=== PATIENT | male | born 1955 | race Hispanic/Latino ===

== ENCOUNTER 2017-10-30 02:15 | Inpatient (IN) | payer BC, SELFPAY ==
[2017-10-30] MEDS ORDERED: ONDANSETRON 4 MG/2 ML VIAL ONE (02:58)
[2017-10-30] MEDS ORDERED: NA CHLORIDE 0.9% 1,000 ML ONE (02:58)
[2017-10-30 03:07] LABS: Absolute Lymphocytes (CBC) 0.4 K/uL (0.7-4.9); Absolute Monocytes 0.3 K/uL (0.1-1.3); Absolute Neutrophil 3.9 K/uL (1.8-8.0); Basophils % 0.3 % (0-1.3); Eosinophils % 0.1 % (0-4.4); Hematocrit 40.3 % (39.6-49.0); Lymphocytes % 9.3 % (15.3-44.8); MCH 28.7 pg (27.0-35.0); MCV 84.7 fL (80-100); MPV 10.2 fL (7.6-11.3); Monocytes % 7.1 % (3.3-12.3); RBC Red Blood Cell Count 4.76 M/uL (4.33-5.43)
[2017-10-30 03:45] LABS: ALT/SGPT 79 U/L (12-78); AST/SGOT 170 U/L (15-37); Albumin 2.8 g/dL (3.4-5.0); Alkaline Phosphatase 59 U/L (45-117); BUN Blood Urea Nitrogen 16 mg/dL (7-18); Bicarbonate 27 mmol/L (21-32); Bilirubin Direct 0.8 mg/dL (0-0.2); Bilirubin Total 1.4 mg/dL (0.2-1.0); Glucose Level 113 mg/dL (74-106); Lipase 603 U/L (73-393); Potassium 3.9 mmol/L (3.5-5.1); Protein, Total 7.6 g/dL (6.4-8.2); Sodium Level 126 mmol/L (136-145)
--- NOTE | 2017-10-30 06:32 | ER ---
Nurse's Notes [facility] Name: Gavin Talamantes Age: 62 yrs Sex: Male : 1955 Arrival Date: 10/30/2017 Time: 02:17 Bed 15 Private MD: Diagnosis: Vomiting;Ileocolitis;Mesenteric and retroperitoneal lymphadenopathy Presentation: 10/30 02:33 Presenting complaint: Patient states: "Unable to eat for the past 6 days. Have been ao vomiting." patient also complains of SOB due to not been able to eat and shaking, shivering and sweating x2 in the last few days. Patient also complains of abdominal pain. Transition of care: patient was not received from another setting of care. Onset of symptoms was October 24, 2017. Risk Assessment: Do you want to hurt yourself or someone else? Patient reports no desire to harm self or others. Initial Sepsis Screen: Does the patient meet any 2 criteria? No. Patient's initial sepsis screen is negative. Does the patient have a suspected source of infection? No. Patient's initial sepsis screen is negative. Care prior to arrival: None. 02:33 Method Of Arrival: Ambulatory ao 02:33 Acuity: IKE 3 ao Triage Assessment: 02:42 General: Appears in no apparent distress. comfortable, Behavior is calm, cooperative, ao appropriate for age. Pain: Complains of pain in abdomen Pain does not radiate. Pain currently is 5 out of 10 on a pain scale. EENT: No signs and/or symptoms were reported regarding the EENT system. Neuro: Level of Consciousness is awake, alert, obeys commands, Oriented to person, place, time, situation, Appropriate for age Moves all extremities. Speech is normal, Facial symmetry appears normal. Cardiovascular: Capillary refill < 3 seconds Patient's skin is warm and dry. Respiratory: Airway is patent Respiratory effort is even, unlabored, Respiratory pattern is regular, symmetrical. GI: Reports. GI: Reports nausea, vomiting, since 6 days ago. : No signs and/or symptoms were reported regarding the genitourinary system. Derm: Skin is intact. Musculoskeletal: Circulation, motion, and sensation intact. Range of motion: intact in all extremities. Historical: - Allergies: 02:41 No Known Allergies; ao - Home Meds: 02:41 lisinopril Oral [Active]; Metformin Oral [Active]; ao - PMHx: 02:41 Diabetes - NIDDM; Hypertension; ao - PSHx: 07:51 left ankle; rb1 - Immunization history:: Adult Immunizations unknown. - Social history:: Smoking status: Patient/guardian denies using tobacco, Patient uses alcohol, on a daily basis. Patient/guardian denies using street drugs, Patient uses alcohol, on a daily basis. claims drinking about a 6 pack/day. - Ebola Screening: : Patient negative for fever greater than or equal to 101.5 degrees Fahrenheit, and additional compatible Ebola Virus Disease symptoms Patient denies exposure to infectious person Patient denies travel to an Ebola-affected area in the 21 days before illness onset. - Family history:: not pertinent. - Hospitalizations: : No recent hospitalization is reported. Screenin:42 Abuse screen: Denies threats or abuse. Denies injuries from another. Nutritional ao screening: No deficits noted. Tuberculosis screening: No symptoms or risk factors identified. Fall Risk None identified. Assessment: 02:44 General: See triage assessment. ao 03:34 Reassessment: Patient appears in no apparent distress at this time. Patient and/or ao family updated on plan of care and expected duration. Pain level reassessed. Patient is alert, oriented x 3, equal unlabored respirations, skin warm/dry/pink. Patient done with contrast. CT notified. 04:15 Reassessment: Patient transported to CT at this time. GI: Abdomen is distended, Reports lp1 nausea, vomiting. 05:30 Reassessment: Patient appears in no apparent distress at this time. Patient is alert, lp1 oriented x 3, equal unlabored respirations, skin warm/dry/pink. patient states feeling full in abdomen, attempted to have BM with no relief. 06:15 Reassessment: Patient appears in no apparent distress at this time. Patient resting, lp1 eyes closed, respirations unlabored. 07:00 General: Appears in no apparent distress. comfortable, Behavior is calm, cooperative. rb1 Pain: Complains of pain in abdomen diffusely Pain currently is 6 out of 10 on a pain scale. Neuro: Level of Consciousness is awake, alert, obeys commands, Oriented to person, place, time, situation. Cardiovascular: Capillary refill < 3 seconds is brisk in bilateral fingers. Respiratory: Airway is patent Respiratory effort is even, unlabored, Respiratory pattern is regular, symmetrical. Derm: scabs noted to the face and left foot. Musculoskeletal: Swelling present in left foot. 07:45 Reassessment: Called report to JOHN Fabian. Information from the [facility] was given. All rb1 questions asked and answered. 07:50 Reassessment: Patient appears in no apparent distress at this time. Patient and/or rb1 family updated on plan of care and expected duration. Pain level reassessed. Patient is alert, oriented x 3, equal unlabored respirations, skin warm/dry/pink. Vital Signs: 02:39 BP 117 / 69; Pulse 92; Resp 16; Temp 99.1(O); Pulse Ox 99% on R/A; Weight 81.65 kg; ao Height 5 ft. 7 in. (170.18 cm); Pain 6/10; 03:34 BP 100 / 69; Pulse 86; Resp 20; Pulse Ox 100% ; Pain 0/10; ao 04:00 BP 117 / 79; Pulse 85; Resp 20; Pulse Ox 100% on R/A; lp1 05:00 BP 120 / 89; Pulse 84; Resp 22; Pulse Ox 100% on R/A; lp1 06:00 BP 116 / 84; Pulse 90; Resp 20; Pulse Ox 99% on R/A; lp1 07:00 BP 107 / 68; Pulse 91; Resp 20; Pulse Ox 100% ; rb1 02:39 Body Mass Index 28.19 (81.65 kg, 170.18 cm) ao ED Course: 02:17 Patient arrived in ED. al2 02:29 Andrew Steiner MD is Attending Physician. rn 02:33 Caden Wahl RN is Primary Nurse. ao 02:39 Triage completed. ao 02:40 Arm band placed on right wrist. Patient placed in an exam room, on a stretcher, on ao oxygen, Patient notified of wait time. 02:44 Patient has correct armband on for positive identification. patient monitor on. Pulse ao ox on. NIBP on. 02:55 Inserted saline lock: 18 gauge in right antecubital area, using aseptic technique. ao ,using aseptic technique. [place] Blood collected. 04:10 Report given to JOHN Bey. ao 04:[address] via wheelchair. kw1 04:36 CT Abd/Pelvis - W/Contrast In Process Unspecified. EDMS 04:36 CT completed. Patient tolerated procedure well. Patient moved back from CT. kw1 06:31 Peter Nelson DO is Hospitalizing Provider. rn 06:47 No provider procedures requiring assistance completed. Patient admitted, IV remains in lp1 place. 07:30 Note: US DONE PORTABLE. hr 07:51 X-ray completed. Portable x-ray completed in exam room. jr1 07:57 Patient admitted, IV remains in place. rb1 Administered Medications: 02:59 Drug: NS 0.9% 1000 ml Route: IV; Rate: 1000 ml; Site: right antecubital; ao 04:00 Follow up: IV Status: Completed infusion; IV Intake: 1000ml lp1 03:00 Drug: Zofran 4 mg Route: IVP; Site: right antecubital; ao 04:00 Follow up: Response: Nausea is decreased lp1 Intake: 04:00 IV: 1000ml; Total: 1000ml. lp1 Outcome: 06:32 Decision to Hospitalize by Provider. rn 06:48 Condition: stable lp1 06:48 Instructed on the need for admit. 07:57 Patient left the ED. rb1 07:57 Admitted to Med/surg accompanied by tech, via wheelchair, room 224, with chart, Report rb1 called to JOHN Fabian 07:57 Condition: stable 07:57 Instructed on the need for admit. Signatures: Dispatcher [employer] EDMS Eva Dooley jr1 Bernarda Joshi Roman, MD MD rn Pena, Laura, RN RN lp1 Tere Nye RN RN rb1 Caden Wahl RN RN ao Peggy Sandoval kw1 Carmen Gautam2 Corrections: (The following items were deleted from the chart) 07:52 02:41 PSHx: None; ao rb1 08:34 08:13 Patient left the ED. rb1 rb1
--- NOTE | 2017-10-30 06:32 | EDPHYS ---
Physician Documentation [facility] Name: Gavin Talamantes Age: 62 yrs Sex: Male : 1955 Arrival Date: 10/30/2017 Time: 02:17 Bed 15 Private MD: ED Physician Andrew Steiner HPI: 10/30 02:47 This 62 yrs old Male presents to ER via Ambulatory with complaints of rn nausea/vomiting/abd pain. 02:47 The patient presents to the emergency department with nausea, vomiting, diarrhea, rn abdominal pain, of the abdomen diffusely. Onset: The symptoms/episode began/occurred 6 day(s) ago. Possible causes: unknown. The symptoms are aggravated by nothing. The symptoms are alleviated by nothing. Severity of symptoms: At their worst the symptoms were moderate in the emergency department the symptoms are unchanged. The patient has not experienced similar symptoms in the past. Reports diffuse abd pain, cramping, constipation, nausea/vomiting, no fever, reports radiates to chest, intermittent, has appetite but can't keep food down. No BM for 5 days.. Historical: - Allergies: 02:41 No Known Allergies; ao - Home Meds: 02:41 lisinopril Oral [Active]; Metformin Oral [Active]; ao - PMHx: 02:41 Diabetes - NIDDM; Hypertension; ao - PSHx: 07:51 left ankle; rb1 - Immunization history:: Adult Immunizations unknown. - Social history:: Smoking status: Patient/guardian denies using tobacco, Patient uses alcohol, on a daily basis. Patient/guardian denies using street drugs, Patient uses alcohol, on a daily basis. claims drinking about a 6 pack/day. - Ebola Screening: : Patient negative for fever greater than or equal to 101.5 degrees Fahrenheit, and additional compatible Ebola Virus Disease symptoms Patient denies exposure to infectious person Patient denies travel to an Ebola-affected area in the 21 days before illness onset. - Family history:: not pertinent. - Hospitalizations: : No recent hospitalization is reported. ROS: 02:47 Constitutional: Negative for fever, chills, and weight loss, Eyes: Negative for injury, rn pain, redness, and discharge, Neck: Negative for injury, pain, and swelling, Cardiovascular: Negative for palpitations, and edema, Respiratory: Negative for shortness of breath, cough, wheezing, and pleuritic chest pain, Abdomen/GI: Negative for diarrhea MS/Extremity: Negative for injury and deformity, Skin: Negative for injury, rash, and discoloration, Neuro: Negative for headache, numbness, tingling, and seizure. Exam: 02:47 Constitutional: This is a well developed, well nourished patient who is awake, alert, rn and in no acute distress. Head/Face: Normocephalic, atraumatic. Eyes: Pupils equal round and reactive to light, extra-ocular motions intact. Lids and lashes normal. Conjunctiva and sclera are non-icteric and not injected. Cornea within normal limits. Periorbital areas with no swelling, redness, or edema. ENT: dry MM Cardiovascular: Regular rate and rhythm with a normal S1 and S2. No gallops, murmurs, or rubs. Normal PMI, no JVD. No pulse deficits. Respiratory: Lungs have equal breath sounds bilaterally, clear to auscultation and percussion. No rales, rhonchi or wheezes noted. No increased work of breathing, no retractions or nasal flaring. Abdomen/GI: soft, + mild tenderness in all 4 quadrants, + periumbilical hernia that is soft and easily reducible. MS/ Extremity: Pulses equal, no cyanosis. Neurovascular intact. Full, normal range of motion. Equal circumference. Neuro: Awake and alert, GCS 15, oriented to person, place, time, and situation. Cranial nerves II-XII grossly intact. Motor strength 5/5 in all extremities. Sensory grossly intact. Vital Signs: 02:39 BP 117 / 69; Pulse 92; Resp 16; Temp 99.1(O); Pulse Ox 99% on R/A; Weight 81.65 kg; ao Height 5 ft. 7 in. (170.18 cm); Pain 6/10; 03:34 BP 100 / 69; Pulse 86; Resp 20; Pulse Ox 100% ; Pain 0/10; ao 04:00 BP 117 / 79; Pulse 85; Resp 20; Pulse Ox 100% on R/A; lp1 05:00 BP 120 / 89; Pulse 84; Resp 22; Pulse Ox 100% on R/A; lp1 06:00 BP 116 / 84; Pulse 90; Resp 20; Pulse Ox 99% on R/A; lp1 07:00 BP 107 / 68; Pulse 91; Resp 20; Pulse Ox 100% ; rb1 02:39 Body Mass Index 28.19 (81.65 kg, 170.18 cm) ao MDM: 02:29 Patient medically screened. rn 06:29 Differential diagnosis: Nonspecific abd pain, gastritis, cholecystitis, pancreatitis, rn viral gastroenteritis, gastroenteritis. Data reviewed: vital signs, nurses notes, lab test result(s), EKG, radiologic studies, CT scan, and as a result, I will admit patient. Counseling: I had a detailed discussion with the patient and/or guardian regarding: the historical points, exam findings, and any diagnostic results supporting the discharge/admit diagnosis, lab results, radiology results, the need for further work-up and treatment in the hospital. Response to treatment: the patient's symptoms have mildly improved after treatment, and as a result, I will admit patient. Admission orders: after a detailed discussion of the patient's condition and case, the admit orders are written by me. 10/30 02:37 Order name: Basic Metabolic Panel; Complete Time: 03:51 10/30 02:37 Order name: CBC with Diff; Complete Time: 03:51 10/30 02:37 Order name: Creatinine for Radiology; Complete Time: 03:51 10/30 02:37 Order name: Hepatic Function; Complete Time: 03:51 10/30 02:37 Order name: Lipase; Complete Time: 03:51 10/30 02:37 Order name: Urine Microscopic Only 10/30 02:37 Order name: Troponin (emerg Dept Use Only); Complete Time: 03:51 10/30 07:06 Order name: NT PRO-BNP [facility] 10/30 07:06 Order name: Urine Drug Screen [facility] 10/30 07:06 Order name: Hemoglobin A1c [facility] 10/30 07:06 Order name: Procalcitonin [facility] 10/30 07:06 Order name: NT PRO-BNP [facility] 10/30 07:06 Order name: T4 Free [facility] 10/30 07:06 Order name: Thyroid Stimulating Hormone [facility] 10/30 07:06 Order name: CBC with Automated Diff [facility] 10/30 07:06 Order name: CBC with Automated Diff [facility] 10/30 07:06 Order name: CBC with Automated Diff [facility] 10/30 07:06 Order name: CBC with Automated Diff [facility] 10/30 07:06 Order name: CBC with Automated Diff [facility] 10/30 07:06 Order name: CBC with Automated Diff ED[facility] 10/30 07:06 Order name: CKMB Creatine Kinase MB ED[facility] 10/30 07:06 Order name: CKMB Creatine Kinase MB EDMS 10/30 07:06 Order name: CKMB Creatine Kinase MB EDMS 10/30 07:06 Order name: Comprehensive Metabolic Panel ED[facility] 10/30 07:06 Order name: Comprehensive Metabolic Panel ED[facility] 10/30 07:06 Order name: Comprehensive Metabolic Panel ED[facility] 10/30 07:06 Order name: Comprehensive Metabolic Panel ED[facility] 10/30 07:06 Order name: Comprehensive Metabolic Panel ED[facility] 10/30 07:06 Order name: Comprehensive Metabolic Panel ED[facility] 10/30 07:06 Order name: Creatine Phosphokinase [facility] 10/30 02:37 Order name: IV Saline Lock; Complete Time: 03:00 rn 10/30 02:37 Order name: Labs collected and sent; Complete Time: 03:00 rn 10/30 02:37 Order name: CT Abd/Pelvis - W/Contrast rn 10/30 02:37 Order name: EKG; Complete Time: 02:39 rn 10/30 02:37 Order name: EKG - Nurse/Tech; Complete Time: 02:59 rn 10/30 07:06 Order name: CONS Physician Consult EDMS 10/30 07:06 Order name: NPO EDMS 10/30 07:06 Order name: Echo with Doppler EDMS 10/30 07:06 Order name: Creatine Phosphokinase EDMS 10/30 07:06 Order name: Creatine Phosphokinase EDMS 10/30 07:06 Order name: Lipid Profile EDMS 10/30 07:06 Order name: Lipid Profile EDMS 10/30 07:06 Order name: Magnesium EDMS 10/30 07:06 Order name: Magnesium EDMS 10/30 07:06 Order name: Magnesium EDMS 10/30 07:06 Order name: Magnesium EDMS 10/30 07:06 Order name: Magnesium EDMS 10/30 07:06 Order name: Magnesium EDMS 10/30 07:06 Order name: Troponin I EDMS 10/30 07:06 Order name: Troponin I EDMS 10/30 07:06 Order name: Troponin I EDMS 10/30 07:06 Order name: Blood Culture ED[facility] 10/30 07:06 Order name: Clostridium difficile DNA [facility] 10/30 07:06 Order name: Urine Culture [facility] 10/30 07:07 Order name: Hepatitis Panel,Acute [facility] 10/30 07:07 Order name: HIV AG/AB SCREEN [facility] 10/30 07:07 Order name: Chest Single View [facility] 10/30 07:07 Order name: Abdomen Exam Complete EDMS Administered Medications: 02:59 Drug: NS 0.9% 1000 ml Route: IV; Rate: 1000 ml; Site: right antecubital; ao 04:00 Follow up: IV Status: Completed infusion; IV Intake: 1000ml lp1 03:00 Drug: Zofran 4 mg Route: IVP; Site: right antecubital; ao 04:00 Follow up: Response: Nausea is decreased lp1 Disposition: 10/30/17 06:32 Hospitalization ordered by Peter Nelson for Inpatient Admission. Preliminary diagnosis are Vomiting, Ileocolitis, Mesenteric and retroperitoneal lymphadenopathy. - Bed requested for Telemetry/MedSurg (Inpatient). - Status is Inpatient Admission. rb1 - Condition is Stable. - Problem is an ongoing problem. - Symptoms have improved. UTI on Admission? No Signatures: Dispatcher [employer] [facility] Patricia Dhaliwal RN RN Andrew Steiner MD MD rn Pena, Laura, RN RN lp1 Tere Nye, RN RN rb1 Caden Wahl RN RN Malena Smallwood Corrections: (The following items were deleted from the chart) 06:36 06:32 Hospitalization Ordered by Peter Nelson DO for Inpatient Admission. Preliminary diagnosis is Vomiting; Ileocolitis; Mesenteric and retroperitoneal lymphadenopathy. Bed requested for Telemetry/MedSurg (Inpatient). Status is Inpatient Admission. Condition is Stable. Problem is an ongoing problem. Symptoms have improved. UTI on Admission? No. rn 06:53 06:36 10/30/2017 06:32 Hospitalization Ordered by Peter Nelson DO for Inpatient eb Admission. Preliminary diagnosis is Vomiting; Ileocolitis; Mesenteric and retroperitoneal lymphadenopathy. Bed requested for Telemetry/MedSurg (Inpatient). Status is Inpatient Admission. Condition is Stable. Problem is an ongoing problem. Symptoms have improved. UTI on Admission? No. pedro 07:52 02:41 PSHx: None; ao rb1 08:13 06:53 10/30/2017 06:32 Hospitalization Ordered by Peter Nelson DO for Inpatient rb1 Admission. Preliminary diagnosis is Vomiting; Ileocolitis; Mesenteric and retroperitoneal lymphadenopathy. Bed requested for Telemetry/MedSurg (Inpatient). Status is Inpatient Admission. Condition is Stable. Problem is an ongoing problem. Symptoms have improved. UTI on Admission? No. eb
[2017-10-30] MEDS ORDERED: SODIUM CHLORIDE 0.9% 10ML INJ IV PRN (06:55)
[2017-10-30] MEDS ORDERED: ACETAMINOPHEN 500 MG TAB PO PRN (06:55)
[2017-10-30] MEDS ORDERED: ACETAMINOPHEN 650MG/RECT SUPP PR PRN (06:55)
[2017-10-30] MEDS ORDERED: MORPHINE 4 MG/ML SYR IV PRN (06:55)
[2017-10-30] MEDS ORDERED: HYDRALAZINE HCL 20 MG/ML VIAL IV PRN (06:55)
[2017-10-30] MEDS ORDERED: ONDANSETRON 4 MG/2 ML VIAL IV PRN (06:55)
--- NOTE | 2017-10-30 07:12 | P.HP ---
Certification for Inpatient Patient admitted to: Inpatient With expected LOS: >2 Midnights Patient will require the following post-hospital care: None Practitioner: I am a practitioner with admitting privileges, knowledge of patient current condition, hospital course, and medical plan of care. Services: Services provided to patient in accordance with Admission requirements found in Title 42 Section 412.3 of the Code of Federal Regulations Patient History Date of Service: 10/30/17 Primary Care Provider: Dr. Alvarenga Reason for admission: Nausea, vomiting, Abdominal pain History of Present Illness: 62 yo HM presented to the ER with abdominal pain, nausea, vomiting and diarrhea. He reports that this started about 6 days ago. He has diffuse pain that radiates all over his abdomen. His nausea and vomiting is getting worse that it has been hard to keep anything down. No fever or chills is noted. He reports some mild diarrhea. He is a heavy drinker and has DM/HTN. He further reports that he stopped his alcohol about 2 weeks ago. He reports going through some mild withdraw. No agitation or tremors noted. In the ER he was found to have elevated Lipase at 603. Liver function was elevated. AST 170, AST-79. Trop 0.06, Na 126, K-3.9. CT scan was abnormal for multiple issues-abnormal mesenteric/retroperitoneal lymph nodes with enlarged gastrohepatic lymph nodes measuring 4 by 3 by 2 cm. Enlarged portohepatic lymph noded measurinng 3 by 2 by 1.9 cm. Lymphoma versus metastatic disease needs to be considered. Cirrhosis with splenomegaly noted with related portal HTN. Thickened wall to the terminal ileum and right colon. Enlarged prostate is noted. Bilateral inguinal hernia noted. Due to the findings, he was admitted for further treatment. When I saw him in the ER he appeared stable. He did not appear septic and with respiratory distress. He admits to drinking about 12 pack per day but stopped about 2 weeks ago. He is a former smoker. He is taking medication for HTN/DM. Allergies No Known Allergies Allergy (Verified 07/14/15 14:34) Home medications list reviewed: Yes Home Medications: Lisinopril [Prinivil*] 10 mg PO DAILY 02/23/14 Metformin HCl [Glucophage*] 500 mg PO BID 02/23/14 - Past Medical/Surgical History Diabetic: Yes -: DM Type 2 -: HTN -: Alcohol abuse -: Former tobacco use -: Left ankle sx, has plate and pins -: Appendectomy -: Joint Replacement Psychosocial/ Personal History: 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 - Family History Father -: Heart disease - Social History Smoking Status: Former smoker Alcohol use: Yes CD- Drugs: No Caffeine use: Yes Place of Residence: Home Review of Systems General: Weakness Eyes: Unremarkable ENT: Unremarkable Respiratory: As per HPI Cardiovascular: Unremarkable Gastrointestinal: Nausea, Vomiting, Abdominal Pain, Diarrhea, As per HPI Genitourinary: Unremarkable Musculoskeletal: Pedal edema, As per HPI Neurological: Unremarkable Lymphatics: Unremarkable Physical Examination - Physical Exam General: Alert, In no apparent distress, Oriented x3, Cooperative HEENT: Atraumatic, Normocephalic, PERRLA, Other (Dry mucous membranes) Neck: Supple Respiratory: Clear to auscultation bilaterally, Normal air movement Cardiovascular: Normal pulses, Regular rate/rhythm Gastrointestinal: Normal bowel sounds, Soft and benign, Non-distended, No masses , No rebound, No guarding, Tenderness (Pain to the right upper quadrant and epigastric region) Musculoskeletal: No erythema, No tenderness, No warmth Integumentary: No erythema, No warmth, No cyanosis, Tenderness/swelling ( Nonpitting edema to the lower extremities, mild) Neurological: Normal speech, Normal strength at 5/5 x4 extr, Normal tone, Normal affect - Studies Laboratory Data (last 24 hrs) 10/30/17 02:52: Creatinine 0.70 10/30/17 02:52: WBC 4.7, Hgb 13.7, Hct 40.3, Plt Count 103 L 10/30/17 02:52: Sodium 126 L, Potassium 3.9, BUN 16, Creatinine 0.70, Glucose 113 H, Total Bilirubin 1.4 H, AST 170 H, ALT 79 H, Alkaline Phosphatase 59, Lipase 603 H Assessment and Plan - Problems (Diagnosis) (1) Colitis Current Visit: Yes Status: Acute Plan: Right-sided colitis noted. Will continue IV fluids, antibiotic therapy. GI consulted. Patient with other multiple medical problems including pancreatitis , cirrhosis, splenomegaly, possible CHF. Patient with history of hypertension, diabetes. Will keep the patient NPO. Will advance diet as tolerated. Will monitor diarrhea for C diff. Blood in urine cultures obtained. (2) Pancreatitis Current Visit: Yes Status: Acute Plan: This may be related to alcohol. Patient with heavy alcohol use. His last use of alcohol was about 2 weeks ago. Will continue as above. Will monitor closely. With advance diet once improved. Qualifiers: Chronicity: acute Pancreatitis type: alcohol induced Acute pancreatitis complication: no infection or necrosis Qualified Code(s): K85.20 - Alcohol induced acute pancreatitis without necrosis or infection (3) Cirrhosis Current Visit: Yes Status: Chronic Plan: Cirrhosis likely chronic from fatty liver and alcohol abuse. Will monitor closely. Will check hepatitis panel. GI consulted. Continue as above. Qualifiers: Hepatic cirrhosis type: alcoholic cirrhosis Ascites presence: without ascites Qualified Code(s): K70.30 - Alcoholic cirrhosis of liver without ascites (4) Elevated troponin Current Visit: Yes Status: Acute Plan: Troponin slightly elevated. Will assess for CHF. Cardiology consulted. Await further recommendations. (5) CHF (congestive heart failure) Current Visit: Yes Status: Suspected Plan: Suspect chronic CHF. Patient does not appear overloaded at this time. Patient with a recent nausea and vomiting. Patient likely volume depleted. Will continue IV fluids. Will order echocardiogram. Cardiology consulted. Qualifiers: Heart failure type: systolic Heart failure chronicity: chronic Qualified Code(s): I50.22 - Chronic systolic (congestive) heart failure (6) Abnormal CT scan Current Visit: Yes Status: Acute Plan: Multiple lymphadenopathy noted. Lymphoma versus metastatic disease versus reactive in nature. Will continue as above. Will discuss with GI. Patient will likely need endoscopy evaluation. (7) Splenomegaly Current Visit: Yes Status: Chronic Plan: This is likely chronic related to cirrhosis. Will monitor closely. (8) Nausea & vomiting Current Visit: Yes Status: Acute Plan: Continue with IV fluids. Will provide medication for nausea. Continue as above. Qualifiers: Vomiting type: unspecified Vomiting Intractability: unspecified Qualified Code(s): R11.2 - Nausea with vomiting, unspecified (9) Diarrhea Current Visit: Yes Status: Acute Plan: Will evaluate for C diff colitis. Will monitor closely. Likely related to colitis. Qualifiers: Diarrhea type: unspecified type Qualified Code(s): R19.7 - Diarrhea, unspecified (10) Lymphadenopathy Current Visit: Yes Status: Chronic Plan: Lymphadenopathy likely chronic. Continue as above. Await GI evaluation. (11) Elevated liver enzymes Current Visit: Yes Status: Acute Plan: Likely related to above with multiple etiologies. HIV, Hepatitis panel pending. (12) Diabetes mellitus Onset Date: 02/24/14 Current Visit: No Status: Chronic Plan: Will check A1c. Will provide sliding-scale this time. We will hold metformin. Qualifiers: Diabetes mellitus type: type 2 Diabetes mellitus intermediate card tender insulin use: without intermediate card tender use Diabetes mellitus complication status: with other specified complication Qualified Code(s): E11.69 - Type 2 diabetes mellitus with other specified complication (13) Hypertension Onset Date: 02/24/14 Current Visit: No Status: Chronic Plan: Will hold blood pressure medication at this time. Will provide medication as needed. Qualifiers: Hypertension type: essential hypertension Qualified Code(s): I10 - Essential (primary) hypertension (14) Hyponatremia Onset Date: 07/19/15 Current Visit: No Status: Acute Plan: Patient likely volume depleted. Will continue with IV fluids. (15) Fatty liver Current Visit: Yes Status: Chronic Plan: Patient with fatty liver. Patient likely with cirrhosis related to fatty liver and alcohol. GI consulted. (16) GERD (gastroesophageal reflux disease) Current Visit: Yes Status: Suspected Plan: Will provide PPI. Will monitor closely. Qualifiers: Esophagitis presence: esophagitis presence not specified Qualified Code(s) : K21.9 - Gastro-esophageal reflux disease without esophagitis (17) Alcohol abuse Current Visit: Yes Status: Chronic Plan: Patient with history of alcohol abuse. Will provide folic acid and thiamine. Patient last use of alcohol was about 2 weeks ago. He apparently went through some mild withdrawal. Will monitor closely. Discharge Plan: Home Plan to discharge in: Greater than 2 days - Advance Directives Does patient have a Living Will: No Does patient have a Durable POA for Healthcare: No - Code Status/Comfort Care Code Status Assessed: Yes Time Spent Managing Pts Care (In Minutes): 55
--- NOTE | 2017-10-30 08:15 | RAD REPORT ---
EXAM DESCRIPTION: CTAbdomen Pelvis W Contrast - 10/30/2017 4:36 am CLINICAL HISTORY: Abdominal pain. Abd pain;Nausea / vomiting COMPARISON: No comparisons TECHNIQUE: Biphasic CT imaging of the abdomen and pelvis was performed with 100 ml non-ionic IV cont rast. All CT scans are performed using dose optimization technique as appropriate and may include automated exposure control or mA/KV adjustment according to patient size. FINDINGS: The lung bases are clear. Diffuse fatty liver is seen. The liver appears mildly enlarged with subtle nodular suggesting mild ci rrhosis. 7 mm hypodense lesion is seen in the right lobe of the liver, nonspecific. Mild splenomegaly is present. Contracted gallbladder noted. The adrenal glands, pancreas and kidneys within normal chowdary its. No bowel obstruction, free air, free fluid or abscess. Small fat containing umbilical hernia. Small b ilateral fat containing inguinal hernias. The appendix is not identified as a discrete structure, how ever, no secondary findings of appendicitis are identified. A few mildly prominent inguinal, para-a ortic and central abdominal lymph nodes are seen. Gastrohepatic lymph nodes are also noted to be prom inent measuring, the largest measuring 4.0 x 3.1 cm. Scott hepatis adenopathy is also present measuri ng 2.8 x 2.0 cm. No suspicious bony findings. IMPRESSION: Mild lymphadenopathy seen in the abdomen and pelvis as detailed. Followup PET-CT assessm ent would be useful for further evaluation. Hepatomegaly with prominent fatty liver and mild liver cirrhosis. Moderate splenomegaly.
--- NOTE | 2017-10-30 08:20 | RAD REPORT ---
EXAM DESCRIPTION: RAD - Chest Single View - 10/30/2017 7:53 am CLINICAL HISTORY: Evaluate for CHF Chest pain. COMPARISON: CHEST SINGLE VIEW dated 02/24/2014; CHEST SINGLE VIEW dated 02/23/2014; CHEST SINGLE VIE W dated 07/13/2009; CHEST PA AND LAT 2 VIEW dated 04/16/2008 FINDINGS: Portable technique limits examination quality. The lungs are grossly clear. The heart is normal in size. No displaced fractures. IMPRESSION: No acute intrathoracic process suspected.
[2017-10-30 08:27] VITALS: BMI 29.1
[2017-10-30] MEDS: NA CHLORIDE 0.9% 1,000 ML IV SCH ×2 (08:39→16:16)
[2017-10-30 08:41] LABS: Thyroid Stimulating Hormone 1.65 uIU/mL (0.36-3.74)
--- NOTE | 2017-10-30 08:41 | RAD REPORT ---
EXAM DESCRIPTION: US - Abdomen Exam Complete - 10/30/2017 7:52 am CLINICAL HISTORY: Abdominal pain. pancreatitis, Right colitis, cirrhosis, lymphadenopathy COMPARISON: RP EXAM COMPLETE dated 07/13/2015; Abdomen Pelvis W Contrast dated 10/30/2017 FINDINGS: Diffuse heterogenous appearance to the liver is parenchyma is seen. Liver size is prominen t with diffuse fatty infiltration. No aggressive hepatic lesion is detected. Gallbladder is contracted without evidence of a stone. Thickening of the gallbladder wall is noted to 5 mm, probably related to its contracted state. Common bile duct is normal in caliber measuring 4 m m. Both kidneys are normal in size, shape and echotexture. No hydronephrosis, focal lesion of concern or perinephric fluid. The spleen is enlarged measuring 18 cm. The pancreas and aorta are obscured by bowel gas. The visualized aspects of the IVC are grossly normal. IMPRESSION: Hepatomegaly with diffuse fatty infiltration of the liver suspected. Splenomegaly. Gallbladder contraction.
[2017-10-30] MEDS: METRONIDAZOLE 500mg IVPB 500 MG/100 ML BAG IV SCH ×2 (08:43→16:15)
[2017-10-30] MEDS: CIPROFLOXACIN 400mg IV 400 MG/200 ML BAG IV SCH ×2 (08:43→22:09)
[2017-10-30] MEDS: PANTOPRAZOLE 40 MG INJ IVP SCH (08:44)
[2017-10-30] MEDS: ENOXAPARIN 40 MG/0.4 ML SQ SCH (08:44)
[2017-10-30] MEDS: INSULIN -REGULAR HUMAN 50 UNIT/0.5 ML ML SQ SCH ×2 (11:54→17:45)
[2017-10-30 11:57] LABS: Urine Appearance CLEAR; Urine Blood 2+ (NEG); Urine Color DK YELLOW; Urine Glucose NEGATIVE (NEG); Urine Protein NEGATIVE (NEG); Urine Specific Gravity >=1.030 (1.005-1.030)
[2017-10-30 12:21] LABS: Urine Bilirubin 1+ (NEG); Urine Microscopic Reflex ORDER UMIC
[2017-10-30 12:29] LABS: Barbiturates NEGATIVE (NEGATIVE); Benzodiazepines NEGATIVE (NEGATIVE); Cocaine NEGATIVE (NEGATIVE); METHAMPHETAM NEGATIVE (NEGATIVE); Methadone NEGATIVE (NEGATIVE); Opiates NEGATIVE (NEGATIVE); Phencyclidine NEGATIVE (NEGATIVE); THC Cannibis NEGATIVE (NEGATIVE)
[2017-10-30 12:41] LABS: Urine Bacteria <20 /HPF (NONE SEEN)
[2017-10-30 12:42] LABS: Urine Culture Reflex Order NOT NEEDED
--- NOTE | 2017-10-30 15:42 | EKG ---
Test Date: 2017-10-30 Test Time: 02:50:56 Director Advertising: JACLYN MEASUREMENT RESULTS: Intervals: Rate: 87 IN: 166 QRSD: 104 QT: 344 QTc: 413 [place]: P: 40 IN: 166 QRS: 96 T: 13 INTERPRETIVE STATEMENTS: Normal sinus rhythm Rightward axis Borderline ECG Compared to ECG 02/23/2014 16:30:07 Right-axis deviation now present T-wave abnormality no longer present Possible ischemia no longer present Electronically Signed On 10-30-17 15:40:36 CDT by Kp Mitchell
[2017-10-30] MEDS ORDERED: GLUCAGON 1 MG/VIAL IM PRN (15:58)
[2017-10-30] MEDS ORDERED: D50W 25 GM/50 ML SYRINGE IV PRN (15:58)
--- NOTE | 2017-10-30 16:01 | ECHO ---
HEIGHT: 5 ft 7 in WEIGHT: 186 lb 2 oz DATE OF STUDY: 10/30/[address]: Peter Nelson DO 2-DIMENSIONAL: YES M.MODE: YES DOPPLER: YES COLOR FLOW: YES TDS: NO PORTABLE: NO DEFINITY: NO BUBBLE STUDY: NO DIAGNOSIS: EVALUATE FOR CONGESTIVE HEART FAILURE CARDIAC HISTORY: CATHERIZATION: NO SURGERY: NO PROSTHETIC VALVE: NO PACEMAKER: NO MEASUREMENTS (cm) DIASTOLIC (NORMALS) SYSTOLIC (NORMALS) IVSd 1.3 (0.6-1.2) LA Diam 3.9 (1.9-4.0) LVEF 52% LVIDd 5.2 (3.5-5.7) LVIDs 3.8 (2.0-3.5) %FS 27% LVPWd 1.3 (0.6-1.2) Ao Diam 3.4 (2.0-3.7) 2 DIMENSIONAL ASSESSMENT: RIGHT ATRIUM: NORMAL LEFT ATRIUM: NORMAL RIGHT VENTRICLE: NORMAL LEFT VENTRICLE: LEFT VENTRICULAR HYPERTROPHY TRICUSPID VALVE: NORMAL MITRAL VALVE: NORMAL PULMONIC VALVE: NORMAL AORTIC VALVE: SCLEROSIS PERICARDIAL EFFUSION: NONE AORTIC ROOT: NORMAL LEFT VENTRICULAR WALL MOTION: NORMAL DOPPLER/COLOR FLOW: MILD TRICUPSID REGURGITATION. COMMENTS: MILD TRICUSPID REGURGITATION. NORMAL RIGHT VENTRICULAR SYSTOLIC PRESSURE. MILD CONCENTRIC LEFT VENTRICULAR HYPERTROPHY. NORMAL LEFT VENTRICULAR SIZE AND FUNCTION. NO THROMBUS. AORTIC SCLEROSIS. TECHNOLOGIST: Rashard RODRIGUEZ
[2017-10-30] MEDS ORDERED: MORPHINE 2 MG/ML SYR IV PRN (16:05)
--- NOTE | 2017-10-30 18:21 | CON ---
Admitted to Dr. Nelson service on 10/30/2017. Reason For Consultation: Elevated troponin and shortness of breath. History Of Present Illness: Mr. Talamantes is a 62-year-old male with history of diabete s and hypertension. No previous cardiac history. Takes lisinopril and metformin. He came in with n ausea, vomiting, abdominal pain. Has a history of alcohol abuse. Was found to have lymphadenopathy in the abdomen on CT scan along with pancreatitis and colitis and hepatomegaly as well as splenomegal y. The troponin was 0.06, AST 170, ALT was 79 with a lipase of 579. CT findings also suggestive of cirrhosis. Echocardiogram that was done before I saw the patient showed a normal ejection fraction w ithout any wall motion abnormalities and no effusion. Allergies: NONE. Review of Systems: Negative. Social History: Positive for alcohol. Physical Examination: Vital Signs: Stable. Afebrile. HEENT: Negative. Neck: Supple without any bruit, lymphadenopathy, JVD, or thyromegaly. Chest: Revealed some rales at both bases. Abdomen: Obese. Ascites. Positive bowel sounds. Cardiac: Regular rhythm and rate without any murmurs, gallops, or rubs. Extremities: Revealed 1+ edema. Diagnostic Data: As stated earlier. His EKG was unremarkable. Chest x-ray was negative. Impression And Plan: 1.Elevated troponin, probably secondary to the combination of pancreatitis and colitis as well as ci rrhosis. He has hepatic splenomegaly, lymphadenopathy. He needs to have an extensive GI workup. Hi s echocardiogram is normal without any wall motion abnormalities and I do not recommend any further c ardiac workup on him at this point. 2.Diabetes. 3.Hypertension that is fairly well controlled for now. I will be available for questions if the nee d arise. NB/MODL Voice ID: [id number] Report ID: [id number]
[2017-10-31] MEDS: METRONIDAZOLE 500mg IVPB 500 MG/100 ML BAG IV SCH ×3 (00:23→16:27)
[2017-10-31 00:38] LABS: CKMB Creatine Kinase MB 12.1 ng/mL (0.3-3.6)
[2017-10-31 05:29] LABS: Absolute Lymphocytes (CBC) 0.4 K/uL (0.7-4.9); Absolute Monocytes 0.3 K/uL (0.1-1.3); Absolute Neutrophil 2.7 K/uL (1.8-8.0); Basophils % 0.3 % (0-1.3); Eosinophils % 0.3 % (0-4.4); Hematocrit 36.7 % (39.6-49.0); Lymphocytes % 10.6 % (15.3-44.8); MCH 28.8 pg (27.0-35.0); MCV 85.4 fL (80-100); MPV 9.8 fL (7.6-11.3); Monocytes % 10.1 % (3.3-12.3)
[2017-10-31] MEDS: NA CHLORIDE 0.9% 1,000 ML IV SCH ×3 (05:46→23:37)
[2017-10-31 05:50] LABS: ALT/SGPT 71 U/L (12-78); AST/SGOT 144 U/L (15-37); Albumin 2.5 g/dL (3.4-5.0); Alkaline Phosphatase 53 U/L (45-117); Amylase Level 200 U/L (25-115); BUN Blood Urea Nitrogen 13 mg/dL (7-18); Bicarbonate 24 mmol/L (21-32); Bilirubin Total 1.1 mg/dL (0.2-1.0); Glucose Level 96 mg/dL (74-106); HDL Cholesterol 9 mg/dL (40-60); LDL Cholesterol, Calculated 20 (<130); Magnesium 1.5 mg/dL (1.8-2.4); Potassium 3.9 mmol/L (3.5-5.1); Protein, Total 6.9 g/dL (6.4-8.2); Sodium Level 126 mmol/L (136-145)
[2017-10-31] MEDS ORDERED: Magnesium Sulfate 2gm IVPB 2 G/50 ML BAG IV ONE (05:58)
[2017-10-31] MEDS: INSULIN -REGULAR HUMAN 50 UNIT/0.5 ML ML SQ SCH ×5 (06:00→23:37)
[2017-10-31] MEDS ORDERED: POTASSIUM 25 MEQ EFFERV TAB PO ONE (06:04)
--- NOTE | 2017-10-31 08:56 | P.PN ---
Subjective Date of Service: 10/31/17 Primary Care Provider: Dr. Alvarenga Chief Complaint: Nausea, vomiting, Abdominal pain Subjective: Improving (Patient feels better. He tolerated clear liquid diet last night. Patient wants something more substantial today. No significant abdominal pain noted.) Physical Examination - Vital Signs Temperature: 98.3 F Blood Pressure: 124/75 Pulse: 92 Respirations: 20 Pulse Ox (%): 96 - Physical Exam General: Alert, In no apparent distress, Oriented x3, Cooperative HEENT: Atraumatic Neck: Supple Respiratory: Clear to auscultation bilaterally, Normal air movement Cardiovascular: Normal pulses, Regular rate/rhythm Gastrointestinal: Normal bowel sounds, Soft and benign, Non-distended, No tenderness, No masses, No rebound, No guarding Musculoskeletal: No erythema, No tenderness, No warmth Integumentary: Tenderness/swelling (No significant edema to the lower extremities. Mild nonpitting edema to the left ankle region) Neurological: Normal speech, Normal strength at 5/5 x4 extr, Normal tone, Normal affect - Studies Medications List Reviewed: Yes Assessment & Plan - Problems (Diagnosis) (1) Colitis Current Visit: Yes Status: Acute Plan: Right-sided colitis noted. Will continue with IV fluids and antibiotic therapy. Case discussed with GI yesterday. Will slowly advance diet. Patient desires GI soft today. Encourage ambulation. Will continue monitor closely. C diff is still pending. (2) Pancreatitis Current Visit: Yes Status: Acute Plan: Likely related to alcohol use. Patient with a history of heavy alcohol use. Patient plans to quit. His last use of alcohol was 2 weeks ago. Will continue to advance diet as tolerated. Continue IV fluids. Qualifiers: Qualified Code(s): K85.20 - Alcohol induced acute pancreatitis without necrosis or infection (3) Cirrhosis Current Visit: Yes Status: Chronic Plan: Cirrhosis likely chronic from fatty liver and alcohol abuse. Case discussed with GI. No intervention needed at this time. Patient will need to see hepatology as an outpatient to further address. Qualifiers: Qualified Code(s): K70.30 - Alcoholic cirrhosis of liver without ascites (4) Elevated troponin Current Visit: Yes Status: Acute Plan: Troponin slightly elevated. Echocardiogram reviewed. Cardiology recommends no intervention at this time. Elevation likely related to GI related stress. (5) CHF (congestive heart failure) Current Visit: Yes Status: Suspected Plan: Will discuss with cardiology. Patient may have underlying diastolic dysfunction. Ejection fraction 52%. Patient will need diuretic therapy once he is better hydrated. Qualifiers: Qualified Code(s): I50.22 - Chronic systolic (congestive) heart failure (6) Abnormal CT scan Current Visit: Yes Status: Acute Plan: Multiple lymphadenopathy noted. Lymphoma versus metastatic disease versus reactive in nature. Continue as above. Case discussed with GI. No intervention needed at this time. This can be further addressed as an outpatient. (7) Splenomegaly Current Visit: Yes Status: Chronic Plan: This is likely chronic related to cirrhosis. Will monitor closely. (8) Nausea & vomiting Current Visit: Yes Status: Acute Plan: Continue with IV fluids. Will provide medication for nausea. Continue as above. Qualifiers: Qualified Code(s): R11.2 - Nausea with vomiting, unspecified (9) Diarrhea Current Visit: Yes Status: Acute Plan: Will evaluate for C diff colitis. Will monitor closely. Likely related to colitis. Qualifiers: Qualified Code(s): R19.7 - Diarrhea, unspecified (10) Lymphadenopathy Current Visit: Yes Status: Chronic Plan: Lymphadenopathy likely chronic. Continue as above. Will discuss further with GI. (11) Elevated liver enzymes Current Visit: Yes Status: Acute Plan: Likely related to above with multiple etiologies. HIV, Hepatitis panel pending. (12) Diabetes mellitus Onset Date: 02/24/14 Current Visit: No Status: Chronic Plan: Continue sliding scale. A1c 5.4. Qualifiers: Qualified Code(s): E11.69 - Type 2 diabetes mellitus with other specified complication (13) Hypertension Onset Date: 02/24/14 Current Visit: No Status: Chronic Plan: Blood pressure stable this time. No need for medication. Qualifiers: Qualified Code(s): I10 - Essential (primary) hypertension (14) Hyponatremia Onset Date: 07/19/15 Current Visit: No Status: Acute Plan: Patient likely volume depleted. Will continue with IV fluids. (15) Fatty liver Current Visit: Yes Status: Chronic Plan: Patient with fatty liver. Patient likely with cirrhosis related to fatty liver and alcohol. Continue as above. (16) GERD (gastroesophageal reflux disease) Current Visit: Yes Status: Suspected Plan: Will provide PPI. Will monitor closely. Patient will need GI evaluation/EGD as an outpatient. Qualifiers: Qualified Code(s): K21.9 - Gastro-esophageal reflux disease without esophagitis (17) Alcohol abuse Current Visit: Yes Status: Chronic Plan: Patient with history of alcohol abuse. Will provide folic acid and thiamine. Patient last use of alcohol was about 2 weeks ago. He apparently went through some mild withdrawal. Will monitor closely. Discharge Plan: Home Plan to discharge in: 48 Hours Time Spent Managing Pts Care (In Minutes): 55
[2017-10-31] MEDS ORDERED: FOLIC ACID 1 MG, MULTIVITAMINS INJ 10 ML, THIAMINE HCL 100 MG in NA CHLORIDE 0.9% 1,000 ML IV SCH (09:00)
[2017-10-31] MEDS: ENOXAPARIN 40 MG/0.4 ML SQ SCH (09:34)
[2017-10-31] MEDS: PANTOPRAZOLE 40 MG INJ IVP SCH (09:34)
[2017-10-31] MEDS: CIPROFLOXACIN 400mg IV 400 MG/200 ML BAG IV SCH ×2 (09:35→20:12)
[2017-11-01] MEDS: METRONIDAZOLE 500mg IVPB 500 MG/100 ML BAG IV SCH ×2 (00:01→09:40)
[2017-11-01 05:59] LABS: Absolute Lymphocytes (CBC) 0.4 K/uL (0.7-4.9); Absolute Monocytes 0.4 K/uL (0.1-1.3); Absolute Neutrophil 2.4 K/uL (1.8-8.0); Basophils % 0.5 % (0-1.3); Eosinophils % 0.9 % (0-4.4); Hematocrit 36.9 % (39.6-49.0); Lymphocytes % 12.7 % (15.3-44.8); MCH 28.6 pg (27.0-35.0); MCV 85.4 fL (80-100); MPV 9.7 fL (7.6-11.3); Monocytes % 11.5 % (3.3-12.3); RBC Red Blood Cell Count 4.32 M/uL (4.33-5.43)
[2017-11-01 06:27] LABS: ALT/SGPT 78 U/L (12-78); AST/SGOT 151 U/L (15-37); Albumin 2.4 g/dL (3.4-5.0); Alkaline Phosphatase 58 U/L (45-117); Amylase Level 175 U/L (25-115); BUN Blood Urea Nitrogen 9 mg/dL (7-18); Bicarbonate 27 mmol/L (21-32); Glucose Level 102 mg/dL (74-106); Magnesium 1.7 mg/dL (1.8-2.4); Potassium 3.7 mmol/L (3.5-5.1); Protein, Total 6.5 g/dL (6.4-8.2); Sodium Level 128 mmol/L (136-145)
[2017-11-01] MEDS: INSULIN -REGULAR HUMAN 50 UNIT/0.5 ML ML SQ SCH ×2 (07:30→11:26)
[2017-11-01] MEDS ORDERED: POTASSIUM CL SA 10 MEQ TAB PO ONE (07:30)
[2017-11-01] MEDS ORDERED: MAGNESIUM SULFATE 1 gm IVPB 1 GM/100 ML BAG IV ONE (07:30)
[2017-11-01 08:59] VITALS: O2SAT 95
[2017-11-01] MEDS ORDERED: SPIRONOLACTONE 25 MG TABLET PO SCH (09:00)
[2017-11-01] MEDS ORDERED: THIAMINE HCL 100 MG TABLET PO SCH (09:00)
[2017-11-01] MEDS ORDERED: FOLIC ACID 1 MG TABLET PO SCH (09:00)
[2017-11-01 09:02] VITALS: TEMP 98.5
[2017-11-01] MEDS: ENOXAPARIN 40 MG/0.4 ML SQ SCH (09:40)
[2017-11-01] MEDS: PANTOPRAZOLE 40 MG INJ IVP SCH (09:40)
[2017-11-01] MEDS: CIPROFLOXACIN 400mg IV 400 MG/200 ML BAG IV SCH (09:40)
--- NOTE | 2017-11-01 09:41 | P.DS ---
Admission Date: 10/30/17 Discharge Date: 11/01/17 Primary Care Provider: Dr. Alvarenga Disposition: ROUTINE DISCHARGE Discharge Condition: GOOD Reason for Admission: Nausea, vomiting, Abdominal pain Consultations: GI-Dr. Galvez Cardiology-Dr. Mitchell Procedures: CT scan: COMPARISON: No comparisons TECHNIQUE: Biphasic CT imaging of the abdomen and pelvis was performed with 100 ml non-ionic IV contrast. All CT scans are performed using dose optimization technique as appropriate and may include automated exposure control or mA/KV adjustment according to patient size. FINDINGS: The lung bases are clear. Diffuse fatty liver is seen. The liver appears mildly enlarged with subtle nodular suggesting mild cirrhosis. 7 mm hypodense lesion is seen in the right lobe of the liver, nonspecific. Mild splenomegaly is present. Contracted gallbladder noted. The adrenal glands, pancreas and kidneys within normal limits. No bowel obstruction, free air, free fluid or abscess. Small fat containing umbilical hernia. Small bilateral fat containing inguinal hernias. The appendix is not identified as a discrete structure, however, no secondary findings of appendicitis are identified. A few mildly prominent inguinal, para-aortic and central abdominal lymph nodes are seen. Gastrohepatic lymph nodes are also noted to be prominent measuring, the largest measuring 4.0 x 3.1 cm. Scott hepatis adenopathy is also present measuring 2.8 x 2.0 cm. No suspicious bony findings. IMPRESSION: Mild lymphadenopathy seen in the abdomen and pelvis as detailed. Followup PET-CT assessment would be useful for further evaluation. Hepatomegaly with prominent fatty liver and mild liver cirrhosis. Moderate splenomegaly. Abdominal ultrasound: COMPARISON: RP EXAM COMPLETE dated 07/13/2015; Abdomen Pelvis W Contrast dated 10/30/2017 FINDINGS: Diffuse heterogenous appearance to the liver is parenchyma is seen. Liver size is prominent with diffuse fatty infiltration. No aggressive hepatic lesion is detected. Gallbladder is contracted without evidence of a stone. Thickening of the gallbladder wall is noted to 5 mm, probably related to its contracted state. Common bile duct is normal in caliber measuring 4 mm. Both kidneys are normal in size, shape and echotexture. No hydronephrosis, focal lesion of concern or perinephric fluid. The spleen is enlarged measuring 18 cm. The pancreas and aorta are obscured by bowel gas. The visualized aspects of the IVC are grossly normal. IMPRESSION: Hepatomegaly with diffuse fatty infiltration of the liver suspected. Splenomegaly. Gallbladder contraction. Echocardiogram: Ejection fraction 52%. Mild tricuspid regurgitation. Mild concentric left ventricular hypertrophy. - Problems (1) Colitis Onset Date: 10/31/17 Current Visit: Yes Status: Acute (2) Pancreatitis Onset Date: 10/31/17 Current Visit: Yes Status: Acute Qualifiers: Chronicity: acute Pancreatitis type: alcohol induced Acute pancreatitis complication: no infection or necrosis Qualified Code(s): K85.20 - Alcohol induced acute pancreatitis without necrosis or infection (3) Cirrhosis Onset Date: 10/31/17 Current Visit: Yes Status: Chronic Qualifiers: Hepatic cirrhosis type: alcoholic cirrhosis Ascites presence: without ascites Qualified Code(s): K70.30 - Alcoholic cirrhosis of liver without ascites (4) Elevated troponin Onset Date: 10/31/17 Current Visit: Yes Status: Acute (5) CHF (congestive heart failure) Onset Date: 10/31/17 Current Visit: Yes Status: Suspected Qualifiers: Heart failure type: diastolic Heart failure chronicity: chronic Qualified Code(s): I50.32 - Chronic diastolic (congestive) heart failure (6) Abnormal CT scan Onset Date: 10/31/17 Current Visit: Yes Status: Acute (7) Splenomegaly Onset Date: 10/31/17 Current Visit: Yes Status: Chronic (8) Nausea & vomiting Onset Date: 10/31/17 Current Visit: Yes Status: Acute Qualifiers: Vomiting type: unspecified Vomiting Intractability: unspecified Qualified Code(s): R11.2 - Nausea with vomiting, unspecified (9) Diarrhea Onset Date: 10/31/17 Current Visit: Yes Status: Acute Qualifiers: Diarrhea type: unspecified type Qualified Code(s): R19.7 - Diarrhea, unspecified (10) Lymphadenopathy Onset Date: 10/31/17 Current Visit: Yes Status: Chronic (11) Elevated liver enzymes Onset Date: 10/31/17 Current Visit: Yes Status: Acute (12) Diabetes mellitus Onset Date: 02/24/14 Current Visit: No Status: Chronic Qualifiers: Diabetes mellitus type: type 2 Diabetes mellitus care home insulin use: without termination clerk use Diabetes mellitus complication status: with other specified complication Qualified Code(s): E11.69 - Type 2 diabetes mellitus with other specified complication (13) Hypertension Onset Date: 02/24/14 Current Visit: No Status: Chronic Qualifiers: Hypertension type: essential hypertension Qualified Code(s): I10 - Essential (primary) hypertension (14) Hyponatremia Onset Date: 07/19/15 Current Visit: No Status: Acute (15) Fatty liver Onset Date: 10/31/17 Current Visit: Yes Status: Chronic (16) GERD (gastroesophageal reflux disease) Onset Date: 10/31/17 Current Visit: Yes Status: Suspected Qualifiers: Esophagitis presence: esophagitis presence not specified Qualified Code(s) : K21.9 - Gastro-esophageal reflux disease without esophagitis (17) Alcohol abuse Onset Date: 10/31/17 Current Visit: Yes Status: Chronic (18) Psoriasis Current Visit: Yes Status: Suspected (19) Rosacea Current Visit: Yes Status: Chronic (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 He reports that this started about 6 days ago. He has diffuse pain that radiates all over his abdomen. His nausea and vomiting is getting worse that it has been hard to keep anything down. No fever or chills is noted. He reports some mild diarrhea. He is a heavy drinker and has DM/HTN. He further reports that he stopped his alcohol about 2 weeks ago. He reports going through some mild withdraw. No agitation or tremors noted. In the ER he was found to have elevated Lipase at 603. Liver function was elevated. AST 170, AST-79. Trop 0.06, Na 126, K-3.9. CT scan was abnormal for multiple issues-abnormal mesenteric/retroperitoneal lymph nodes with enlarged gastrohepatic lymph nodes measuring 4 by 3 by 2 cm. Enlarged portohepatic lymph noded measurinng 3 by 2 by 1.9 cm. Lymphoma versus metastatic disease needs to be considered. Cirrhosis with splenomegaly noted with related portal HTN. Thickened wall to the terminal ileum and right colon. Enlarged prostate is noted. Bilateral inguinal hernia noted. Due to the findings, he was admitted for further treatment. When I saw him in the ER he appeared stable. He did not appear septic and with respiratory distress. He admits to drinking about 12 pack per day but stopped about 2 weeks ago. He is a former smoker. He is taking medication for HTN/DM. Hospital Course: During the course of his stay the patient was treated for his abdominal pain. Likely from colitis and pancreatitis. Both likely related to alcohol use. Patient with severe alcohol abuse. Patient was also found to have lymphadenopathy to the abdominal region, cirrhosis, splenomegaly. All related to his alcohol abuse. Patient plans to quit alcohol. Patient did receive IV antibiotic therapy for his colitis and pancreatitis. Patient was evaluated by GI. No intervention was needed at this time. Blood, urine and C. diff cultures were negative. At discharge he reported no nausea, vomiting or abdominal pain. He was able tolerate his diet. At discharge the patient continue with Flagyl 500 mg 1 pill 3 times a day and Cipro 500 mg 1 pill twice daily for 7 days. Recommendation is for the patient to follow up with GI in 1- 2 weeks to monitor his progress and continue his care. Recommendation on alcohol cessation was addressed in detail. Patient plans to quit. Patient will need colonoscopy with possible EGD in 4-6 weeks. As mentioned above the patient had was found to have fatty liver, cirrhosis with splenomegaly. This is likely related to his alcohol abuse. Patient plans to quit alcohol. Patient seen by GI. Recommendations for the patient follow up with GI as an outpatient in 1-2 weeks to monitor his progress and continue his care. Hepatitis panel pending at discharge. This will need to be followed up. Patient has diabetes. This is well controlled. Hemoglobin A1c 5.4. At discharge he will continue with metformin 500 mg 1 pill twice daily. Recommendation is to maintain blood sugars less than 140 fasting and less than 200 after meals. Further adjustment can be done by his PCP. Patient has history of hypertension. Lisinopril was discontinued during his stay. This was replaced with Aldactone 25 mg 1 pill daily. Patient will continue with Aldactone 25 mg 1 pill daily. Recommendation is to maintain blood pressures less 150/80. Recommendation is to recheck lab-BMP in 1 week to monitor his progress. Further adjustment in medication can be done by his PCP. The patient was evaluated by cardiology due to elevated troponin and possible CHF. Echocardiogram was normal with ejection fraction of 52%. Patient may have a component of diastolic dysfunction CHF. At discharge he will continue with a 1500 cc per day fluid restriction. Patient has been started on Aldactone 25 mg 1 pill once daily. Patient may follow up with cardiology as an outpatient to further monitor and address. Patient may benefit with cardiac workup as an outpatient due to his chronic conditions. Patient with alcohol abuse. Patient plans to quit. At discharge he will continue with folic acid 1 mg daily and thiamine 100 mg 1 pill daily. Alcohol cessation will need to be followed. As mentioned above CT scan showed. Mild lymphadenopathy seen in the abdominal and pelvic region. Recommendation is for a PET-CT scan to further evaluate and assess. This will be done as an outpatient. Lymphoma may need to be ruled out. Patient has rosacea with rhinophyma. Patient may also have underlying psoriasis. Recommendation is for the patient to follow up with Dermatology as an outpatient to further treat. Alcohol cessation again readdressed in detail. Patient likely has GERD due to his alcohol abuse. Recommendation is to continue with Protonix 40 mg 1 pill once daily. Recommendation is for the patient follow up with GI as an outpatient to further evaluate. Patient will likely need EGD and colonoscopy as an outpatient. Patient has thrombocytopenia with splenomegaly. Likely from cirrhosis. Recommendation is to recheck CBC in 1-2 weeks to closely monitor. Patient also had hyponatremia likely from alcohol abuse. This improved. At discharge sodium at 1:28 a.m.. Recommendation is to recheck BMP in 1 week to monitor his progress and resolution. Vital Signs/Physical Exam: Temp Pulse Resp BP Pulse Ox 98.5 F 85 20 115/82 98 11/01/17 08:00 11/01/17 08:00 11/01/17 08:00 11/01/17 08:00 11/01/17 08:00 General: Alert, In no apparent distress, Oriented x3, Cooperative HEENT: Atraumatic, Other (phinophyma noted) Neck: Supple Respiratory: Clear to auscultation bilaterally, Normal air movement Cardiovascular: Normal pulses, Regular rate/rhythm Gastrointestinal: Normal bowel sounds, Soft and benign, Non-distended, No ascites, No tenderness, No masses, No rebound, No guarding Musculoskeletal: No erythema, No tenderness, No warmth Integumentary: No erythema, No warmth, No cyanosis, Tenderness/swelling ( Minimal nonpitting edema to the lower extremities bilateral [id number]- right), Other (Psoriatic plaques noted to the extensor surfaces. ) Neurological: Normal speech, Normal strength at 5/5 x4 extr, Normal tone, Normal affect Lymphatics: No axilla or inguinal lymphadenopathy Laboratory Data at Discharge: WBC 3.2 K/uL (4.3-10.9) L 11/01/17 05:27 Hgb 12.3 g/dL (13.6-17.9) L 11/01/17 05:27 Hct 36.9 % (39.6-49.0) L 11/01/17 05:27 Plt Count 105 K/uL (152-406) L 11/01/17 05:27 Sodium 128 mmol/L (136-145) L 11/01/17 05:27 Potassium 3.7 mmol/L (3.5-5.1) 11/01/17 05:27 BUN 9 mg/dL (7-18) 11/01/17 05:27 Creatinine 0.60 mg/dL (0.55-1.3) 11/01/17 05:27 Glucose 102 mg/dL (74-106) 11/01/17 05:27 Magnesium 1.7 mg/dL (1.8-2.4) L 11/01/17 05:27 Total Bilirubin 1.0 mg/dL (0.2-1.0) 11/01/17 05:27 AST 151 U/L (15-37) H 11/01/17 05:27 ALT 78 U/L (12-78) 11/01/17 05:27 Alkaline Phosphatase 58 U/L (45-117) 11/01/17 05:27 Troponin I < 0.02 ng/mL (0.0-0.045) 10/30/17 22:43 Triglycerides 158 mg/dL (<150) H 10/31/17 04:58 Cholesterol 61 mg/dL (<200) 10/31/17 04:58 HDL Cholesterol 9 mg/dL (40-60) L 10/31/17 04:58 Cholesterol/HDL Ratio 6.78 10/31/17 04:58 Amylase 175 U/L (25-115) H 11/01/17 05:27 Lipase 1766 U/L (73-393) H 11/01/17 05:27 Home Medications: Metformin HCl [Glucophage*] 500 mg PO BID 02/23/14 Ciprofloxacin HCl [Cipro 500 MG Tablet] 500 mg PO BID #14 tab 11/01/17 Folic Acid 1 mg PO DAILY #30 tablet 11/01/17 Pantoprazole [Protonix Tab] 40 mg PO DAILY #30 tab 11/01/17 Spironolactone [Aldactone*] 25 mg PO DAILY #30 tab 11/01/17 Thiamine HCl [Vitamin B-1*] 100 mg PO DAILY #30 tablet 11/01/17 metroNIDAZOLE [Flagyl] 500 mg PO Q8H #21 tablet 11/01/17 New Medications: Ciprofloxacin HCl [Cipro 500 MG Tablet] 500 mg PO BID #14 tab Folic Acid 1 mg PO DAILY #30 tablet metroNIDAZOLE [Flagyl] 500 mg PO Q8H #21 tablet Pantoprazole [Protonix Tab] 40 mg PO DAILY #30 tab Spironolactone [Aldactone*] 25 mg PO DAILY #30 tab Thiamine HCl [Vitamin B-1*] 100 mg PO DAILY #30 tablet Patient Discharge Instructions: 1. Patient will need a follow up with his PCP in 1 week to follow up this hospitalization. 2. Patient presented with abdominal pain. Patient found to have colitis with pancreatitis. Both likely from alcohol abuse. Blood, stool and urine cultures negative. Patient evaluated by GI. No intervention. At discharge he reported no nausea, vomiting or abdominal pain. At discharge the patient continue with Flagyl 500 mg 1 pill 3 times a day and Cipro 500 mg 1 pill twice daily for 7 days. Recommendation is for the patient to follow up with GI in 1-2 weeks to monitor his progress and continue his care. Recommendation on alcohol cessation will need to be enforced. Patient will need colonoscopy with possible EGD in 4-[address] scan revealed fatty liver, cirrhosis with splenomegaly. Lymphadenopathy also identified. All likely related to alcohol abuse. Alcohol cessation will need to be enforced. Recommendation is for the patient follow up with GI in 1-2 weeks to monitor his progress and further address. Patient will require a PET-CT scan as an outpatient to further evaluate the lymphadenopathy. Lymphoma may need to be ruled out. Hepatitis panel pending at discharge. This will need to be followed up by his PCP or GI as an outpatient. 4. Patient has diabetes. This is well controlled. Hemoglobin A1c 5.4. At discharge he will continue with metformin 500 mg 1 pill twice daily. Recommendation is to maintain blood sugars less than 140 fasting and less than 200 after meals. Further adjustment can be done by his PCP. 5. Patient has history of hypertension. Lisinopril was discontinued during his stay. This was replaced with Aldactone 25 mg 1 pill daily. Patient will continue with Aldactone 25 mg 1 pill daily. Recommendation is to maintain blood pressures less 150/80. Recommendation is to recheck lab-BMP in 1 week to monitor his progress. Further adjustment in medication can be done by his PCP. 6. The patient was evaluated by cardiology due to elevated troponin and possible CHF. No intervention was required. Echocardiogram was normal with ejection fraction of 52%. Patient may have a component of diastolic dysfunction CHF. At discharge he will continue with a 1500 cc per day fluid restriction. Patient has been started on Aldactone 25 mg 1 pill once daily. He is to monitor his weight daily. If his weight increases by more than 5 lb he is to contact his PCP for further recommendation. Patient may follow up with cardiology as an outpatient to further monitor and address. Patient may benefit with cardiac workup as an outpatient due to his chronic conditions. 7. Patient with alcohol abuse. Patient plans to quit. At discharge he will continue with folic acid 1 mg daily and thiamine 100 mg 1 pill daily. Alcohol cessation will need to be followed. 8. Patient has rosacea with rhinophyma. Patient may also have underlying psoriasis. Recommendation is for the patient to follow up with Dermatology as an outpatient to further treat. Alcohol cessation again readdressed in detail. 9. Patient likely has GERD due to his alcohol abuse. Recommendation is to continue with Protonix 40 mg 1 pill once daily. Recommendation is for the patient follow up with GI as an outpatient to further evaluate. Patient will likely need EGD and colonoscopy as an outpatient. 10. Patient has thrombocytopenia with splenomegaly. Likely from alcoholic cirrhosis. Recommendation is to recheck CBC in 1-2 weeks to closely monitor. 11. Patient has hyponatremia likely from alcohol use. Recommendation on alcohol cessation. Recommendation is to recheck BMP in 1 week to monitor his progress. Further adjustment in medication may be required as an outpatient. Diet: ADA Activity: Fall precautions Time spent managing pt's care (in minutes): 55
[2017-11-01 12:59] VITALS: BP 116/73
[2017-11-01 17:53] LABS: HIV 1/2 Antibody Diff Not indicated.; HIV AG/AB 4TH GEN Non-reactive (Non-reactive)
[2017-11-01 18:13] LABS: HBsAG Nonreactive (Nonreactive); Hepatitis A IgM Antibody Nonreactive
== END 2017-11-01 13:08 | disposition home or self-care (01) | DRG 391 ==
LOC: ER 02:15 → ERHOLD 06:34 → 2ND 07:52
PROVIDERS: ADMIT Family Medicine; ATTEND Family Medicine
DX: K52.9 Noninfective gastroenteritis and colitis, unspecified (principal); K85.20 Alcohol induced acute pancreatitis without necrosis or infection; I50.32 Chronic diastolic (congestive) heart failure; E87.1 Hypo-osmolality and hyponatremia; K70.30 Alcoholic cirrhosis of liver without ascites; I11.0 Hypertensive heart disease with heart failure; R79.89 Other specified abnormal findings of blood chemistry; R59.1 Generalized enlarged lymph nodes; E11.9 Type 2 diabetes mellitus without complications; F10.10 Alcohol abuse, uncomplicated; L40.9 Psoriasis, unspecified; L71.9 Rosacea, unspecified; L71.1 Rhinophyma
CPT/HCPCS: 36415; 71045; 74177; 76700; 80048; 80053; 80061; 80074; 80076; 80307; 81003; 81015; 82150; 82550; 82553; 82962; 83036; 83690; 83735; 83880; 84145; 84439; 84443; 84484; 85025; 87040; 87086; 87088; 87389; 87493; 93005; 93306; 96361; 96374; 99285; C9113; J0744; J1650; J2405; J3411; J3475; J7030; Q9967

== ENCOUNTER 2019-11-21 13:56 | Emergency (ER) | payer OTHER ==
--- NOTE | 2019-11-21 15:57 | EDPHYS ---
Physician Documentation [facility] Name: Gavin Talamantes Age: 64 yrs Sex: Male : 1955 Arrival Date: 11/21/2019 Time: 14:00 Bed 14 Private MD: Ar Momin E ED Physician Michael Leija HPI: 11/20 16:30 This 64 yrs old Male presents to ER via Ambulatory with complaints of Rash. snw 16:30 The patient's rash thought to be caused by Dermatitis. The rash is located on the face, snw back, buttocks, pelvis, right leg and left leg. The rash can be described as erythematous, patchy, raised, with central clearing, jose tree pattern to back. pt placed on Doxy 2 days ago for acne rosacea. Pt states he decreased his Metformin 500mg BID to one Metformin 500mg po every other day about 6 months ago. Onset: The symptoms/episode began/occurred gradually, 4 month(s) ago, and became persistent. Associated signs and symptoms: Pertinent positives: itching. Severity of symptoms: At their worst the symptoms were moderate. The patient has been recently seen by a physician: Dr. Lena Park. Historical: - Allergies: 14:11 No Known Allergies; ll1 - PMHx: 16:20 Hypertension; Diabetes - NIDDM; ks7 - PSHx: 16:20 Appendectomy; left ankle surgery; ks7 - Immunization history:: Adult Immunizations up to date. - Social history:: Smoking status: Patient reports the use of cigarette tobacco products, denies chronic smoking, but will smoke occasionally, Patient uses alcohol, on a daily basis. admits to "couple of beers" a day. Patient/guardian denies using street drugs. ROS: 16:29 Constitutional: Negative for fever, chills, and weight loss, Eyes: Negative for injury, snw pain, redness, and discharge, ENT: Negative for injury, pain, and discharge, Neck: Negative for injury, pain, and swelling, Cardiovascular: Negative for chest pain, palpitations, and edema, Respiratory: Negative for shortness of breath, cough, wheezing, and pleuritic chest pain, Abdomen/GI: Negative for abdominal pain, nausea, vomiting, diarrhea, and constipation, Back: Negative for injury and pain, : Negative for injury, bleeding, discharge, and swelling, MS/Extremity: Negative for injury and deformity, Neuro: Negative for headache, weakness, numbness, tingling, and seizure, Psych: Negative for depression, anxiety, suicide ideation, homicidal ideation, and hallucinations. 16:29 Skin: Positive for rash. Exam: 16:27 Constitutional: This is a well developed, well nourished patient who is awake, alert, snw and in no acute distress. Head/Face: Normocephalic, atraumatic. Eyes: Pupils equal round and reactive to light, extra-ocular motions intact. Lids and lashes normal. Conjunctiva and sclera are non-icteric and not injected. Cornea within normal limits. Periorbital areas with no swelling, redness, or edema. ENT: Nares patent. No nasal discharge, no septal abnormalities noted. Tympanic membranes are normal and external auditory canals are clear. Oropharynx with no redness, swelling, or masses, exudates, or evidence of obstruction, uvula midline. Mucous membranes moist. Neck: Trachea midline, no thyromegaly or masses palpated, and no cervical lymphadenopathy. Supple, full range of motion without nuchal rigidity, or vertebral point tenderness. No Meningismus. Chest/axilla: Normal chest wall appearance and motion. Nontender with no deformity. No lesions are appreciated. Cardiovascular: Regular rate and rhythm with a normal S1 and S2. No gallops, murmurs, or rubs. Normal PMI, no JVD. No pulse deficits. Respiratory: Lungs have equal breath sounds bilaterally, clear to auscultation and percussion. No rales, rhonchi or wheezes noted. No increased work of breathing, no retractions or nasal flaring. Abdomen/GI: Soft, non-tender, with normal bowel sounds. No distension or tympany. No guarding or rebound. No evidence of tenderness throughout. Back: No spinal tenderness. No costovertebral tenderness. Full range of motion. MS/ Extremity: Pulses equal, no cyanosis. Neurovascular intact. Full, normal range of motion. left foot, ankle, and lower leg with edema of "long duration" Neuro: Awake and alert, GCS 15, oriented to person, place, time, and situation. Cranial nerves II-XII grossly intact. Motor strength 5/5 in all extremities. Sensory grossly intact. Cerebellar exam normal. Normal gait. Psych: Awake, alert, with orientation to person, place and time. Behavior, mood, and affect are within normal limits. 16:27 Skin: Appearance: normal except for affected area, rash can be described as erythematous, excoriated, oval and jose tree pattern to trunk, pityriasis rosea, ringworm, on the p. rosea to trunk, tinea to pelvis and lower extremities. Vital Signs: 14:11 BP 147 / 84; Pulse 60; Resp 17; Temp 98.0; Pulse Ox 99% ; Pain 0/10; ll1 14:35 BP 138 / 92; Pulse 43; Resp 18; Pulse Ox 100% on R/A; Pain 0/10; ks7 16:18 BP 157 / 96; Pulse 49; Resp 18; Temp 98.2(TE); Pulse Ox 97% ; Pain 0/10; ks7 16:18 Pulse Ox 97% on R/A; Pain 0/10; ks7 16:18 Pulse Ox 97% on R/A; Pain 0/10; ks7 MDM: 15:56 Patient medically screened. snw 16:29 Data reviewed: vital signs, nurses notes. Data interpreted: Pulse oximetry: on room air snw is 97 %. Interpretation: normal. Counseling: I had a detailed discussion with the patient and/or guardian regarding: the historical points, exam findings, and any diagnostic results supporting the discharge/admit diagnosis, the presence of at least one elevated blood pressure reading (>120/80) during this emergency department visit, the need for outpatient follow up, for definitive care, to return to the emergency department if symptoms worsen or persist or if there are any questions or concerns that arise at home. Response to treatment: There is no appreciated change of the patient's symptoms at this time. Special discussion: I have referred the patient to see his PCP for further evaluation of high blood pressure. Based on the history and exam findings, there is no indication for further emergent testing or inpatient evaluation. I discussed with the patient/guardian the need to see the synthetic gem press operator for further evaluation of the symptoms. I discussed with the patient/guardian the need to see the primary care provider for further evaluation of the symptoms. Administered Medications: 16:10 Drug: Atarax 50 mg Route: PO; ks7 16:18 Follow up: Pulse Ox 97% RA; Pain 0/10 Adult ks7 16:11 Drug: DiFLUcan 200 mg Route: PO; ks7 16:18 Follow up: Pulse Ox 97% RA; Pain 0/10 Adult ks7 Disposition: 19:08 Co-signature as Attending Physician, Michael Leija MD I agree with the assessment and kdr plan of care. Disposition: 11/21/19 15:56 Discharged to Home. Impression: Pityriasis rosea, Underdosing of local antifungal, anti-infective and anti-inflammatory drugs. - Condition is Stable. - Discharge Instructions: Pityriasis Rosea, Tinea Versicolor, Form - Daily Diabetes Record, Blood Glucose Monitoring, Adult. - Prescriptions for Hydroxyzine HCl 25 mg Oral Tablet - take 1 tablet by ORAL route every 6 hours As needed; 30 tablet. - Medication Reconciliation Form, Thank You Letter, Antibiotic Education, Prescription Opioid Use form. - Follow up: Ar Momin MD; When: 2 - 3 days; Reason: Recheck today's complaints, Continuance of care, Re-evaluation by your physician. Follow up: Emergency Department; When: As needed; Reason: Worsening of condition. - Notes: Increase Metformin to one (500mg) tab daily Monitor blood sugar daily Continue antibiotics for acne rosacea, Doxycycline twice daily for 10 days and then only once daily until seen by dermatology again Signatures: Michael Leija MD MD kdr Waters, Shelly, DOUGHNUT ICER-C DOUGHNUT ICER-Csnw Zakia Vang RN RN 1 Lynn Amado RN RN ks7 Corrections: (The following items were deleted from the chart) 16:21 14:11 PMHx: Hypertension; 1 ks7 16:21 14:11 PMHx: Diabetes - NIDDM; [facility] ks7 16:21 14:11 PSHx: Appendectomy; [facility] ks7 16:21 14:11 PSHx: left ankle surgery; 1 ks7 16:21 15:56 11/21/2019 15:56 Discharged to Home. Impression: Pityriasis rosea; Underdosing of ks7 local antifungal, anti-infective and anti-inflammatory drugs. Condition is Stable. Forms are Medication Reconciliation Form, Thank You Letter, Antibiotic Education, Prescription Opioid Use. Follow up: Ar Momin; When: 2 - 3 days; Reason: Recheck today's complaints, Continuance of care, Re-evaluation by your physician. Follow up: Emergency Department; When: As needed; Reason: Worsening of condition. snw 16:34 16:27 Constitutional: This is a well developed, well nourished patient who is awake, snw alert, and in no acute distress. Head/Face: Normocephalic, atraumatic. Eyes: Pupils equal round and reactive to light, extra-ocular motions intact. Lids and lashes normal. Conjunctiva and sclera are non-icteric and not injected. Cornea within normal limits. Periorbital areas with no swelling, redness, or edema. ENT: Nares patent. No nasal discharge, no septal abnormalities noted. Tympanic membranes are normal and external auditory canals are clear. Oropharynx with no redness, swelling, or masses, exudates, or evidence of obstruction, uvula midline. Mucous membranes moist. Neck: Trachea midline, no thyromegaly or masses palpated, and no cervical lymphadenopathy. Supple, full range of motion without nuchal rigidity, or vertebral point tenderness. No Meningismus. Chest/axilla: Normal chest wall appearance and motion. Nontender with no deformity. No lesions are appreciated. Cardiovascular: Regular rate and rhythm with a normal S1 and S2. No gallops, murmurs, or rubs. Normal PMI, no JVD. No pulse deficits. Respiratory: Lungs have equal breath sounds bilaterally, clear to auscultation and percussion. No rales, rhonchi or wheezes noted. No increased work of breathing, no retractions or nasal flaring. Abdomen/GI: Soft, non-tender, with normal bowel sounds. No distension or tympany. No guarding or rebound. No evidence of tenderness throughout. Back: No spinal tenderness. No costovertebral tenderness. Full range of motion. Neuro: Awake and alert, GCS 15, oriented to person, place, time, and situation. Cranial nerves II-XII grossly intact. Motor strength 5/5 in all extremities. Sensory grossly intact. Cerebellar exam normal. Normal gait. Psych: Awake, alert, with orientation to person, place and time. Behavior, mood, and affect are within normal limits. snw
--- NOTE | 2019-11-21 15:57 | ER ---
Nurse's Notes [facility] Name: Gavin Talamantes Age: 64 yrs Sex: Male : 1955 Arrival Date: 11/21/2019 Time: 14:00 Bed 14 Private MD: Ar Momin E Diagnosis: Pityriasis rosea;Underdosing of local antifungal, anti-infective and anti-inflammatory drugs Presentation: 11/20 14:11 Chief complaint: Patient states: Rash to both legs for 2-3 months. Using blue star ll1 ribbon ointment, no relief. No fever. Coronavirus screen: Patient denies a cough. Patient denies shortness of breath or difficulty breathing. Patient denies measured and/or subjective temperature greater than 100.4F prior to today's visit. Patient denies travel on a cruise ship or to a country the [facility] currently lists as an affected area. Patient denies contact with known and/or suspected case of COVID-19. Proceed with normal triage. Ebola Screen: Patient denies travel to an Ebola-affected area in the 21 days before illness onset. Initial Sepsis Screen: Does the patient meet any 2 criteria? No. Patient's initial sepsis screen is negative. Risk Assessment: Do you want to hurt yourself or someone else? Patient reports no desire to harm self or others. Onset of symptoms was September 19, 2019. 14:11 Method Of Arrival: Ambulatory ll1 14:11 Acuity: IKE 4 ll1 16:21 Initial Sepsis Screen: Does the patient have a suspected source of infection? No. ks7 Patient's initial sepsis screen is negative. Triage Assessment: 14:35 General: Appears in no apparent distress. Behavior is calm, cooperative. Pain: Denies ks7 pain. 14:35 Derm: Skin has lesions on round scabs, rash to bilateral legs, groin, lower back, lower ks7 abd. pt denies pain, just itching. pt under care of compliance and control analyst for rash. Historical: - Allergies: 14:11 No Known Allergies; ll1 - PMHx: 16:20 Hypertension; Diabetes - NIDDM; ks7 - PSHx: 16:20 Appendectomy; left ankle surgery; ks7 - Immunization history:: Adult Immunizations up to date. - Social history:: Smoking status: Patient reports the use of cigarette tobacco products, denies chronic smoking, but will smoke occasionally, Patient uses alcohol, on a daily basis. admits to "couple of beers" a day. Patient/guardian denies using street drugs. Screenin:38 Abuse screen: Denies threats or abuse. Nutritional screening: No deficits noted. ks7 Tuberculosis screening: No symptoms or risk factors identified. Fall Risk None identified. Assessment: 14:38 General: pt comes in c/o rash to bilateral legs, groin, lower back and starting on ks7 lower abd. pt states rash started months ago. has appt to see compliance and control analyst but not until 12/01. denies pain but itching is unbearable.. Derm: Abscess located on back and pelvis. Vital Signs: 14:11 BP 147 / 84; Pulse 60; Resp 17; Temp 98.0; Pulse Ox 99% ; Pain 0/10; ll1 14:35 BP 138 / 92; Pulse 43; Resp 18; Pulse Ox 100% on R/A; Pain 0/10; ks7 16:18 BP 157 / 96; Pulse 49; Resp 18; Temp 98.2(TE); Pulse Ox 97% ; Pain 0/10; ks7 16:18 Pulse Ox 97% on R/A; Pain 0/10; ks7 16:18 Pulse Ox 97% on R/A; Pain 0/10; ks7 ED Course: 14:00 Patient arrived in ED. mr 14:00 Ar Momin MD is Private Physician. mr 14:10 Arm band placed on Patient placed in an exam room, on a stretcher. ll1 14:12 Triage completed. ll1 14:24 Lynn Amado, JOHN is Primary Nurse. ks7 14:34 Kenia De Jesus FNP-C is PHCP. snw 14:34 Michael Leija MD is Attending Physician. snw 14:38 Nurse Practitioner and/or Physician [employer] Supervisor to see patient. ks7 14:38 Patient has correct armband on for positive identification. Placed in gown. Bed in low ks7 position. Call light in reach. Side rails up X2. 14:38 No provider procedures requiring assistance completed. ks7 15:55 Ar Momin MD is Referral Physician. snw 16:19 Patient did not have IV access during this emergency room visit. ks7 Administered Medications: 16:10 Drug: Atarax 50 mg Route: PO; ks7 16:18 Follow up: Pulse Ox 97% RA; Pain 0/10 Adult ks7 16:11 Drug: DiFLUcan 200 mg Route: PO; ks7 16:18 Follow up: Pulse Ox 97% RA; Pain 0/10 Adult ks7 Outcome: 15:56 Discharge ordered by MD. galarza 16:19 Discharged to home ambulatory. ks7 16:19 Condition: good 16:19 Discharge instructions given to patient, Instructed on discharge instructions, medication usage, Demonstrated understanding of instructions, medications, Prescriptions given X 1. 16:21 Patient left the ED. ks7 Signatures: Kenia De Jesus, SOFT TILE SETTER-C SOFT TILE SETTER-Jacinta Monae mr Zakia Vang RN RN [facility] Lynn Amado RN RN ks7 Corrections: (The following items were deleted from the chart) 16:21 14:11 PMHx: Hypertension; [facility] ks 16:21 14:11 PMHx: Diabetes - NIDDM; [facility] ks7 16:21 14:11 PSHx: Appendectomy; [facility] ks 16:21 14:11 PSHx: left ankle surgery; [facility] ks7
[2019-11-21] MEDS ORDERED: FLUCONAZOLE 100 MG TAB ONE (16:17)
[2019-11-21] MEDS ORDERED: hydrOXYzine HCL 25 MG TAB ONE (16:18)
[2019-11-21 16:29] VITALS: BP 157/96; TEMP 98.2; O2SAT 97
== END 2019-11-21 16:21 | disposition home or self-care (01) ==
LOC: ER 13:56
DX: L42 Pityriasis rosea (principal); T49.0X6A Underdosing of local antifungal, anti-infective and anti-inflammatory drugs, initial encounter; I10 Essential (primary) hypertension; Z72.0 Tobacco use
CPT/HCPCS: 99283

== ENCOUNTER 2020-07-15 19:15 | Inpatient (IN) | payer OTHER ==
[2020-07-15 23:24] LABS: Basophils % 0.5 % (0-1.3); Hematocrit 44.4 % (39.6-49.0); Lymphocytes % 13.8 % (15.3-44.8); MPV 9.4 fL (7.6-11.3); RBC Red Blood Cell Count 5.17 M/uL (4.33-5.43)
[2020-07-15] MEDS ORDERED: ONDANSETRON 4 MG/2 ML VIAL ONE (23:31)
[2020-07-15] MEDS ORDERED: MORPHINE 4 MG/ML SYR ONE (23:31)
[2020-07-15 23:34] LABS: ALT/SGPT 44 U/L (12-78); AST/SGOT 43 U/L (15-37); Albumin 3.7 g/dL (3.4-5.0); Alkaline Phosphatase 71 U/L (45-117); BUN Blood Urea Nitrogen 15 mg/dL (7-18); Bicarbonate 28 mmol/L (21-32); Bilirubin Direct 0.5 mg/dL (0-0.2); Bilirubin Total 1.6 mg/dL (0.2-1.0); Glucose Level 96 mg/dL (74-106); Lipase 246 U/L (73-393); Potassium 4.1 mmol/L (3.5-5.1); Protein, Total 8.2 g/dL (6.4-8.2); Sodium Level 129 mmol/L (136-145)
--- NOTE | 2020-07-16 00:47 | EDPHYS ---
Physician Documentation [facility] Name: Gavin Talamantes Age: 64 yrs Sex: Male : 1955 Arrival Date: 07/15/2020 Time: 19:19 Bed 8 Private MD: Ar Momin E ED Physician Berna Adame HPI: 07/15 23:31 This 64 yrs old Male presents to ER via Ambulatory with complaints of ma2 Abdominal Burn. 23:31 Onset: The symptoms/episode began/occurred gradually, 1 day(s) ago. Burn type and ma2 severity:. Associated signs and symptoms: Pertinent negatives: chest pain, confusion, diaphoresis, increased lacrimation. The patient has experienced a previous episode. has chronic paraumbilical hernia that started becoming painful today no redness or skin changes . Historical: - Allergies: 19:36 No Known Allergies; ca1 - PMHx: 19:36 Diabetes - NIDDM; Hypertension; ca1 - PSHx: 19:36 left ankle surgery; Appendectomy; ca1 - Immunization history:: Pneumococcal vaccine is not up to date, Flu vaccine is up to date. - Social history:: Smoking status: Patient reports the use of cigarette tobacco products, denies chronic smoking, but will smoke occasionally, Patient/guardian denies using alcohol, street drugs, The patient lives with family. - Family history:: not pertinent. ROS: 23:31 Constitutional: Negative for fever, chills, and weight loss. ma2 23:31 All other systems are negative. Exam: 23:31 Constitutional: This is a well developed, well nourished patient who is awake, alert, ma2 and in no acute distress. ENT: Nares patent. No nasal discharge, no septal abnormalities noted. Tympanic membranes are normal and external auditory canals are clear. Oropharynx with no redness, swelling, or masses, exudates, or evidence of obstruction, uvula midline. Mucous membranes moist. Neck: Trachea midline, no thyromegaly or masses palpated, and no cervical lymphadenopathy. Supple, full range of motion without nuchal rigidity, or vertebral point tenderness. No Meningismus. Chest/axilla: Normal chest wall appearance and motion. Nontender with no deformity. No lesions are appreciated. Cardiovascular: Regular rate and rhythm with a normal S1 and S2. No gallops, murmurs, or rubs. Normal PMI, no JVD. No pulse deficits. Respiratory: Lungs have equal breath sounds bilaterally, clear to auscultation and percussion. No rales, rhonchi or wheezes noted. No increased work of breathing, no retractions or nasal flaring. Abdomen/GI: Soft, non-tender, with normal bowel sounds. No distension or tympany. No guarding or rebound. has parambilical hernia that is 1 inch protruding with no changes in color, mildly tender, will get ct and try to reduce it if not necrotic bowel containing hernia, othwerwise No evidence of tenderness throughout. Vital Signs: 19:30 BP 169 / 95; Pulse 42; Resp 16 S; Temp 97(TE); Pulse Ox 99% on R/A; Weight 77.11 kg ca1 (R); Height 5 ft. 7 in. (170.18 cm) (R); Pain 8/10; 07/16 00:30 BP 146 / 89; Pulse 39; Resp 16; Pulse Ox 98% ; Pain 8/10; rr5 01:30 BP 139 / 76; Pulse 40; Resp 15; Pulse Ox 98% ; rr5 02:30 BP 147 / 60; Pulse 43; Resp 17; Pulse Ox 99% ; rr5 03:27 BP 132 / 55; Pulse 38; Resp 17; Pulse Ox 100% ; rr5 04:30 BP 137 / 80; Pulse 37; Resp 19; Pulse Ox 100% ; rr5 06:30 Pulse 38; Resp 19; Pulse Ox 99% ; rr5 07/15 19:30 Body Mass Index 26.63 (77.11 kg, 170.18 cm) ca1 MDM: 07/15 22:49 Patient medically screened. ma2 23:31 Differential diagnosis: hernia. nv2 07/16 00:40 Data reviewed: vital signs, nurses notes. ma2 00:43 Counseling: I had a detailed discussion with the patient and/or guardian regarding: the [facility] historical points, exam findings, and any diagnostic results supporting the discharge/admit diagnosis, the presence of at least one elevated blood pressure reading (>120/80) during this emergency department visit, the need for further work-up and treatment in the hospital. Response to treatment: There is no appreciated change of the patient's symptoms at this time. ED course: discussed with dr. lynn he advised to make him npo and admit to hospitalist . 07/15 22:52 Order name: Basic Metabolic Panel [facility] 07/15 22:52 Order name: CBC with Diff [facility] 07/15 22:52 Order name: Hepatic Function [facility] 07/15 22:52 Order name: Lipase [facility] 07/15 23:35 Order name: Basic Metabolic Panel; Complete Time: 00:35 EDNC 07/15 23:35 Order name: Liver (Hepatic) Function; Complete Time: 00:35 EDNC 07/15 23:35 Order name: Lipase; Complete Time: 00:35 EDMS 07/16 00:01 Order name: CBC with Automated Diff; Complete Time: 00:35 EDNC 07/16 00:41 Order name: COVID-19 : Document "Date of Symptom Onset" if Symptomatic. [facility] 07/16 01:01 Order name: CORONAVIRUS [facility] 07/16 01:45 Order name: SARS-COV-2 RT PCR [facility] 07/16 03:34 Order name: CBC with Automated Diff [facility] 07/16 03:34 Order name: CBC with Automated Diff [facility] 07/16 03:34 Order name: Comprehensive Metabolic Panel [facility] 07/15 22:52 Order name: IV Saline Lock; Complete Time: 23:09 [facility] 07/15 22:52 Order name: Labs collected and sent; Complete Time: 23:09 [facility] 07/15 22:52 Order name: CT Abd/Pelvis - IV Contrast Only [facility] 07/16 03:34 Order name: NPO [facility] 07/16 03:34 Order name: Comprehensive Metabolic Panel [facility] 07/16 03:34 Order name: Urinalysis [facility] 07/16 06:10 Order name: Urine Dipstick--Ancillary (enter results) tt3 07/16 06:17 Order name: Urine Dipstick-Ancillary [facility] 07/16 06:18 Order name: Urinalysis [facility] 07/16 08:28 Order name: Glucose, Ancillary Testing [facility] 07/16 00:39 Order name: NPO; Complete Time: 02:04 [facility] 07/16 07:08 Order name: EKG - Nurse/Tech; Complete Time: 07:08 rr5 Administered Medications: 07/15 23:19 Drug: Zofran (Ondansetron) 4 mg Route: IVP; Site: left forearm; ea 07/16 00:56 Follow up: Response: No adverse reaction ea 07/15 23:20 Drug: morphine 4 mg Route: IVP; Site: left forearm; ea 07/16 00:56 Follow up: Response: No adverse reaction ea 00:50 Drug: morphine 4 mg Route: IVP; Site: left antecubital; ea 02:00 Follow up: Response: No adverse reaction; RASS: Alert and Calm (0) rr5 00:51 Drug: D5-1/2 NS 1000 ml Route: IV; Rate: 125 ml/hr; Site: left antecubital; ea 02:00 Follow up: Response: No adverse reaction; IV Status: Infusion continued upon admission; rr5 IV Intake: 125ml 00:52 Drug: NS 0.9% 1000 ml Route: IV; Rate: 1 bolus; Site: left antecubital; ea 02:00 Follow up: Response: No adverse reaction; IV Status: Completed infusion; IV Intake: rr5 1000ml 02:33 Dru.375 grams of (Zosyn 3.375 grams, NS 0.9% 100 ml) Route: IVPB; Infused Over: 60 rr5 mins; Site: left antecubital; 03:30 Follow up: Response: No adverse reaction; IV Status: Completed infusion; IV Intake: rr5 100ml Disposition: 07/16/20 00:46 Hospitalization ordered by Berna Mares for Inpatient Admission. Preliminary diagnosis is Unspecified abdominal hernia - paraumbilical. with sign of incarceration and strangulation . - Bed requested for [facility] ER HOLD. - Status is Inpatient Admission. eb - Condition is Stable. - Problem is new. - Symptoms are unchanged. Signatures: Dispatcher [employer] EDMaria Fabian RN RN Berna Lopes MD MD ma2 Robert Soler mw2 Malena Mao Raymond RN RN rr5 Charlotte Avila RN RN ca1 Corrections: (The following items were deleted from the chart) 02:31 00:46 Hospitalization Ordered by Berna Mares MD for Inpatient Admission. Preliminary mw2 diagnosis is Unspecified abdominal hernia - paraumbilical. with sign of incarceration and strangulation . Bed requested for Telemetry/MedSurg (Inpatient). Status is Inpatient Admission. Condition is Stable. Problem is new. Symptoms are unchanged. ma2 12:16 02:31 07/16/2020 00:46 Hospitalization Ordered by Berna Mares MD for Inpatient eb Admission. Preliminary diagnosis is Unspecified abdominal hernia - paraumbilical. with sign of incarceration and strangulation . Bed requested for [facility] ER HOLD. Status is Inpatient Admission. Condition is Stable. Problem is new. Symptoms are unchanged. mw2
--- NOTE | 2020-07-16 00:47 | ER ---
Nurse's Notes [facility] Name: Gavin Talamantes Age: 64 yrs Sex: Male : 1955 Arrival Date: 07/15/2020 Time: 19:19 Bed 8 Private MD: Ar Momin E Diagnosis: Unspecified abdominal hernia-paraumbilical. with sign of incarceration and strangulation Presentation: 07/15 19:30 Chief complaint: Patient states: Umbilical hernia pain 4 hrs CONTRACT LE[employer]. I've had this hernia ca1 for years but has never protruded this way and was never in pain or tender. Pain started 4 hours ago and all the surrounding area. Denies N/V/D. Coronavirus screen: Client denies travel out of the [place] in the last 14 days. At this time, the client does not indicate any symptoms associated with coronavirus-19. Ebola Screen: Patient negative for fever greater than or equal to 101.5 degrees Fahrenheit, and additional compatible Ebola Virus Disease symptoms Patient denies exposure to infectious person. Patient denies travel to an Ebola-affected area in the 21 days before illness onset. No symptoms or risks identified at this time. Initial Sepsis Screen: Does the patient meet any 2 criteria? No. Patient's initial sepsis screen is negative. Does the patient have a suspected source of infection? No. Patient's initial sepsis screen is negative. Risk Assessment: Do you want to hurt yourself or someone else? Patient reports no desire to harm self or others. Onset of symptoms was July 15, 2020. 19:30 Method Of Arrival: Ambulatory ca1 19:30 Acuity: IKE 3 ca1 Historical: - Allergies: 19:36 No Known Allergies; ca1 - PMHx: 19:36 Diabetes - NIDDM; Hypertension; ca1 - PSHx: 19:36 left ankle surgery; Appendectomy; ca1 - Immunization history:: Pneumococcal vaccine is not up to date, Flu vaccine is up to date. - Social history:: Smoking status: Patient reports the use of cigarette tobacco products, denies chronic smoking, but will smoke occasionally, Patient/guardian denies using alcohol, street drugs, The patient lives with family. - Family history:: not pertinent. Screenin/12 00:00 Abuse screen: Denies threats or abuse. Denies injuries from another. Nutritional rr5 screening: No deficits noted. Tuberculosis screening: No symptoms or risk factors identified. Fall Risk IV access (20 points). Total Knowles Fall Scale indicates No Risk (0-24 pts). Assessment: 07/15 19:38 Reassessment: Dr. Adame notified re pt's HR. No EKG ordered. ca1 23:00 General: Appears in no apparent distress. uncomfortable, ill, Behavior is calm, rr5 cooperative, appropriate for age. 23:00 Pain: Complains of pain in abdomen Pain currently is 8 out of 10 on a pain scale. rr5 Quality of pain is described as aching, Pain began gradually, Is intermittent. Neuro: Level of Consciousness is awake, alert, obeys commands, Oriented to person, place, time, situation. Cardiovascular: Capillary refill < 3 seconds Patient's skin is warm and dry. Respiratory: Airway is patent. GI: Abdomen is round non-distended, Reports lower abdominal pain. : No signs and/or symptoms were reported regarding the genitourinary system. EENT: No signs and/or symptoms were reported regarding the EENT system. Derm: Skin is intact, is healthy with good turgor, Skin temperature is warm. Musculoskeletal: Capillary refill < 3 seconds. 07/16 00:00 Reassessment: Patient appears in no apparent distress at this time. Patient is alert, rr5 oriented x 3, equal unlabored respirations, skin warm/dry/pink. 00:50 Reassessment: Patient appears in no apparent distress at this time. complaint of rr5 abdominal pain came back, provider aware with order made and carried out. 01:45 Reassessment: Patient appears in no apparent distress at this time. Patient is alert, rr5 oriented x 3, equal unlabored respirations, skin warm/dry/pink. hospitalist at bedside. 03:00 Reassessment: Patient appears in no apparent distress at this time. Patient is alert, rr5 oriented x 3, equal unlabored respirations, skin warm/dry/pink. hospitalist at bedside. 04:00 Reassessment: Patient appears in no apparent distress at this time. Patient is alert, rr5 oriented x 3, equal unlabored respirations, skin warm/dry/pink. resting eyes closed breathing spontaneously at room air. 06:30 Reassessment: HR 38 bpm, ECG done ED provider and hospitalist informed. rr5 Vital Signs: 07/15 19:30 BP 169 / 95; Pulse 42; Resp 16 S; Temp 97(TE); Pulse Ox 99% on R/A; Weight 77.11 kg ca1 (R); Height 5 ft. 7 in. (170.18 cm) (R); Pain 8/10; 07/16 00:30 BP 146 / 89; Pulse 39; Resp 16; Pulse Ox 98% ; Pain 8/10; rr5 01:30 BP 139 / 76; Pulse 40; Resp 15; Pulse Ox 98% ; rr5 02:30 BP 147 / 60; Pulse 43; Resp 17; Pulse Ox 99% ; rr5 03:27 BP 132 / 55; Pulse 38; Resp 17; Pulse Ox 100% ; rr5 04:30 BP 137 / 80; Pulse 37; Resp 19; Pulse Ox 100% ; rr5 06:30 Pulse 38; Resp 19; Pulse Ox 99% ; rr5 07/15 19:30 Body Mass Index 26.63 (77.11 kg, 170.18 cm) ca1 ED Course: 07/15 19:19 Patient arrived in ED. am4 19:20 Ar Momin MD is Private Physician. am4 19:35 Triage completed. ca1 19:36 Arm band placed on right wrist. ca1 22:47 Willie Rodriguez, JOHN is Primary Nurse. rr5 22:50 Berna Adame MD is Attending Physician. ma2 23:15 Inserted saline lock: 20 gauge in left forearm, using aseptic technique. Blood rr5 collected. 23:15 No provider procedures requiring assistance completed. rr5 23:30 Patient has correct armband on for positive identification. Bed in low position. Call rr5 light in reach. Pulse ox on. NIBP on. 07/16 00:45 Berna Mares MD is Hospitalizing Provider. ma2 01:00 CT Abd/Pelvis - IV Contrast Only In Process Unspecified. EDMS 03:00 Patient admitted, IV remains in place. intact, No redness/swelling at site. rr5 12:00 Primary Nurse role handed off by Willie Rodriguez, RN eb Administered Medications: 07/15 23:19 Drug: Zofran (Ondansetron) 4 mg Route: IVP; Site: left forearm; ea 07/16 00:56 Follow up: Response: No adverse reaction ea 07/15 23:20 Drug: morphine 4 mg Route: IVP; Site: left forearm; ea 07/16 00:56 Follow up: Response: No adverse reaction ea 00:50 Drug: morphine 4 mg Route: IVP; Site: left antecubital; ea 02:00 Follow up: Response: No adverse reaction; RASS: Alert and Calm (0) rr5 00:51 Drug: D5-1/2 NS 1000 ml Route: IV; Rate: 125 ml/hr; Site: left antecubital; ea 02:00 Follow up: Response: No adverse reaction; IV Status: Infusion continued upon admission; rr5 IV Intake: 125ml 00:52 Drug: NS 0.9% 1000 ml Route: IV; Rate: 1 bolus; Site: left antecubital; ea 02:00 Follow up: Response: No adverse reaction; IV Status: Completed infusion; IV Intake: rr5 1000ml 02:33 Dru.375 grams of (Zosyn 3.375 grams, NS 0.9% 100 ml) Route: IVPB; Infused Over: 60 rr5 mins; Site: left antecubital; 03:30 Follow up: Response: No adverse reaction; IV Status: Completed infusion; IV Intake: rr5 100ml Intake: 02:00 IV: 1000ml; Total: 1000ml. rr5 02:00 IV: 125ml; Total: 1125ml. rr5 03:30 IV: 100ml; Total: 1225ml. rr5 Outcome: 00:46 Decision to Hospitalize by Provider. ma2 06:27 Admitted to ER Hold. Please see [facility] for further documentation. rr5 06:27 Condition: stable 06:27 Instructed on the need for admit. 12:16 Patient left the ED. eb Signatures: Dispatcher [employer] EDMS Maria Iyer RN RN ea Alzahri, Mohammad, MD MD ma2 Malena Mao Raymond, RN RN rr5 Charlotte Avila RN RN ca1 Martinez, Ashley am4 Corrections: (The following items were deleted from the chart) 07/15 19:37 19:30 BP 169 / 95; Pulse 52bpm; Resp 16bpm; Spontaneous; Pulse Ox 99% RA; Temp 97F ca1 Temporal; 77.11 kg Reported; Height 5 ft. 7 in. Reported; BMI: 26.6; Pain 8/10; ca1 03/12 00:51 00:51 Zosyn 3.375 grams IVPB in left antecubital over 60 mins [facility] 06:27 04:30 BP 137 / 0; Pulse 37bpm; Resp 19bpm; Pulse Ox 100%; rr5 rr5
[2020-07-16] MEDS ORDERED: NA CHLORIDE 0.9% 1,000 ML ONE ×2 (01:00→12:34)
[2020-07-16] MEDS ORDERED: D5 0.45 NS 1,000 ML IV ONE ×2 (01:01→09:28)
[2020-07-16] MEDS ORDERED: MORPHINE 4 MG/ML SYR ONE (01:02)
[2020-07-16] MEDS ORDERED: PIPER/TAZO/NS 3.375gm 3.375 GM/100 ML BAG ONE (01:12)
[2020-07-16] MEDS ORDERED: MORPHINE 2 MG/ML SYR IV PRN ×2 (03:30→13:56)
[2020-07-16] MEDS ORDERED: ACETAMINOPHEN 500 MG TAB PO PRN (03:30)
[2020-07-16] MEDS ORDERED: ONDANSETRON 4 MG/2 ML VIAL IV PRN (03:30)
[2020-07-16] MEDS ORDERED: MORPHINE 2 MG/ML SYR ONE (03:44)
--- NOTE | 2020-07-16 05:42 | P.HP ---
Certification for Inpatient Patient admitted to: Inpatient With expected LOS: >2 Midnights Patient will require the following post-hospital care: None Practitioner: I am a practitioner with admitting privileges, knowledge of patient current condition, hospital course, and medical plan of care. Services: Services provided to patient in accordance with Admission requirements found in Title 42 Section 412.3 of the Code of Federal Regulations <Matthew Kruse Patrick - Last Filed: 07/16/20 05:47> Patient History Date of Service: 07/16/20 Primary Care Provider: Dr. Momin Reason for admission: umbilical hernia History of Present Illness: Mr. Talamantes is a 64 yo male with HTN ad DM here today with a chronic umbilical hernia now with increased pain. He reports intermittent cramping 10/10 pain and that his umbilical hernia has become hard, nonreducible and painful. Pain not relieved by anything. Has not had an appetite. Reports nausea, no vomiting or contipation. He smokes 1 pack of cigarettes every 3 days, drinks 6-7 beers a day. Na 129. Cl 95. - Past Medical/Surgical History Has patient received pneumonia vaccine in the past: No Diabetic: Yes -: DM Type 2 -: HTN -: Alcohol abuse -: tobacco use -: Left ankle sx, has plate and pins -: Appendectomy -: Joint Replacement Psychosocial/ Personal History: 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 - Family History Father -: Heart disease - Social History Smoking Status: Current every day smoker Counseled patient to stop smoking for: less than 10 minutes Smoking therapy provided: Yes Patient receptive to therapy: No Alcohol use: Yes CD- Drugs: No Caffeine use: Yes Place of Residence: Home <Flower Kruseloren Nguyen - Last Filed: 07/16/20 05:47> Date of Service: 07/16/20 <Berna Mraes - Last Filed: 07/20/20 05:47> Allergies No Known Allergies Allergy (Verified 07/14/15 14:34) Home Medications: Metformin HCl [Glucophage*] 500 mg PO DAILY 02/23/14 Aspirin [Aspirin EC] 81 mg PO DAILY 07/16/20 Doxycycline Hyclate 100 mg PO DAILY 07/16/20 Lisinopril [Zestril] 20 mg PO DAILY 07/16/20 Ciprofloxacin HCl [Cipro 500 MG Tablet] 500 mg PO BID #10 tab 07/17/20 Codeine/APAP [Tylenol W/Codeine #3 tab] 1 tab PO Q4HP PRN #30 tab 07/17/20 Review of Systems General: Unremarkable Eyes: Unremarkable ENT: Unremarkable Respiratory: Unremarkable Cardiovascular: Unremarkable Gastrointestinal: Nausea, Abdominal Pain, As per HPI Genitourinary: Unremarkable Musculoskeletal: Unremarkable Integumentary: Unremarkable Neurological: Unremarkable Lymphatics: Unremarkable <Matthew Kruse - Last Filed: 07/16/20 05:47> Physical Examination - Vital Signs Respirations: 20 Pulse Ox (%): 98 - Physical Exam General: Alert, In no apparent distress, Oriented x3, Cooperative HEENT: Atraumatic, Normocephalic, PERRLA, Mucous membr. moist/pink, EOMI, Sclerae nonicteric Neck: Supple, 2+ carotid pulse no bruit, JVD not distended, No Thyromegaly, No LAD Respiratory: Clear to auscultation bilaterally, Normal air movement Cardiovascular: No edema, Normal pulses, Regular rate/rhythm, Normal S1 S2, Systolic murmur Capillary refill: <2 Seconds Gastrointestinal: Normal bowel sounds, Soft and benign, Non-distended, No ascites, No tenderness, No rebound, No guarding, Other (umbilical hernia), Masses Musculoskeletal: No clubbing, No swelling, No contractures, No erythema, No tenderness, No warmth Integumentary: No breakdown, No significant lesion, No tenderness/swelling, No warmth, No cyanosis, Rash(es), Erythema, Other (chronic rash on lower abdomen ) Neurological: Normal gait, Normal speech, Normal strength at 5/5 x4 extr, Normal tone, Sensation intact, Cranial nerves 3-12 intact, Normal affect - Studies Laboratory Data (last 24 hrs) 07/15/20 23:08: WBC 7.30, Hgb 15.1, Hct 44.4, Plt Count 145 L 07/15/20 23:08: Sodium 129 L, Potassium 4.1, BUN 15, Creatinine 0.57, Glucose 96, Total Bilirubin 1.6 H, AST 43 H, ALT 44, Alkaline Phosphatase 71, Lipase 246 <Matthew Kruse - Last Filed: 07/16/20 05:47> Assessment and Plan - Plan Assessment #umbilical hernia #HTN #DM #alcohol dependence #tobacco dependence Plan #umbilical hernia -surgery consulted -NPO -morphine for pain #HTN -reconcile home medications, lisinopril 20mg #DM -will initiate mild sliding scale with ACHS checks when diet resumes #alcohol dependence -continue to monitor #tobacco dependence -continue to monitor Discharge Plan: Home Plan to discharge in: 48 Hours - Advance Directives Does patient have a Living Will: No Does patient have a Durable POA for Healthcare: No - Code Status/Comfort Care Code Status Assessed: Yes (full code) Critical Care: No Time Spent Managing Pts Care (In Minutes): 70 <Matthew Kruse - Last Filed: 07/16/20 05:47> Date of Service: 07/16/20 Pressure clear by cardiology for surgery. Anticipate discharge home once surgery is completed and cardiacwise remains stable <Berna Mares - Last Filed: 07/20/20 05:47>
[2020-07-16 05:46] VITALS: BMI 26.6
[2020-07-16 06:16] LABS: Urine Appearance CLEAR; Urine Bilirubin NEGATIVE (NEG); Urine Blood NEGATIVE (NEG); Urine Color YELLOW; Urine Glucose NEGATIVE (NEG); Urine Protein NEGATIVE (NEG); Urine Specific Gravity 1.015 (1.005-1.030); Urine Urobilinogen 0.2 mg/dL (0.2-1.0)
[2020-07-16 06:16] LABS: Urine Blood NEGATIVE (NEG); Urine Glucose NEGATIVE (NEG); Urine Protein NEGATIVE (NEG); Urine Specific Gravity 1.015 (1.005-1.030)
[2020-07-16 06:17] LABS: Urine Microscopic Reflex NO UMIC
[2020-07-16] MEDS: INSULIN -REGULAR HUMAN 50 UNIT/0.5 ML ML SQ SCH ×4 (07:30→21:00)
[2020-07-16] MEDS ORDERED: PNEUMOCOCCAL VACCINE 0.5 ML IMVAC ONE ×2 (08:00→09:28)
[2020-07-16] MEDS: D5 0.45 NS 1,000 ML IV SCH ×2 (09:23→21:12)
--- NOTE | 2020-07-16 11:51 | ECHO ---
HEIGHT: 5 ft 7 in WEIGHT: 169 lb 12.095 oz DATE OF STUDY: 07/16/[address]: Berna Mares MD 2-DIMENSIONAL: YES M.MODE: YES DOPPLER: YES COLOR FLOW: YES TDS: NO PORTABLE: NO DEFINITY: NO BUBBLE STUDY: NO DIAGNOSIS: BRADYCARDIA CARDIAC HISTORY: CATHERIZATION: NO SURGERY: NO PROSTHETIC VALVE: NO PACEMAKER: NO MEASUREMENTS (cm) DIASTOLIC (NORMALS) SYSTOLIC (NORMALS) IVSd 1.1 (0.6-1.2) LA Diam 3.6 (1.9-4.0) LVEF 62% LVIDd 5.6 (3.5-5.7) LVIDs 3.7 (2.0-3.5) %FS 34% LVPWd 1.0 (0.6-1.2) Ao Diam 2.8 (2.0-3.7) 2 DIMENSIONAL ASSESSMENT: RIGHT ATRIUM: NORMAL LEFT ATRIUM: NORMAL RIGHT VENTRICLE: NORMAL LEFT VENTRICLE: NORMAL TRICUSPID VALVE: NORMAL MITRAL VALVE: NORMAL PULMONIC VALVE: NORMAL AORTIC VALVE: STENOSIS PERICARDIAL EFFUSION: NONE AORTIC ROOT: NORMAL LEFT VENTRICULAR WALL MOTION: NORMAL DOPPLER/COLOR FLOW: MILD AORTIC STENOSIS. AORTIC VALVE AREA 1.6 CENTIMETERS SQUARED. COMMENTS: MILD AORTIC STENOSIS. AORTIC VALVE AREA 1.6 CENTIMETERS SQUARED. ATRIAL FIBRILLATION WITH LOW HEART RATE. NORMAL LEFT VENTRICULAR EJECTION FRACTION. TECHNOLOGIST: Bertha HENNING
--- NOTE | 2020-07-16 12:37 | P.BOP ---
Preoperative diagnosis: small bowel obstrucion, incarcerated/strangulater umbilical hernia Postoperative diagnosis: small bowel obstrucion, incarcerated umbilical hernia Primary procedure: Open repair of incarcerated umbilical hernia [place] Alarm Assembler: Lorena Cummins) Estimated blood loss: <10cc Specimen: hernia sac Findings: incarcerated small bowel look viable at this time Anesthesia: General Complications: None Transferred to: Recovery Room Condition: Good
[2020-07-16] MEDS ORDERED: FENTANYL CITR 100 MCG/2 ML ONE (12:41)
[2020-07-16] MEDS ORDERED: propofoL 200 MG/20 ML VIAL IV ONE (12:41)
[2020-07-16] MEDS ORDERED: GLYCOPYRROLATE 0.2 MG/ML SYR ONE (12:42)
[2020-07-16] MEDS ORDERED: LIDOCAINE 2% MPF 5 ML VIAL ONE (12:42)
[2020-07-16] MEDS ORDERED: MIDAZOLAM HCL 2 MG/2 ML INJ ONE (12:43)
[2020-07-16] MEDS ORDERED: ONDANSETRON 4 MG/2 ML VIAL ONE (12:43)
[2020-07-16] MEDS ORDERED: ROCURONIUM 50 MG/5 ML VIAL IV ONE (12:44)
[2020-07-16] MEDS ORDERED: D50W 50 ML IV ONE (12:45)
[2020-07-16] MEDS ORDERED: PIPER/TAZO/NS 3.375gm 3.375 GM/100 ML BAG IV ONE (12:45)
[2020-07-16] MEDS ORDERED: ATROPINE SULF 1 MG/10 ML SYR IV ONE ×2 (13:03→13:32)
[2020-07-16] MEDS ORDERED: EPHEDRINE SULF 50 MG/ML VIAL ONE (13:04)
[2020-07-16] MEDS ORDERED: NEOSTIGMINE 1 MG/ML -5 ML ONE (13:19)
--- NOTE | 2020-07-16 13:21 | CON ---
Date of Consultation: 07/16/2020 Diagnoses: Incarcerated umbilical hernia, tenderness, abdominal pain. History Of Present Illness: This is a case of a 64-year-old patient, come early this morning with an incarcerated umbilical hernia with CAT scan findings of bowel trapped in that region. Subsequently, the patient received some pain medication. He pushed the hernia back in. At that moment, it was ca lled incarceration, possible strangulation. Every time, he coughs or he sneezes, the bulging called back once again with intestines trapped in that area. Now, he is able to push it back in. He feels better now with no cramps. He has been coughing and sneezing recently. He smokes. He was advised a nd counseled about the importance of stopping. He also understands importance of no heavy lifting. Past Medical History: Alcohol abuse, smoke, hypertension, diabetes. Past Surgical History: Surgeries include ankle surgery, appendectomy. Family History: Heart disease. Medications: Include Glucophage, Cipro, folic acid, Aldactone, Flagyl. Review of Systems: The patient comes here with nausea, vomiting, abdominal cramping, abdominal pain, still has the periu mbilical tenderness, but the cramping went away after he pushed intestines back. Abdomen: Right now, his abdomen is benign, asymptomatic with no peritonitis. This happened a few ho urs ago. Extremities: Good capillary refill. Laboratory Data: Blood work shows WBC count of 7.3, hemoglobin of 15, potassium 4.1, total bilirubin of 1.6, lipase 246. CAT scan of the abdomen and pelvis, official report still pending, although pre liminary shows periumbilical hernia with containing loop of small bowel resulting in mid upstream sma ll bowel obstruction. There are signs of thickening of the skin overlying the area. Fat stranding p resent. Cannot rule out strangulation. Assessment: This is a male, who comes to us with an umbilical hernia. He was able to push it back, but still some content in that region and we explained to him the options that we have of emergent re pair of incarcerated umbilical hernia, possible laparotomy, possible bowel resection. We asked him n ot to push intestines anymore and need to have it fixed as soon as possible. We are going to keep tr ack of tissue in that region. Otherwise, I may have to do a laparotomy. Even though after we fix hi s hernia, we might have to give him more 24 hours since some intestines may be there in the past. He does not want a laparotomy done if possible. I asked him, I am going to trying to see if intestine is still there and fix the hernia. We keep him in observation. If the areas get worse, he is going to have to let me do a laparotomy unless the intestines look bad right now, we might have to do lapar otomy right now. He understands the options. He at one point said that he may have to do this elect ively. I discussed with him the pros and cons of that including once again damaging the bowel and th en he decided, he is going to go for surgery, so Cardiology just got consulted by the primary doctor. We are awaiting for the results, so we can take him back immediately. The benefits, alternatives, and risks of repair of umbilical hernia, incarcerated, possible bowel resection possible laparotomy w ere fully explained to the patient which include, but not limited to infection, bleeding, damage to a djacent structures, anesthesia complication, recurrence, NH and even . He also understands this may not relieve symptoms. He might need more than one surgical intervention. He may need mesh. Pr os and cons of mesh were discussed with the patient. He did consent for mesh placement if needed. Kaleb burns understands the importance of smoking cessation and help was advised and counseled. The OR was imm ediately called. RADHA/ANDREW Voice ID: [id number] Report ID: [id number]
[2020-07-16 13:35] VITALS: O2SAT 100
[2020-07-16] MEDS ORDERED: HYDROCODONE/APAP 5/325 MG TAB PO PRN (13:57)
--- NOTE | 2020-07-16 14:12 | OP ---
Date of Procedure: 07/16/2020 Surgeon: Sorin Fortune MD Emergency Management Specialist: Lorena Cummins. Preoperative Diagnoses: Small bowel obstruction, incarcerated/strangulated umbilical hernia. Postoperative Diagnoses: Small bowel obstruction, incarcerated umbilical hernia. Procedure Performed: Open repair of incarcerated umbilical hernia. Estimated Blood Loss: Less than 10 cc. Findings: Incarcerated small bowel, looks viable at this time. Good peristalsis. Indications: This is case of a 64-year-old patient comes to us today with what it looked like incarc erated/strangulated umbilical hernia with small bowel content on it causing the bowel obstruction. T he patient was explained the need for emergent surgery. After talking to him, pros and cons, he cornelio landa made the decision. We called the OR. We have to also get cardiology involved since low heart ra te, although he thinks it is chronic. The patient was cleared. Anesthesia was able to take the case , so we brought him emergently to the operating room. The benefits, alternatives, and risks of repai r of umbilical hernia, possible bowel resection, possible laparotomy were fully explained to the louisa ent which include, but not limited to infection, bleeding, damage to adjacent structures, anesthesia complication, recurrence, GA and even . He also understands this may not relieve symptoms. He might need more than one surgical intervention. He understood, signed a consent. Description Of Proecdure: The patient was brought to the operating room, placed in supine position. Anesthesia was done without complication. Abdominal area was prepped and draped in sterile fashion. We held the umbilical area intact to avoid reduction of entire content. After time-out was done, w e proceeded to make an incision over the area. Incision was carried down to hernia sac. We held the hernia sac intact until we were able to open the hernia sac carefully and hold the content. We saw small bowel in that region and it seemed to be viable. We extended incision in the umbilical area to do investigation of the rest of the bowel in that region which looked intact with no necrotic seen a t this moment. The bowel looked viable with no cyanosis seen at this time with good peristalsis. Th e decision was made then not to do the bowel resection, just to leave it there. We are going to keep him overnight for observation, but I believe we can avoid the bowel resection at this moment. If he gets worse, then may need bowel resection in the future. The team understood, so we proceeded to ir rigate the area. We cleaned the hernia sac, cleaned the fascial edges. We proceeded to close the um bilical hernia and the extra incision that we created with #1 Prolene in a [id number] fashion mu ltiple times. The area was irrigated. Subcutaneous tissue closed with 3-0 chromic and skin with sta ples. SPONGE count, instrument count were correct. The patient tolerated the procedure well. The p atient was sent to recovery in stable condition. The patient will be kept overnight. Clear liquid d iet. Observation. We are going to put him in telemetry for the cardiac and medical doctors to [facility] [place]. RADHA/ANDREW Voice ID: [id number] Report ID: [id number]
--- NOTE | 2020-07-16 17:45 | RAD REPORT ---
EXAM DESCRIPTION: Abdomen Pelvis W Contrast RadLex: CT ABDOMEN PELVIS WITH IV CONTRAST CLINICAL HISTORY: Abd pain and hernia pain/ttp. COMPARISON: CT of the abdomen and pelvis from September 24, 2019. TECHNIQUE: CT of the abdomen and pelvis was performed following intravenous administration of iodina dex contrast. Arterial and portal venous phase images were obtained. Oral contrast was not administer ed. Axial, coronal, and sagittal soft tissue window reconstructions were created and sent to PACS. This exam was performed according to our departmental dose-optimization program, which includes autom ated exposure control, adjustment of the mA and/or kV according to patient size and/or use of iterati ve reconstruction technique. FINDINGS: Thoracic: No significant abnormality. Hepatobiliary: Grossly nodular liver contour. Unchanged inferior right hepatic lobe 0.7 cm hypodensit y. No concerning hepatic lesion identified. The hepatic and portal veins are patent. The gallbladder is unremarkable. No biliary ductal dilatation. Pancreas: Unremarkable. Spleen: Splenomegaly, measuring 16.3 cm in length. Gastrointestinal: Periumbilical ventral hernia containing a loop of small bowel, which is mildly dila dex within the hernia sac. Small bowel proximal to the hernia sac is also mildly dilated. The sac yelitza sures 3.5 x 4.5 cm with a 1.8 cm neck. There is mild overlying skin thickening and trace surrounding fat stranding. The appendix is not clearly visualized, but there are no pericecal inflammatory change s. Adrenals: No abnormality identified in either adrenal gland. Renal: No concerning parenchymal abnormality in either kidney. No hydronephrosis or urolithiasis. Bladder/Reproductive: Unremarkable appearance of the urinary bladder by CT technique. Mild prostatome bartolo. Vascular/Lymphatics: No lymphadenopathy identified by CT size criteria. Decreased size of the retrope ritoneal lymph nodes. Abdominal aorta is normal in caliber. Mild atherosclerosis. Musculoskeletal: No concerning osseous lesion identified. Lower lumbar spine degenerative changes. Fluid / peritoneum: Trace free fluid in the pelvis. No free intraperitoneal air identified. IMPRESSION 1. Periumbilical ventral hernia containing a loop of small bowel, resulting in mild ups tream small bowel obstruction. Mild skin thickening overlying the hernia sac with trace surrounding f at stranding. Correlate for evidence of incarceration/strangulation. 2. Grossly nodular liver contour. Splenomegaly. Correlate for evidence of cirrhosis and portal hype rtension. 3. Trace free fluid in the pelvis. Electronically signed by: Tania Rowe MD 07/16/2020 12:28 AM CLINICAL TRIAL COORDINATOR Due to temporary technical issues with the PACS/Fluency reporting system, reports are being signed by the in house radiologists without review as a courtesy to insure prompt reporting. The interpreting radiologist is fully responsible for the content of the report.
[2020-07-16 18:41] LABS: Thyroid Stimulating Hormone 5.13 uIU/mL (0.360-3.740)
[2020-07-16 18:43] LABS: Magnesium 1.3 mg/dL (1.8-2.4)
[2020-07-16] MEDS: Magnesium Sulfate 2gm IVPB 2 G/50 ML BAG IV SCH ×2 (21:00→22:00)
[2020-07-17 05:47] LABS: Urine Appearance CLEAR; Urine Bilirubin NEGATIVE (NEG); Urine Blood NEGATIVE (NEG); Urine Color YELLOW; Urine Glucose NEGATIVE (NEG); Urine Protein NEGATIVE (NEG); Urine pH 5.5 (5.0-7.0)
[2020-07-17 05:56] LABS: Urine Microscopic Reflex NO UMIC
[2020-07-17 06:19] LABS: Absolute Lymphocytes (CBC) 0.5 K/uL (0.7-4.9); Basophils % 0.5 % (0-1.3); Hematocrit 40.3 % (39.6-49.0); Lymphocytes % 11.9 % (15.3-44.8); MPV 9.6 fL (7.6-11.3); RBC Red Blood Cell Count 4.63 M/uL (4.33-5.43)
--- NOTE | 2020-07-17 06:25 | PN ---
Date of Progress Note: 07/17/2020 Subjective: Mr. Talamantes was seen yesterday for cardiac clearance because of atrial fibrillation, rat e of 40 without any hemodynamic compromise. I cleared him for surgery. He had an echocardiogram tyrese t was within normal limit. Surgery was done yesterday by Dr. Fortune. Postoperatively, he has done well. His heart rate that is at 44, remains in atrial fibrillation with slow ventricular response w ithout any symptoms. He is presently on antibiotics. He is feeling well. I believe his discharge u p to Dr. Fortune and Dr. Mares, but he will see me in the office as soon as he is able to postoperati vely, and I will probably put him on Xarelto for chronic atrial fibrillation. I agree with his prese nt regimen at this point. ROBERTO CARLOS/ANDREW Voice ID: [id number] Report ID: [id number]
[2020-07-17 06:39] LABS: ALT/SGPT 32 U/L (12-78); AST/SGOT 34 U/L (15-37); Alkaline Phosphatase 60 U/L (45-117); BUN Blood Urea Nitrogen 6 mg/dL (7-18); Bicarbonate 29 mmol/L (21-32); Bilirubin Total 1.1 mg/dL (0.2-1.0); Glucose Level 109 mg/dL (74-106); Protein, Total 6.8 g/dL (6.4-8.2); Sodium Level 134 mmol/L (136-145)
[2020-07-17] MEDS: INSULIN -REGULAR HUMAN 50 UNIT/0.5 ML ML SQ SCH ×3 (07:30→16:11)
--- NOTE | 2020-07-17 08:32 | EKG ---
Test Date: 2020-07-16 Test Time: 06:42:25 Cellar Pumper: RR MEASUREMENT RESULTS: Intervals: Rate: 40 NC: QRSD: 104 QT: 514 QTc: 418 [place]: P: NC: QRS: 111 T: 40 INTERPRETIVE STATEMENTS: Junctional bradycardia Right axis deviation Nonspecific ST abnormality Abnormal ECG Compared to ECG 10/30/2017 02:50:56 ST (T wave) deviation now present Sinus rhythm no longer present Electronically Signed On 07-17-20 08:29:26 MEDICAL PHYSICS RESEARCHER by Kp Mitchell
[2020-07-17 09:06] LABS: Blood Morphology Comment NOT SEEN (NOT SEEN); Platelet Estimate DECR; White Blood Cell Scan OK (OK)
--- NOTE | 2020-07-17 10:04 | CON ---
Date of Consultation: 07/16/2020 Reason For Consultation: Cardiac clearance for hernia surgery and atrial fibrillation with slow vent ricular response. History Of Present Illness: Mr. Talamantes is a 64-year-old white, Latin-Maldivian male. He has a histo ry of hypertension, diabetes, alcohol abuse, cirrhosis. I have seen him in the office before and had recommended Xarelto for his chronic atrial fibrillation with slow ventricular response as asymptomat ic, but he has not taken the Xarelto because of cost. He has been on aspirin. He came in with no ca rdiac symptoms, but have an incarcerated hernia needing surgery by Dr. Fortune and I was asked to cl ear him. He presently denies any chest pain, nausea, vomiting, diaphoresis, PND, orthopnea, pedal ed lico, palpitation, or syncope. Past Medical History: As stated above. Allergies: NONE. Review of Systems: Negative. Social History: Negative. Family History: Noncontributory. Medications: At home include aspirin, lisinopril, and metformin. Physical Examination: Vital Signs: Stable. He was in atrial fibrillation at a rate of 42, otherwise hemodynamically stabl e. HEENT: Negative. Neck: Supple with no bruit. Chest: Clear. Cardiac: Revealed atrial fibrillation without any gallops, murmurs, or rubs. Abdomen: Benign except for the umbilical hernia. Extremities: Revealed no clubbing, cyanosis, or edema. Diagnostic Data: Showed a magnesium 1.3. His sodium was 129. His TSH was 5.130. Rest of it was fa irly unremarkable. His creatinine was 0.57. EKG showed atrial fibrillation, rate of 42. Chest x-ra y was negative. Impression And Plan: 1.Chronic atrial fibrillation with slow ventricular response without any hemodynamic compromise. Th e patient is clear for surgery from my standpoint. He will need to start Xarelto later on and we blanca l deal with that as an outpatient. 2.Cirrhosis. 3.History of alcohol abuse. 4.Diabetes. 5.Hypertension. Echocardiogram is pending. I will be available for question and I will follow up t he patient postoperatively. ROBERTO CARLOS/ALEKSANDRL Voice ID: [id number] Report ID: [id number]
--- NOTE | 2020-07-17 12:16 | CON ---
Date of Consultation: 07/17/2020 Diagnoses: Incarcerated umbilical hernia, small bowel obstruction. History Of Present Illness: The patient is doing better. No shortness of breath. No chest pain. A bdomen soft and depressible. Passing flatus. Physical Examination: Chest: Clear. Abdomen: Intact surgical site. Bowel sounds positive. Soft and depressible. Extremities: Good capillary refill. From the surgical standpoint, patient is tolerating diet. The abdomen was sick but checked previousl y and during exploration intestines seems to be viable. He was advised today to go home. No heavy l ifting. Keep the area intact until next Sunday. If the abdominal pain comes back, come to the ER im mediately. Soft diet. The patient will be sent home on Cipro and Tylenol No. 3. RADHA/ANDREW Voice ID: [id number] Report ID: [id number]
[2020-07-17] MEDS ORDERED: MAGNESIUM 50% 3 GM in NA CHLORIDE 0.9% 100 ML IV ONE (13:00)
[2020-07-17 14:44] VITALS: BP 141/76; TEMP 97.7
[2020-07-17] MEDS: D5 0.45 NS 1,000 ML IV SCH (16:00)
--- NOTE | 2020-07-20 05:49 | P.DS ---
Discharge Date: 07/17/20 Primary Care Provider: Dr. Momin Disposition: ROUTINE DISCHARGE Discharge Condition: GOOD Reason for Admission: umbilical hernia Consultations: General surgeon Cardiology Brief History of Present Illness: Patient is a 64 yo male with HTN ad DM here today with a chronic umbilical hernia now with increased pain. He reports intermittent cramping 10/10 pain and that his umbilical hernia has become hard, nonreducible and painful. Pain not relieved by anything. Has not had an appetite. Reports nausea, no vomiting or contipation. He smokes 1 pack of cigarettes every 3 days, drinks 6-7 beers a day. Na 129. Cl 95. Hospital Course: Patient taken to the [facility] for umbilical hernia repair. Patient was cleared by cardiology. Patient will followup with cardiology for further testing. At this time, patient is stable for discharge home. Vital Signs/Physical Exam: Temp Pulse Resp BP Pulse Ox 97.7 F 43 L 16 141/76 H 99 07/17/20 12:00 07/17/20 12:00 07/17/20 12:00 07/17/20 12:00 07/17/20 12:00 General: Alert, In no apparent distress, Oriented x3 Laboratory Data at Discharge: WBC 4.50 K/uL (4.3-10.9) D 07/17/20 05:49 Hgb 13.7 g/dL (13.6-17.9) 07/17/20 05:49 Hct 40.3 % (39.6-49.0) 07/17/20 05:49 Plt Count 99 K/uL (152-406) L D 07/17/20 05:49 Sodium 134 mmol/L (136-145) L 07/17/20 05:49 Potassium 4.0 mmol/L (3.5-5.1) 07/17/20 05:49 BUN 6 mg/dL (7-18) L 07/17/20 05:49 Creatinine 0.51 mg/dL (0.55-1.3) L 07/17/20 05:49 Glucose 109 mg/dL (74-106) H 07/17/20 05:49 Magnesium 1.6 mg/dL (1.8-2.4) L 07/17/20 05:49 Total Bilirubin 1.1 mg/dL (0.2-1.0) H 07/17/20 05:49 AST 34 U/L (15-37) 07/17/20 05:49 ALT 32 U/L (12-78) 07/17/20 05:49 Alkaline Phosphatase 60 U/L (45-117) 07/17/20 05:49 Lipase 246 U/L (73-393) 07/15/20 23:08 Home Medications: Metformin HCl [Glucophage*] 500 mg PO DAILY 02/23/14 Aspirin [Aspirin EC] 81 mg PO DAILY 07/16/20 Doxycycline Hyclate 100 mg PO DAILY 07/16/20 Lisinopril [Zestril] 20 mg PO DAILY 07/16/20 Ciprofloxacin HCl [Cipro 500 MG Tablet] 500 mg PO BID #10 tab 07/17/20 Codeine/APAP [Tylenol W/Codeine #3 tab] 1 tab PO Q4HP PRN #30 tab 07/17/20 New Medications: Ciprofloxacin HCl [Cipro 500 MG Tablet] 500 mg PO BID #10 tab Codeine/APAP [Tylenol W/Codeine #3 tab] 1 tab PO Q4HP PRN #30 tab PRN Reason: Pain Diet: AHA Activity: No lifting more than 10 lbs Followup: Ar Momin MD [Primary Care Provider] - Sorin Fortune MD [ACTIVE - CAN ADMIT] - 1 Week Time spent managing pt's care (in minutes): 45
== END 2020-07-17 16:19 | disposition home or self-care (01) | DRG 354 ==
LOC: ER 19:15 → ERHOLD 07-16 03:57 → 2ND 07-16 15:31
PROVIDERS: ADMIT Hospitalist; ATTEND Hospitalist
PROC: 0WQF0ZZ Repair Abdominal Wall, Open Approach (ICD-10-PCS; principal; 2020-07-16 11:00)
DX: K42.0 Umbilical hernia with obstruction, without gangrene (principal); I48.20 Chronic atrial fibrillation, unspecified; F17.210 Nicotine dependence, cigarettes, uncomplicated; E11.9 Type 2 diabetes mellitus without complications; I10 Essential (primary) hypertension; K74.60 Unspecified cirrhosis of liver; F10.10 Alcohol abuse, uncomplicated; T45.516A Underdosing of anticoagulants, initial encounter; Z91.120 Patient's intentional underdosing of medication regimen due to financial hardship; Z90.49 Acquired absence of other specified parts of digestive tract; Z96.60 Presence of unspecified orthopedic joint implant; Z79.01 Long term (current) use of anticoagulants; Z79.84 Long term (current) use of oral hypoglycemic drugs; Z79.82 Long term (current) use of aspirin; Z79.899 Other long term (current) drug therapy; Z20.822 Contact with and (suspected) exposure to COVID-19; Z23 Encounter for immunization
CPT/HCPCS: 36415; 74177; 80048; 80053; 80076; 81003; 82947; 83690; 83735; 84439; 84443; 85025; 88302; 90471; 90732; 93005; 93306; 94010; 99285; J2250; J2270; J2405; J2543; J2704; J2710; J3010; J3475; J7030; J7799; Q9967; U0003

== ENCOUNTER 2021-06-20 11:03 | Observation (INO) | payer MEDICARE, OTHER ==
--- OUTSIDE RECORDS SUMMARY | 2021-06-20 11:15 | XMS REPORT | Continuity of Care Document ---
:1955 Author Organization [facility] t Address [address] [place] [address] Care Team Providers Name Role Phone SANTHOSH STALLINGS Attending Clinician Unavailable MD SANTHOSH STALLINGS Attending Clinician Unavailab jame Richard Attending Clinician Unavailable CHANDRAKANT Admitting Clinician Unavailable MD LUIS F LEWIS Admitting Clinician Unavailable Jose Manuel Admitting Clinician Unavailable Payers Payer Name Policy Type Policy Number Effective Date Expiration Date S [facility] [id number] 2020 (MEDICARE 00:00:00 REPLACEMENT HMO) Problems This patient has no known problems. Allergies, Adverse Reactions, Alerts This patient has no known allergies or adverse reactions. Medications This patient has no known medications. Procedures This patient has no known procedures. Encounters Start End Encounter Admission Attending Care Care Encounter Source Date/Time Date/Time Type Type Clinicians Facility Department ID 2021-06-01 Outpatient [facility] [id number] [facility] 14:36:52 Syd Daniel ibarra [facility] 2021-02-25 2021-02-[address] [facility] 016 [id number] [place] 00:00:00 00:00:00 [facility]EOLUMIP[facility] 811 [facility] 2021-02-21 2021-02-21 Outpatient [facility] [id number] [address] [place] 00:00:00 00:00:00 IFEOLUMIPO 191 [facility] 2021-02-21 2021-02-21 Outpatient [facility] [id number] [address] [place] 00:00:00 00:00:00 IFEOLUMIPO 266 [facility] 2020-10-26 2020-10-26 Outpatient [facility] [id number] [facility] 11:05:00 11:05:00 06[facility] 2020-09-06 2020-09-06 Outpatient [facility] [id number] [facility] 06:03:00 06:03:00 0503 [facility] 2020-09-03 2020-09-03 Outpatient [facility] [id number] [facility] 08:00:00 08:00:00 0430 [facility] 2020-08-07 2020-08-07 Outpatient [facility] [id number] [facility] 06:02:00 06:02:00 0403 [facility] 2020-07-31 2020-07-31 [facility]patient [facility] [id number] [facility] 08:00:00 08:00:00 0327 [facility] Results Test Description Test Time Test Comments Results Result Comments Source SARS-CoV-2 (COVID-19) RNA [Presence] in Respiratory sp ecimen by 2021-02-21 19:06:12 JAVIER with probe detection Test Item Value Reference Range Interpretation Comme nts SARS-CoV-2 (COVID-19) RNA [Presence] in Respiratory Not detected No t-Detected specimen by JAVIER with probe detection (test code = 32273-6) Whether patient is employed in a healthcare setting (test code = 20244-7) Whether the patient has symptoms related to condition of interest (test code = 22970-5) Patient was hospitalized because of this condition (test code = 92590-8) Whether the patient was admitted to intensive care unit (ICU) for condition of interest (test code = 56604-0) Whether patient resides in a congregate care setting (test code = 61445-4)
[2021-06-20 13:52] LABS: Absolute Lymphocytes (CBC) 0.8 K/uL (0.7-4.9); Hematocrit 40.6 % (39.6-49.0); Lymphocytes % 19.2 % (15.3-44.8); RBC Red Blood Cell Count 4.74 M/uL (4.33-5.43)
[2021-06-20 13:54] LABS: Protime INR 1.37
[2021-06-20] MEDS ORDERED: ALBUTEROL 2.5 MG/3 ML NEB SOL ONE (13:58)
[2021-06-20] MEDS ORDERED: IPRATROPIUM BROM 0.5MG/2.5ML ONE (13:58)
[2021-06-20 14:09] LABS: Albumin 3.3 g/dL (3.4-5.0); Bilirubin Direct 0.4 mg/dL (0-0.2); Bilirubin Total 1.1 mg/dL (0.2-1.0); Magnesium 1.6 mg/dL (1.8-2.4); Potassium 4.4 mmol/L (3.5-5.1); Protein, Total 7.8 g/dL (6.4-8.2); Troponin High Sensitivity 24.2 pg/mL (<58.9)
--- NOTE | 2021-06-20 14:26 | RAD REPORT ---
EXAM DESCRIPTION: RAD - Chest Single View - 06/20/2021 2:20 pm CLINICAL HISTORY: shortness of breath Chest pain. COMPARISON: Chest Pa And Lat (2 Views) dated 12/02/2020; Chest Single View dated 10/30/2017; CHEST SIN GLE VIEW dated 02/24/2014; CHEST SINGLE VIEW dated 02/23/2014 FINDINGS: Portable technique limits examination quality. Mild interstitial pulmonary edema with small bilateral pleural effusions. The heart is moderately enl arged in size. No displaced fractures. IMPRESSION: Mild CHF.
[2021-06-20 14:37] LABS: SARS-COV-2 RT PCR NEGATIVE (NEGATIVE)
--- NOTE | 2021-06-20 17:13 | ER ---
Nurse's Notes [facility] Name: Gavin Talamantes Age: 65 yrs Sex: Male : 1955 Arrival Date: 06/20/2021 Time: 11:04 Bed 13 Private MD: Ar Momin E Diagnosis: Congestive Heart Failure Presentation: 06/20 11:25 Chief complaint: Patient states: SOB for over 2 weeks. Saw his doctor and had blood ll1 work last week. Nothing specific found, still has SOB with exertion. Coronavirus screen: Client denies travel out of the [place] in the last 14 days. difficulty breathing, shortness of breath, Client presents with at least one sign or symptom that may indicate coronavirus-19. Standard/surgical mask placed on the client. Ebola Screen: Patient denies travel to an Ebola-affected area in the 21 days before illness onset. Initial Sepsis Screen: Does the patient meet any 2 criteria? No. Patient's initial sepsis screen is negative. Does the patient have a suspected source of infection? Yes: Other: SOB. Risk Assessment: Do you want to hurt yourself or someone else? Patient reports no desire to harm self or others. Onset of symptoms was June 07, 2021. 11:25 Method Of Arrival: Ambulatory ll1 11:25 Acuity: IKE 3 ll1 Historical: - Allergies: 11:27 No Known Allergies; ll1 - PMHx: 11:27 Diabetes - NIDDM; no longer takes meds; Hypertension; ll1 - PSHx: 11:27 nasal SX; hernia repair; ll1 - Immunization history:: Client reports receiving the 2nd dose of the Covid vaccine. - Social history:: Smoking status: Patient denies any tobacco usage or history of. Screenin:44 Abuse screen: Denies threats or abuse. Nutritional screening: No deficits noted. vg1 Tuberculosis screening: No symptoms or risk factors identified. Fall Risk No fall in past 12 months (0 pts). No secondary diagnosis (0 pts). IV access (20 points). Ambulatory Aid- None/Bed Rest/Nurse Assist (0 pts). Gait- Normal/Bed Rest/Wheelchair (0 pts) Mental Status- Oriented to own ability (0 pts). Total Knowles Fall Scale indicates No Risk (0-24 pts). Assessment: 13:44 General: Appears in no apparent distress. comfortable, Behavior is calm, cooperative. vg1 Pain: Complains of pain in anterior aspect of left upper chest Pain does not radiate. Pain currently is 0 out of 10 on a pain scale. Neuro: Level of Consciousness is awake, alert, obeys commands, Oriented to person, place, time, situation. Cardiovascular: Patient's skin is warm and dry. Rhythm is sinus bradycardia. Respiratory: Airway is patent Respiratory effort is even, unlabored, Breath sounds are diminished in right posterior lower lobe. GI: Patient currently denies nausea, vomiting. : No signs and/or symptoms were reported regarding the genitourinary system. EENT: No signs and/or symptoms were reported regarding the EENT system. Derm: Skin is intact, is healthy with good turgor. Musculoskeletal: Circulation, motion, and sensation intact. 14:47 Reassessment: Patient appears in no apparent distress at this time. Patient and/or vg1 family updated on plan of care and expected duration. Pain level reassessed. Patient is alert, oriented x 3, equal unlabored respirations, skin warm/dry/pink. Patient states feeling better. 15:47 Reassessment: Patient appears in no apparent distress at this time. Patient and/or vg1 family updated on plan of care and expected duration. Pain level reassessed. Patient is alert, oriented x 3, equal unlabored respirations, skin warm/dry/pink. Patient denies pain at this time. Patient states feeling better. 16:45 Reassessment: Patient appears in no apparent distress at this time. No changes from vg1 previously documented assessment. Patient and/or family updated on plan of care and expected duration. Pain level reassessed. Patient is alert, oriented x 3, equal unlabored respirations, skin warm/dry/pink. 17:45 Reassessment: Patient appears in no apparent distress at this time. No changes from vg1 previously documented assessment. Patient is alert, oriented x 3, equal unlabored respirations, skin warm/dry/pink. 18:45 Reassessment: Patient appears in no apparent distress at this time. No changes from vg1 previously documented assessment. Patient and/or family updated on plan of care and expected duration. Pain level reassessed. Patient is alert, oriented x 3, equal unlabored respirations, skin warm/dry/pink. Patient denies pain at this time. 19:33 Reassessment: Patient appears in no apparent distress at this time. Patient and/or vc1 family updated on plan of care and expected duration. Pain level reassessed. Patient is alert, oriented x 3, equal unlabored respirations, skin warm/dry/pink. Vital Signs: 11:25 BP 177 / 87; Pulse 43; Resp 17; Temp 98.0; Pulse Ox 100% ; Pain 0/10; ll1 13:44 BP 143 / 72; Pulse 44; Resp 17; Pulse Ox 100% ; vg1 14:47 BP 146 / 84; Pulse 46; Resp 18; Pulse Ox 100% ; vg1 15:47 BP 156 / 75; Pulse 46; Resp 20; Pulse Ox 99% ; vg1 17:25 BP 155 / 85; Pulse 44; Resp 17; Pulse Ox 99% ; vg1 17:27 Weight 83.91 kg; vg1 18:30 BP 151 / 81; Pulse 45; Resp 16; Pulse Ox 98% ; vg1 19:32 BP 131 / 78; Pulse 44; Resp 20; Pulse Ox 99% on R/A; vc1 20:11 BP 136 / 71; Pulse 43; Resp 21; Temp 97(TE); Pulse Ox 97% on R/A; vc1 ED Course: 11:04 Patient arrived in ED. as 11:04 Benny Rosenberg MD is Private Physician. as 11:04 Ar Momin MD is Private Physician. as 11:27 Triage completed. ll1 11:29 Arm band placed on. ll1 13:06 Patient placed in an exam room, on a stretcher. 1 13:09 Spenser Farrell PA is PHCP. [facility] 13:09 Andrew Steiner MD is Attending Physician. m 13:21 Jennifer Kuhn, JOHN is Primary Nurse. vg1 13:35 EKG done, by ED staff, reviewed by Spenser KRISHNA. mb7 13:38 No provider procedures requiring assistance completed. Initial lab(s) drawn, by nc, vg1 sent to lab. Inserted saline lock: 20 gauge in left forearm, using aseptic technique. Blood collected. 13:44 Patient has correct armband on for positive identification. Bed in low position. Call vg1 light in reach. Side rails up X 1. 14:20 XRAY Chest (1 view) In Process Unspecified. EDMS 17:12 Demian Mancera is Hospitalizing Provider. [facility] 19:29 Primary Nurse role handed off by Jennifer Kuhn, RN cs9 20:52 Patient admitted, IV remains in place. vc1 Administered Medications: 14:00 Drug: Albuterol - atroVENT (ipratropium) (3:1) (2.5 mg - 0.5 mg) 3 ml Route: Nebulizer; 1 14:47 Follow up: Response: No adverse reaction [facility] 19:31 Drug: Lasix (furosemide) 40 mg Route: IVP; Site: left wrist; vc1 20:12 Follow up: Response: No adverse reaction; Marked relief of symptoms vc Outcome: 17:13 Decision to Hospitalize by Provider. [facility] 20:51 Admitted to Med/surg accompanied by tech, via wheelchair, room 219, Report called to [facility] amanda 20:51 Condition: good 20:51 Instructed on the need for admit. 20:53 Patient left the ED. 1 Signatures: Dispatcher [employer] EDMS Spenser Farrell PA PA jmm Martinez, Amelia as Jennifer Kuhn, RN RN vg1 Zakia Vang RN RN mike1 Najma James cs9 Jacinta Ndiaye mb7 Isa Jamison, RN RN vc1
--- NOTE | 2021-06-20 17:14 | EDPHYS ---
Physician Documentation [facility] Name: Gavin Talamantes Age: 65 yrs Sex: Male : 1955 Arrival Date: 06/20/2021 Time: 11:04 Bed 13 Private MD: Ar Momin E ED Physician Andrew Steiner HPI: 06/20 13:21 This 65 yrs old Male presents to ER via Ambulatory with complaints of Shortness Of jmm Breath. 13:21 The patient has shortness of breath with light activity. Onset: The symptoms/episode jmm began/occurred gradually, 2 week(s) ago. Duration: The symptoms are continuous. The patient's shortness of breath is aggravated by exertion, light activity. Associated signs and symptoms: Pertinent negatives: chest pain, non-productive cough, productive cough, diaphoresis, dizziness, fever, hemoptysis, loss of consciousness, nausea, numbness in extremities, visual changes, vomiting. The patient has not experienced similar symptoms in the past. Historical: - Allergies: 11:27 No Known Allergies; ll1 - PMHx: 11:27 Diabetes - NIDDM; no longer takes meds; Hypertension; ll1 - PSHx: 11:27 nasal SX; hernia repair; ll1 - Immunization history:: Client reports receiving the 2nd dose of the Covid vaccine. - Social history:: Smoking status: Patient denies any tobacco usage or history of. ROS: 13:21 Constitutional: Negative for fever, chills, and weight loss, Cardiovascular: Negative jmm for chest pain, palpitations, and edema. 13:21 Respiratory: Positive for shortness of breath. 13:21 All other systems are negative. Exam: 13:21 Constitutional: This is a well developed, well nourished patient who is awake, alert, jmm and in no acute distress. Head/Face: atraumatic. Eyes: EOMI, no conjunctival erythema appreciated ENT: Moist Mucus Membranes Neck: Trachea midline, Supple Chest/axilla: Normal chest wall appearance and motion. 13:21 Abdomen/GI: Non distended, soft Back: Normal ROM Skin: General appearance color normal MS/ Extremity: Moves all extremities, no obvious deformities appreciated, no edema noted to the lower extremities Neuro: Awake and alert Psych: Behavior is normal, Mood is normal, Patient is cooperative and pleasant 13:21 Cardiovascular: Rate: normal, Rhythm: regular, Heart sounds: murmur. 13:21 Respiratory: the patient does not display signs of respiratory distress, Respirations: normal, Breath sounds: rales, that are moderate, are heard diffusely. Vital Signs: 11:25 BP 177 / 87; Pulse 43; Resp 17; Temp 98.0; Pulse Ox 100% ; Pain 0/10; ll1 13:44 BP 143 / 72; Pulse 44; Resp 17; Pulse Ox 100% ; vg1 14:47 BP 146 / 84; Pulse 46; Resp 18; Pulse Ox 100% ; vg1 15:47 BP 156 / 75; Pulse 46; Resp 20; Pulse Ox 99% ; vg1 17:25 BP 155 / 85; Pulse 44; Resp 17; Pulse Ox 99% ; vg1 17:27 Weight 83.91 kg; vg1 18:30 BP 151 / 81; Pulse 45; Resp 16; Pulse Ox 98% ; vg1 19:32 BP 131 / 78; Pulse 44; Resp 20; Pulse Ox 99% on R/A; vc1 20:11 BP 136 / 71; Pulse 43; Resp 21; Temp 97(TE); Pulse Ox 97% on R/A; vc1 MDM: 13:21 Patient medically screened. [facility] 17:11 Data reviewed: vital signs, nurses notes. Counseling: I had a detailed discussion with alvin the patient and/or guardian regarding: the historical points, exam findings, and any diagnostic results supporting the discharge/admit diagnosis, lab results, radiology results, the need for further work-up and treatment in the hospital. 06/20 13:21 Order name: Basic Metabolic Panel; Complete Time: 14:20 [facility] 06/20 13:21 Order name: CBC with Diff; Complete Time: 14:01 [facility] 06/20 13:21 Order name: LFT's; Complete Time: 14:20 [facility] 06/20 13:21 Order name: Magnesium; Complete Time: 14:20 [facility] 06/20 13:21 Order name: NT PRO-BNP; Complete Time: 14:20 [facility] 06/20 13:21 Order name: PT-INR; Complete Time: 14:01 [facility] 06/20 13:21 Order name: Troponin HS; Complete Time: 14:20 [facility] 06/20 13:21 Order name: XRAY Chest (1 view); Complete Time: 14:35 [facility] 06/20 13:21 Order name: EKG; Complete Time: 13:22 [facility] 06/20 13:22 Order name: COVID-19/FLU A+B (Document "Date of Onset" if Symptomatic); Complete Time: [facility] 14:39 06/20 13:21 Order name: Cardiac monitoring; Complete Time: 13:35 [facility] 06/20 13:21 Order name: EKG - Nurse/Tech; Complete Time: 13:35 [facility] 06/20 13:21 Order name: IV Saline Lock; Complete Time: 13:44 06/20 13:21 Order name: Labs collected and sent; Complete Time: 13:44 [facility] 06/20 13:21 Order name: O2 Per Protocol; Complete Time: 13:44 [facility] 06/20 13:21 Order name: O2 Sat Monitoring; Complete Time: 13:44 [facility] 06/20 14:39 Order name: EKG - Nurse/Tech; Complete Time: 14:48 [facility] 06/20 17:26 Order name: Diet Heart Healthy; Complete Time: 17:26 vg1 Administered Medications: 14:00 Drug: Albuterol - atroVENT (ipratropium) (3:1) (2.5 mg - 0.5 mg) 3 ml Route: Nebulizer; vg1 14:47 Follow up: Response: No adverse reaction vg1 19:31 Drug: Lasix (furosemide) 40 mg Route: IVP; Site: left wrist; vc1 20:12 Follow up: Response: No adverse reaction; Marked relief of symptoms vc1 Disposition: 06/21 07:30 Co-signature as Attending Physician, Andrew Steiner MD I agree with the assessment and rn plan of care. Attestation: The patient's history, exam findings, diagnostics, and a summary of any interventions or procedures was reviewed in detail with Spenser KRISHNA. Disposition Summary: 06/20/21 17:13 Hospitalization Ordered Hospitalization Status: Observation [facility] Provider: Demian Mancera Location: Telemetry/MedSurg (observation) jm Condition: Stable jmm Problem: new jmm Symptoms: have improved jmm Bed/Room Type: Standard [facility] Room Assignment: 219(06/20/21 20:07) Diagnosis - Congestive Heart Failure jmm Forms: - Medication Reconciliation Form alvin - SBAR form alvin Signatures: Dispatcher [employer] EDMS Patricia Dhaliwal RN RN Spenser Mcknight PA PA jmm Nieto, Roman, MD MD rn Attema, Lee, BORE MILL OPERATOR FOR P[employer]-C BORE MILL OPERATOR [employer]-Cla1 Jennifer Kuhn RN RN vg1 Zakia Vang RN RN ll1 Isa Jamison RN RN vc1 Corrections: (The following items were deleted from the chart) 06/20 18: 14:22 Chest For PE Angio+CT.RAD.BRZ ordered. EDMS EDMS 18: 14:22 Abdomen Pelvis W Con+CT.RAD.BRZ ordered. EDMS EDMS 20:07 17:13 alvin vaqsuez
[2021-06-20] MEDS ORDERED: FUROSEMIDE 40 MG/4 ML VIAL ONE (19:30)
--- NOTE | 2021-06-20 19:54 | P.HP ---
Certification for Inpatient Patient admitted to: Observation With expected LOS: <2 Midnights Patient will require the following post-hospital care: None Practitioner: I am a practitioner with admitting privileges, knowledge of patient current condition, hospital course, and medical plan of care. Services: Services provided to patient in accordance with Admission requirements found in Title 42 Section 412.3 of the Code of Federal Regulations Patient History Date of Service: 06/20/21 Reason for admission: Dyspnea History of Present Illness: 65-year-old male with history of hypertension presents emergency department for shortness of breath, dyspnea on exertion and weight gain. Patient reports that he has had 15 pound weight gain over the course of the last month or 2 reports dyspnea on exertion increasing over the course the last 2 to 3 weeks. Patient was evaluated in the emergency department labs were significant for sodium 133 GFR 88 magnesium 1.6T bili 1.1D bili 0.4 BNP 1906 Covid negative chest x-ray demonstrates mild CHF pattern. Patient without known history of CHF was given dose of Lasix in the emergency department, ED provider wishes to admit under observation for further evaluation and management of dyspnea. Allergies No Known Allergies Allergy (Verified 07/14/15 14:34) Home Medications: Metformin HCl [Glucophage*] 500 mg PO DAILY 02/23/14 Aspirin [Aspirin EC] 81 mg PO DAILY 07/16/20 Doxycycline Hyclate 100 mg PO DAILY 07/16/20 Lisinopril [Zestril] 20 mg PO DAILY 07/16/20 Ciprofloxacin HCl [Cipro 500 MG Tablet] 500 mg PO BID #10 tab 07/17/20 Codeine/APAP [Tylenol W/Codeine #3 tab] 1 tab PO Q4HP PRN #30 tab 07/17/20 - Past Medical/Surgical History Diabetic: Yes -: DM Type 2diet controlled -: HTN -: Alcohol abuse -: tobacco use -: Left ankle sx, has plate and pins -: Appendectomy -: Joint Replacement Psychosocial/ Personal History: 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 - Family History Father -: Heart disease - Social History Alcohol use: Yes CD- Drugs: No Caffeine use: Yes Review of Systems 10-point ROS is otherwise unremarkable General: Other (Weight gain) Respiratory: Shortness of Breath, SOB with Excertion, Wheezing, As per HPI Physical Examination - Physical Exam General: Alert, In no apparent distress HEENT: Atraumatic, PERRLA, Mucous membr. moist/pink, EOMI, Sclerae nonicteric Neck: Supple, 2+ carotid pulse no bruit, No LAD, Without JVD or thyroid abnormality Respiratory: Clear to auscultation bilaterally, Normal air movement Cardiovascular: Normal S1 S2, Irregular heart rate/rhythm (Sinus bradycardia rate 45), Systolic murmur Capillary refill: <2 Seconds Gastrointestinal: Normal bowel sounds, No tenderness Musculoskeletal: No tenderness Integumentary: No rashes Neurological: Normal speech, Normal strength at 5/5 x4 extr, Normal tone, Normal affect - Studies Laboratory Data (last 24 hrs) 06/20/21 13:39: PT 15.8 H, INR 1.37 06/20/21 13:39: WBC 4.00 L, Hgb 13.3 L, Hct 40.6, Plt Count 122 L 06/20/21 13:39: Sodium 133 L, Potassium 4.4, BUN 16, Creatinine 0.87, Glucose 107 H, Magnesium 1.6 L, Total Bilirubin 1.1 H, AST 24, ALT 21, Alkaline Phosphatase 85 Assessment and Plan - Plan Assessment: Dyspnea, volume overload suspect underlying CHFunknown EF Hypertension Plan: Dyspnea, volume overload suspect underlying CHFunknown EF: Patient also with systolic murmur. Echocardiogram ordered, cardiology consulted continue Lasix IV 2 mg twice daily, patient does not typically take Lasix at home is not requiring oxygen at this time. Will provide also with aspirin in addition to patient's lisinopril 10 mg p.o. daily. Will not initiate beta-shannon given patient has longstanding bradycardia with rate in the 40s to 50s. Appreciate further input from cardiology. Patient also had some wheezing while in the emergency department does smoke occasionally was given nebulizer treatments which did help. Will provide with as needed nebulizer treatments. Possibly there is COPD component as well. Hypertension: Continue lisinopril 20 mg p.o. daily. DVT PPX: Lovenox Code status: Full Discharge Plan: Home Plan to discharge in: 24 Hours - Advance Directives Does patient have a Living Will: No Does patient have a Durable POA for Healthcare: No - Code Status/Comfort Care Code Status Assessed: Yes (Full code) Critical Care: No Time Spent Managing Pts Care (In Minutes): 55
[2021-06-20 20:54] VITALS: BMI 28.3
[2021-06-20] MEDS ORDERED: ALBUTEROL 2.5 MG/3 ML NEB SOL NEB PRN (21:28)
[2021-06-20] MEDS ORDERED: IPRATROPIUM BROM 0.5MG/2.5ML NEB PRN (21:28)
[2021-06-20] MEDS ORDERED: TRAMADOL HCL 50 MG TAB PO PRN (21:28)
[2021-06-20] MEDS ORDERED: MELATONIN 5 MG TABLET PO PRN (21:28)
[2021-06-20] MEDS ORDERED: ONDANSETRON 4 MG/2 ML VIAL IV PRN (21:28)
[2021-06-20 21:55] VITALS: O2SAT 97
[2021-06-21 03:54] LABS: RBC Red Blood Cell Count 4.53 M/uL (4.33-5.43)
[2021-06-21 03:54] LABS: Urine Appearance CLEAR (Clear); Urine Bilirubin NEGATIVE (Negative); Urine Blood NEGATIVE (Negative); Urine Color YELLOW (Yellow); Urine Glucose NEGATIVE (Negative); Urine Protein NEGATIVE (Negative); Urine Specific Gravity <=1.005 (1.005-1.030); Urine Urobilinogen 0.2 mg/dL (0.2-1.0); Urine pH 6.5 (5.0-7.0)
[2021-06-21 04:02] LABS: Absolute Lymphocytes (CBC) 0.7 K/uL (0.7-4.9); Hematocrit 39.1 % (39.6-49.0); Lymphocytes % 18.5 % (15.3-44.8); MPV 8.9 fL (7.6-11.3)
[2021-06-21 04:06] LABS: Urine Microscopic Reflex NO UMIC
[2021-06-21 04:17] LABS: Albumin 3.2 g/dL (3.4-5.0); Bilirubin Total 0.8 mg/dL (0.2-1.0); Magnesium 1.5 mg/dL (1.8-2.4); Potassium 3.9 mmol/L (3.5-5.1); Protein, Total 7.6 g/dL (6.4-8.2)
[2021-06-21 04:27] LABS: Thyroid Stimulating Hormone 9.18 uIU/mL (0.360-3.740)
[2021-06-21] MEDS ORDERED: INFLUENZA VACCINE (for 6+ mo) 0.5 ML DOSE IMVAC ONE (08:00)
[2021-06-21] MEDS ORDERED: POTASSIUM 25 MEQ EFFERV TAB PO ONE (09:00)
[2021-06-21] MEDS ORDERED: lisinopriL 20 MG TAB PO SCH (09:00)
[2021-06-21] MEDS ORDERED: ENOXAPARIN 40 MG/0.4 ML SQ SCH (09:00)
[2021-06-21] MEDS ORDERED: ASPIRIN EC 81 MG TAB PO SCH (09:00)
[2021-06-21] MEDS ORDERED: FUROSEMIDE 20 MG/ 2ML VIAL IV SCH (09:00)
--- NOTE | 2021-06-21 10:17 | EKG ---
Test Date: 2021-06-20 Test Time: 14:48:11 [employer]: JUSTIN MEASUREMENT RESULTS: Intervals: Rate: 48 NE: QRSD: 100 QT: 458 QTc: 409 [place]: P: NE: QRS: 131 T: 64 INTERPRETIVE STATEMENTS: Junctional rhythm Right axis deviation Incomplete right bundle branch block Abnormal ECG Compared to ECG 07/16/2020 06:42:25 Junctional rhythm now present Incomplete right bundle-branch block now present ST (T wave) deviation no longer present Electronically Signed On 06-21-21 10:14:39 PRESS PIPE INSPECTOR by Kp Mitchell
--- NOTE | 2021-06-21 10:18 | EKG ---
Test Date: 2021-06-20 Test Time: 13:29:04 Customer Care Coordinator: MBNoam MEASUREMENT RESULTS: Intervals: Rate: 43 [place]: QRSD: 96 QT: 472 QTc: 398 [place]: P: [place]: QRS: 128 T: 75 INTERPRETIVE STATEMENTS: Junctional bradycardia Lateral infarct, age undetermined Abnormal ECG Compared to ECG 07/16/2020 06:42:25 Myocardial infarct finding now present Right-axis deviation no longer present ST (T wave) deviation no longer present Electronically Signed On 06-21-21 10:14:42 HOOKMAN by Kp Mitchell
--- NOTE | 2021-06-21 12:22 | P.DS ---
Admission Date: 06/20/21 Discharge Date: 06/21/21 Disposition: ROUTINE DISCHARGE Discharge Condition: FAIR Reason for Admission: Dyspnea - Problems (1) Alcohol abuse Onset Date: 10/31/17 Status: Chronic (2) Cirrhosis Onset Date: 10/31/17 Status: Chronic Qualifiers: Hepatic cirrhosis type: alcoholic cirrhosis Ascites presence: without ascites Qualified Code(s): K70.30 - Alcoholic cirrhosis of liver without ascites (3) Diabetes mellitus Onset Date: 02/24/14 Status: Chronic Qualifiers: Diabetes mellitus type: type 2 Diabetes mellitus snf insulin use: without terminal operator use Diabetes mellitus complication status: with other specified complication Qualified Code(s): E11.69 - Type 2 diabetes mellitus with other specified complication (4) Chronic interstitial lung disease Status: Acute (5) CHF (congestive heart failure) Onset Date: 10/31/17 Status: Suspected Qualifiers: Heart failure type: diastolic Heart failure chronicity: chronic Qualified Code(s): I50.32 - Chronic diastolic (congestive) heart failure Brief History of Present Illness: 65-year-old male with history of hypertension presents emergency department for shortness of breath, dyspnea on exertion and weight gain. Patient reports that he has had 15 pound weight gain over the course of the last month or 2 reports dyspnea on exertion increasing over the course the last 2 to 3 weeks. Patient was evaluated in the emergency department labs were significant for sodium 133 GFR 88 magnesium 1.6T bili 1.1D bili 0.4 BNP 1906 Covid negative chest x-ray demonstrates mild CHF pattern. Patient without known history of CHF. He was given dose of Lasix in the emergency department and admitted for further management. Patient admitted to drinking about 2 bottles of beer per day. Hospital Course: Patient placed on observation on the medical floor and treated with IV Lasix. Patient states that the shortness of breath resolved with treatment. He stated nebulizers helped very much with his symptom. He has a history of chronic interstitial lung disease and asbestosis exposure. He also reports history of mild liver cirrhosis. Echocardiogram done shows aortic stenosis. Patient seen by cardiology and cleared for discharge. He is prescribed Lasix for new onset CHF. He is also prescribed nebulizer treatment for chronic lung disease. Patient advised to follow with his stone grader in [place]. He reports pruritic rash at the back. 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 Patient prescribed clotrimazole to treat the fungal skin infection. Vital Signs/Physical Exam: Temp Pulse Resp BP Pulse Ox 97.9 F 44 L 16 161/80 H 98 06/21/21 04:00 06/21/21 10:08 06/21/21 04:00 06/21/21 10:08 06/21/21 04:00 General: Alert, In no apparent distress, Oriented x3 HEENT: Mucous membr. moist/pink Neck: JVD not distended Respiratory: Clear to auscultation bilaterally, Normal air movement Cardiovascular: No edema Gastrointestinal: Normal bowel sounds, Soft and benign, Non-distended, No tende rness Musculoskeletal: No swelling, No tenderness Integumentary: No cyanosis, Other (Raised scaly rash on the back) Neurological: Normal speech, Normal strength at 5/5 x4 extr, Cranial nerves 3-12 intact Laboratory Data at Discharge: WBC 3.60 K/uL (4.3-10.9) L 06/21/21 03:02 Hgb 12.8 g/dL (13.6-17.9) L 06/21/21 03:02 Hct 39.1 % (39.6-49.0) L 06/21/21 03:02 Plt Count 116 K/uL (152-406) L 06/21/21 03:02 PT 15.8 SECONDS (9.5-12.5) H 06/20/21 13:39 INR 1.37 06/20/21 13:39 Sodium 135 mmol/L (136-145) L 06/21/21 03:02 Potassium 3.9 mmol/L (3.5-5.1) 06/21/21 03:02 BUN 17 mg/dL (7-18) 06/21/21 03:02 Creatinine 0.91 mg/dL (0.55-1.3) 06/21/21 03:02 Glucose 129 mg/dL (74-106) H 06/21/21 03:02 Magnesium 1.5 mg/dL (1.8-2.4) L 06/21/21 03:02 Total Bilirubin 0.8 mg/dL (0.2-1.0) 06/21/21 03:02 AST 27 U/L (15-37) 06/21/21 03:02 ALT 20 U/L (12-78) 02/15/22 03:02 Alkaline Phosphatase 93 U/L (45-117) 06/21/21 03:02 Triglycerides 78 mg/dL (<150) 06/21/21 03:02 Cholesterol 81 mg/dL (<200) 06/21/21 03:02 HDL Cholesterol 41 mg/dL (40-60) 06/21/21 03:02 Cholesterol/HDL Ratio 1.98 06/21/21 03:02 Home Medications: Lisinopril [Zestril] 20 mg PO DAILY 07/16/20 Albuterol Neb [Proventil 0.083% Neb Soln] 2.5 mg IH Q6HP PRN #120 amp 06/21/21 Aspirin [Aspirin EC 81 MG] 81 mg PO DAILY 30 Days #30 tablet. 06/21/21 Clotrimazole [Antifungal] 1 appl TOP BID #30 cream..g. 06/21/21 Furosemide [Lasix] 20 mg PO DAILY 30 Days #30 tab 06/21/21 Ipratropium Neb [Atrovent Neb] 0.5 mg IH [id number] PRN #120 amp 06/21/21 Nebulizer [Aeroneb Go Nebuliser] 1 each MC QID #1 each 06/21/21 New Medications: Ipratropium Neb [Atrovent Neb] 0.5 mg IH [id number] PRN #120 amp PRN Reason: Wheezing Albuterol Neb [Proventil 0.083% Neb Soln] 2.5 mg IH Q6HP PRN #120 amp PRN Reason: Wheezing Nebulizer [Aeroneb Go Nebuliser] 1 each MC QID #1 each Clotrimazole [Antifungal] 1 appl TOP BID #30 cream..g. Aspirin [Aspirin EC 81 MG] 81 mg PO DAILY 30 Days #30 tablet. Furosemide [Lasix] 20 mg PO DAILY 30 Days #30 tab Diet: AHA Activity: Ad micaela Followup: Kp Mitchell MD [ACTIVE - CAN ADMIT] - NONE,NONE [Primary Care Provider] -
[2021-06-21 13:19] VITALS: BP 163/89; TEMP 97.4
--- NOTE | 2021-06-22 13:44 | ECHO ---
HEIGHT: 5 ft 7 in WEIGHT: 181 lb 0 oz DATE OF STUDY: 06/21/[address]: Randolph Rice NP 2-DIMENSIONAL: YES M.MODE: YES DOPPLER: YES COLOR FLOW: YES TDS: NO PORTABLE: NO DEFINITY: NO BUBBLE STUDY: NO DIAGNOSIS: DYSPNEA/CONGESTIVE HEART FAILURE CARDIAC HISTORY: CATHERIZATION: SURGERY: PROSTHETIC VALVE: PACEMAKER: MEASUREMENTS (cm) DIASTOLIC (NORMALS) SYSTOLIC (NORMALS) IVSd 1.3 (0.6-1.2) LA Diam 4.8 (1.9-4.0) LVEF 76% LVIDd 5.9 (3.5-5.7) LVIDs 3.2 (2.0-3.5) %FS 46% LVPWd 1.4 (0.6-1.2) Ao Diam 3.3 (2.0-3.7) 2 DIMENSIONAL ASSESSMENT: RIGHT ATRIUM: NORMAL LEFT ATRIUM: DILATED RIGHT VENTRICLE: NORMAL LEFT VENTRICLE: LEFT VENTRICULAR HYPERTROPHY TRICUSPID VALVE: NORMAL MITRAL VALVE: MITRAL ANNULAR CALCIFICATION PULMONIC VALVE: NORMAL AORTIC VALVE: NORMAL PERICARDIAL EFFUSION: NONE AORTIC ROOT: NORMAL LEFT VENTRICULAR WALL MOTION: DIASTOLIC DYSFUNCTION. DOPPLER/COLOR FLOW: MODERATE AORTIC STENOSIS. COMMENTS: MODERATE AORTIC STENOSIS 1.1 CENTIMETER SQUARED. LEFT VENTRICULAR HYPERTROPHY. LEFT ATRIAL ENLARGEMENT. NORMAL EJECTION FRACTION. DECREASED LEFT VENTRICULAR COMPLIANCE. TECHNOLOGIST: ADRIANA MONIQUE
--- NOTE | 2021-06-24 13:06 | CON ---
Date of Consultation: 06/21/2021 Reason For Consultation: The patient admitted on 06/20/[address] Mancera for shortness of breath. I saw the patient on 06/21/2021. History Of Present Illness: Mr. Talamantes is a 65-year-old, has had a history of hypertension, diabete s, history of hernia repair in the past. In July 2020, an echocardiogram showed atrial fibrillation with slow ventricular response and mild aortic stenosis. He follows up with Dr. Simeon, and comes in with shortness of breath. No chest pain, nausea, vomiting, diaphoresis, PND, orthopnea, pedal edema , palpitation, or syncope. Denied any fever or chills. Past Medical History: As stated above. Allergies: NONE. Review of Systems: Negative. Social History: Negative. Family History: Negative. Medications: At home include inhalers, aspirin, Lasix, and Zestril. Physical Examination: Vital Signs: His heart rate was in the 40s. He was in no acute distress. Vital signs were otherwis e stable. HEENT: Negative. Neck: Supple. No bruit. Chest: Clear. Cardiac: Exam revealed a regular rhythm and rate with an aortic stenosis murmur. No gallops. No ru bs. Abdomen: Benign. Extremities: Revealed no clubbing, cyanosis, or edema. Diagnostic Data: Showed a BNP was 1906. His TSH was 9.180. Impression And Plan: Shortness of breath, possibly diastolic congestive heart failure that is acute, may be secondary to aortic stenosis and bradycardia, and atrial fibrillation. He has a history of d russ, hypertension. I think he needs to be on aspirin, needs to be on Lasix, and he needs to be o n Zestril if he is not a candidate for beta-blockers. I think, he needs to have his thyroid addresse d. He needs to have another echocardiogram and follow up with Dr. Simeon in the very near future. Me anwhile, we should diurese him gently. I would like to add that the echocardiogram was actually done before the patient left, and it showed an ejection fraction of 76% with aortic stenosis that is mode rate at 1.1 sq cm with decreased left ventricular compliance. NB/MODL Voice ID: [id number] Report ID: [id number]
== END 2021-06-21 03:00 | disposition home or self-care (01) ==
LOC: ER 11:03 → ERHOLD 19:22 → 2ND 20:34
PROVIDERS: ADMIT Internal Medicine; ATTEND Internal Medicine
DX: I11.0 Hypertensive heart disease with heart failure (principal); I50.31 Acute diastolic (congestive) heart failure; K70.30 Alcoholic cirrhosis of liver without ascites; J84.9 Interstitial pulmonary disease, unspecified; E11.9 Type 2 diabetes mellitus without complications; I48.91 Unspecified atrial fibrillation; I35.0 Nonrheumatic aortic (valve) stenosis; Z20.822 Contact with and (suspected) exposure to COVID-19
CPT/HCPCS: 0240U; 36415; 71045; 80048; 80053; 80061; 80076; 81003; 83735; 83880; 84439; 84443; 84484; 85025; 85610; 93005; 93306; 94640; 96374; 99285; G0378; J1650; J1940

== ENCOUNTER 2021-11-30 20:44 | Emergency (ER) | payer OTHER ==
[2021-11-30 23:39] LABS: Absolute Lymphocytes (CBC) 0.9 K/uL (0.7-4.9); Hematocrit 35.4 % (39.6-49.0); Lymphocytes % 19.9 % (15.3-44.8); MCV 87.3 fL (80-100); MPV 8.5 fL (7.6-11.3); RBC Red Blood Cell Count 4.06 M/uL (4.33-5.43)
[2021-11-30 23:47] LABS: Potassium 3.3 mmol/L (3.5-5.1)
[2021-12-01] MEDS ORDERED: FENTANYL CITR 100 MCG/2 ML ONE (00:20)
--- NOTE | 2021-12-01 01:15 | EDPHYS ---
Physician Documentation [facility] Name: Gavin Talamantes Age: 66 yrs Sex: Male : 1955 Arrival Date: 11/30/2021 Time: 20:48 Bed 18 Private MD: ED Physician Michael Leija HPI: 11/30 23:10 This 66 yrs old Male presents to ER via Ambulatory with complaints of Toe Pain. cp Historical: - Allergies: 21:11 NKDA; bh1 - Home Meds: 21:11 lisinopril Oral [Active]; Lasix 20 mg Oral tab 1 tab once daily [Active]; Eliquis 5 mg bh1 oral tab 1 tab 2 times per day [Active]; - PMHx: 21:11 Diabetes - NIDDM; no longer takes meds; Hypertension; bh1 - PSHx: 21:11 hernia repair; Nasal sx; bh1 - Immunization history:: Adult Immunizations up to date. - Social history:: Smoking status: Patient reports the use of cigarette tobacco products, denies chronic smoking, but will smoke occasionally. ROS: 23:15 Constitutional: Negative for body aches, chills, fever, poor PO intake. cp 23:15 Eyes: Negative for injury, pain, redness, and discharge. cp 23:15 ENT: Negative for drainage from ear(s), ear pain, sore throat, difficulty swallowing, difficulty handling secretions. 23:15 Cardiovascular: Positive for edema, Negative for chest pain, palpitations. 23:15 Respiratory: Negative for cough, shortness of breath, wheezing. 23:15 Abdomen/GI: Negative for abdominal pain, nausea, vomiting, and diarrhea. 23:15 Back: Negative for pain at rest, pain with movement. 23:15 MS/extremity: Positive for pain, swelling, tenderness, of the right foot. 23:15 Neuro: Negative for altered mental status, dizziness, headache, syncope, weakness. 23:15 All other systems are negative. Exam: 23:20 Constitutional: The patient appears in no acute distress, alert, awake, cp non-diaphoretic, non-toxic, well developed, well nourished, uncomfortable. 23:20 Head/Face: Normocephalic, atraumatic. cp 23:20 Eyes: Periorbital structures: appear normal, Conjunctiva: normal, no exudate, no injection, Sclera: no appreciated abnormality, Lids and lashes: appear normal, bilaterally. 23:20 ENT: External ear(s): are unremarkable, Nose: is normal, Mouth: Lips: moist, Oral mucosa: pink and intact, moist, Posterior pharynx: Airway: no evidence of obstruction, patent. 23:20 Chest/axilla: Inspection: normal. 23:20 Cardiovascular: Rate: bradycardic, Rhythm: regular, Pulses: right dorsalis pedis pulse weak, Edema: pedal edema, that is moderate, bilateral with left worse than right chronically, JVD: is not appreciated. 23:20 Respiratory: the patient does not display signs of respiratory distress, Respirations: normal, no use of accessory muscles, no retractions, labored breathing, is not present, Breath sounds: are clear throughout, no decreased breath sounds, no stridor, no wheezing. 23:20 Abdomen/GI: Inspection: abdomen appears normal, Palpation: abdomen is soft and non-tender, in all quadrants. 23:20 Back: pain, is absent, ROM is normal. 23:20 Skin: cellulitis, is not appreciated, mild dusky discoloration of right second, third and fourth toes. 23:20 Neuro: Orientation: to person, place \T\ time. Mentation: is normal. 12/01 00:08 ECG was reviewed by the Attending Physician. Vital Signs: 11/30 21:08 BP 143 / 74; Pulse 45; Resp 20; Temp 97.9(O); Pulse Ox 96% on R/A; Weight 78.47 kg; 1 Height 5 ft. 7 in. (170.18 cm); Pain 6/10; 12/01 00:30 BP 125 / 69; Pulse 43; Resp 18; Pulse Ox 98% on R/A; sm5 11/30 21:08 Body Mass Index 27.10 (78.47 kg, 170.18 cm) formerly [facility] MDM: 11/30 22:59 Patient medically screened. 12/01 01:14 Data reviewed: vital signs, nurses notes, lab test result(s), EKG, radiologic studies, cp plain films, ultrasound, I have discussed the patient's presentation/case with the attending Emergency Department Physician; and as a result, I will discharge patient. 01:14 Test interpretation: by ED physician or midlevel provider: ECG. Counseling: I had a cp detailed discussion with the patient and/or guardian regarding: the historical points, exam findings, and any diagnostic results supporting the discharge/admit diagnosis, lab results, radiology results, the need for outpatient follow up, for definitive care, a electrical maintenance supervisor, vascular surgery, to return to the emergency department if symptoms worsen or persist or if there are any questions or concerns that arise at home. Response to treatment: improved. Patient reports pain improved. Discussed need for smoking cessation, daily aspirin and need for urgent f/u. Return to ED worsening symptoms. 11/30 23:15 Order name: CBC with Diff; Complete Time: 00:07 12/01 00:07 Interpretation: Normal except: RBC 4.06; HGB 12.2; HCT 35.4; PLT 130; MN% 16.5; cp EOSINOPHIL % 5.7. 11/30 23:15 Order name: BMP; Complete Time: 00:07 12/01 00:07 Interpretation: Normal except: NA 128; CL 93; K 3.3; BUN 22; GFR 78. 11/30 23:15 Order name: XRAY Foot RIGHT 3 View 11/30 23:15 Order name: Extremity Venous Unilateral Ltd 11/30 23:15 Order name: LE Artery Uni Ltd 11/30 23:15 Order name: IV; Complete Time: 23:23 11/30 23:15 Order name: EKG; Complete Time: 23:18 11/30 23:15 Order name: EKG - Nurse/Tech; Complete Time: 00:16 EC:08 Rate is 42 beats/min. Rhythm is regular. QRS interval is prolonged at 118 msec. QT cp interval is normal. Interpreted by me. Reviewed by me. Administered Medications: 00:16 Drug: fentaNYL (PF) 25 mcg Route: IVP; Site: left forearm; sm5 01:28 Follow up: Response: No adverse reaction; RASS: Alert and Calm (0) sm5 01:28 Not Given (Patient Refused): NS 0.9% 1000 ml IV at 1000 ml/hr Per protocol; 1000 mL sm5 bolus :29 Not Given (Patient Refused): Potassium Effervescent Tablet 50 mEq PO once; dissolve in sm5 4 ounces of water or juice 01:29 Not Given (Patient Refused): Hydrocodone-Acetaminophen (7.5 mg-325 mg) 1 tabs PO once; sm5 RASS on ADMIN: Combtv4, Very Agttd3, Agttd2, Rstlss1, AlertClm0, Drwsy-1, Lt Sdtn-2, Mod Sdtn-3, Dp Sdtn-4, UnArsble-5 Disposition: 04:27 Co-signature as Attending Physician, Michael Leija MD I agree with the assessment and kdr plan of care. Disposition Summary: 12/01/21 01:14 Discharge Ordered Location: Home cp Problem: new cp Symptoms: have improved cp Condition: Stable cp Diagnosis - Peripheral vascular disease, unspecified cp - Pain in right foot cp Followup: cp - With: Private Physician - When: 2 - 3 days - Reason: Recheck today's complaints Discharge Instructions: - Discharge Summary Sheet cp - Peripheral Vascular Disease cp - Steps to Quit Smoking cp - Health Risks of Smoking cp - Managing the Challenge of Quitting Smoking cp - Aspirin and Your Heart cp Forms: - Medication Reconciliation Form cp - Thank You Letter cp - Antibiotic Education cp - Prescription Opioid Use cp Prescriptions: - Tramadol 50 mg Oral Tablet - take 1 tablet by ORAL route every 8 hours as needed; 12 tablet; Refills: 0, cp Product Selection Permitted Signatures: Dispatcher [employer] Michael Bolaños MD MD kdr Margarito Cool PA PA cp Sirena Mitchell RN RN 5 Jael Evans RN RN 1 Corrections: (The following items were deleted from the chart) 11/30 21:12 21:11 Home Meds: Metformin Oral; [place] [id number]
--- NOTE | 2021-12-01 01:15 | ER ---
Nurse's Notes [facility] Name: Gavin Talamantes Age: 66 yrs Sex: Male : 1955 Arrival Date: 11/30/2021 Time: 20:48 Bed 18 Private MD: Diagnosis: Peripheral vascular disease, unspecified;Pain in right foot Presentation: 11/30 21:08 Chief complaint: Patient states: pain and discoloration to left foot. Coronavirus [facility] screen: Vaccine status: Patient reports receiving the 2nd dose of the covid vaccine. At this time, the client does not indicate any symptoms associated with coronavirus-19. Ebola Screen: Patient negative for fever greater than or equal to 101.5 degrees Fahrenheit, and additional compatible Ebola Virus Disease symptoms. Initial Sepsis Screen: Does the patient meet any 2 criteria? No. Patient's initial sepsis screen is negative. Does the patient have a suspected source of infection? No. Patient's initial sepsis screen is negative. Risk Assessment: Do you want to hurt yourself or someone else? Patient reports no desire to harm self or others. Onset of symptoms was November 30, 2021. 21:08 Method Of Arrival: Ambulatory [facility] 21:08 Acuity: IKE 3 [facility] Triage Assessment: 21:11 General: Appears in no apparent distress. uncomfortable, Behavior is calm, cooperative, bh1 appropriate for age. Pain: Complains of pain in right foot. Historical: - Allergies: 21:11 NKDA; bh1 - Home Meds: 21:11 lisinopril Oral [Active]; Lasix 20 mg Oral tab 1 tab once daily [Active]; Eliquis 5 mg bh1 oral tab 1 tab 2 times per day [Active]; - PMHx: 21:11 Diabetes - NIDDM; no longer takes meds; Hypertension; bh1 - PSHx: 21:11 hernia repair; Nasal sx; bh1 - Immunization history:: Adult Immunizations up to date. - Social history:: Smoking status: Patient reports the use of cigarette tobacco products, denies chronic smoking, but will smoke occasionally. Screenin:23 Abuse screen: Denies threats or abuse. Denies injuries from another. Nutritional sm5 screening: No deficits noted. Tuberculosis screening: No symptoms or risk factors identified. Fall Risk None identified. Assessment: 12/01 00:00 General: Appears in no apparent distress. Behavior is cooperative. Pain: Complains of sm5 pain in right foot. Neuro: Level of Consciousness is awake, alert, obeys commands, Oriented to person, place, time, situation. Cardiovascular: Capillary refill < 3 seconds Patient's skin is warm and dry. Respiratory: Airway is patent Trachea midline Respiratory effort is even, unlabored. Musculoskeletal: Swelling present in right foot. 01:00 Reassessment: No changes from previously documented assessment. sm5 Vital Signs: 11/30 21:08 BP 143 / 74; Pulse 45; Resp 20; Temp 97.9(O); Pulse Ox 96% on R/A; Weight 78.47 kg; 1 Height 5 ft. 7 in. (170.18 cm); Pain 10/14; 12/01 00:30 BP 125 / 69; Pulse 43; Resp 18; Pulse Ox 98% on R/A; sm5 11/30 21:08 Body Mass Index 27.10 (78.47 kg, 170.18 cm) [facility] ED Course: 11/30 20:48 Patient arrived in ED. bp1 21:11 Triage completed. 1 21:11 Arm band placed on right wrist. bh1 22:25 Sirena Mitchell RN is Primary Nurse. sm5 22:40 Margarito Cool PA is PHCP. cp 22:40 Michael Leija MD is Attending Physician. cp 23:23 Inserted saline lock: 20 gauge in left forearm, using aseptic technique. Blood sm5 collected. 23:24 Patient has correct armband on for positive identification. Bed in low position. Call sm5 light in reach. Side rails up X 1. 23:41 XRAY Foot RIGHT 3 View In Process Unspecified. EDMS 12/01 00:08 US Extremity Venous Unilateral Ltd In Process Unspecified. EDMS 00:08 US LE Artery Uni Ltd In Process Unspecified. EDMS Administered Medications: 00:16 Drug: fentaNYL (PF) 25 mcg Route: IVP; Site: left forearm; sm5 01:28 Follow up: Response: No adverse reaction; RASS: Alert and Calm (0) sm5 01:28 Not Given (Patient Refused): NS 0.9% 1000 ml IV at 1000 ml/hr Per protocol; 1000 mL sm5 bolus 01:29 Not Given (Patient Refused): Potassium Effervescent Tablet 50 mEq PO once; dissolve in sm5 4 ounces of water or juice 01:29 Not Given (Patient Refused): Hydrocodone-Acetaminophen (7.5 mg-325 mg) 1 tabs PO once; 5 RASS on ADMIN: Combtv4, Very Agttd3, Agttd2, Rstlss1, AlertClm0, Drwsy-1, Lt Sdtn-2, Mod Sdtn-3, Dp Sdtn-4, UnArsble-5 Outcome: 01:14 Discharge ordered by MD. yates 01:29 Patient left the ED. [facility] Signatures: Dispatcher [employer] EDMS Margarito Cool PA PA cp [place]ia[place], Brittany bp1 Mazur, Sarah RN RN [facility] Jael Evans RN RN [facility] Corrections: (The following items were deleted from the chart) 11/30 21:12 21:11 Home Meds: Metformin Oral; [place] [id number]
[2021-12-01 03:29] VITALS: TEMP 97.9
[2021-12-01 03:32] VITALS: BP 125/69; O2SAT 98
--- NOTE | 2021-12-01 10:51 | RAD REPORT ---
EXAM DESCRIPTION: RAD - Foot Right 3 View - 11/30/2021 11:39 pm [facility]: XR FOOT 3 OR MORE VIEWS CLINICAL HISTORY: PAIN. COMPARISON: None. TECHNIQUE: Three views of the right foot were obtained: AP, oblique, and lateral radiographs. FINDINGS: No acute osseous abnormality. Lisfranc joint alignment is maintained. Chronic healed fract ure deformity at the fifth metatarsal base. Mild hallux valgus. Prominent first MTP osteoarthrosis. P rominent calcific atherosclerosis. IMPRESSION: No acute osseous abnormality identified. Degenerative and remote posttraumatic changes. Electronically signed by: Tania Rowe MD 11/30/2021 11:49 PM CDT Due to temporary technical issues with the PACS/Fluency reporting system, reports are being signed by the in house radiologists without review as a courtesy to insure prompt reporting. The interpreting radiologist is fully responsible for the content of the report.
--- NOTE | 2021-12-01 11:31 | RAD REPORT ---
EXAM DESCRIPTION: US - Extremity Venous Uni Ltd - 12/01/2021 12:51 am [facility]: US EXTREMITY VEINS UNILATERAL CLINICAL HISTORY: PAIN Extremity Venous Uni Ltd. COMPARISON: None. TECHNIQUE: Survey ultrasound imaging of the deep venous system of the right lower extremity was perf ormed including pemberton scale, color, and spectral Doppler evaluation with parts sales representative images obtaine d. Segmental venous compression and calf vein augmentation were performed. FINDINGS: Common femoral vein: Patent without thrombus. Cephalad greater saphenous vein: Patent without thrombus. Femoral vein: Patent without thrombus. Popliteal vein: Patent without thrombus. Posterior tibial vein: Patent without thrombus. Incidentally noted normal appearing right inguinal lymph node measures 2.8 x 0.9 cm. IMPRESSION: Negative for right lower extremity deep venous thrombosis. Electronically signed by: Tania Rowe MD 12/01/2021 12:24 AM CDT Due to temporary technical issues with the PACS/Fluency reporting system, reports are being signed by the in house radiologists without review as a courtesy to insure prompt reporting. The interpreting radiologist is fully responsible for the content of the report.
--- NOTE | 2021-12-01 11:33 | RAD REPORT ---
EXAM DESCRIPTION: US - Lower Extremity Artery Uni Ltd - 12/01/2021 12:52 am [facility]: US LOWER EXTREMITY ARTERIES LIMITED FOLLOW-UP UNILATERAL CLINICAL HISTORY: PAIN Lower Extremity Artery Uni Ltd. COMPARISON: None. TECHNIQUE: Survey ultrasound imaging of the arterial system of the right lower extremity was perform ed including grayscale, color, and spectral Doppler evaluation with human resources hr representative images obtained. FINDINGS: Common femoral artery: Peak systolic velocity 131.6 cm/s. Triphasic waveform. Superficial femoral artery, proximal: Peak systolic velocity 17.2 cm/s. Triphasic waveform. Superficial femoral artery, mid: Peak systolic velocity 27.6 cm/s. Triphasic waveform. Superficial femoral artery, distal: Peak systolic velocity 24.6 cm/s. Triphasic waveform. Popliteal artery: Peak systolic velocity 18.5 cm/s. Triphasic waveform. Posterior tibial artery: Peak systolic velocity 88.2 cm/s. Monophasic waveform. Dorsalis pedis artery, mid: Peak systolic velocity 111.8 cm/s. Monophasic waveform. IMPRESSION: 1. No arterial occlusions. 2. Severely diminished velocities in the superficial femoral and popliteal arteries. 3. Monophasic waveforms in the posterior tibial and dorsalis pedis arteries. Electronically signed by: Tania Rowe MD 12/01/2021 12:28 AM CDT Due to temporary technical issues with the PACS/Fluency reporting system, reports are being signed by the in house radiologists without review as a courtesy to insure prompt reporting. The interpreting radiologist is fully responsible for the content of the report.
--- NOTE | 2021-12-01 13:02 | EKG ---
Test Date: 2021-12-01 Test Time: 00:03:22 Manufacturing Teacher: PARDEEP MEASUREMENT RESULTS: Intervals: Rate: 42 CT: QRSD: 118 QT: 478 QTc: 399 [place]: P: CT: QRS: 111 T: 36 INTERPRETIVE STATEMENTS: Junctional bradycardia Right axis deviation Incomplete right bundle branch block Right ventricular hypertrophy with repolarization abnormality Nonspecific T wave abnormality Abnormal ECG Compared to ECG 06/20/2021 14:48:11 Right ventricular hypertrophy now present Early repolarization now present T-wave abnormality now present Junctional rhythm no longer present Electronically Signed On 12-01-21 13:01:38 CDT by Abdifatah Gustafson
== END 2021-12-01 01:29 | disposition home or self-care (01) ==
LOC: ER 20:44
DX: I73.9 Peripheral vascular disease, unspecified (principal); E11.9 Type 2 diabetes mellitus without complications; I10 Essential (primary) hypertension; F17.210 Nicotine dependence, cigarettes, uncomplicated; Z79.01 Long term (current) use of anticoagulants
CPT/HCPCS: 93005; 85025; 80048; 36415; 73630; 93926; 93971; 96374; 99284; J3010

== ENCOUNTER 2022-09-11 10:48 | Inpatient (IN) | payer OTHER ==
--- OUTSIDE RECORDS SUMMARY | 2022-09-11 10:59 | XMS REPORT | Continuity of Care Document ---
:1955 Author Organization [facility] t Address [address] [facility] [address] [place] [address] Care Team Providers Name Role Phone Merrill Coleman MD, William Primary Care Physician [phone] Ar Momin Attending Clinician Unavailable Dwight Connolly Cardiology Attending Clinician Unavailable Farideh Attending Clinician Unavailable Adriana Loyola Attending Clinician Jose Manuel Attending Clinician Unavailable SANTHOSH STALLINGS Attending Clinician Unavailable MD SANTHOSH STALLINGS Attending Clinician Unavailab Zachery Niño Admitting Clinician Unavailable Dwight Connolly Cardiology Admitting Clinician Unavailable Farideh Admitting Clinician Unavailable Jose Manuel Admitting Clinician Unavailable SANTHOSH STALLINGS Admitting Clinician Unavailable MD EMMANUEL LEWIS Admitting Clinician Unavailable Payers Payer Name Policy Type Policy Number Effective Date Expiration Date [id number] (MEDICARE 00:00:00 REPLACEMENT HMO) Problems This patient has no known problems. Allergies, Adverse Reactions, Alerts Allergy Allergy Status Severity Reaction(s) Onset Inactive Treating Comm ents Source Name Type Date Date Clinician No Known DA Active U [facility] Allergie 08-23 00:00: [address] Family History Family Member Diagnosis Comments Start Date Stop Date Source Natural father Heart disease [facility] Natural mother [facility] Social History Social Habit Start Date Stop Date Quantity Comments Source History of tobacco Cigarette Smoker [facility] Gender identity [facility] Sexual orientation [facility] Alcohol intake 2021-02-28 2021-02-28 Current drinker [facility] 00:00:00 00:00:00 of alcohol Hospital (finding) History of Social 2021-02-28 2021-02-[address] function 00:00:00 00:00:00 Hospital Tobacco use and 2021-02-21 2021-02-21 Smokeless Hindu exposure 00:00:00 00:00:00 tobacco non-user Hospital Tobacco Comment 2021-02-21 2021-02-21 one cigarette [facility] 00:[facility]:00 00:00:00 daily Hospital Alcohol Comment 2021-02-21 2021-02-21 14-21 beers a [facility] 00:00:00 00:00:00 week Hospital Sex Assigned At [birth year] [facility] 00:00:00 00:00:00 Hospital Smoking Status Start Date Stop Date Source Smokes tobacco daily 2021-02-21 00:00:00 [facility] Medications Ordered Filled Start Stop Current Ordering Indication Dosage Frequency Signature Comments Components Source Medication Medication Date Date Medication? Clinician (SIG) Name Name doxycycline Yes 50mg QD Take 50 mg [facility] (VIBRAMYCIN 9-[address] ) 50 MG 00:00: daily. Hospita capsule 00 l doxycycline Yes 50mg QD Take 50 mg [facility] (VIBRAMYCIN 9-[address] ) 50 MG 00:00: daily. Hospita capsule 00 l metFORMIN Yes 500mg QD Take 500 Met hodi (GLUCOPHAGE 7-[address] ) 500 mg 00:00: mouth [facility]ospita tablet 00 daily. l lisinopriL 0 Yes 20mg QD Take 20 mg M ethodi (PRINIVIL) 7-[address] 20 mg 00:00: daily. Hospita tablet 00 l metFORMIN Yes 500mg QD Take 500 Met [facility] (GLUCOPHAGE 7-[address] ) 500 mg 00:00: mouth Hospita tablet 00 daily. l lisinopriL Yes 20mg QD Take 20 mg M ethodi (PRINIVIL) 7-[address] 20 mg 00:00: daily. Hospita tablet 00 l Immunizations Ordered Immunization Filled Immunization Date Status Commen ts Source Name Name VERONICA PEREZ 2020-09-25 Completed [facility] MRNA VACCINATION 00:00:00 [facility] YAN DANYELLELuis 2020-09-25 Completed [facility] t MRNA VACCINATION 00:00:00 [facility] VERONICA BASSETTLuis 2020-08-28 Completed [facility] t MRNA VACCINATION 00:00:00 [facility] DANYELLELuis 2020-08-28 Completed Method[facility] t MRNA VACCINATION 00:00:00 Hospital Procedures Procedure Date / Time Performed Performing Clinician [facility] katy [id number] 2022-08-27 00:00:00 [facility] [id number] [id number] 2022-08-26 00:00:00 [facility] [id number] 2022-08-26 00:00:00 [facility] [id number] 2022-08-26 00:00:00 [facility] Plan of Care Planned Activity Planned Date Details Comments Source Future Scheduled 2022-08-07 65+ PNEUMOCOCCAL [facility] Test 21:45:15 VACCINE (1 - PCV) [code = 65+ PNEUMOCOCCAL VACCINE (1 - PCV)] Future Scheduled 2022-08-07 Hepatitis C screening [facility] Test 21:45:15 (procedure) [code = 683499856] Future Scheduled 2022-08-07 COLONOSCOPY SCREENING [facility] Test 21:45:15 [code = COLONOSCOPY SCREENING] Future Scheduled 2022-08-07 SHINGLES VACCINES (1 Met [facility] Hospital Test 21:45:15 of 2) [code = SHINGLES VACCINES (1 of 2)] Future Scheduled 2022-08-07 COVID-19 VACCINE (3 - [facility] Test 21:45:15 Booster for Moderna series) [code = COVID-19 VACCINE (3 - Booster for Moderna series)] Future Scheduled 2022-08-07 INFLUENZA VACC[address] Method [facility] Hospital Test 21:45:15 [code = INFLUENZA VACCINE] Future Scheduled 2022-08-07 65+ PNEUMOCOCCAL [facility] Test 21:45:15 VACCINE (1 - PCV) [code = 65+ PNEUMOCOCCAL VACCINE (1 - PCV)] Future Scheduled 2022-08-07 Hepatitis C screening [facility] Test 21:45:15 (procedure) [code = [id number]] Future Scheduled 2022-08-07 COLONOSCOPY SCREENING [facility] Test 21:45:15 [code = COLONOSCOPY SCREENING] Future Scheduled 2022-08-07 SHINGLES VACCINES (1 Met [facility] Hospital Test 21:45:15 of 2) [code = SHINGLES VACCINES (1 of 2)] Future Scheduled 2022-08-07 COVID-19 VACCINE (3 - [facility] Test 21:45:15 Booster for Moderna series) [code = COVID-19 VACCINE (3 - Booster for Moderna series)] Future Scheduled 2022-08-07 INFLUENZA VACCINE [facility] Hospital Test 21:45:15 [code = INFLUENZA VACCINE] Encounters Start End Encounter Admission Attending Care Care Encounter Source Date/Time Date/Time Type Type Clinicians Facility Department ID 2021-09-01 Outpatient Momin, [facility] [id number] Common 10:23:01 Ar [id number] [facility] 2021-07-15 Outpatient STLC [facility] [id number] Common 09:00:03 [facility] 2021-06-01 Outpatient [facility] [id number] Common 14:36:52 [facility] 2022-08-27 2022-08-30 Inpatient SERGO Connolly, [facility] IN[facility].02 [id number] [facility] 16:31:00 14:03:00 Dwight Reece [facility] [place] 2022-06-12 2022-06-12 [facility] [id number] [facility] 00:00:00 0206 [facility] 2022-06-12 2022-06-12 [facility] [id number] [facility] 00:00:00 00:00:00 0506 [facility] 2022-03-02 2022-03-02 CAV Sera [id number]. [id number]. CLAC [id number] [facility] 13:30:00 14:30:00 Milla [id number] 2CF Medical [id number] 2022-02-24 2022-02-24 Outpatient Iyanoye_S [facility] [id number] -2021 [facility] 00:00:00 00:00:00 1021 Medica l Group 2021-11-18 2021-11-18 Outpatient Ogweno_B [facility] [id number]- [id number] [facility] 03:57:00 03:57:00 0715 Medica l Group 2021-02-25 2021-02-25 Outpatient SOFOLA, [facility] [id number] [place] 00:00:00 00:00:00 IFEOLUMIPO 811 Met [facility] 2021-02-21 2021-02-21 Outpatient SOFOLA, [facility] [id number] [place] 00:00:00 00:00:00 IFEOLUMIPO 266 Met [facility] 2021-02-21 2021-02-21 Outpatient SOFOLA, [facility] [id number] [place] 00:00:00 00:00:00 IFEOLUMIPO 191 Met [facility] 2020-10-26 2020-10-26 Outpatient Ogweno_B [facility] [id number]- [id number] [facility] 11:05:00 11:05:00 0622 Medica l Group 2020-09-06 2020-09-06 Outpatient [facility] [id number] [facility] 06:03:00 06:03:00 0503 Medica l Group 2020-09-03 2020-09-03 Outpatient [facility] [id number] [facility] 08:00:00 08:00:00 0430 Medica l Group 2020-08-07 2020-08-07 Outpatient [facility] [id number] [facility] 06:02:00 06:02:00 0403 Medica l Group 2020-07-31 2020-07-31 Outpatient [facility] [id number] 021 [facility] 08:00:00 08:00:00 0327 Medica l Group Results Test Description Test Time Test Comments Results Result Comments Source UA RFLX MICR CULT IF INDICATED 2022-08-28 17:27:00 Test Item Value Reference Range Interpretation Comme nts UA COLOR (test code = COLU) STRAW discript YEL/STRAW UA APPEARANCE (test code = APPU) CLEAR discript CLEAR UA GLUCOSE DIPSTICK (test code = DGLUU) NEGATIVE mg/dL NEG UA BILIRUBIN DIPSTICK (test code = BILU) NEGATIVE mg/dL NEG UA KETONE DIPSTICK (test code = KETU) NEGATIVE mg/dL NEG UA SPECIFIC GRAVITY (test code = SGU) 1.010 SG 1.005-1.030 UA BLOOD DIPSTICK (test code = DONOVAN) 2+ mg/DL NEG A UA PH DIPSTICK (test code = PEDRO) 6.0 pH UNITS 5.0-7.0 UA PROTEIN DIPSTICK (test code = PROU) NEGATIVE mg/dL NEG UA UROBILINIOGEN DIPSTICK (test code = URO) 0.2 mg/dL <2.0 UA NITRITE DIPSTICK (test code = SERENITY) NEGATIVE SCREEN NEG UA LEUKOCYTE ESTERASE DIPSTICK (test code = LEUU) NEGATIVE Leuk/mcL NEGATIVE UA WBC (test code = WBCU) 0-1 #WBC/HPF 0-3 UA RBC (test code = RBCU) 5-10 #RBC/HPF 0-3 A UA BACTERIA (test code = BACU) 1+ /HPF NONE-TRACE A UA SQUAMOUS CELLS (test code = SQU) 2+ /HPF NONE UA CULTURE NEEDED? (test code = UACULT) NO, WBC<10 Criteria Culture CHK Indication for culture: RiskForSepsis-no oth srcSOURCE OF URINE: CLEAN CATCH- XR CHEST 1 [id number] 08:57:00 [facility] 1955 Sex: M Name: ELYSIA PHAN [place] : 1955 Age/S: 66 / M [id number] [place] Unit #: [id number] Loc: [place] [address] Phys: Jennifer Copeland MD Acct: [id number] Dis Date: Status: ADM IN PHONE #: [phone] Exam Date: 08/28/2022154 FAX #: Reason: CHEST TUBE EXAMS: CPT: [id number] XR CHEST 1 V 81976 Fluoro Time: DAP (Gy m2): Air Kerma (mGy): Location Code: S17 EXAMINATION: - XR CHEST 1 V CLINICAL INDICATION: Male, 66 years year old with CHEST TUBE COMPARISON: Chest x-ray August 27, 2022 FINDINGS: Singleview(s) of the chest submitted. Support Devices: Stable position of the right-sided chest tube. Leftchest wall pacer device. Heart: Enlarged cardiac silhouette is stable in size. Mediastinum: Calcifica tions are present in the thoracic aorta. Lungs: Mild pulmonary vascular congestive changes. Mild scattered opacities are unchanged. Pleura: No pleural effusion is identified. No pneumothorax is present. Bones: Visualized skeleton is stable in appearance. IMPRESSION: Stable position of right-sided chest tube. No significant pleural effusion. [id number] Reported and signed by: Bill Chandler M.D. CC: Dwight Connolly MD; Jennifer Copeland MD PAGE 1 Signed Report Name: ELYSIA PHAN [place] : 1955 Age/S: 66 / M [id number] [address]: [id number] Loc: [place] [address] Phys: Jennifer Copeland MD Acct: [id number] Dis Date: Status: ADM IN PHONE #: [phone] Exam Date: 08/28/2022154 FAX #: Reason: CHEST TUBE EXAMS: CPT: [id number] XR CHEST 1 V 58814 Fluoro Time: DAP (Gy m2): Air Kerma (mGy): (Continued) Technologist: EricaD. Núñez, RT(R)(CT) Trnscb Date/Time: 08/28/2022 (08) [email or web address] Orig Print D/T: S: 08/28/2022 (0900) PAGE 2 Signed ReportPLE[address] F[id number] 17:00:00 Test Item Value Reference Range Interpretation Comments PLEURAL FLD COLOR YELLOW DESCRIP. COLORLESS (test code = COLPL) PLEURAL FLD HAZY DESCRIP. CLEAR APPEARANCE (test code = APPPL) PLEURAL FLD WBC 117 #/mm3 0-33753 N (test code = WBCPL) PLEURAL FLD RBC 1000 /mm3 See_Comment [Automated message] (test code = RBCPL) The syst em which generated this result transmit lorraine reference range : 0-. The reference r john paul was not used to interpret this result as normal/abnormal . PLEURAL FLD [id number] 17:00:00 Test Item Value Reference Range Interpretation Comments PLEURAL FLD GLUCOSE 112 MG/DL See_Comment [Automa lorraine message] The (test code = GLUPL) system w [facility] generated this result tra nsmitted reference range : (). The reference range was not used to interpr et this result as normal/abnormal . PLEURAL FLD TOTAL [id number] 17:00:00 Test Item Value Reference Range Interpretation Comments PLEURAL FLD TOTAL 2.8 GM/DL See_Comment [Automate d message] The PROTEIN (test code = system which generated PROTPL) this result tra nsmitted reference range : (). The reference range was not used to interpr et this result as normal/abnormal . PLEURAL FLD [id number] 17:00:00 Test Item Value Reference Range Interpretation Comments PLEURAL FLD LDH (test Unit/L See_Comment [Auto mated message] The code = LDHPL) system which g enerated this result tra nsmitted reference range : 0-. The reference range was not used to interpr et this result as normal/abnormal . PLEURUAL FLD [id number] 17:00:00 Test Item Value Reference Range Interpretation Comments PLEURUAL FLD GLUCOSE (test code = 112 MG/DL GLUPL) PLEURAL FLD TOTAL [id number] 17:00:00 Test Item Value Reference Range Interpretation Comments PLEURAL FLD TOTAL PROTEIN (test 2.8 GM/DL code = PROTPL) PLEURAL FLD [id number] 17:00:00 Test Item Value Reference Range Interpretation Comments PLEURAL FLD LDH (test code = 91 UNITS/L LDHPL) - XR CHEST 1 [id number] 12:48:00 [facility] 1955 Sex: M Name: ELYSIA [facility]AN [facility] : 1955 Age/S: 66 / M [id number] [place] Unit #: [id number] Loc: [place] [address] Phys: Jennifer Copeland MD Acct: [id number] Dis Date: Status: ADM IN PHONE #: [phone] Exam Date: 08/27/2022 1235 FAX #: Reason: CHEST TUBE EXAMS: CPT: [id number] XR CHEST 1 V 77388 Fluoro Time: DAP (Gy m2): Air Kerma (mGy): LOCATION: B2 EXAM: - XR CHEST 1 V HISTORY: CHEST TUBE COMPARISON: 08/27/2022 FINDINGS: Right pleural catheter is present. Patchy bilateral airspace opacities with improved aeration of the right lung. No pleural effusion or pneumothorax. Moderate enlargement of cardiac silhouette. No acute osseous abnormalities. IMPRESSION: Interval placement of a right pleural catheter with marked decrease in right pleural effusion and improved aeration right lung. Moderate congestive heart failure with persistent pulmonary edema. Superimposed infection cannot be excluded. at 1248 Reported and signed by: Maurisio Swanson M.D. CC: Dwight Connolly MD; Jennifer Copeland MD PAGE 1 Signed Report Name: ELYSIA PHAN [facility] : 1955 Age/S: 66 / M [address] [address] [place] Unit #: [id number] Loc: [place] [address] Phys: Jennifer Copeland MD Acct: [id number] Dis Date: Status: ADM IN PHONE #: [phone] Exam Date:08/27/2022 1235 FAX #: Reason: CHEST TUBE EXAMS: CPT: [id number] XR CHEST 1 V 14897 Fluoro Time: DAP (Gy m2): Air Kerma (mGy): (Continued) Technologist: Elmer Alvarenga Trnscb Date/Time: 08/27/2022 (124)[email or web address] Orig Print D/T: S: 08/27/2022 (5712) PAGE 2 Signed Report- XR CHEST 1 [id number] 07:29:00 [facility] 1955 Sex: M Name: ELYSIA PHAN [facility] : 1955 Age/S: 66 / M [address] [address] [place] Unit #: [id number] Loc: [place] [address] Phys: Dwight Connolly MD Cardiology Acct: [id number] Dis Date: Status: ADM IN PHONE#: [phone] Exam Date: 08/27/2022 0325 FAX #: Reason: Post implanted device EXAMS: CPT: [id number] XR CHEST 1 V 98334 Fluoro Time: DAP (Gy m2): Air Kerma (mGy): Chest one view portable 08/27/2022 7:28 AM CLINICAL INDICATION: Postop COMPARISON: The previous day LOCATION: W1 IMPRESSION: No pneumothorax is evident. Cardiomediastinal contours are stable. There is moderately advanced pulmonary edema. There are layering right and trace left pleural effusions. Adjacent dependent pulmonary opacities may reflect atelectasis or pneumonia. A left subclavian pacemaker is present. at 0729 Reported and signed by: Mohamud Nathan M.D. CC: Dwight Torres Cardiology Mohsen KURTZ PAGE 1 Signed Report Name: ELYSIA PHAN [facility] : 1955 Age/S: 66 / M [address] [address] [place] Unit #: [id number] Loc: [place] [address] Phys: Dwight Connolly MD Cardiology Acct: [id number] Dis Date: Status: ADM IN PHONE #: [phone] Exam Date: 08/27/2022324 FAX #: Reason: Post implanted device EXAMS: CPT: [id number] XR CHEST 1 V 43833 Fluoro Time: DAP (Gym2): Air Kerma (mGy): (Continued) Technologist: Norma Núñez, RT(R)(CT) Trnscb Date/Time: 08/27/2022 (728) [email or web address] Orig Print D/T: S: 08/27/2022 (731) PAGE 2 Signed ReportBASIC METABOLIC [id number] 04:55:00 Test Item Value Reference Range Interpretation Comments SODIUM (test code = 130 mmol/L 134-147 L NA) POTASSIUM (test 4.8 mmol/L 3.4-5.0 N code = K) CHLORIDE (test code 100 mmol/L 100-108 N = CL) CARBON DIOXIDE 28 mmol/L 21-32 N (test code = CO2) ANION GAP (test 2.0 GAP calc 4.0-15.0 L code = GAP) GLUCOSE (test code 121 MG/DL 70-110 H = GLU) BLOOD UREA NITROGEN 30 MG/DL 7-18 H (test code = BUN) GLOMERULAR 60 estGFR >60 The Glomerular FILTRATION RATE Filtration R ate is a (test code = GFR) calculated parameterbased on serum Creatinin e, patient age and sex. GFR valuesless than 60 mL/min/1.73 squ are meters are megan cative ofChronic Kidne y Disease. Values less than 15 mL/min/1.73squa re meters indicate Kidney failure. The calculation for GFR is based on the CK D-EPI (2020) calculat ion. This formulais race indifferent and is the recommended for jovanny for GFRby the N [facility] Foundati on for Adults.The GFR will not calculate i f the sex is unknown or if thepatient's ag e is <18 years. CREATININE (test 1.3 MG/DL 0.8-1.3 N code = CREAT) CALCIUM (test code 8.8 MG/DL 8.5-10.1 N = CA) CBC W/AUTO [id number] 04:45:00 Test Item Value Reference Range Interpretation Comments WHITE BLOOD CELL (test code = 5.0 K/mm3 3.5-11.0 N WBC) RED BLOOD CELL (test code = 3.66 M/mm3 4.70-6.10 L RBC) HEMOGLOBIN (test code = HGB) 10.3 G/DL 12.3-15.9 L HEMATOCRIT (test code = HCT) 32.8 % 35.8-46.7 L MEAN CELL VOLUME (test code = 89.6 Fl 86.3-98.9 N MCV) MEAN CELL HGB (test code = MCH) 28.1 pg 28.9-34.4 L MEAN CELL HGB CONCETRATION 31.4 G/DL 32.1-34.5 L (test code = MCHC) RED CELL DISTRIBUTION WIDTH 16.2 SD 11.5-14.5 H (test code = RDW) PLATELET COUNT (test code = 115 K/mm3 150-450 L PLT) MEAN PLATELET VOLUME (test code 9.70 fL 7.0-9.6 H = MPV) NEUTROPHIL % (test code = NT%) 72.2 % 40-76 N IMMATURE GRANULOCYTE % (test 0.2 % 0.0-5.0 N code = IG%) LYMPHOCYTE % (test code = LY%) 13.2 % 20.5-51.1 L MONOCYTE % (test code = MO%) 10.2 % 1.7-9.3 H EOSINOPHIL % (test code = EO%) 3.8 % 0.0-6.0 N BASOPHIL % (test code = BA%) 0.4 % 0.0-2.0 N NUCLEATED RBC % (test code = 0.0 /100WBC% 0.0-1.0 N NRBC%) NEUTROPHIL # (test code = NT#) 3.6 K/mm3 1.8-7.6 N IMMATURE GRANULOCYTE # (test 0.01 x10 3/uL 0.00-0.03 N code = IG#) LYMPHOCYTE # (test code = LY#) 0.7 K/mm3 0.6-3.0 N MONOCYTE # (test code = MO#) 0.5 K/mm3 0.2-1.5 N EOSINOPHIL # (test code = EO#) 0.2 K/mm3 0.0-0.4 N BASOPHIL # (test code = BA#) 0.0 K/mm3 0.0-0.2 N NUCLEATED RBC # (test code = 0.0 K/mm3 0.00-0.01 N NRBC#) MANUAL DIFF REQUIRED (test code NO DIFF/SCN CRITERIA = MDIFF) ARTERIAL BLOOD [id number] 13:28:00 Test Item Value Reference Range Interpretation Comments ARTERIAL BLOOD GAS PH 7.29 pH units 7.35-7.45 L (test code = PHA) ARTERIAL BLOOD GAS PCO2 52 mmHg 35-45 H (test code = PCO2A) ARTERIAL BLOOD GAS PO2 55 mmHg 80-100 L (test code = PO2A) BICARBONATE TOTAL HCO3 24.1 mmol/L 22.0-26.0 N (test code = HCO3) BASE EXCESS (test code = -3.2 mmol/L -3.0-3.0 L ANDREINA) ABG O2 SATURATION (test 85 % 90-100 L code = SATA) FIO2 (test code = FIO2A) 21 % (calc) 21-100 N ABG DELIVERY (test code RM AIR Descript = WILLIS) ABG SITE (test code = Right Brachial ARTKIT DESCRIPTION SITEA) MODIFIED GURMEET'S (test N/A Circ.CHK POSITIVE code = MODALL) PaO2/[id number] 13:28:00 Test Item Value Reference Range Interpretation Comments PaO2/FiO2 (test 261.9 mm/Hg See_Comment [Automated message] The code = IBD8KYH9) system [facility] generated this result tra nsmitted reference range : 200. The reference r john paul was not used to int erpret this result as normal/abnormal . - XR CHEST 1 [id number] 13:27:00 [facility] 1955 Sex: M Name: ELYSIA PHAN [facility] : 1955 Age/S: 66 / M [address] [address] [place] [place] Unit #: [id number] Loc: [place] [address] Phys: Dwight Connolly MD Cardiology Acct: [id number] Dis Date: Status: ADM IN PHONE#: [phone] Exam Date: 08/26/2022 1317 FAX #: Reason: Post implanted device EXAMS: CPT: [id number] XR CHEST 1 V 91916 Fluoro Time: DAP (Gy m2): Air Kerma (mGy): Chest one view AP 08/26/2022 1:26 PM CLINICAL INDICATION: Pacemaker COMPARISON: None available LOCATION: W1 IMPRESSION: No pneumothorax isevident status post left subclavian dual electrode pacemaker placement. Cardiomediastinal contours are within normal limits. There is mild pulmonary edema. There are moderate volume right and trace left pleural effusions. Adjacent dependent pulmonary opacities may reflect atelectasis or pneumonia. at 1327 Reported and signed by: Mohamud Nathan M.D. CC: Dwight Torres Cardiology Mohsen KURTZ PAGE 1 Signed Report Name: ELYSIA PHAN [facility] : 1955 Age/S: 66 / M [address] [address] [place] Unit #: [id number] Loc: [place] [address] Phys: Dwight Connolly MD Cardiology Acct: [id number] Dis Date: Status: ADM IN PHONE #: [phone] Exam Date: 08/26/2022 1317 FAX #: Reason: Post implanted device EXAMS: CPT: [id number] XR CHEST 1 V 56393 Fluoro Time: DAP (Gy m2): Air Kerma (mGy): (Continued) Technologist: Sandra Núñez, RT(R) Trnscb Date/Time: 08/26/2022 (1327) [email or web address] Orig Print D/T: S: 08/26/2022 (9123) PAGE 2 Signed ReportCOVID 19 INHOUSE [id number] 09:45:00 Test Item Value Reference Range Interpretation Comments COVID 19 INHOUSE AG NEGATIVE Negative Per manu facturer, (test code = negative result s should [id number]) be treated aspr esumptive and, if inconsi stent with clinical signs andsymptoms or necessary for patient man agement, should betested with an alternative mol ecular assay. Negative resultsdo not preclude SA RS-CoV-2 infection and s hould not be usedas the s ole basis for patient man agement decisions. Nega tive results should be considered in t he context of apatient's r ecent exposures, hist ory, presence of cli nicalsigns and symptoms co nsistent with COVID-19. COMPREHENSIVE METABOLIC [id number] 09:18:00 Test Item Value Reference Range Interpretation Comments SODIUM (test code = 129 mmol/L 134-147 L NA) POTASSIUM (test 5.2 mmol/L 3.4-5.0 H code = K) CHLORIDE (test code 99 mmol/L 100-108 L = CL) CARBON DIOXIDE 28 mmol/L 21-32 N (test code = CO2) ANION GAP (test 2.0 GAP calc 4.0-15.0 L code = GAP) GLUCOSE (test code 103 MG/DL 70-110 N = GLU) BLOOD UREA NITROGEN 26 MG/DL 7-18 H (test code = BUN) GLOMERULAR 60 estGFR >60 The Glomerular FILTRATION RATE Filtration R ate is a (test code = GFR) calculated parameterbased on serum Creatinin e, patient age and sex. GFR valuesless than 60 mL/min/1.73 squ are meters are megan cative ofChronic Kidne y Disease. Values less than 15 mL/min/1.73squa re meters indicate Kidney failure. The calculation for GFR is based on the CK D-EPI (2020) calculat ion. This formulais race indifferent and is the recommended for jovanny for GFRby the N ational Kidney Foundati on for Adults.The GFR will not calculate i f the sex is unknown or if thepatient's ag e is <18 years. CREATININE (test 1.3 MG/DL 0.8-1.3 N code = CREAT) TOTAL PROTEIN (test 8.4 G/DL 6.4-8.2 H code = PROT) ALBUMIN (test code 3.2 G/DL 3.4-5.0 L = ALB) GLOBULIN (test code 5.2 GM/dL = GLOB) ALBUMIN/GLOBULIN 0.6 RATIO 1.2-2.2 L RATIO (test code = A/G) CALCIUM (test code 9.1 MG/DL 8.5-10.1 N = CA) BILIRUBIN TOTAL 1.10 MG/DL 0.2-1.2 N (test code = BILT) SGOT/AST (test code 16 Unit/L 15-37 N = AST) SGPT/ALT (test code 12 Unit/L 12-78 N = ALT) ALKALINE 66 Unit/L 50-136 N PHOSPHATASE TOTAL (test code = ALKP) LIPID PROFILE (CORONARY RISK)2022-08-26 09:18:00 Test Item Value Reference Range Interpretation Comments TRIGLYCERIDES (test 49 MG/DL 0-150 N code = TRIG) CHOLESTEROL (test 70 MG/DL 133-200 L code = CHOL) CHOLESTEROL/HDL 1.00 RATIO See_Comment RISK ASSOCIA LORRAINE WITH RATIO (test code = CHOL/HDL RATIOS: RISK CHOLHDL) MALE FEMALE1/2 AVERAGE 3.43 3.27AVERAG E 4.97 4.442X AVERAGE 9.55 7.053X AVERAGE 23.39 11.04 NOTE THAT THE REFERENCE VALUE IS RELATED TO RISK LEVELS ASRECOMMENDED B Y [facility] . [Automated mess age] The system which ge nerated this result tra nsmitted reference range : 0-. The reference range was not used to interpr et this result as normal/abnormal . HDL CHOLESTEROL 70 MG/DL 40-59 H (test code = HDL) NON-HDL CHOLESTEROL 0 mg/dL <130 (test code = NHDL) LIPOPROTEIN LDL 28 MG/DL 0-129 N <100 OPTIMAL 100 - 129 (test code = LDL) NEAR OPTIM AL/ABOVE [id number] - 15 9 [id number] - 189 HIGH>OR= 190 VE RY HIGHNOTE THAT G UIDELINES ARE PROVIDED BY NATIONAL CHOLESTEROLEDUC ATION PROGRAM ADULT T REATMENT PANEL III LDL/HDL (test code 0.40 Ratio See_Comment L [Automat ed message] The = LDL/HDL) system which ge nerated this result tra nsmitted reference range : 1.48-3.22 Avg. The reference range was not used to interpr et this result as normal/abnormal . [id number] 09:18:00 Test Item Value Reference Range Interpretation Comments MAGNESIUM (test code = MAG) 1.8 MG/DL 1.8-2.4 N PROTHROMBIN [id number] 09:11:00 Test Item Value Reference Range Interpretation Comments PT PATIENT (test 16.1 SECONDS 9.3-12.9 H code = PTP) INTERNATIONAL NORMAL 1.44 INR Unit 0.8-1.2 H TARGE T INR BY RATIO (test code = INDICATIO N Indication INR) INR1. Prophylax is of venous thrombos is 2.0 - 3.0 (orthoped ic surgery), Proph ylaxis of venous throm bosis (other than hig h-risk surgery), Treat ment of Deep Vein Thrombosis/Pulm onary Embolism, Preve ntion of systemic emb olism - Tissue heart va lves, Acute Myocardia l Infarction (to prevent systemic emboli sm), Valvular heart disease, Acute Myocardial Infa rction (to prevent sys temic embolism), Valv ular heart disease, Atrial Fibrillation, Bileaflet mecha nical valve in aortic position.2. Mec hanical prosthetic valv es (high risk), 2. 5 - 3.5 Presence of Lup us Anticoagulant o r Antiphospholipi d Antibodies, Pre vention of systemic emb olism - Acute Myocardia l Infarction (to prevent recurrent infar ct). THROMBOPLASTIN TIME [id number] 09:11:00 Test Item Value Reference Range Interpretation Comments THROMBOPLASTIN TIME PARTIAL 35.5 SECONDS 26-35 H (test code = PTT) CBC W/AUTO [id number] 08:59:00 Test Item Value Reference Range Interpretation Comments WHITE BLOOD CELL (test code = 4.5 K/mm3 3.5-11.0 N WBC) RED BLOOD CELL (test code = 3.84 M/mm3 4.70-6.10 L RBC) HEMOGLOBIN (test code = HGB) 10.8 G/DL 12.3-15.9 L HEMATOCRIT (test code = HCT) 32.6 % 35.8-46.7 L MEAN CELL VOLUME (test code = 84.9 Fl 86.3-98.9 L MCV) MEAN CELL HGB (test code = MCH) 28.1 pg 28.9-34.4 L MEAN CELL HGB CONCETRATION 33.1 G/DL 32.1-34.5 N (test code = MCHC) RED CELL DISTRIBUTION WIDTH 16.2 SD 11.5-14.5 H (test code = RDW) PLATELET COUNT (test code = 131 K/mm3 150-450 L PLT) MEAN PLATELET VOLUME (test code 9.70 fL 7.0-9.6 H = MPV) NEUTROPHIL % (test code = NT%) 70.7 % 40-76 N IMMATURE GRANULOCYTE % (test 0.4 % 0.0-5.0 N code = IG%) LYMPHOCYTE % (test code = LY%) 13.9 % 20.5-51.1 L MONOCYTE % (test code = MO%) 10.3 % 1.7-9.3 H EOSINOPHIL % (test code = EO%) 4.0 % 0.0-6.0 N BASOPHIL % (test code = BA%) 0.7 % 0.0-2.0 N NUCLEATED RBC % (test code = 0.0 /100WBC% 0.0-1.0 N NRBC%) NEUTROPHIL # (test code = NT#) 3.1 K/mm3 1.8-7.6 N IMMATURE GRANULOCYTE # (test 0.02 x10 3/uL 0.00-0.03 N code = IG#) LYMPHOCYTE # (test code = LY#) 0.6 K/mm3 0.6-3.0 N MONOCYTE # (test code = MO#) 0.5 K/mm3 0.2-1.5 N EOSINOPHIL # (test code = EO#) 0.2 K/mm3 0.0-0.4 N BASOPHIL # (test code = BA#) 0.0 K/mm3 0.0-0.2 N NUCLEATED RBC # (test code = 0.0 K/mm3 0.00-0.01 N NRBC#) MANUAL DIFF REQUIRED (test code NO DIFF/SCN CRITERIA = MDIFF) SARS-CoV-2 (COVID-19) RNA [Presence] in Respiratory specimen by JAVIER with probe [id number] 19:06:12 Test Item Value Reference Range Interpretation Comments SARS-CoV-2 (COVID-19) RNA Not detected Not-Detected [Presence] in Respiratory specimen by JAVIER with probe detection (test code = 96262-3) Whether patient is employed in a healthcare setting (test code = 86186-5) Whether the patient has symptoms related to condition of interest (test code = 61093-8) Patient was hospitalized because of this condition (test code = 36216-0) Whether the patient was admitted to intensive care unit (ICU) for condition of interest (test code = 05965-2) Whether patient resides in a congregate care setting (test code = 63693-5) [facility]
[2022-09-11] MEDS ORDERED: METHYLPREDNISOLONE 125 MG INJ ONE (11:44)
[2022-09-11] MEDS ORDERED: LEVALBUTEROL 1.25 MG/3 ML NEB ONE ×2 (11:45→12:58)
--- NOTE | 2022-09-11 11:59 | RAD REPORT ---
EXAM DESCRIPTION: RAD - Chest Single View - 09/11/2022 11:52 am CLINICAL HISTORY: CHEST PAIN Chest pain. COMPARISON: Chest Single View dated 06/20/2021; Chest Pa And Lat (2 Views) dated 12/02/2020; Chest Sin gle View dated 10/30/2017; CHEST SINGLE VIEW dated 02/24/2014 FINDINGS: Portable technique limits examination quality. Mild interstitial pulmonary edema. Small left and moderate right pleural effusion. The heart is enlar ged with pacer device present. No displaced fractures. IMPRESSION: Moderate CHF/ volume overload suspected.
[2022-09-11 12:03] LABS: Absolute Lymphocytes (CBC) 0.5 K/uL (0.7-4.9); Hematocrit 30.5 % (39.6-49.0); Lymphocytes % 11.8 % (15.3-44.8); MCV 85.6 fL (80-100); MPV 7.7 fL (7.6-11.3); RBC Red Blood Cell Count 3.56 M/uL (4.33-5.43)
--- NOTE | 2022-09-11 12:17 | ER ---
Nurse's Notes [facility] Name: Gavin Talamantes Age: 67 yrs Sex: Male : 1955 Arrival Date: 09/11/2022 Time: 10:48 Bed 6 Private MD: Diagnosis: Hypertensive heart disease with heart failure;COPD/ Chronic obstructive pulmonary disease with (acute) exacerbation Presentation: 09/11 11:05 Chief complaint: EMS states: SOB AND ANXIETY. Coronavirus screen: At this time, the bp client does not indicate any symptoms associated with coronavirus-19. Ebola Screen: No symptoms or risks identified at this time. Initial Sepsis Screen: Does the patient meet any 2 criteria? No. Patient's initial sepsis screen is negative. Does the patient have a suspected source of infection? No. Patient's initial sepsis screen is negative. Risk Assessment: Do you want to hurt yourself or someone else? Patient reports no desire to harm self or others. Onset of symptoms is unknown. Care prior to arrival: IV initiated. 20 GA, in the left antecubital area. 11:05 Method Of Arrival: EMS: [facility] bp 11:05 Acuity: IKE 3 bp Triage Assessment: 11:00 General: Appears distressed, uncomfortable, Behavior is cooperative, appropriate for bp age, anxious. 11:00 Pain: Denies pain. EENT: No deficits noted. Neuro: No deficits noted. Cardiovascular: bp Rhythm is sinus rhythm. Respiratory: Reports shortness of breath. GI: No signs and/or symptoms were reported involving the gastrointestinal system. : No signs and/or symptoms were reported regarding the genitourinary system. Derm: No deficits noted. Musculoskeletal: No deficits noted. Historical: - Allergies: 11:07 NKDA; bp - Home Meds: 11:07 Metformin Oral [Active]; lisinopril Oral [Active]; Lasix 20 mg Oral tab 1 tab once bp daily [Active]; Eliquis 5 mg Oral tab 1 tab 2 times per day [Active]; - PMHx: 11: Diabetes - NIDDM; no longer takes meds; Hypertension; bp - PSHx: 11:07 hernia repair; Nasal sx; PACEMAKER; bp - Immunization history:: Adult Immunizations up to date. - Social history:: Smoking status: unknown. Screenin:09 [facility] ED Fall Risk Assessment (Adult) History of falling in the last 3 months, bp including since admission No falls in past 3 months (0 pts). Abuse screen: Denies threats or abuse. Denies injuries from another. Nutritional screening: No deficits noted. Tuberculosis screening: No symptoms or risk factors identified. Assessment: 11:08 General: SEE TRIAGE NOTE. bp 12:46 Reassessment: Pt c/o no improvement of SOB, pt currently O2 sat 92% via 2 L NC and aa5 tachypnea noted. was notified (see MAR). 12:55 Reassessment: [employer] (hospitalist) at bedside, will administer neb tx after pt is done aa5 speaking with hospitalist. . 15:00 Reassessment: No changes from previously documented assessment. Patient is alert, bp oriented x 3, equal unlabored respirations, skin warm/dry/pink. 16:31 Reassessment: REPORT TO LEIGH ANN LOPEZ FOR RM 429. bp Vital Signs: 11:00 BP 122 / 89; Pulse 70; Resp 22; Temp 98.2; Pulse Ox 100% ; bp 11:05 Weight 81.19 kg; Height 5 ft. 7 in. ; bp 12:46 BP 140 / 94; Pulse 70; Resp 26 S; Pulse Ox 92% on 2 lpm NC; aa5 15:00 BP 139 / 97; Pulse 70; Resp 16; Pulse Ox 97% ; bp 16:00 BP 127 / 79; Pulse 70; Resp 20; Pulse Ox 99% ; bp 11:05 Body Mass Index 28.04 (81.19 kg, 170.18 cm) bp ED Course: 10:56 Patient arrived in ED. aa5 10:57 Michael Leija MD is Attending Physician. kdr 10:57 EKG done, by ED staff, reviewed by Michael Leija MD. em1 11:05 Toney Cole, JOHN is Primary Nurse. bp 11:07 Triage completed. bp 11:07 Arm band placed on. bp 11:09 Maintain EMS IV. Dressing intact. Good blood return noted. Site clean \T\ dry. Gauge \T\ bp site: 20 G LEFT AC. 11:09 Patient has correct armband on for positive identification. Bed in low position. Call bp light in reach. Side rails up X2. 11:54 XRAY Chest (1 view) In Process Unspecified. EDMS 12:17 Frank, Rodney, MD is Hospitalizing Provider. kdr 13:38 Thorax Wo Con In Process Unspecified. EDMS 13:39 Abdomen In Process Unspecified. EDMS 16:33 No provider procedures requiring assistance completed. Patient admitted, IV remains in bp place. Administered Medications: 11:45 Drug: MethylPrednisoLONE IVP 125 mg Route: IVP; Site: left antecubital; bp 11:47 Drug: Levalbuterol Inhalation 1.25 mg Route: Inhalation; bp 12:55 Drug: Furosemide IVP 40 mg Route: IVP; Site: left antecubital; aa5 13:00 Drug: Levalbuterol Inhalation 1.25 mg Route: Inhalation; bp Medication: 16:33 VIS not applicable for this client. bp Outcome: 12:17 Decision to Hospitalize by Provider. kdr 16:31 Admitted to Med/surg accompanied by tech, via stretcher, room 429, with chart, Report bp called to LEIGH ANN LOPEZ 16:31 Condition: stable 16:31 Instructed on the need for admit. 17:15 Patient left the ED. bp Signatures: Dispatcher [employer] EDMS Michael Leija MD MD kdr Imtiaz Fortune em1 Rochelle Jaquez, RN RN aa5 Toney Cole, RN RN bp
--- NOTE | 2022-09-11 12:17 | EDPHYS ---
Physician Documentation [facility] Name: Gavin Talamantes Age: 67 yrs Sex: Male : 1955 Arrival Date: 09/11/2022 Time: 10:48 Bed 6 Private MD: ED Physician Michael Leija HPI: 09/11 12:18 This 67 yrs old Male presents to ER via EMS with complaints of SOB. kdr 12:18 Patient states that he has been short of breath for the last few days is gotten kdr progressively worse. He recently had a pacemaker placed and since then he said he is had increased difficulty breathing. Patient is otherwise very disheveled and poorly kept. Vital signs appear to be stable on initial presentation. Patient is clearly wheezing and having some mild difficulty breathing. Onset: The symptoms/episode began/occurred gradually, 3 day(s) ago. Severity of symptoms: At their worst the symptoms were moderate severe just prior to arrival, in the emergency department the symptoms. The patient has experienced similar episodes in the past, multiple times, chronically. The patient has been recently seen by a physician: For pacemaker placement. Historical: - Allergies: 11:07 NKDA; bp - Home Meds: 11:07 Metformin Oral [Active]; lisinopril Oral [Active]; Lasix 20 mg Oral tab 1 tab once bp daily [Active]; Eliquis 5 mg Oral tab 1 tab 2 times per day [Active]; - PMHx: 11:07 Diabetes - NIDDM; no longer takes meds; Hypertension; bp - PSHx: 11:07 hernia repair; Nasal sx; PACEMAKER; bp - Immunization history:: Adult Immunizations up to date. - Social history:: Smoking status: unknown. ROS: 12:18 Constitutional: Negative for fever, chills, and weight loss, Eyes: Negative for injury, kdr pain, redness, and discharge, ENT: Negative for injury, pain, and discharge, Neck: Negative for injury, pain, and swelling, Cardiovascular: Negative for chest pain, palpitations, and edema, Abdomen/GI: Negative for abdominal pain, nausea, vomiting, diarrhea, and constipation, Back: Negative for injury and pain, : Negative for injury, bleeding, discharge, and swelling, MS/Extremity: Negative for injury and deformity, Skin: Negative for injury, rash, and discoloration, Neuro: Negative for headache, weakness, numbness, tingling, and seizure activity. Psych: Negative for depression, anxiety, suicide ideation, homicidal ideation, and hallucinations, Allergy/Immunology: Negative for hives, rash, and allergies, Endocrine: Negative for neck swelling, polydipsia, polyuria, polyphagia, and marked weight changes, Hematologic/Lymphatic: Negative for swollen nodes, abnormal bleeding, and unusual bruising. 12:18 Respiratory: Positive for cough, with no reported sputum, dyspnea on exertion, shortness of breath, wheezing, Negative for hemoptysis, orthopnea, pleurisy. Exam: 12:18 Constitutional: This is a well developed, well nourished patient who is awake, alert, kdr and in no acute distress. Head/Face: Normocephalic, atraumatic. Eyes: Pupils equal round and reactive to light, extra-ocular motions intact. Lids and lashes normal. Conjunctiva and sclera are non-icteric and not injected. Cornea within normal limits. Periorbital areas with no swelling, redness, or edema. Neck: Trachea midline, no thyromegaly or masses palpated, and no cervical lymphadenopathy. Supple, full range of motion without nuchal rigidity, or vertebral point tenderness. No Meningismus. Chest/axilla: Normal chest wall appearance and motion. Nontender with no deformity. No lesions are appreciated. Cardiovascular: Regular rate and rhythm with a normal S1 and S2. No gallops, murmurs, or rubs. Normal PMI, no JVD. No pulse deficits. Abdomen/GI: Soft, non-tender, with normal bowel sounds. No distension or tympany. No guarding or rebound. No evidence of tenderness throughout. Back: No spinal tenderness. No costovertebral tenderness. Full range of motion. Skin: Warm, dry with normal turgor. Normal color with no rashes, no lesions, and no evidence of cellulitis. MS/ Extremity: Pulses equal, no cyanosis. Neurovascular intact. Full, normal range of motion. Neuro: Awake and alert, GCS 15, oriented to person, place, time, and situation. Cranial nerves II-XII grossly intact. Motor strength 5/5 in all extremities. Sensory grossly intact. Cerebellar exam normal. Normal gait. Psych: Awake, alert, with orientation to person, place and time. Behavior, mood, and affect are within normal limits. 12:18 Respiratory: mild respiratory distress is noted, Respirations: labored breathing, that is mild, Breath sounds: wheezing: that is mild, that is moderate, is heard diffusely. Vital Signs: 11:00 BP 122 / 89; Pulse 70; Resp 22; Temp 98.2; Pulse Ox 100% ; bp 11:05 Weight 81.19 kg; Height 5 ft. 7 in. ; bp 12:46 BP 140 / 94; Pulse 70; Resp 26 S; Pulse Ox 92% on 2 lpm NC; aa5 15:00 BP 139 / 97; Pulse 70; Resp 16; Pulse Ox 97% ; bp 16:00 BP 127 / 79; Pulse 70; Resp 20; Pulse Ox 99% ; bp 11:05 Body Mass Index 28.04 (81.19 kg, 170.18 cm) bp MDM: 10:58 Patient medically screened. thad 12:18 Data reviewed: vital signs, nurses notes, lab test result(s), radiologic studies. kdr 09/11 11:00 Order name: Basic Metabolic Panel; Complete Time: 12:40 kdr 09/11 11:00 Order name: CBC with Diff; Complete Time: 12:14 kdr 09/11 11:00 Order name: Troponin HS; Complete Time: 12:40 kdr 09/11 14:42 Order name: Basic Metabolic Panel EDMS 09/11 14:42 Order name: Magnesium EDMS 09/11 14:42 Order name: Phosphorus EDMS 09/11 15:09 Order name: Urinalysis w/ reflexes EDMS 09/11 15:09 Order name: CBC with Automated Diff EDMS 09/11 15:09 Order name: CBC with Automated Diff EDMS 09/11 15:09 Order name: Comprehensive Metabolic Panel EDMS 09/11 15:09 Order name: Comprehensive Metabolic Panel EDMS 09/11 15:09 Order name: Lipid Profile EDMS 09/11 15:09 Order name: Lipid Profile EDMS 09/11 15:09 Order name: Magnesium EDMS 09/11 15:09 Order name: Magnesium EDMS 09/11 15:09 Order name: NT PRO-BNP EDMS 09/11 15:09 Order name: NT PRO-BNP EDMS 09/11 15:09 Order name: Phosphorus EDMS 09/11 15:09 Order name: Phosphorus EDMS 09/11 15:11 Order name: NT PRO-BNP [facility] 09/11 15:11 Order name: Hemoglobin A1c [facility] 09/11 11:00 Order name: XRAY Chest (1 view); Complete Time: 12:14 kdr 09/11 13:21 Order name: Abdomen [facility] 09/11 13:38 Order name: Thorax Wo Con [facility] 09/11 11:00 Order name: EKG; Complete Time: 11:01 kdr 09/11 15:09 Order name: Heart Healthy [facility] 09/11 11:00 Order name: Cardiac monitoring; Complete Time: 11: kdr 09/11 11:00 Order name: EKG - Nurse/Tech; Complete Time: 11:47 kdr 09/11 11:00 Order name: IV Saline Lock; Complete Time: 11:47 kdr 09/11 11:00 Order name: Labs collected and sent; Complete Time: 11:47 kdr 09/11 11:00 Order name: O2 Per Protocol; Complete Time: 11: kdr 09/11 11:00 Order name: O2 Sat Monitoring; Complete Time: 11: kdr 09/11 11:07 Order name: Misc. Order: Clean pacemaker site and redress; Complete Time: 11:47 kdr Administered Medications: 11:45 Drug: MethylPrednisoLONE IVP 125 mg Route: IVP; Site: left antecubital; bp 11:47 Drug: Levalbuterol Inhalation 1.25 mg Route: Inhalation; bp 12:55 Drug: Furosemide IVP 40 mg Route: IVP; Site: left antecubital; aa5 13:00 Drug: Levalbuterol Inhalation 1.25 mg Route: Inhalation; bp Disposition Summary: 09/11/22 12:17 Hospitalization Ordered Hospitalization Status: Inpatient Admission kdr Provider: Rodney Marie kdr Location: Telemetry/MedSurg (Inpatient) kdr Condition: Fair kdr Problem: an acute exacerbation kdr Symptoms: have improved kdr Bed/Room Type: Standard kdr Room Assignment: 429(09/11/22 15:46) dw Diagnosis - Hypertensive heart disease with heart failure kdr - COPD/ Chronic obstructive pulmonary disease with (acute) exacerbation kdr Forms: - Medication Reconciliation Form kdr - SBAR form kdr Signatures: Dispatcher [employer] [facility] Regla Toledo RN RN dw Anderson, Corey, MD MD cha Rittger, Kevin, MD MD kdr Calderon, Audri, RN RN aa5 Toney Cole, RN RN bp Corrections: (The following items were deleted from the chart) 15:46 12:17 kdr dw
[2022-09-11 12:36] LABS: Potassium 4.5 mEq/L (3.5-5.1); Troponin High Sensitivity 27.6 pg/mL (<58.9)
[2022-09-11] MEDS ORDERED: FUROSEMIDE 40 MG/4 ML VIAL ONE (12:58)
--- NOTE | 2022-09-11 14:23 | RAD REPORT ---
EXAM DESCRIPTION: CT - Abdomen Pelvis Wo Contrast - 09/11/2022 1:38 pm CLINICAL HISTORY: Abd pain distension--R O Ascites COMPARISON: Abdomen Pelvis W Contrast dated 06/16/2021; Abdomen Pelvis W Contrast dated 07/15/2020 ; Abdomen Pelvis W Contrast dated 09/24/2019; Abdomen Pelvis W Contrast dated 10/30/2017 TECHNIQUE: Thin cut axial CT imaging of the abdomen and pelvis was performed without IV contrast. Mu ltiplanar reformats were generated and reviewed. All CT scans are performed using dose optimization technique as appropriate and may include automated exposure control or mA/KV adjustment according to patient size. FINDINGS: Moderate cardiomegaly. Moderate to large right and trace left pleural effusions with under lying airspace opacification, suggesting atelectasis. The liver, adrenal gland, and pancreas show no suspicious findings. Subtle nodularity of the liver harris rface is noted. 11 millimeter well-circumscribed ovoid fluid density cystic lesion seen in the inferi or right liver lobe. Spleen is enlarged, measuring 14.1 centimeter in long axis Gallbladder and bilia ry tree are also without suspicious finding. Symmetric renal contour, without suspicious parenchymal findings within limits of noncontrast techniq ue. No evidence of radiopaque calculi or hydroureteronephrosis. No dilated bowel loops or bowel wall thickening. Moderate free ascites, predominantly in the upper ab domen. No free air or inflammatory stranding. No hernia, mass or bulky lymphadenopathy. The urinary b ladder is without significant finding. Diffuse body wall edema. No suspicious bony findings. Healing/healed left lower anterior rib fractures. IMPRESSION: No acute intra-abdominal process. Moderate free ascites. Moderate to large right and trace left pleural effusions. Diffuse body wall ed lico. The findings may relate to fluid overload. 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
--- NOTE | 2022-09-11 14:29 | RAD REPORT ---
EXAM DESCRIPTION: CT - Thorax Wo Con - 09/11/2022 1:40 pm CLINICAL HISTORY: FLUID COMPARISON: Chest Angio dated 06/16/2021; CTANGIO CHEST FOR PE dated 04/14/2008 TECHNIQUE: Axial thin cut images of the chest were obtained without IV contrast. Multiplanar reforma ts were generated and reviewed. All CT scans are performed using dose optimization technique as appropriate and may include automated exposure control or mA/KV adjustment according to patient size. FINDINGS: No mass suspicious masses in the lungs. Moderate to large right and mild left pleural effu bautista. Underlying segmental dependent opacities throughout the right lung and platelike opacification in the dependent left lower lobe, suggestive of atelectasis in No pneumothorax. Left chest wall pacer/ AICD in place. Moderate cardiomegaly. No abnormal mediastinal or hilar masses or lymphadenopathy seen. No significant aortic or pulmonary artery findings. Assessment is limited in the absence of IV contrast. No chest wall mass or abnormal axillary lymphadenopathy. Healing/healed left anterior rib fractures The solid abdominal structures were evaluated separately on dedicated CT of the abdomen and pelvis. IMPRESSION: Bilateral pleural effusions larger on the right. Underlying airspace opacification more so on the right as above, may relate to atelectasis.
[2022-09-11] MEDS ORDERED: FENTANYL CITR 100 MCG/2 ML IV PRN (15:03)
[2022-09-11] MEDS ORDERED: ONDANSETRON 4 MG/2 ML VIAL IV PRN (15:06)
--- NOTE | 2022-09-11 15:13 | P.HP ---
Certification for Inpatient Patient admitted to: Inpatient With expected LOS: >2 Midnights Patient will require the following post-hospital care: None Practitioner: I am a practitioner with admitting privileges, knowledge of patient current condition, hospital course, and medical plan of care. Services: Services provided to patient in accordance with Admission requirements found in Title 42 Section 412.3 of the Code of Federal Regulations Patient History Date of Service: 09/11/22 Reason for admission: SOB History of Present Illness: Patient is a 67-year-old male with a past medical history significant for DM 2, hypertension, bradycardia status post pacemaker placement, liver cirrhosis, CHF who presents with complaint of shortness of breath that has been ongoing for the past 5 days. Patient reported that he gained 7 pounds in weight since yesterday. Patient reported associated signs and symptoms of cough, swelling in abdomen and bilateral lower extremities, chest tightness and left lower quadrant pain. Patient reported that pain has been ongoing for the past 1 week, rated pain as 7/10 in severity and described pain as aching in quality. Patient denies any other signs or symptoms. Symptoms are aggravated by exertion and relieved by nothing. Patient decided to present to the hospital due to worsening symptoms. Allergies No Known Allergies Allergy (Verified 07/14/15 14:34) Home Medications: Lisinopril [Zestril] 20 mg PO DAILY 07/16/20 Albuterol Neb [Proventil 0.083% Neb Soln] 2.5 mg IH Q6HP PRN #120 amp 06/21/21 Furosemide [Lasix] 20 mg PO DAILY 30 Days #30 tab 06/21/21 Ipratropium Neb [Atrovent Neb] 0.5 mg IH [id number] PRN #120 amp 06/21/21 Nebulizer [Aeroneb Go Nebuliser] 1 each MC QID #1 each 06/21/21 Apixaban [Eliquis] 5 mg PO BID 09/11/22 - Past Medical/Surgical History Diabetic: Yes -: DM Type 2diet controlled -: HTN -: Alcohol abuse -: tobacco use -: Left ankle sx, has plate and pins -: Appendectomy -: Joint Replacement Psychosocial/ Personal History: 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 - Family History Father -: Heart disease - Social History Smoking Status: Former smoker Alcohol use: Yes CD- Drugs: No Caffeine use: Yes Place of Residence: Home Review of Systems General: Other (Weight gain) Eyes: Unremarkable ENT: Unremarkable Respiratory: Cough, Shortness of Breath, SOB with Excertion, Other (Chest tightness ) Gastrointestinal: Abdominal Pain, Other (Abd swelling) Genitourinary: Unremarkable Musculoskeletal: Pedal edema Integumentary: Unremarkable Neurological: Unremarkable Lymphatics: Unremarkable Physical Examination - Physical Exam General: Alert, In no apparent distress, Oriented x3, Cooperative HEENT: Atraumatic, PERRLA, Mucous membr. moist/pink, EOMI, Sclerae nonicteric Neck: Supple, 2+ carotid pulse no bruit, No LAD, Without JVD or thyroid abnormality Respiratory: Diminished, Expiratory wheezes Cardiovascular: Regular rate/rhythm, Normal S1 S2, Edema Capillary refill: <2 Seconds Gastrointestinal: Normal bowel sounds, No tenderness, Distended Musculoskeletal: No clubbing, No tenderness, Swelling Integumentary: No rashes, No breakdown, Tenderness/swelling Neurological: Normal speech, Normal tone, Normal affect Lymphatics: No axilla or inguinal lymphadenopathy - Studies Laboratory Data (last 24 hrs) 09/11/22 11:45: WBC 4.20 L, Hgb 10.1 L, Hct 30.5 L, Plt Count 131 L 09/11/22 11:45: Sodium 121 L, Potassium 4.5, BUN 25 H, Creatinine 1.06, Glucose 102 Assessment and Plan - Plan --Acute on chronic diastolic CHF exacerbation. Continue diuresis with Lasix. Cardiology consulted. Daily weight and strict I/O. -- Hyponatremia. Nephrology consulted. Will await further recommendations. --DM2 with hyperglycemia. BS monitoring with sliding scale insulin. --Decompensated liver cirrhosis. Moderate free ascites noted on imaging. Continue diuresis with Lasix. --Pleural effusion. CT imaging indicates moderate to large right and trace left pleural effusions. Likely secondary to volume overload. Continue diuresis with Lasix. --Presence of cardiac pacemaker. Patient recently had an AICD implantation done 2 weeks ago. Continue supportive care. --Hypertension. Poorly controlled. Continue home medications and hydralazine as needed. --Anemia of chronic disease. H&H stable. We will continue to monitor hemoglobi n and transfuse if less than 7.0. --CKD 2. Stable. We will continue to monitor renal functions. --Thrombocytopenia. Likely secondary to liver disease. Continue supportive care. --Alcohol abuse. Alcohol withdrawal protocol. Patient counseled on alcohol cessation. Continue supportive care. --DVT prophylaxis with SCDs. Discharge Plan: Home Plan to discharge in: Greater than 2 days - Advance Directives Does patient have a Living Will: No Does patient have a Durable POA for Healthcare: No - Code Status/Comfort Care Code Status Assessed: Yes Physician Review: Patient Assessed, Agree with Above Assessment and Plan Critical Care: No
[2022-09-11] MEDS ORDERED: FUROSEMIDE 40 MG/4 ML VIAL IV SCH (17:00)
[2022-09-11 17:42] VITALS: BMI 28.0
[2022-09-11 18:51] LABS: Magnesium 1.6 mg/dL (1.6-2.4); Phosphorus 4.5 mg/dL (2.5-4.9); Potassium 4.2 mEq/L (3.5-5.1)
--- NOTE | 2022-09-11 20:35 | P.CNS ---
Date of Consult: 09/11/22 Reason for Consult: Hyponatremia Requesting Physician: Rodney Marie Chief Complaint: Dyspnea History of Present Illness: [facility] 12:18 This 67 yrs old Male presents to ER via EMS with complaints of SOB. kdr 12:18 Patient states that he has been short of breath for the last few days is gotten kdr progressively worse. He recently had a pacemaker placed and since then he said he is had increased difficulty breathing. Patient is otherwise very disheveled and poorly kept. Vital signs appear to be stable on initial presentation. Patient is clearly wheezing and having some mild difficulty breathing. Onset: The symptoms/episode began/occurred gradually, 3 day(s) ago. Severity of symptoms: At their worst the symptoms were moderate severe just prior to arrival, in the emergency department the symptoms. The patient has experienced similar episodes in the past, multiple times, chronically. The patient has been recently seen by a physician: For pacemaker placement. Allergies No Known Allergies Allergy (Verified 07/14/15 14:34) Home medications list reviewed: Yes Home Medications: Lisinopril [Zestril] 20 mg PO DAILY 07/16/20 Albuterol Neb [Proventil 0.083% Neb Soln] 2.5 mg IH Q6HP PRN #120 amp 06/21/21 Furosemide [Lasix] 20 mg PO DAILY 30 Days #30 tab 06/21/21 Ipratropium Neb [Atrovent Neb] 0.5 mg IH [id number] PRN #120 amp 06/21/21 Nebulizer [Aeroneb Go Nebuliser] 1 each QID #1 each 06/21/21 Apixaban [Eliquis] 5 mg PO BID 09/11/22 - Past Medical/Surgical History Diabetic: Yes -: DM II -: HTN -: Liver Cirrhosis with Ascites -: Alcohol abuse -: Cigarette smoker -: Left ankle sx, has plate and pins -: Appendectomy -: Joint Replacement -: pacemaker Psychosocial/ Personal History: 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 - Family History Father Medical History: Heart disease - Social History Smoking Status: Unknown if ever smoked Alcohol use: Yes CD- Drugs: No Caffeine use: Yes Place of Residence: Home Review of Systems 10-point ROS is otherwise unremarkable General: Weakness, Malaise Respiratory: SOB with Excertion Cardiovascular: Edema Physical Examination Temp Pulse Resp BP Pulse Ox 98.2 F 69 20 117/83 100 09/11/22 19:34 09/11/22 19:34 09/11/22 19:34 09/11/22 19:34 09/11/22 19:34 General: Oriented x3, Cooperative HEENT: Atraumatic Neck: Supple, JVD distended Respiratory: Diminished Cardiovascular: Regular rate/rhythm, Edema Gastrointestinal: Soft and benign, Non-distended Musculoskeletal: No clubbing, No contractures Integumentary: No rashes, No cyanosis Neurological: Normal speech Laboratory Data (last 24 hrs) 09/11/22 11:45: WBC 4.20 L, Hgb 10.1 L, Hct 30.5 L, Plt Count 131 L 09/11/22 11:45: Sodium 121 L, Potassium 4.5, BUN 25 H, Creatinine 1.06, Glucose 102 Imagings Data: [facility] EXAM DESCRIPTION: CT - Abdomen Pelvis Wo Contrast - 09/11/2022 1:38 pm CLINICAL HISTORY: Abd pain distension--R O Ascites COMPARISON: Abdomen Pelvis W Contrast dated 06/16/2021; Abdomen Pelvis W Contrast dated 07/15/2020; Abdomen Pelvis W Contrast dated 09/24/2019; Abdomen Pelvis W Contrast dated 10/30/2017 TECHNIQUE: Thin cut axial CT imaging of the abdomen and pelvis was performed without IV contrast. Multiplanar reformats were generated and reviewed. All CT scans are performed using dose optimization technique as appropriate and may include automated exposure control or mA/KV adjustment according to patient size. FINDINGS: Moderate cardiomegaly. Moderate to large right and trace left pleural effusions with underlying airspace opacification, suggesting atelectasis. The liver, adrenal gland, and pancreas show no suspicious findings. Subtle nodularity of the liver surface is noted. 11 millimeter well-circumscribed ovoid fluid density cystic lesion seen in the inferior right liver lobe. Spleen is enlarged, measuring 14.1 centimeter in long axis Gallbladder and biliary tree are also without suspicious finding. Symmetric renal contour, without suspicious parenchymal findings within limits of noncontrast technique. No evidence of radiopaque calculi or hydroureteronephrosis. No dilated bowel loops or bowel wall thickening. Moderate free ascites, predominantly in the upper abdomen. No free air or inflammatory stranding. No hernia, mass or bulky lymphadenopathy. The urinary bladder is without significant finding. Diffuse body wall edema. No suspicious bony findings. Healing/healed left lower anterior rib fractures. IMPRESSION: No acute intra-abdominal process. Moderate free ascites. Moderate to large right and trace left pleural effusions. Diffuse body wall edema. The findings may relate to fluid overload. Contour nodularity of the liver and splenomegaly again noted, may suggest cirrhosis with portal hypertension. [employer] EXAM DESCRIPTION: RAD - Chest Single View - 09/11/2022 11:52 am CLINICAL HISTORY: CHEST PAIN Chest pain. COMPARISON: Chest Single View dated 06/20/2021; Chest Pa And Lat (2 Views) dated 12/02/2020; Chest Single View dated 10/30/2017; CHEST SINGLE VIEW dated 02/24/2014 FINDINGS: Portable technique limits examination quality. Mild interstitial pulmonary edema. Small left and moderate right pleural effusion. The heart is enlarged with pacer device present. No displaced fractures. IMPRESSION: Moderate CHF/ volume overload suspected. [facility] EXAM DESCRIPTION: CT - Thorax Wo Con - 09/11/2022 1:40 pm CLINICAL HISTORY: FLUID COMPARISON: Chest Angio dated 06/16/2021; CTANGIO CHEST FOR PE dated 04/14/2008 TECHNIQUE: Axial thin cut images of the chest were obtained without IV contrast. Multiplanar reformats were generated and reviewed. All CT scans are performed using dose optimization technique as appropriate and may include automated exposure control or mA/KV adjustment according to patient size. FINDINGS: No mass suspicious masses in the lungs. Moderate to large right and mild left pleural effusion. Underlying segmental dependent opacities throughout the right lung and platelike opacification in the dependent left lower lobe, suggestive of atelectasis in No pneumothorax. Left chest wall pacer/ AICD in place. Moderate cardiomegaly. No abnormal mediastinal or hilar masses or lymphadenopathy seen. No significant aortic or pulmonary artery findings. Assessment is limited in the absence of IV contrast. No chest wall mass or abnormal axillary lymphadenopathy. Healing/healed left anterior rib fractures The solid abdominal structures were evaluated separately on dedicated CT of the abdomen and pelvis. IMPRESSION: Bilateral pleural effusions larger on the right. Underlying airspace opacification more so on the right as above, may relate to atelectasis. [facility] LEFT VENTRICULAR WALL MOTION: DIASTOLIC DYSFUNCTION. DOPPLER/COLOR FLOW: MODERATE AORTIC STENOSIS. COMMENTS: MODERATE AORTIC STENOSIS 1.1 CENTIMETER SQUARED. LEFT VENTRICULAR HYPERTROPHY. LEFT ATRIAL ENLARGEMENT. NORMAL EJECTION FRACTION. DECREASED LEFT VENTRICULAR COMPLIANCE. Conclusions/Impression: CKD II -No NSAIDs Hypervolemic Hyponatremia -Increase Lasix 20mg IV q6h HTN with CKD/ CHF -Hold Lisinopril Diastolic CHF, A/C Pleural Effusions Hypervolemia Moderate Aortic Stenosis -Increase Lasix 20mg IV q6h DM II -No sugar diet Anemia in chronic illness Secondary Thrombocytopenia -Monitor CBC Alcoholic Liver Cirrhosis with Ascites -Increase Lasix 20mg IV q6h Case reviewed with Dr. Marie Thank you kindly for the consultation
[2022-09-11] MEDS: MELATONIN 5 MG TABLET PO PRN (20:41)
[2022-09-11] MEDS: FUROSEMIDE 20 MG/ 2ML VIAL IV SCH (20:52)
[2022-09-11 22:47] LABS: Potassium 4.8 mEq/L (3.5-5.1)
[2022-09-12] MEDS ORDERED: D50W 25 GM/50 ML SYRINGE IV PRN (03:19)
[2022-09-12] MEDS ORDERED: GLUCAGON 1 MG/VIAL IM PRN (03:19)
[2022-09-12] MEDS: FUROSEMIDE 20 MG/ 2ML VIAL IV SCH ×4 (03:49→21:15)
[2022-09-12] MEDS ORDERED: HYDRALAZINE HCL 20 MG/ML VIAL IV PRN (04:06)
[2022-09-12 06:47] LABS: Absolute Lymphocytes (CBC) 0.4 K/uL (0.7-4.9); Hematocrit 28.2 % (39.6-49.0); Lymphocytes % 9.9 % (15.3-44.8); MCV 85.7 fL (80-100); RBC Red Blood Cell Count 3.29 M/uL (4.33-5.43)
[2022-09-12 07:00] LABS: Albumin 2.8 g/dL (3.4-5.0); Bilirubin Total 0.8 mg/dL (0.2-1.0); Potassium 4.6 mEq/L (3.5-5.1); Protein, Total 7.6 g/dL (6.4-8.2); Uric Acid 7.8 mg/dL (3.5-7.2)
[2022-09-12 07:12] LABS: Urine Bacteria <20 /HPF (<20); Urine Bilirubin NEGATIVE (Negative); Urine Blood Negative (Negative); Urine Clarity Clear (Clear); Urine Color Light-Yellow (Yellow); Urine Glucose NEGATIVE (Negative); Urine Mucus Slight /HPF (None Seen); Urine Protein NEGATIVE (Negative); Urine RBC <5 /HPF (None Seen); Urine Urobilinogen Normal (Normal); Urine pH 5.5 (5.0-7.0)
[2022-09-12] MEDS: INSULIN -REGULAR HUMAN 50 UNIT/0.5 ML ML SQ SCH ×4 (07:20→21:00)
[2022-09-12 07:39] LABS: UR MICROALBUMIN 1.6 mg/dL (< 1.9); Urine Protein/Creatinine Ratio 0.17 ratio (<0.15)
--- NOTE | 2022-09-12 07:53 | EKG ---
Test Date: 2022-09-11 Test Time: 10:54:29 [employer] Supervisor: JUSTIN MEASUREMENT RESULTS: Intervals: Rate: 70 HI: QRSD: 184 QT: 466 QTc: 503 [place]: P: HI: QRS: -78 T: 91 INTERPRETIVE STATEMENTS: Electronic ventricular pacemaker Compared to ECG 12/01/2021 00:03:22 Right-axis deviation no longer present Incomplete right bundle-branch block no longer present Right ventricular hypertrophy no longer present Early repolarization no longer present T-wave abnormality no longer present Electronically Signed On 09-12-22 07:52:26 CDT by Kp Mitchell
[2022-09-12 08:14] LABS: Hepatitis B Surface Ab - Quant < 3.10 mIU/mL (<8.0); Hepatitis B surface AG Interp. Nonreactive (Nonreactive); Hepatitis C Virus Ab Nonreactive (Nonreactive)
[2022-09-12] MEDS: ASPIRIN EC 81 MG TAB PO SCH (09:00)
[2022-09-12] MEDS ORDERED: ENOXAPARIN 40 MG/0.4 ML SQ SCH (09:00)
[2022-09-12] MEDS: UREA 15 GM POWDER PACKET PO SCH (09:00)
[2022-09-12] MEDS ORDERED: APIXABAN 5 MG TABLET PO SCH (11:07)
--- NOTE | 2022-09-12 14:50 | P.PN ---
Subjective Date of Service: 09/12/22 Chief Complaint: SOB No acute events overnight. He reports that his shortness of breath and orthopnea has significantly improved compared to yesterday. He denies any chest pains or palpitations. Review of Systems 10-point ROS is otherwise unremarkable Respiratory: Cough, Shortness of Breath Physical Examination - Vital Signs Temperature: 97.6 F Blood Pressure: 102/69 Pulse: 70 Respirations: 18 Pulse Ox (%): 100 - Physical Exam General: Alert, In no apparent distress, Oriented x3 HEENT: Atraumatic, Mucous membr. moist/pink, Sclerae nonicteric Neck: JVD distended (minimally) Respiratory: Diminished, Crackles/rales (bibasilar) Cardiovascular: Regular rate/rhythm, Normal S1 S2, No gallops, No rubs, Edema (2-3+ BLE), Systolic murmur Gastrointestinal: Normal bowel sounds, Soft and benign, Non-distended, No tenderness, No rebound, No guarding Musculoskeletal: No clubbing Integumentary: No rashes Neurological: Normal speech, Normal affect Assessment And Plan - Plan # Acute on Chronic Decompensated Diastolic Congestive Heart Failure with Preserved Ejection Fraction # Acute Decompensated Liver Disease # S/P Recent Placement of Cardiac Pacemaker # Moderate Aortic Stenosis # Hypertension - Consult Cardiology and spoke with Dr. Mitchell - recommendations appreciated - Chest x-ray = "moderate CHF/ volume overload suspected" - Ordered transthoracic echocardiogram - Diuresis with IV furosemide for today - Hold home lisinopril due to soft blood pressures - Consider starting beta-shannon once improved from CHF exacerbation - Daily weights - Strict I/O - Cardiac diet, 1.5 L fluid restriction, 2 g Na restriction # Suspect Hypervolemic Hyponatremia - Consulted Nephrology and spoke with Dr. Govea - recommendations appreciated - Diuresis per Nephrology - Serial BMP # Moderate-Large Right Pleural Effusion # Suspected Alcoholic Cirrhosis # Pancytopenia due to Liver Cirrhosis # Alcohol Use Disorder - Ordered INR to calculate MELD score - May need thoracentesis if diuresis is insufficient - CT chest = "bilateral pleural effusions larger on the right. Underlying airspace opacification more so on the right as above, may relate to atelectasis." - CT abdomen/pelvis = "no acute intra-abdominal process. Moderate free ascites. Moderate to large right and trace left pleural effusions. Diffuse body wall edema. The findings may relate to fluid overload. Contour nodularity of the liver and splenomegaly again noted, may suggest cirrhosis with portal hypertension." - Switch home apixaban to enoxaparin while hospitalized - Continue thiamine, folic acid - [facility] protocol - Alcohol cessation counseling # Hyperglycemia in Type II Diabetes Mellitus - Hgb A1c = 4.7 % - difficult to interpret given anemia - Correction scale insulin Rodney Marie M.D.
[2022-09-12] MEDS: FOLIC ACID 1 MG TABLET PO SCH (15:47)
[2022-09-12] MEDS: THIAMINE HCL 100 MG TABLET PO SCH (15:47)
[2022-09-12 17:13] LABS: Protime INR 1.48
[2022-09-12 17:16] LABS: Potassium 4.5 mEq/L (3.5-5.1)
[2022-09-12] MEDS ORDERED: ALBUMIN HUMAN 25% 100 ML IV ONE (19:28)
--- NOTE | 2022-09-12 19:33 | P.PN ---
Date of Service: 09/12/22 Vital Signs Temp Pulse Resp BP Pulse Ox 97.8 F 70 18 98/66 97 09/12/22 16:00 09/12/22 18:06 09/12/22 16:00 09/12/22 18:06 09/12/22 18:06 Medications Acetaminophen (Acetaminophen 325 Mg Tablet) 650 mg PO Q6H PRN PRN Reason: TEMP > 100.4' F Aspirin (Aspirin Ec 81 Mg Tab) 81 mg PO DAILY [facility] Last Admin: 09/12/22 09:00 Dose: 81 mg Dextrose (D50w 25 Gm/50 Ml Syringe) 12.5 gm IV PRN PRN PRN Reason: HYPOGLYCEMIA Enoxaparin Sodium (Enoxaparin 80 Mg/0.8 Ml) 80 mg SQ Q12HR [facility] Fentanyl Citrate (Fentanyl Citr 100 Mcg/2 Ml) 25 mcg IV Q3H PRN PRN Reason: Pain scale 8-10 (Severe) Folic Acid (Folic Acid 1 Mg Tablet) 1 mg PO DAILY [facility] Last Admin: 09/12/22 15:47 Dose: 1 mg Furosemide (Furosemide 20 Mg/ 2ml Vial) 20 mg IV Q6H [facility] Last Admin: 09/12/22 15:47 Dose: 20 mg Glucagon (Glucagon 1 Mg/Vial) 1 mg IM 1X PRN PRN Reason: HYPOGLYCEMIA Hydralazine HCl (Hydralazine Hcl 20 Mg/Ml Vial) 10 mg IV Q6HP PRN PRN Reason: Titrate to SBP (MUST DEFINE) Insulin Human Regular (Insulin -Regular Human 50 Unit/0.5 Ml Ml) 0 unit SQ [facility]; Protocol Last Admin: 09/12/22 16:30 Dose: Not Given Melatonin (Melatonin 5 Mg Tablet) 5 mg PO BEDTIME PRN PRN PRN Reason: INSOMNIA Last Admin: 09/11/22 20:41 Dose: 5 mg Ondansetron HCl (Ondansetron 4 Mg/2 Ml Vial) 4 mg IV Q6HP PRN PRN Reason: NAUSEA / VOMITING Sodium Chloride (Flush Normal Saline 10 Ml) 10 ml IV BID [facility] Last Admin: 09/12/22 09:00 Dose: 10 ml Thiamine HCl (Thiamine Hcl 100 Mg Tablet) 100 mg PO DAILY [facility] Last Admin: 09/12/22 15:47 Dose: 100 mg Urea (Urea 15 Gm Powder Packet) 30 gm PO DAILY [facility] Last Admin: 09/12/22 09:00 Dose: 30 gm Assessment/ Plan: Nephrology Improving dyspnea on exertion No chest pain Improving edema No acute events overnight Vitals, medications, blood work and imaging reviewed in the chart. General: Oriented x3, Cooperative HEENT: Atraumatic Neck: Supple, JVD distended Respiratory: Diminished Cardiovascular: Regular rate/rhythm, Edema Gastrointestinal: Soft and benign, Non-distended Musculoskeletal: No clubbing, No contractures Integumentary: No rashes, No cyanosis Neurological: Normal speech Laboratory Data (last 24 hrs) 09/11/22 11:45: WBC 4.20 L, Hgb 10.1 L, Hct 30.5 L, Plt Count 131 L 09/11/22 11:45: Sodium 121 L, Potassium 4.5, BUN 25 H, Creatinine 1.06, Glucose 102 Imagings Data: EXAM DESCRIPTION: CT - Abdomen Pelvis Wo Contrast - 09/11/2022 1:38 pm CLINICAL HISTORY: Abd pain distension--R O Ascites COMPARISON: Abdomen Pelvis W Contrast dated 06/16/2021; Abdomen Pelvis W Contrast dated 07/15/2020; Abdomen Pelvis W Contrast dated 09/24/2019; Abdomen Pelvis W Contrast dated 10/30/2017 TECHNIQUE: Thin cut axial CT imaging of the abdomen and pelvis was performed without IV contrast. Multiplanar reformats were generated and reviewed. All CT scans are performed using dose optimization technique as appropriate and may include automated exposure control or mA/KV adjustment according to patient size. FINDINGS: Moderate cardiomegaly. Moderate to large right and trace left pleural effusions with underlying airspace opacification, suggesting atelectasis. The liver, adrenal gland, and pancreas show no suspicious findings. Subtle nodularity of the liver surface is noted. 11 millimeter well-circumscribed ovoid fluid density cystic lesion seen in the inferior right liver lobe. Spleen is enlarged, measuring 14.1 centimeter in long axis Gallbladder and biliary tree are also without suspicious finding. Symmetric renal contour, without suspicious parenchymal findings within limits of noncontrast technique. No evidence of radiopaque calculi or hydroureteronephrosis. No dilated bowel loops or bowel wall thickening. Moderate free ascites, predominantly in the upper abdomen. No free air or inflammatory stranding. No hernia, mass or bulky lymphadenopathy. The urinary bladder is without signific ant finding. Diffuse body wall edema. No suspicious bony findings. Healing/healed left lower anterior rib fractures. IMPRESSION: No acute intra-abdominal process. Moderate free ascites. Moderate to large right and trace left pleural effusions. Diffuse body wall edema. The findings may relate to fluid overload. Contour nodularity of the liver and splenomegaly again noted, may suggest cirrhosis with portal hypertension. EXAM DESCRIPTION: RAD - Chest Single View - 09/11/2022 11:52 am CLINICAL HISTORY: CHEST PAIN Chest pain. COMPARISON: Chest Single View dated 06/20/2021; Chest Pa And Lat (2 Views) dated 12/02/2020; Chest Single View dated 10/30/2017; CHEST SINGLE VIEW dated 02/24/2014 FINDINGS: Portable technique limits examination quality. Mild interstitial pulmonary edema. Small left and moderate right pleural effusion. The heart is enlarged with pacer device present. No displaced fractures. IMPRESSION: Moderate CHF/ volume overload suspected. EXAM DESCRIPTION: CT - Thorax Wo Con - 09/11/2022 1:40 pm CLINICAL HISTORY: FLUID COMPARISON: Chest Angio dated 06/16/2021; CTANGIO CHEST FOR PE dated 04/14/2008 TECHNIQUE: Axial thin cut images of the chest were obtained without IV contrast. Multiplanar reformats were generated and reviewed. All CT scans are performed using dose optimization technique as appropriate and may include automated exposure control or mA/KV adjustment according to patient size. FINDINGS: No mass suspicious masses in the lungs. Moderate to large right and mild left pleural effusion. Underlying segmental dependent opacities throughout the right lung and platelike opacification in the dependent left lower lobe, suggestive of atelectasis in No pneumothorax. Left chest wall pacer/ AICD in place. Moderate cardiomegaly. No abnormal mediastinal or hilar masses or lymphadenopathy seen. No significant aortic or pulmonary artery findings. Assessment is limited in the absence of IV contrast. No chest wall mass or abnormal axillary lymphadenopathy. Healing/healed left anterior rib fractures The solid abdominal structures were evaluated separately on dedicated CT of the abdomen and pelvis. IMPRESSION: Bilateral pleural effusions larger on the right. Underlying airspace opacification more so on the right as above, may relate to atelectasis. LEFT VENTRICULAR WALL MOTION: DIASTOLIC DYSFUNCTION. DOPPLER/COLOR FLOW: MODERATE AORTIC STENOSIS. COMMENTS: MODERATE AORTIC STENOSIS 1.1 CENTIMETER SQUARED. LEFT VENTRICULAR HYPERTROPHY. LEFT ATRIAL ENLARGEMENT. NORMAL EJECTION FRACTION. DECREASED LEFT VENTRICULAR COMPLIANCE. Conclusions/Impression: CKD II -No NSAIDs Hypervolemic Hyponatremia -Continue Lasix 20mg IV q6h -Start daily Urea -Fluid restriction HTN with CKD/ CHF complicated by hypotension -Hold Lisinopril -Albumin IV X1 Diastolic CHF, A/C Pleural Effusions Hypervolemia Moderate Aortic Stenosis -Continue Lasix 20mg IV q6h DM II -No sugar diet Anemia in chronic illness Secondary Thrombocytopenia -Monitor CBC Alcoholic Liver Cirrhosis with Ascites -Continue Lasix 20mg IV q6h -Albumin 25mg IV X1 Case reviewed with Dr. Marie
[2022-09-12] MEDS: ENOXAPARIN 80 MG/0.8 ML SQ SCH (21:15)
[2022-09-12] MEDS: MELATONIN 5 MG TABLET PO PRN (21:15)
[2022-09-12] MEDS: ACETAMINOPHEN 325 MG TABLET PO PRN (21:16)
[2022-09-12] MEDS ORDERED: ALBUTEROL 2.5 MG/3 ML NEB SOL NEB PRN (22:44)
[2022-09-13] MEDS: FUROSEMIDE 20 MG/ 2ML VIAL IV SCH ×4 (03:50→20:52)
[2022-09-13] MEDS: ACETAMINOPHEN 325 MG TABLET PO PRN (06:10)
[2022-09-13 06:28] LABS: Absolute Lymphocytes (CBC) 0.6 K/uL (0.7-4.9); Hematocrit 28.1 % (39.6-49.0); Lymphocytes % 11.7 % (15.3-44.8); MCV 86.3 fL (80-100); MPV 7.8 fL (7.6-11.3); RBC Red Blood Cell Count 3.26 M/uL (4.33-5.43)
[2022-09-13 06:42] LABS: Potassium 4.3 mEq/L (3.5-5.1)
[2022-09-13] MEDS: INSULIN -REGULAR HUMAN 50 UNIT/0.5 ML ML SQ SCH ×4 (07:30→21:00)
[2022-09-13] MEDS: ASPIRIN EC 81 MG TAB PO SCH (08:58)
[2022-09-13] MEDS: FOLIC ACID 1 MG TABLET PO SCH (08:58)
[2022-09-13] MEDS: UREA 15 GM POWDER PACKET PO SCH (08:58)
[2022-09-13] MEDS: ENOXAPARIN 80 MG/0.8 ML SQ SCH ×2 (08:59→20:50)
[2022-09-13] MEDS: THIAMINE HCL 100 MG TABLET PO SCH (08:59)
[2022-09-13] MEDS ORDERED: lisinopriL 20 MG TAB PO SCH (09:00)
[2022-09-13] MEDS ORDERED: D10W 125 ML IV PRN (09:59)
--- NOTE | 2022-09-13 10:45 | ECHO ---
HEIGHT: 5 ft 7 in WEIGHT: 178 lb 0 oz DATE OF STUDY: 09/12/[address]: Kp Mitchell MD 2-DIMENSIONAL: YES M.MODE: YES DOPPLER: YES COLOR FLOW: YES TDS: NO PORTABLE: YES DEFINITY: NO BUBBLE STUDY: NO DIAGNOSIS: AORTIC STENOSIS CARDIAC HISTORY: CATHERIZATION: SURGERY: PROSTHETIC VALVE: PACEMAKER: YES MEASUREMENTS (cm) DIASTOLIC (NORMALS) SYSTOLIC (NORMALS) IVSd 1.3 (0.6-1.2) LA Diam 5.4 (1.9-4.0) LVEF 76% LVIDd 5.4 (3.5-5.7) LVIDs 3.0 (2.0-3.5) %FS 45% LVPWd 1.2 (0.6-1.2) Ao Diam 3.3 (2.0-3.7) 2 DIMENSIONAL ASSESSMENT: RIGHT ATRIUM: LEFT ATRIUM: DILATED RIGHT VENTRICLE: LEFT VENTRICLE: NORMAL TRICUSPID VALVE: MITRAL VALVE: MITRAL STENOSIS PULMONIC VALVE: AORTIC VALVE: AORTIC STENOSIS PERICARDIAL EFFUSION: AORTIC ROOT: NORMAL LEFT VENTRICULAR WALL MOTION: NORMAL DOPPLER/COLOR FLOW: SEVERE AORTIC STENOSIS. AORTIC VALVE AREA 0.9 CENTIMETERS SQUARED. MILD MITRAL STENOSIS. MITRAL VALVE AREA 1.8 CENTIMETERS SQUARED. COMMENTS: 1. SEVERE AORTIC STENOSIS. AORTIC VALVE AREA 0.9 CENTIMETERS SQUARED. 2. NORMAL LEFT VENTRICULAR EJECTION FRACTION. 3. MILD LEFT VENTRICULAR HYPERTROPHY. 4. MILD TO MODERATE MITRAL REGURGITATION. 5. MILD MITRAL STENOSIS. MITRAL VALVE AREA 1.8 CENTIMETERS SQUARED. TECHNOLOGIST: Rashard RODRIGUEZ
--- NOTE | 2022-09-13 11:36 | P.PN ---
Nephrology Pt remains edematous, diuresing, denies dyspnea at rest Vitals, medications, blood work and imaging reviewed in the chart. General: Oriented x3, Cooperative HEENT: Atraumatic, on LFNC Neck: Supple, Respiratory: Diminished at bases, no rhonchi Cardiovascular: Regular rate/rhythm, cardiac murmur present, 2-3+ b/l LE Edema Gastrointestinal: Soft and benign, mild distention Musculoskeletal: Shins are non tender Integumentary: No rashes Neurological: Normal speech, awake, alert, non focal Laboratory Data (last 24 hrs) Reviewed in the EMR Imagings Data: EXAM DESCRIPTION: CT - Abdomen Pelvis Wo Contrast - 09/11/2022 1:38 pm CLINICAL HISTORY: Abd pain distension--R O Ascites COMPARISON: Abdomen Pelvis W Contrast dated 06/16/2021; Abdomen Pelvis W Contrast dated 07/15/2020; Abdomen Pelvis W Contrast dated 09/24/2019; Abdomen Pelvis W Contrast dated 10/30/2017 TECHNIQUE: Thin cut axial CT imaging of the abdomen and pelvis was performed without IV contrast. Multiplanar reformats were generated and reviewed. All CT scans are performed using dose optimization technique as appropriate and may include automated exposure control or mA/KV adjustment according to patient size. FINDINGS: Moderate cardiomegaly. Moderate to large right and trace left pleural effusions with underlying airspace opacification, suggesting atelectasis. The liver, adrenal gland, and pancreas show no suspicious findings. Subtle nodularity of the liver surface is noted. 11 millimeter well-circumscribed ovoid fluid density cystic lesion seen in the inferior right liver lobe. Spleen is enlarged, measuring 14.1 centimeter in long axis Gallbladder and biliary tree are also without suspicious finding. Symmetric renal contour, without suspicious parenchymal findings within limits of noncontrast technique. No evidence of radiopaque calculi or h ydroureteronephrosis. No dilated bowel loops or bowel wall thickening. Moderate free ascites, predominantly in the upper abdomen. No free air or inflammatory stranding. No hernia, mass or bulky lymphadenopathy. The urinary bladder is without significant finding. Diffuse body wall edema. No suspicious bony findings. Healing/healed left lower anterior rib fractures. IMPRESSION: No acute intra-abdominal process. Moderate free ascites. Moderate to large right and trace left pleural effusions. Diffuse body wall edema. The findings may relate to fluid overload. Contour nodularity of the liver and splenomegaly again noted, may suggest cirrhosis with portal hypertension. EXAM DESCRIPTION: CT - Thorax Wo Con - 09/11/2022 1:40 pm CLINICAL HISTORY: FLUID COMPARISON: Chest Angio dated 06/16/2021; CTANGIO CHEST FOR PE dated 04/14/2008 TECHNIQUE: Axial thin cut images of the chest were obtained without IV contrast. Multiplanar reformats were generated and reviewed. All CT scans are performed using dose optimization technique as appropriate and may include automated exposure control or mA/KV adjustment according to patient size. FINDINGS: No mass suspicious masses in the lungs. Moderate to large right and mild left pleural effusion. Underlying segmental dependent opacities throughout the right lung and platelike opacification in the dependent left lower lobe, suggestive of atelectasis in No pneumothorax. Left chest wall pacer/ AICD in place. Moderate cardiomegaly. No abnormal mediastinal or hilar masses or lymphadenopathy seen. No significant aortic or pulmonary artery findings. Assessment is limited in the absence of IV contrast. No chest wall mass or abnormal axillary lymphadenopathy. Healing/healed left anterior rib fractures The solid abdominal structures were evaluated separately on dedicated CT of the abdomen and pelvis. IMPRESSION: Bilateral pleural effusions larger on the right. Underlying airspace opacification more so on the right as above, may relate to atelectasis. LEFT VENTRICULAR WALL MOTION: DIASTOLIC DYSFUNCTION. DOPPLER/COLOR FLOW: MODERATE AORTIC STENOSIS. COMMENTS: MODERATE AORTIC STENOSIS 1.1 CENTIMETER SQUARED. LEFT VENTRICULAR HYPERTROPHY. LEFT ATRIAL ENLARGEMENT. NORMAL EJECTION FRACTION. DECREASED LEFT VENTRICULAR COMPLIANCE. Conclusions/Impression: Hypervolemic acute on chronic hyponatremia in the setting of CHF, liver disease, other -Na level remains < 125. Will dose Tolvaptan at a lower dose of 7.5 mg PO once and assess response to that. Volume overload 2nd to Diastolic CHF, A/C and cirrhosis of liver with ascites b/l pleural effusions not otherwise specified -Will add spironolactone, cont IV lasix -Monitor lytes -BP soft, cont to hold ACEi. Abad Li MD, JAVIER
[2022-09-13] MEDS ORDERED: SPIRONOLACTONE 25 MG TABLET PO SCH (12:00)
--- NOTE | 2022-09-13 12:50 | CON ---
Date of Consultation: 09/12/2022 Admitted with congestive heart failure to Dr. Marie on 09/11/2022. History Of Present Illness: Mr. Talamantes is a 67. Has a history of alcohol abuse, cirrhosis secondar y to that. He has a history of hypertension, diabetes. He has a pacemaker. He had moderate aortic stenosis about a year ago. He comes in with congestive heart failure, mostly PND, orthopnea, pedal e carla. No palpitation. No syncope. No fever or chills. He denied any chest pain. Allergies: NONE. Medications: At home include Eliquis, inhalers, Lasix, lisinopril. Review of Systems: Noncontributory. Social History: Noncontributory. Family History: Noncontributory. Physical Examination: General: He is in mild respiratory distress. Vital Signs: Stable, otherwise afebrile. HEENT: Negative. Neck: Supple with no bruit. Chest: Reveals rales both bases. Cardiac: Revealed a regular rhythm and rate with aortic stenosis, murmur. Abdomen: Benign. Extremities: Revealed no clubbing, cyanosis. He had 1+ edema. Diagnostic Data: His sodium was 120. BNP was 3700. Nephrology consultation is pending. On the [facility] ocardiogram, he was found to have worsening aortic stenosis 0.9 sq cm. Impression And Plan: 1.Acute on chronic diastolic congestive heart failure. 2.Severe aortic stenosis. 3.Alcoholic cirrhosis. 4.Hypertension. 5.Diabetes. 6.Pacemaker. 7.Hyponatremia secondary to . He is on Lasix 20 q.8. Nephrology is following. Continue present regimen. If he stabilizes and shows evidence of normal alcohol, he may be a candidate for tr anscatheter aortic valve replacement. I will discuss that with him down the road as an outpatient, b ut definitely he will eventually need a left and right heart catheterization. Continue to follow for now. ROBERTO CARLOS/MODL Voice ID: [id number] Report ID: [id number]
[2022-09-13] MEDS: SPIRONOLACTONE 25 MG TABLET PO SCH (13:07)
[2022-09-13] MEDS ORDERED: TOLVAPTAN 15 MG TABLET PO ONE (14:00)
--- NOTE | 2022-09-13 17:00 | P.PN ---
Subjective Date of Service: 09/13/22 Chief Complaint: SOB No acute events overnight. He reports that his shortness of breath and orthopnea continue to improve. There has not been much improvement is sodium levels. He denies any chest pains or palpitations. Review of Systems 10-point ROS is otherwise unremarkable Cardiovascular: Orthopnea, Edema Physical Examination - Vital Signs Temperature: 96.9 F Blood Pressure: 99/66 Pulse: 70 Respirations: 18 Pulse Ox (%): 95 Assessment And Plan - Plan - Physical Exam General: Alert, In no apparent distress, Oriented x3 HEENT: Atraumatic, Mucous membr. moist/pink, Sclerae nonicteric Neck: JVD distended (minimally) Respiratory: Diminished, Crackles/rales (faint bibasilar) Cardiovascular: Regular rate/rhythm, Edema (2+ BLE), Systolic murmur Gastrointestinal: Normal bowel sounds, Soft, Non-distended, No tenderness Musculoskeletal: No clubbing Integumentary: No rashes Neurological: Normal speech, Normal affect # Acute on Chronic Decompensated Diastolic Congestive Heart Failure with Preserved Ejection Fraction # Acute Decompensated Liver Disease # S/P Recent Placement of Cardiac Pacemaker # Severe Aortic Stenosis # Mild-Moderate Mitral Regurgitation # Mild Mitral Stenosis # Hypertension - Consult Cardiology and spoke with Dr. Mitchell - recommendations appreciated - Chest x-ray = "moderate CHF/ volume overload suspected" - Transthoracic echocardiogram = "1. Severe aortic stenosis. aortic valve area 0.9 centimeters squared. 2. normal left ventricular ejection fraction. 3. mild left ventricular hypertrophy. 4. mild to moderate mitral regurgitation. 5. mild mitral stenosis. mitral valve area 1.8 centimeters squared." - Diuresis with IV furosemide for today - Hold home lisinopril due to soft blood pressures - Consider starting beta-shannon once improved from CHF exacerbation - Daily weights - Strict I/O - Cardiac diet, 1.5 L fluid restriction, 2 g Na restriction # Suspect Hypervolemic Hyponatremia - Consulted Nephrology and spoke with Dr. Li - recommendations appreciated - Recommended tolvaptan + spironolactone - Diuresis per Nephrology - Serial BMP # Moderate-Large Right Pleural Effusion # Suspected Alcoholic Cirrhosis # Pancytopenia due to Liver Cirrhosis # Alcohol Use Disorder - MELD score = 23 (estimated 3-month mortality of 19.6 %) - May need thoracentesis if diuresis is insufficient - CT chest = "bilateral pleural effusions larger on the right. Underlying airspace opacification more so on the right as above, may relate to atelectasis." - CT abdomen/pelvis = "no acute intra-abdominal process. Moderate free ascites. Moderate to large right and trace left pleural effusions. Diffuse body wall edema. The findings may relate to fluid overload. Contour nodularity of the liver and splenomegaly again noted, may suggest cirrhosis with portal hypertension." - Switch home apixaban to enoxaparin while hospitalized - Continue thiamine, folic acid - [facility] protocol - Alcohol cessation counseling # Hyperglycemia in Type II Diabetes Mellitus - Hgb A1c = 4.7 % - difficult to interpret given anemia - Correction scale insulin Rodney Marie M.D.
[2022-09-13] MEDS: MELATONIN 3 MG TABLET PO SCH (20:50)
[2022-09-14] MEDS: FUROSEMIDE 20 MG/ 2ML VIAL IV SCH ×4 (04:51→20:35)
[2022-09-14 06:28] LABS: Magnesium 1.7 mg/dL (1.6-2.4); Phosphorus 3.5 mg/dL (2.5-4.9); Potassium 4.2 mEq/L (3.5-5.1)
[2022-09-14] MEDS: INSULIN -REGULAR HUMAN 50 UNIT/0.5 ML ML SQ SCH ×4 (07:30→21:00)
[2022-09-14] MEDS: ASPIRIN EC 81 MG TAB PO SCH (08:37)
[2022-09-14] MEDS: FOLIC ACID 1 MG TABLET PO SCH (08:37)
[2022-09-14] MEDS: ENOXAPARIN 80 MG/0.8 ML SQ SCH ×2 (08:37→20:36)
[2022-09-14] MEDS: SPIRONOLACTONE 25 MG TABLET PO SCH (08:37)
[2022-09-14] MEDS: THIAMINE HCL 100 MG TABLET PO SCH (08:38)
[2022-09-14] MEDS ORDERED: TOLVAPTAN 15 MG PO ONE (10:00)
[2022-09-14] MEDS ORDERED: TOLVAPTAN 15 MG TABLET PO ONE (10:15)
--- NOTE | 2022-09-14 14:31 | P.PN ---
Subjective Date of Service: 09/14/22 Chief Complaint: SOB No acute events overnight. He reports that his symptoms continue to improve. Sodium is up to 125. He denies any chest pains or palpitations. Review of Systems 10-point ROS is otherwise unremarkable Respiratory: Shortness of Breath (minimal) Cardiovascular: Edema Physical Examination - Vital Signs Temperature: 97.0 F Blood Pressure: 97/67 Pulse: 69 Respirations: 16 Pulse Ox (%): 96 Assessment And Plan - Plan - Physical Exam General: Alert, In no apparent distress, Oriented x3 HEENT: Atraumatic, Mucous membr. moist/pink, Sclerae nonicteric Neck: JVD not distended Respiratory: Diminished, Crackles/rales (faint bibasilar) Cardiovascular: Regular rate/rhythm, Edema (1-2+ BLE), Systolic murmur Gastrointestinal: Normal bowel sounds, Soft, Non-distended, No tenderness Musculoskeletal: No clubbing Integumentary: No rashes Neurological: Normal speech, Normal affect # Acute on Chronic Decompensated Diastolic Congestive Heart Failure with Preserved Ejection Fraction # Acute Decompensated Liver Disease # S/P Recent Placement of Cardiac Pacemaker # Severe Aortic Stenosis # Mild-Moderate Mitral Regurgitation # Mild Mitral Stenosis # Hypertension - Consult Cardiology and spoke with Dr. Mitchell - recommendations appreciated - Chest x-ray = "moderate CHF/ volume overload suspected" - Transthoracic echocardiogram = "1. Severe aortic stenosis. aortic valve area 0.9 centimeters squared. 2. normal left ventricular ejection fraction. 3. mild left ventricular hypertrophy. 4. mild to moderate mitral regurgitation. 5. mild mitral stenosis. mitral valve area 1.8 centimeters squared." - Diuresis with IV furosemide for today - Hold home lisinopril due to soft blood pressures - Consider starting beta-shannon once improved from CHF exacerbation - Daily weights - Strict I/O - Cardiac diet, 1.5 L fluid restriction, 2 g Na restriction # Suspect Hypervolemic Hyponatremia - Consulted Nephrology and spoke with Dr. Li - recommendations appreciated - Recommended tolvaptan + spironolactone - Diuresis per Nephrology - Serial BMP # Moderate-Large Right Pleural Effusion # Suspected Alcoholic Cirrhosis # Pancytopenia due to Liver Cirrhosis # Alcohol Use Disorder - MELD score = 23 (estimated 3-month mortality of 19.6 %) - Consulted Gastroenterology and spoke with Dr. Clark - recommendations appreciated - May need thoracentesis if diuresis is insufficient - CT chest = "bilateral pleural effusions larger on the right. Underlying airspace opacification more so on the right as above, may relate to atelectasis." - CT abdomen/pelvis = "no acute intra-abdominal process. Moderate free ascites. Moderate to large right and trace left pleural effusions. Diffuse body wall edema. The findings may relate to fluid overload. Contour nodularity of the liver and splenomegaly again noted, may suggest cirrhosis with portal hypertension." - Switch home apixaban to enoxaparin while hospitalized - Continue thiamine, folic acid - [facility] protocol - Alcohol cessation counseling # Hyperglycemia in Type II Diabetes Mellitus - Hgb A1c = 4.7 % - difficult to interpret given anemia - Correction scale insulin Rodney Marie M.D.
[2022-09-14] MEDS: MELATONIN 3 MG TABLET PO SCH (20:36)
--- NOTE | 2022-09-14 21:00 | P.PN ---
Date of Service: 09/14/22 Vital Signs Temp Pulse Resp BP Pulse Ox 97.0 F 69 16 100/75 96 09/14/22 16:00 09/14/22 20:35 09/14/22 16:00 09/14/22 20:35 09/14/22 16:00 Medications Acetaminophen (Acetaminophen 325 Mg Tablet) 650 mg PO Q6H PRN PRN Reason: TEMP > 100.4' F Last Admin: 09/13/22 06:10 Dose: 650 mg Albuterol Sulfate (Albuterol 2.5 Mg/3 Ml Neb Sparkle) 2.5 mg NEB [id number] PRN PRN Reason: WHEEZING Last Admin: 09/13/22 16:15 Dose: 2.5 mg Aspirin (Aspirin Ec 81 Mg Tab) 81 mg PO DAILY [facility] Last Admin: 09/14/22 08:37 Dose: 81 mg Enoxaparin Sodium (Enoxaparin 80 Mg/0.8 Ml) 80 mg SQ Q12HR EDDIE Last Admin: 09/14/22 20:36 Dose: 80 mg Fentanyl Citrate (Fentanyl Citr 100 Mcg/2 Ml) 25 mcg IV Q3H PRN PRN Reason: Pain scale 8-10 (Severe) Folic Acid (Folic Acid 1 Mg Tablet) 1 mg PO DAILY [facility] Last Admin: 09/14/22 08:37 Dose: 1 mg Furosemide (Furosemide 20 Mg/ 2ml Vial) 20 mg IV Q6H EDDIE Last Admin: 09/14/22 20:35 Dose: 20 mg Glucagon (Glucagon 1 Mg/Vial) 1 mg IM 1X PRN PRN Reason: HYPOGLYCEMIA Hydralazine HCl (Hydralazine Hcl 20 Mg/Ml Vial) 10 mg IV Q6HP PRN PRN Reason: Titrate to SBP (MUST DEFINE) Dextrose (Dextrose 10% Water Iv Soln.) 125 mls @ 0 mls/hr IV PRN PRN; Protocol PRN Reason: HYPOGLYCEMIA Insulin Human Regular (Insulin -Regular Human 50 Unit/0.5 Ml Ml) 0 unit SQ ACHS [facility]; Protocol Last Admin: 09/14/22 16:21 Dose: Not Given Melatonin (Melatonin 3 Mg Tablet) 3 mg PO BEDTIME [facility] Last Admin: 09/14/22 20:36 Dose: 3 mg Ondansetron HCl (Ondansetron 4 Mg/2 Ml Vial) 4 mg IV Q6HP PRN PRN Reason: NAUSEA / VOMITING Sodium Chloride (Flush Normal Saline 10 Ml) 10 ml IV BID [facility] Last Admin: 09/14/22 20:36 Dose: 10 ml Spironolactone (Spironolactone 25 Mg Tablet) 50 mg PO DAILY [facility] Last Admin: 09/14/22 08:37 Dose: 50 mg Thiamine HCl (Thiamine Hcl 100 Mg Tablet) 100 mg PO DAILY [facility] Last Admin: 09/14/22 08:38 Dose: 100 mg Assessment/ Plan: Nephrology Improving dyspnea on exertion No chest pain Improving edema No acute events overnight Vitals, medications, blood work and imaging reviewed in the chart. General: Oriented x3, Cooperative HEENT: Atraumatic Neck: Supple, JVD distended Respiratory: Diminished Cardiovascular: Regular rate/rhythm, Edema Gastrointestinal: Soft and benign, Non-distended Musculoskeletal: No clubbing, No contractures Integumentary: No rashes, No cyanosis Neurological: Normal speech Laboratory Data (last 24 hrs) 09/11/22 11:45: WBC 4.20 L, Hgb 10.1 L, Hct 30.5 L, Plt Count 131 L 09/11/22 11:45: Sodium 121 L, Potassium 4.5, BUN 25 H, Creatinine 1.06, Glucose 102 Imagings Data: EXAM DESCRIPTION: CT - Abdomen Pelvis Wo Contrast - 09/11/2022 1:38 pm CLINICAL HISTORY: Abd pain distension--R O Ascites COMPARISON: Abdomen Pelvis W Contrast dated 06/16/2021; Abdomen Pelvis W Contrast dated 07/15/2020; Abdomen Pelvis W Contrast dated 09/24/2019; Abdomen Pelvis W Contrast dated 10/30/2017 TECHNIQUE: Thin cut axial CT imaging of the abdomen and pelvis was performed without IV contrast. Multiplanar reformats were generated and reviewed. All CT scans are performed using dose optimization technique as appropriate and may include automated exposure control or mA/KV adjustment according to patient size. FINDINGS: Moderate cardiomegaly. Moderate to large right and trace left pleural effusions with underlying airspace opacification, suggesting atelectasis. The liver, adrenal gland, and pancreas show no suspicious findings. Subtle nodularity of the liver surface is noted. 11 millimeter well-circumscribed ovoid fluid density cystic lesion seen in the inferior right liver lobe. Spleen is enlarged, measuring 14.1 centimeter in long axis Gallbladder and biliary tree are also without suspicious finding. Symmetric renal contour, without suspicious parenchymal findings within limits of noncontrast technique. No evidence of radiopaque calculi or hydroureteronephrosis. No dilated bowel loops or bowel wall thickening. Moderate free ascites, predominantly in the upper abdomen. No free air or inflammatory stranding. No hernia, mass or bulky lymphadenopathy. The urinary bladder is without significant finding. Diffuse body wall edema. No suspicious bony findings. Healing/healed left lower anterior rib fractures. IMPRESSION: No acute intra-abdominal process. Moderate free ascites. Moderate to large right and trace left pleural effusions. Diffuse body wall edema. The findings may relate to fluid overload. Contour nodularity of the liver and splenomegaly again noted, may suggest cirrhosis with portal hypertension. EXAM DESCRIPTION: RAD - Chest Single View - 09/11/2022 11:52 am CLINICAL HISTORY: CHEST PAIN Chest pain. COMPARISON: Chest Single View dated 06/20/2021; Chest Pa And Lat (2 Views) dated 12/02/2020; Chest Single View dated 10/30/2017; CHEST SINGLE VIEW dated 02/24/2014 FINDINGS: Portable technique limits examination quality. Mild interstitial pulmonary edema. Small left and moderate right pleural effusion. The heart is enlarged with pacer device present. No displaced fractures. IMPRESSION: Moderate CHF/ volume overload suspected. EXAM DESCRIPTION: CT - Thorax Wo Con - 09/11/2022 1:40 pm CLINICAL HISTORY: FLUID COMPARISON: Chest Angio dated 06/16/2021; CTANGIO CHEST FOR PE dated 04/14/2008 TECHNIQUE: Axial thin cut images of the chest were obtained without IV contrast. Multiplanar reformats were generated and reviewed. All CT scans are performed using dose optimization technique as appropriate and may include automated exposure control or mA/KV adjustment according to patient size. FINDINGS: No mass suspicious masses in the lungs. Moderate to large right and mild left pleural effusion. Underlying segmental dependent opacities throughout the right lung and platelike opacification in the dependent left lower lobe, suggestive of atelectasis in No pneumothorax. Left chest wall pacer/ AICD in place. Moderate cardiomegaly. No abnormal mediastinal or hilar masses or lymphadenopathy seen. No significant aortic or pulmonary artery findings. Assessment is limited in the absence of IV contrast. No chest wall mass or abnormal axillary lymphadenopathy. Healing/healed left anterior rib fractures The solid abdominal structures were evaluated separately on dedicated CT of the abdomen and pelvis. IMPRESSION: Bilateral pleural effusions larger on the right. Underlying airspace opacification more so on the right as above, may relate to atelectasis. LEFT VENTRICULAR WALL MOTION: DIASTOLIC DYSFUNCTION. DOPPLER/COLOR FLOW: MODERATE AORTIC STENOSIS. COMMENTS: MODERATE AORTIC STENOSIS 1.1 CENTIMETER SQUARED. LEFT VENTRICULAR HYPERTROPHY. LEFT ATRIAL ENLARGEMENT. NORMAL EJECTION FRACTION. DECREASED LEFT VENTRICULAR COMPLIANCE. Conclusions/Impression: CKD II -No NSAIDs Hypervolemic Hyponatremia -Continue Lasix 20mg IV q6h -Tolvaptan as ordered -Fluid restriction HTN with CKD/ CHF complicated by hypotension -Hold Lisinopril Diastolic CHF, A/C Pleural Effusions Hypervolemia Moderate Aortic Stenosis -Continue Lasix 20mg IV q6h DM II -No sugar diet Anemia in chronic illness Secondary Thrombocytopenia -Monitor CBC Alcoholic Liver Cirrhosis with Ascites -Continue Lasix 20mg IV q6h Case reviewed with Dr. Marie
[2022-09-15] MEDS: FUROSEMIDE 20 MG/ 2ML VIAL IV SCH ×2 (04:12→08:40)
[2022-09-15 05:25] LABS: Magnesium 1.7 mg/dL (1.6-2.4)
[2022-09-15] MEDS: INSULIN -REGULAR HUMAN 50 UNIT/0.5 ML ML SQ SCH (07:30)
[2022-09-15] MEDS ORDERED: MAGNESIUM SULFATE 1 gm IVPB 1 GM/100 ML BAG IV ONE (08:00)
[2022-09-15] MEDS: ASPIRIN EC 81 MG TAB PO SCH (08:39)
[2022-09-15] MEDS: FOLIC ACID 1 MG TABLET PO SCH (08:39)
[2022-09-15] MEDS: ENOXAPARIN 80 MG/0.8 ML SQ SCH (08:39)
[2022-09-15] MEDS: SPIRONOLACTONE 25 MG TABLET PO SCH (08:39)
[2022-09-15] MEDS: THIAMINE HCL 100 MG TABLET PO SCH (08:40)
[2022-09-15 08:41] VITALS: BP 112/73
[2022-09-15 08:46] VITALS: O2SAT 97
[2022-09-15 09:01] VITALS: TEMP 97.3
--- NOTE | 2022-09-15 10:42 | P.DS ---
Admission Date: 09/11/22 Discharge Date: 09/15/22 Disposition: DC HOME/HOME HEALTH CARE Discharge Condition: GOOD Reason for Admission: SOB Consultations: 1. Cardiology 2. Nephrology 3. Gastroenterology Hospital Course: DIAGNOSES: # Acute on Chronic Decompensated Diastolic Congestive Heart Failure with Preserved Ejection Fraction # Acute Decompensated Liver Disease # Suspect Hypervolemic Hyponatremia # S/P Recent Placement of Cardiac Pacemaker # Severe Aortic Stenosis # Mild-Moderate Mitral Regurgitation # Mild Mitral Stenosis # Hypertension # Moderate-Large Right Pleural Effusion # Suspected Alcoholic Cirrhosis (MELD 23) # Pancytopenia due to Liver Cirrhosis # Alcohol Use Disorder # Hyperglycemia in Type II Diabetes Mellitus HOSPITAL COURSE: Mr. Gavin Talamantes is a 67 year old male with a past medical history significant for alcoholic cirrhosis, chronic diastolic congestive heart failure, type 2 diabetes mellitus, and hypertension who was admitted to the [facility] on 09/11/2022 for shortness of breath. He was admitted to the Medicine service. Upon further evaluation, he was found to have an acute on chronic decompensated diastolic congestive heart failure exacerbation as well as acute decompensated liver disease. His chest x-ray revealed, "moderate CHF/ volume overload suspected." His transthoracic echocardiogram revealed, "1. Severe aortic stenosis. aortic valve area 0.9 centimeters squared. 2. normal left ventricular ejection fraction. 3. mild left ventricular hypertrophy. 4. mild to moderate mitral regurgitation. 5. mild mitral stenosis. mitral valve area 1.8 centimeters squared." Cardiology and Gastroenterology were consulted and he was evaluated by Dr. Mitchell and Dr. Clark, respectively. In addition to his hypervolemic state, he was also found to be hyponatremic, for which nephrology was consulted and he was evaluated by Dr. Li. He was started on diuretics and, over the course of his hospita lization, his symptoms improved significantly. Today, he had reached a more euvolemic state and demonstrated significant improvement in his symptoms. With the assistance of his specialists, his discharging and diuretic regimen included furosemide, spironolactone, and ureaNa. During his evaluation, he was found to have severe aortic stenosis, mildmoderate mitral regurgitation, and mild mitral stenosis. Dr. Mitchell has cleared him for discharge with outpatient follow-up and evaluation. Incidentally, his CT scan revealed moderatelarge right and trace left pleural effusions, an inferior right liver lobe fluid density cystic lesion (11 mm), splenomegaly, and ascites. He was informed of these findings and advised to follow-up with his PCP for further evaluation. On 09/15/2022, [text] was seen on morning rounds and deemed medically stable for discharge. He was discharged with instructions to schedule follow-up appointments with your PCP (ERENDIRA Powell), with Cardiology (Dr. Mitchell), with N ephrology (Dr. Li), and with Gatroenterology (Dr. Clark). He was provided prescriptions for furosemide, spironolactone, and urea-Na. He was given the opportunity to ask questions and reported no further questions. Furthermore, all questions were answered to the best of my ability. A copy of this discharge summary will be sent to the above providers to facilitate continuity of care. Today, I personally spent 35 minutes on his case, of which greater than 50% of the time was spent in patient education, counseling, and coordination of care as described above. Physical Exam General: Alert, In no apparent distress, Oriented x3 HEENT: Atraumatic, Mucous membr. moist/pink, Sclerae nonicteric Neck: JVD not distended Respiratory: Diminished, but clear to auscultation bilaterally without wheezes, rhonchi, or rales Cardiovascular: Regular rate/rhythm, Edema (1+ BLE), Systolic/Diastolic murmur Gastrointestinal: Normal bowel sounds, Soft, Non-distended, No tenderness Musculoskeletal: No clubbing Integumentary: No rashes Neurological: Normal speech, Normal affect Vital Signs/Physical Exam: Temp Pulse Resp BP Pulse Ox 97.3 F 69 16 112/73 95 09/15/22 08:00 09/15/22 08:40 09/15/22 08:00 09/15/22 08:40 09/15/22 08:00 Laboratory Data at Discharge: WBC 5.20 thou/uL (4.3-10.9) 09/13/22 05:30 Hgb 9.4 g/dL (13.6-17.9) L 09/13/22 05:30 Hct 28.1 % (39.6-49.0) L 09/13/22 05:30 Plt Count 121 thou/uL (152-406) L 09/13/22 05:30 PT 16.3 SECONDS (9.5-12.5) H 09/12/22 16:22 INR 1.48 09/12/22 16:22 Sodium 128 mEq/L (136-145) L 09/15/22 03:36 Potassium 4.0 mEq/L (3.5-5.1) 09/15/22 03:36 BUN 45 mg/dL (7-18) H 09/15/22 03:36 Creatinine 0.97 mg/dL (0.70-1.30) 09/15/22 03:36 Glucose 112 mg/dL (74-106) H 09/15/22 03:36 Uric Acid 7.8 mg/dL (3.5-7.2) H 09/12/22 06:24 Phosphorus 3.5 mg/dL (2.5-4.9) 09/14/22 06:00 Magnesium 1.7 mg/dL (1.6-2.4) 09/15/22 03:36 Total Bilirubin 0.8 mg/dL (0.2-1.0) 09/12/22 06:24 AST 20 U/L (15-37) 09/12/22 06:24 ALT 14 U/L (16-61) L 09/12/22 06:24 Alkaline Phosphatase 63 U/L (45-117) 09/12/22 06:24 Triglycerides 24 mg/dL (<150) 09/12/22 06:24 Cholesterol 83 mg/dL (<200) 09/12/22 06:24 HDL Cholesterol 60 mg/dL (40-60) 09/12/22 06:24 Cholesterol/HDL Ratio 1.38 09/12/22 06:24 Home Medications: Albuterol Neb [Proventil 0.083% Neb Soln] 2.5 mg IH Q6HP PRN #120 amp 06/21/21 Ipratropium Neb [Atrovent*] 0.5 mg IH [id number] PRN #120 amp 06/21/21 Nebulizer [Aeroneb Go Nebulizer] 1 each QID #1 each 06/21/21 Apixaban [Eliquis] 5 mg PO BID 09/11/22 Furosemide 40 mg PO DAILY #30 tab 09/15/22 Spironolactone 50 mg PO DAILY #30 tab 05/12/23 Urea [Ure-Na] 15 gm PO DAILY #30 packet 09/15/22 New Medications: Furosemide 40 mg PO DAILY #30 tab Spironolactone 50 mg PO DAILY #30 tab Urea [Ure-Na] 15 gm PO DAILY #30 packet Physician Discharge Instructions: 1. Please call and schedule a follow-up appointment with your PCP (ERENDIRA Powell) in 3-5 days - You have a few rib fractures - please follow-up with your PCP - There is some fluid on your lungs - please have a follow-up chest x-ray with your PCP 2. Please call and schedule a follow-up appointment with Nephrology (Dr. Li) in 3-5 days - He will check your sodium level at this appointment 3. Please call and schedule a follow-up appointment with Gastroenterology (Dr. Clark) in 5-7 days - You are not immune to hepatitis B, please consider getting vaccine at this appointment - Your spleen is enlarged and there is a spot on your liver - please follow this up with Dr. Clark 4. Please call and schedule a follow-up appointment with Cardiology (Dr. Mitchell) in 5-7 days - You have multiple narrow valves, please discuss with Cardiology at your next appointment Diet: AHA Activity: Ad micaela Followup: Abad Li [ACTIVE - CAN ADMIT] - Alex Powell PA [ALLIED HEALTH PROFESSIONAL] - Kp Mitchell MD [ACTIVE - CAN ADMIT] - Ar Clark MD [ASSOCIATE-ACTIVE - CAN ADMIT] -
== END 2022-09-15 11:27 | disposition home health service (06) | DRG 291 ==
LOC: ER 10:48 → ERHOLD 15:01 → 4TH 16:13
PROVIDERS: ADMIT Internal Medicine; ATTEND Internal Medicine
DX: I13.0 Hypertensive heart and chronic kidney disease with heart failure and stage 1 through stage 4 chronic kidney disease, or unspecified chronic kidney disease (principal); I50.33 Acute on chronic diastolic (congestive) heart failure; J44.1 Chronic obstructive pulmonary disease with (acute) exacerbation; E87.1 Hypo-osmolality and hyponatremia; D61.818 Other pancytopenia; N18.2 Chronic kidney disease, stage 2 (mild); E11.22 Type 2 diabetes mellitus with diabetic chronic kidney disease; D63.1 Anemia in chronic kidney disease; D63.8 Anemia in other chronic diseases classified elsewhere; D69.6 Thrombocytopenia, unspecified; K70.31 Alcoholic cirrhosis of liver with ascites; D69.59 Other secondary thrombocytopenia; F10.10 Alcohol abuse, uncomplicated; I08.0 Rheumatic disorders of both mitral and aortic valves; E11.65 Type 2 diabetes mellitus with hyperglycemia; R80.9 Proteinuria, unspecified; Z79.84 Long term (current) use of oral hypoglycemic drugs; Z79.01 Long term (current) use of anticoagulants; Z90.49 Acquired absence of other specified parts of digestive tract; Z96.60 Presence of unspecified orthopedic joint implant; Z71.41 Alcohol abuse counseling and surveillance of alcoholic; Z79.899 Other long term (current) drug therapy; Z87.891 Personal history of nicotine dependence; Z95.810 Presence of automatic (implantable) cardiac defibrillator
CPT/HCPCS: 36415; 71045; 71250; 74176; 80048; 80053; 80061; 81001; 82043; 82570; 82947; 83036; 83735; 83880; 83930; 83935; 84100; 84156; 84484; 84550; 85025; 85610; 86706; 86803; 87340; 93005; 93306; 94010; 94640; 96374; 96375; 97116; 97161; 99285; J1815; J1940; J2930; J3475; J7613; J7614; J8499; P9047

== ENCOUNTER 2022-09-23 12:00 | Emergency (ER) | payer OTHER ==
--- OUTSIDE RECORDS SUMMARY | 2022-09-23 12:03 | XMS REPORT | Continuity of Care Document ---
:1955 Author Organization [facility] t Address [address] [facility] [address] [place] [address] Care Team Providers Name Role Phone Merrill Coleman MD, William Primary Care Physician [phone] Ar Momin Attending Clinician Unavailable Dwight [...] Policy Number Effective Date Expiration Date S [facility] [id number] 2020 (MEDICARE 00:00:00 REPLACEMENT HMO) Problems This patient has no known problems. Allergies, Adverse Reactions, Alerts Allergy Allergy Status Severity Reaction(s) Onset Inactive Treating Comm ents Source Name Type Date Date Clinician No Known DA Active [facility] 08-23 00:00: [address] Family History Family Member Diagnosis Comments Start Date Stop Date Source Natural father Heart disease [facility] Natural mother [facility] Social History Social Habit Start Date Stop Date Quantity Comments Source Gender identity [facility] History of tobacco Cigarette [facility] Alcohol intake 2021-02-28 2021-02-28 Current drinker [facility] 00:00:00 00:00:00 of alcohol Hospital (finding) History of Social 2021-02-28 2021-02-[address] function 00:00:00 00:00:00 Hospital Tobacco Comment 2021-02-21 2021-02-21 one cigarette [facility] 00:[facility]:00 daily Hospital Alcohol Comment 2021-02-21 2021-02-21 14-21 beers a [facility] 00:[facility]:00 week Hospital Tobacco use and 2021-02-21 2021-02-21 Smokeless [facility] 00:[facility]:00 00:00:00 tobacco non-user Hospital Sex Assigned At [birth year] [facility] Smoking Status Start Date Stop Date Source Smokes tobacco daily 2021-02-21 00:00:00 [facility] Medications Ordered Filled Start Stop Current Ordering [...] 00:00: daily. [facility]osp[facility] tablet 00 l metFORMIN 2021-0 Yes 500mg QD Take 500 Met hodi (GLUCOPHAGE 7-[address] ) 500 mg 00:00: mouth [facility]ospita tablet 00 daily. l lisinopriL 0 Yes 20mg QD Take 20 mg M ethodi (PRINIVIL) 7-[address] 20 mg 00:00: daily. Hospita tablet 00 l metFORMIN 0 Yes 500mg QD Take 500 Met hodi (GLUCOPHAGE 7-[address] ) 500 mg 00:00: mouth [facility]osp[facility] tablet 00 daily. l lisinopriL 0 Yes 20mg QD Take 20 mg M ethodi (PRINIVIL) 7-[address] 20 mg 00:00: daily. [facility]ospita tablet 00 l Immunizations Ordered Immunization Filled Immunization Date Status Commen ts Source Name Name [place] [address] 2020-09-25 Completed [facility] VACCINATION 00:00:00 [place] [address] 2020-09-25 Completed [facility] VACCINATION 00:00:[place] [address] 2020-09-25 Completed [facility] MRNA VACCINATION 00:00:00 [place] [address] 2020-08-28 Completed [facility] MRNA VACCINATION 00:00:00 [place] [address] 2020-08-28 Completed [facility] MRNA VACCINATION 00:00:00 [place] [address] 2020-08-28 Completed [facility] VACCINATION 00:00:00 Hospital Procedures Procedure Date / Time Performed Performing Clinician Teodoro burns [id number] 2022-08-27 00:00:00 [facility] [id number] 2022-08-27 00:00:00 DARADHAA [facility] [id number] 2022-08-26 00:00:00 [facility] [id number] 2022-08-26 00:00:00 [facility] [id number] 2022-08-26 00:00:00 [facility] Plan of Care Planned Activity Planned Date Details Comments Source Future Scheduled 2022-08-07 65+ [facility]OCOCC[address] [facility] Test 21:45:15 VACCINE (1 - PCV) [code = 65+ PNEUMOCOCCAL VACCINE (1 - PCV)] Future Scheduled 2022-08-07 Hepatitis C screening [facility] Test 21:45:15 (procedure) [code = 915725210] Future Scheduled 2022-08-07 COLONOSCOPY SCREENING [facility] Test 21:45:15 [code = COLONOSCOPY SCREENING] Future Scheduled 2022-08-07 SHINGLES VACCINES (1 Met [facility] Test 21:45:15 of 2) [code = SHINGLES VACCINES (1 of 2)] Future Scheduled 2022-08-07 COVID-19 [facility]ACC[facility] 21:45:15 Booster for Moderna series) [code = COVID-19 VACCINE (3 - Booster for Moderna series)] Future Scheduled 2022-08-07 INFLUENZA VACCINE Method [facility] Hospital Test 21:45:15 [code = INFLUENZA VACCINE] Future Scheduled 2022-08-07 65+ PNEUMOCOCCAL Methodi [facility] Test 21:45:15 VACCINE (1 - PCV) [code = 65+ PNEUMOCOCCAL VACCINE (1 - PCV)] Future Scheduled 2022-08-07 Hepatitis C screening [facility] Test 21:45:15 (procedure) [code = 193219052] Future Scheduled 2022-08-07 COLONOSCOPY SCREENING [facility] Test 21:45:15 [code = COLONOSCOPY SCREENING] Future Scheduled 2022-08-07 SHINGLES VACCINES (1 Met [facility] Test 21:45:15 of 2) [code = SHINGLES VACCINES (1 of 2)] Future Scheduled 2022-08-07 COVID-19 [facility]ACCINE [facility] Test 21:45:15 Booster for Moderna series) [code = COVID-19 VACCINE (3 - Booster for Moderna series)] Future Scheduled 2022-08-07 INFLUENZA VACCINE Method [facility] Hospital Test 21:45:15 [code = INFLUENZA VACCINE] Future Scheduled 2022-08-07 65+ PNEUMOCOCCAL [facility] Test 21:45:15 VACCINE (1 - PCV) [code = 65+ PNEUMOCOCCAL VACCINE (1 - PCV)] Future Scheduled 2022-08-07 Hepatitis C screening [facility] Test 21:45:15 (procedure) [code = 487589594] Future Scheduled 2022-08-07 COLONOSCOPY SCREENING [facility] Test 21:45:15 [code = COLONOSCOPY SCREENING] Future Scheduled 2022-08-07 SHINGLES VACCINES ([facility] Test 21:45:15 of 2) [code = SHINGLES VACCINES (1 of 2)] Future Scheduled 2022-08-07 COVID-19 [facility]ACCINE (3 - [facility] Test 21:45:15 Booster for Moderna series) [code = COVID-19 VACCINE (3 - Booster for Moderna series)] Future Scheduled 2022-08-07 INFLUENZA VACCINE [facility] Test 21:45:15 [code = INFLUENZA VACCINE] Encounters Start End Encounter Admission Attending Care Care Encounter Source Date/Time Date/Time Type Type Clinicians Facility Department ID 2021-09-01 Outpatient Momin, [facility] [id number] Common 10:23:01 Ar [facility] 2021-07-15 [facility] [id number] Common 09:00:03 [facility] 2021-06-01 [facility] [id number] Common 14:36:52 [facility] 2022-08-27 2022-08-30 Inpatient SERGO Connolly, [facility] IN[facility].02 [id number] [facility] 16:31:00 14:03:00 Sali 73 [facility] 2022-06-12 2022-06-12 [facility] [id number] [facility] 00:00:00 0206 [facility] 2022-06-12 2022-06-12 Outpatient Iyanoye_S [facility] [id number] -2022 [facility] 00:00:00 00:00:00 0506 [facility] 2022-06-12 2022-06-12 Outpatient Iyanoye_S [facility] [address] [facility] 00:00:00 00:00:00 0517 [facility] l [facility] 2022-03-02 2022-03-02 CAV Sera [id number]. 2.16.840.1. CLAC XGYRA6 [facility] 13:30:00 14:30:00 Iyanoye 1.027111. 395655.4.6. 2CF Medical [id number] 2022-02-24 2022-02-24 Outpatient Iyanoye_S [facility] [id number] -2021 Dev[facility] 00:00:00 00:00:00 1021 [facility] l Group 2021-11-18 2021-11-18 Outpatient Ogweno_B [facility] [address]- 2021 [facility] 03:57:00 03:57:00 0715 Medica l Group 2021-02-25 2021-02-25 Outpatient SOFOLA, [facility] [id number] [place] 00:00:00 00:00:00 IFEOLUMIPO 811 Met [facility] 2021-02-21 2021-02-21 Outpatient SOFOLA, [facility] [id number] [place] 00:00:00 00:00:00 IFEOLUMIPO 191 Met [facility] 2021-02-21 2021-02-21 Outpatient SOFOLA, [facility] [id number] [place] 00:00:00 00:00:00 IFEOLUMIPO 266 Met [facility] 2020-10-26 2020-10-26 [facility] [address] 11:05:00 11:05:00 0622 Med[facility] l Group 2020-09-06 2020-09-06 [facility] [id number] [facility] 06:03:00 06:03:00 0503 [facility] l Group 2020-09-03 2020-09-03 Outpatient [facility] [id number] 021 [facility] 08:00:00 08:00:00 0430 Med[facility] l Group 2020-08-07 2020-08-07 [facility] [id number] [facility] 06:02:00 06:02:00 0403 Med[facility] l Group 2020-07-31 2020-07-31 [facility] [id number] [facility] 08:00:00 08:00:00 0327 Medica l [...] OF URINE: CLEAN CATCH- XR CHEST 1 [id number] 08:57:00 [facility] 1955 Sex: M Name: GAVIN TALAMANTES [facility] : 1955 Age/S: 66 / M [address] Unit #: [id number] Loc: [place] [address] Phys: Jennifer Copeland MD Acct: [id number] Dis Date: Status: ADM IN PHONE #: [phone] Exam Date: 08/28/2022154 FAX #: Reason: CHEST TUBE EXAMS: CPT: [id number] XR CHEST 1 V 46614 Fluoro Time: DAP (Gy m2): Air Kerma [...] right-sided chest tube. No significant pleural effusion. [email or web address] Reported and signed by: Bill Chandler M.D. CC: Dwight Connolly MD; Jennifer Copeland MD PAGE 1 Signed [facility] 1955 Age/S: 66 / M [address]: [id number] Loc: [place] [address] Phys: Jennifer Copeland MD Acct: [id number] Dis Date: Status: ADM IN PHONE #: [phone] Exam Date: 08/28/2022154 FAX #: Reason: CHEST TUBE EXAMS: CPT: [id number] XR CHEST 1 V 12607 Fluoro Time: DAP (Gy m2): Air Kerma (mGy): (Continued) Technologist: EricaD. Núñez RT(R)(CT) Trnscb Date/Time: 08/28/2022 (0857) [email or web address] Orig Print D/T: S: 08/28/2022 (0900) PAGE 2 Signed ReportPLEURAL FLD CE[address] CT/[id number] 17:00:00 Test Item Value Reference Range Interpretation Comments PLEURAL FLD COLOR YELLOW DESCRIP. COLORLESS (test code = COLPL) PLEURAL FLD HAZY DESCRIP. CLEAR APPEARANCE (test code = APPPL) PLEURAL FLD WBC 117 #/mm3 [phone] N (test code = WBCPL) PLEURAL FLD RBC 1000 /mm3 See_Comment [Automated message] (test code = RBCPL) The syst em which generated this result transmit lorraine reference range : 0-. The reference r john paul was not used to interpret this result as normal/abnormal . PLEURAL FLD [id number] 17:00:00 Test Item Value Reference Range Interpretation Comments PLEURAL FLD GLUCOSE 112 MG/DL See_Comment [Automa lorraine message] The (test code = GLUPL) system [facility] generated this result tra nsmitted reference range : (). The reference range was not used to interpr et this result as normal/abnormal . PLEURAL FLD TOTAL [id number] 17:00:00 Test Item Value Reference Range Interpretation Comments PLEURAL FLD TOTAL 2.8 GM/DL See_Comment [Automate d message] The PROTEIN (test code = system which generated PROTPL) this result tra nsmitted reference range : (). The reference range was not used to interpr et this result as normal/abnormal . PLEURAL FLD [id number] 17:00:00 Test Item Value Reference Range Interpretation Comments PLEURAL FLD LDH (test Unit/L See_Comment [Auto mated message] The code = LDHPL) system which g enerated this result tra nsmitted reference range : 0-. The reference range was not used to interpr et this result as normal/abnormal . PLEURUAL FLD [id number] 17:00:00 Test Item Value Reference Range Interpretation Comments PLEURUAL FLD GLUCOSE (test code = 112 MG/DL GLUPL) PLEURAL FLD TOTAL [id number] 17:00:00 Test Item Value Reference Range Interpretation Comments PLEURAL FLD TOTAL PROTEIN (test 2.8 GM/DL code = PROTPL) PLEURAL FLD [id number] 17:00:00 Test Item Value Reference Range Interpretation Comments PLEURAL FLD LDH (test code = 91 UNITS/L LDHPL) - XR CHEST 1 [id number] 12:48:00 [facility] : 1955 Sex: M Name: GAVIN TALAMANTES [facility] : 1955 Age/S: 66 / M [address] Unit #: [id number] Loc: [place] [address] Phys: Jennifer Copeland MD Acct: [id number] Dis Date: Status: ADM IN PHONE #: [phone] Exam Date: 08/27/2022 1235 FAX #: Reason: CHEST TUBE EXAMS: CPT: [id number] XR CHEST 1 V 05700 Fluoro Time: DAP (Gy m2): Air Kerma (mGy): LOCATION: B2 EXAM: - XR CHEST 1 V HISTORY: CHEST TUBE COMPARISON: 08/27/2022 FINDINGS: Right pleural catheter is present. Patchy bilateral airspace opacities with improved aeration of the right lung. No pleural effusion or pneumothorax. Moderate enlargement of cardiac silhouette. No acute osseous abnormalities. IMPRESSION: Interval placement of a right pleural c atheter with marked decrease in right pleural effusion and improved aeration right lung. Moderate congestive heart failure with persistent pulmonary edema. Superimposed infection cannot be excluded. at 1248 Reported and signed by: Maurisio Swanson M.D. CC: Dwight Connolly MD; Jennifer Copeland MD PAGE 1 Signed Report Name: [facility] [place] : 1955 Age/S: 66 / M [address] Unit #: [id number] Loc: [place] [address] Phys: Jennifer Copeland MD Acct: [id number] Dis Date: Status: ADM IN PHONE #: [phone] Exam Date: 08/27/2022 1235 FAX #: Reason: CHEST TUBE EXAMS: CPT: [id number] XR CHEST 1 V 59104 Fluoro Time:DAP (Gy m2): Air Kerma (mGy): (Continued) Technologist: Elmer Alvarenga Trnscb Date/Time: 08/27/2022 (2618) [email or web address].[email or web address] Orig Print D/T: S: 08/27/2022 (4346) PAGE 2 Signed Report- XR CHEST 1 [id number] 07:29:00 [facility] : 1955 Sex: M Name: GAVIN TALAMANTES [facility] : 1955 Age/S: 66 / M [address] Unit #: [id number] Loc: [place] [address] Phys: Dwight Connolly MD Cardiology Acct: [id number] Dis Date: Status: ADM IN PHONE #: [phone] Exam Date: 08/27/2022 0325 FAX #: Reason: Post implanted device EXAMS: CPT: [id number] CHEST 1 V 98106 Fluoro Time: DAP (Gy m2): Air Kerma (mGy): Chest one view portable 08/27/2022 7:28AM CLINICAL INDICATION: Postop COMPARISON: The previous day LOCATION: W1 IMPRESSION: No pneumothoraxis evident. Cardiomediastinal contours are stable. There is moderately advanced pulmonary edema. There are layering right and trace left pleural effusions. Adjacent dependent pulmonary opacities may reflect atelectasis or pneumonia. A left subclavian pacemaker is present. at 0729 Reported and signed by: Mohamud Nathan M.D. CC: Dwight Torres Cardiology Mohsen KURTZ PAGE 1 Signed Report Name: GAVIN TALAMANTES : 1955 Age/S: 66 / M [address] Unit #: [id number] Loc: [place] [address] Phys: Dwight Connolly MD Cardiology Acct: [id number] Dis Date: Status: ADM IN PHONE #: [phone] Exam Date: 08/27/2022 0325 FAX #: Reason: Post implanted device EXAMS: CPT: [id number] XR CHEST 1 V 23978 Fluoro Time: DAP (Gym2): Air Kerma (mGy): (Continued) Technologist: Norma Núñez, RT(R)(CT) Trnscb Date/Time: 08/27/2022 (728) [email or web address] Orig Print D/T: S: 08/27/2022 (4722) PAGE 2 Signed ReportBASIC METABOLIC [id number] 04:55:00 Test Item Value Reference Range Interpretation [...] recommended for jovanny for GFRby the [facility] Kidney Foundati on for Adults.The GFR will not calculate i f the sex is unknown or if thepatient's ag e is <18 years. CREATININE (test 1.3 MG/DL 0.8-1.3 N code = CREAT) CALCIUM (test code 8.8 MG/DL 8.5-10.1 N = CA) CBC W/AUTO [id number] 04:45:00 Test Item Value Reference Range Interpretation [...] NO DIFF/SCN CRITERIA = MDIFF) ARTERIAL BLOOD [id number] 13:28:00 Test Item Value Reference Range Interpretation [...] = Right Brachial ARTKIT DESCRIPTION SITEA) MODIFIED ALBARO'S (test N/A Circ.CHK POSITIVE code = MODALL) PaO2/[id number] 13:28:00 Test Item Value Reference Range Interpretation Comments PaO2/FiO2 (test 261.9 mm/Hg See_Comment [Automated message] The code = UWE1CRO4) system [facility] generated this result tra nsmitted reference range : 200. The reference r john paul was not used to int erpret this result as normal/abnormal . - XR CHEST 1 [id number] 13:27:00 [facility] : 1955 Sex: M Name: GAVIN TALAMANTES [facility] : 1955 Age/S: 66 / M [address] Unit #: [id number] Loc: [place] [address] Phys: Dwight Connolly MD Cardiology Acct: [id number] Dis Date: Status: ADM IN PHONE#: [phone] Exam Date: 08/26/20221316 FAX #: Reason: Post implanted device EXAMS: CPT: [id number] XR CHEST 1 V 79934 Fluoro Time: DAP (Gy m2): Air Kerma (mGy): Chest one view AP 08/26/2022 1:26 PMCLINICAL INDICATION: Pacemaker COMPARISON: None available LOCATION: W1 IMPRESSION: No pneumothorax is evident status post left subclavian dual electrode pacemaker placement. Cardiomediastinal contoursare within normal limits. There is mild pulmonary edema. There are moderate volume right and trace left pleural effusions. Adjacent dependent pulmonary opacities may reflect atelectasis or pneumonia. at 1327 Reported and signed by: Mohamud Nathan M.D. CC: Dwight Torres Cardiology Mohsen KURTZ PAGE 1 Signed Report Name: GAVIN TALAMANTES [facility] : 1955 Age/S: 66 / M [address] Unit #: [id number] Loc: [place], [place] [address]Xwoa: Dwight Connolly MD Cardiology Acct: [id number] Dis Date: Status: ADM IN PHONE #: [phone] Exam Date: 08/26/20221316 FAX #: Reason: Post implanted device EXAMS: CPT: [id number] XR CHEST 1 V 47573 Fluoro Time: DAP (Gy m2): Air Kerma (mGy): (Continued) Technologist: Sandra Núñez RT(R) Trnmnb Date/Time: 08/26/2022 (6382) [email or web address] Orig Print D/T: S: 08/26/2022 (9838) PAGE 2 Signed ReportCOVID 19 INHOUSE [id number] 09:45:00 Test Item Value Reference Range Interpretation Comments COVID 19 INHOUSE AG NEGATIVE Negative Per manu facturer, (test code = negative result s should [id number]) be treated aspr esumptive and, if inconsi [...] symptoms co nsistent with COVID-19. COMPREHENSIVE METABOLIC [id number] 09:18:00 Test Item Value Reference Range Interpretation [...] recommended for jovanny for GFRby the N atformerly [facility] Kidney Foundati on for Adults.The GFR will [...] (test code = LDL) NEAR OPTIM AL/ABOVE [id number] - 15 9 [id number] - 189 HIGH>OR= 190 VE RY HIGHNOTE THAT G UIDELINES ARE PROVIDED BY NATIONAL CHOLESTEROLEDUC ATION PROGRAM ADULT T REATMENT PANEL III LDL/HDL (test code 0.40 Ratio See_Comment L [Automat ed message] The = LDL/HDL) system which ge nerated this result tra nsmitted reference range : 1.48-3.22 Avg. The reference range was not used to interpr et this result as normal/abnormal . [id number] 09:18:00 Test Item Value Reference Range Interpretation Comments MAGNESIUM (test code = MAG) 1.8 MG/DL 1.8-2.4 N PROTHROMBIN [id number] 09:11:00 Test Item Value Reference Range Interpretation [...] (to prevent recurrent infar ct). THROMBOPLASTIN TIME [id number] 09:11:00 Test Item Value Reference Range Interpretation Comments THROMBOPLASTIN TIME PARTIAL 35.5 SECONDS 26-35 H (test code = PTT) CBC W/AUTO [id number] 08:59:00 Test Item Value Reference Range Interpretation [...] in Respiratory specimen by JAVIER with probe [id number] 19:06:12 Test Item Value Reference Range Interpretation Comments SARS-CoV-2 (COVID-19) RNA Not detected Not-Detected [Presence] in Respiratory specimen by JAVIER with probe detection (test code = 52403-1) Whether patient is employed in a healthcare setting (test code = 94389-3) Whether the patient has symptoms related to condition of interest (test code = 26446-4) Patient was hospitalized because of this condition (test code = 43917-7) Whether the patient was admitted to intensive care unit (ICU) for condition of interest (test code = 68624-7) Whether patient resides in a congregate care setting (test code = 36518-1) [facility] Notes Date/Time Note Provider Source 2022-08-30 13:39:00-00:00 [facility] Pulmonology Progress Note REPORT#:[id number] REPORT STATUS: Signed DATE:08/30/22 TIME:1339 PATIENT: GAVIN TALAMANTES UNIT #: [id number] ROOM/BED: [place] [address] : [birth year] AGE: 66 SEX: M ATTEND: Fadi Connolly MD Cardiology ADM AUTHOR: Pavel Soto MD * ALL edits or amendments must be made on the [employer]/computer document * Subjective Chief complaint: less SOB No chest pain overall much better HPI: 66-year-old male with congestive heart failure s ick sinus syndrome Status post pacemaker placement History of paroxysmal A-fib, history of COPD He is volume overloaded Dyspnea Orthopnea Intermittent wheezing Review of Systems ROS Allergy/Immun: Denies: allergic reaction, hives. ENT: Denies: mouth pain, nasal congestion. GI: Denies: hematemesis, hematochezia. Musculoskeletal: Reports: joint pain. Neuro: Denies: focal weakness, gait problem. Objective General VS/I O: Last Documented: Result Date Time Pulse Ox 100 08/30 1053 B/P 101/66 08/30 1053 B/P Mean 0.0 08/30 1053 O2 Delivery Nasal cannula 08/30 1053 Temp 37.0 08/30 1053 Pulse 78 08/30 1053 Resp 14 08/30 1053 O2 Flow Rate 2 08/30 0749 FiO2 28 08/29 1940 24 hour I O ending at 0700: 08/30 0700 08/29 1900 Intake Total 925 Output Total 2680 Balance -1755 Intake, Oral 925 Number Voids 8 Output, Urine 2680 PATIENT WEIGHT: Weight (lb): 176 Weight (oz): 5.92 Weight (kg): 79.832 Medications: Active Meds + DC'd Last 24 Hrs Cephalexin (KEFLEX) 500 MG Q6HR PO Albumin Human (OPTISON) 3 ML ONCE PRN IV Lisinopril (ZESTRIL) 10 MG DAILY PO Oxycodone HCl (ROXICODONE) 10 MG Q6H PRN PRN PO Furosemide (LASIX) 40 MG Q8HR IV Ipratropium Clayton (ATROVENT) 0.25 MG RTQ6H PRN PRN INH Melatonin (Melatonin) 3 MG BEDTIME PRN PRN PO Acetaminophen (TYLENOL) 650 MG Q4H PRN PRN PO Hydrocodone Bitart/Acetaminophen (NORCO 5/325) 1 TAB Q4H PRN PRN PO Ondansetron HCl (ZOFRAN ODT) 4 MG Q8H PRN PRN PO Diazepam (VALIUM) 5 MG ONCALL PO (CKD) Free Text Obj Notes Free Text Obj Notes: General appearance: alert, awake, oriented Head/Eyes: atraumatic, normocephalic, PERRLA Neck: full range of motion, non-tender, normal t hyroid Cardiovascular: normal heart sounds, normal S1/S 2, regular rate rhythm Respiratory/chest: aerating well, clear to auscu ltation, symmetric expansion Abdomen: soft, non-tender, normal bowel sounds Genitourinary: no bladder distention, no flank p ain Extremities: No edema, moves all, normal capilla ry refill, no calf tenderness Musculoskeletal: full range of motion, normal in spection, painless range of motion, straight leg raise neg Skin: dry, intact, normal color Diagnosis, Assessment Plan Free Text A P: 1. CHF exacerbation #2 right-sided pleural effusion #3 pulmonary edema #4 cardiac asthma #5 COPD not in exacerbation Patient is massively volume overloaded Lower extremity edema, pulmonary edema, pleural effusion s/p right-sided chest tube Transaudative effusion DC on PO lasix assess home oxygen needs DC from pulmonary stand point Electronically Signed by Pavel Soto MD on 08/06 10/27 at 1340 RPT #: [id number] END OF REPORT 2022-08-30 10:24:00-00:00 [facility] ([facility]) Hospitalist Discharge Summary REPORT#:[id number] REPORT STATUS: Signed DATE:08/30/22 TIME:1023 PATIENT: GAVIN TALAMANTES UNIT #: [id number] ROOM/BED: [place] [address] : [birth year] AGE: 66 SEX: M ATTEND: Fadi Connolly MD Cardiology ADM AUTHOR: Zachery Baez MD * ALL edits or amendments must be made on the [employer]/computer document * General Information Discharge date: 08/30/22 Discharge diagnosis: Sick sinus syndrome Status post pacemaker placement Pleural effusion status post chest tube placemen t CAD COPD exacerbation Acute on chronic hypoxic respiratory failure CHF exacerbation combined systolic/diastolic Hospital course: Sick sinus syndrome Symptomatic bradycardia History of V. tach Status post pacemaker placement. Monitor closely under telemetry Appreciate help from Dr. Connolly Pain control Continue antibiotics Acute hypoxic hypercapnic respiratory failure Monitor closely under telemetry Pulmonology consulted Oxygen supplementation Monitor mental status closely Place on BiPAP if needed PT eval May need home O2 Paroxysmal atrial fibrillation Monitor closely under telemetry Rate controlled We will start back on anticoagulation Hypertension Continue home medications and titrate as needed COPD Continue bronchodilators Pulmonology consult Oxygen supplementation CHF possibly combined systolic/diastolic We will add on diuretics Continue home medications Repeat x-ray findings noted No pneumothorax Consistent with pulmonary edema We will give a dose of Lasix 40 mg Pleural effusion Appreciate help from pulmonology Status post chest tube placement Repeat x-ray findings noted showing resolution o f pleural effusion Possible removal of chest tube Case management consult for home O2 Chest tube was removed patient tolerating well Is being discharged home tod ay in a stable condition with and advised to follow- up with PCP in 1 week and also with cardiology a jeanne pulmonology as outpatient Med Rec Med Rec Discharge meds: Stop taking the following medications: LISINOPRIL (ZESTRIL) 20 MG TAB 20 MILLIGRAM ORAL DAILY. Continue taking these medications: APIXABAN (ELIQUIS) 5 MG TAB 5 MILLIGRAM ORAL TWICE DAILY. ALBUTEROL (ALBUTEROL NEB SOLN 0.021%) 0.63 MG/3 ML VIAL.NEB 0.63 MILLIGRAM INHALATION RT - EVERY 6 HOURS NEEDED. as needed for WHEEZING IPRATROPIUM (ATROVENT 0.02%) 0.2 MG/ML (0.02 %) NEB 250 MICROGRAM INHALATION RT - EVERY 6 HOURS. Start taking the following new medications: HYDROcodone/APAP (HYDROcodone/APAP 5/325) 5 MG-3 25 MG TAB 1 TABLET ORAL EVERY 4 HOURS NEEDED. as neede d for PAIN Qty = 14 No Refills CEPHALEXIN (KEFLEX) 500 MG CAP 500 MILLIGRAM ORAL EVERY 6 HOURS. Qty = 28 No Refills FUROSEMIDE (LASIX) 40 MG TAB 40 MILLIGRAM ORAL TWICE DAILY. Qty = 60 No Refills LISINOPRIL (ZESTRIL) 2.5 MG TAB 2.5 MILLIGRAM ORAL DAILY. Qty = 30 No Refills Objective VS/I O Last Documented: Result Date Time Pulse Ox 100 08/30 1053 B/P 101/66 08/30 1053 B/P Mean 0.0 08/30 1053 O2 Delivery Nasal cannula 08/30 1053 Temp 98.6 08/30 1053 Pulse 78 08/30 1053 Resp 14 08/30 1053 O2 Flow Rate 2 08/30 0749 FiO2 28 08/29 1940 24 hour I O ending at 0700: 08/30 0700 08/29 1900 Intake Total 925 Output Total 2680 Balance -1755 Intake, Oral 925 Number Voids 8 Output, Urine 2680 Head/Eyes: atraumatic, normocephalic ENT: dry mucosal membrane Neck: supple/no meningismus Cardiovascular: normal heart sounds, regular rat e rhythm Respiratory: wheezing, aerating well, clear to a uscultation Abdomen: soft Genitourinary: no bladder distention Extremities: moves all Musculoskeletal: normal inspection Neuro/CLAIMS CLERK: alert, oriented X 3 Skin: dry, no rash Lymphatics: no lymphadenopathy Psychiatry: anxious Discharge Instructions PCP Discharge to: Home/Self Care Additional Discharge Routines: PCP Follow-Up, Co nsultant Follow-Up Diet: Resume Home Diet/Feeds Discharge management: greater than 30 mins Follow-up Appointments PCP follow-up: PCP: Dwight Connolly MD Cardiology PCP follow up timeframe: In 1-2 weeks Consulting provider 1: Provider 1: Pavel Soto MD Specialty: Pulmonary Disease Consult follow up timeframe: In 1-2 weeks Electronically Signed by Zachery Baez MD on at 1302 RPT #: [id number] END OF REPORT 2022-08-29 13:28:00-00:00 [facility] ([facility] Pulmonology Progress Note REPORT#:[id number] REPORT STATUS: Signed DATE:08/29/22 TIME:1328 PATIENT: GAVIN TALAMANTES UNIT #: [id number] ROOM/BED: [place] [id number] : 54 AGE: 66 SEX: M ATTEND: Fadi Connolly MD Cardiology ADM AUTHOR: Pavel Soto MD * ALL edits or amendments must be made on the [employer]/computer document * Subjective Chief complaint: less SOB No chest pain overall much better HPI: 66-year-old male with congestive heart failure s ick sinus syndrome Status post pacemaker placement History of paroxysmal A-fib, history of COPD He is volume overloaded Dyspnea Orthopnea Intermittent wheezing Review of Systems ROS Allergy/Immun: Denies: allergic reaction, hives. ENT: Denies: mouth pain, nasal congestion. GI: Denies: hematemesis, hematochezia. Musculoskeletal: Reports: joint pain. Neuro: Denies: focal weakness, gait problem. Objective General VS/I O: Last Documented: Result Date Time Pulse Ox 97 08/29 1203 B/P 107/73 08/29 1203 B/P Mean 84.6 08/29 1203 O2 Delivery Room air 08/29 120 Temp 36.8 08/29 1203 Pulse 69 08/29 1203 Resp 14 08/29 1203 FiO2 28 08/29 0901 O2 Flow Rate 2 08/29 0901 24 hour I O ending at 0700: 08/29 0700 08/28 1900 Intake Total 700 Output Total 1120 625 Balance -420 -625 Intake, Oral 700 Number Voids 4 Output, Chest 120 425 Tube Drainage Output, Urine 1000 200 PATIENT WEIGHT: Weight (lb): 176 Weight (oz): 5.92 Weight (kg): 79.832 Results Findings/Data: Laboratory Tests 08/28 1630 Urines Urine Color (YEL/STRAW discript) STRAW Urine Appearance (CLEAR discript) CLEAR Urine pH (5.0 - 7.0 pH UNITS) 6.0 Ur Specific Lutz (1.005 - 1.030 SG) 1.010 Urine Protein (NEG mg/dL) NEGATIVE Urine Glucose (UA) (NEG mg/dL) NEGATIVE Urine Ketones (NEG mg/dL) NEGATIVE Urine Blood (NEG mg/DL) 2+ H Urine Nitrite (NEG SCREEN) NEGATIVE Urine Bilirubin (NEG mg/dL) NEGATIVE Urine Urobilinogen (<2.0 mg/dL) 0.2 Ur Leukocyte Esterase (NEGATIVE Leuk/mcL) NEGAT EDDIE Urine RBC (0 - 3 #RBC/HPF) 5-10 H Urine WBC (0 - 3 #WBC/HPF) 0-1 Ur Squamous Epith Cells (NONE /HPF) 2+ Urine Bacteria (NONE - TRACE /HPF) 1+ H Urine Culture Screen (Culture CHK Criteria) NO, WBC<10 Free Text Obj Notes Free Text Obj Notes: General appearance: alert, awake, oriented Head/Eyes: atraumatic, normocephalic, PERRLA Neck: full range of motion, non-tender, normal t hyroid Cardiovascular: normal heart sounds, normal S1/S 2, regular rate rhythm Respiratory/chest: aerating well, clear to auscu ltation, symmetric expansion Abdomen: soft, non-tender, normal bowel sounds Genitourinary: no bladder distention, no flank p ain Extremities: No edema, moves all, normal capilla ry refill, no calf tenderness Musculoskeletal: full range of motion, normal in spection, painless range of motion, straight leg raise neg Skin: dry, intact, normal color Diagnosis, Assessment Plan Free Text A P: 1. CHF exacerbation #2 right-sided pleural effusion #3 pulmonary edema #4 cardiac asthma #5 COPD not in exacerbation Patient is massively volume overloaded Lower extremity edema, pulmonary edema, pleural effusion s/p right-sided chest tube removed today Keep in place today Transaudative effusion aggressive diuresis with Lasix DC on PO lasix Metolazone 5 p.o. once No need for antibiotic or steroid Ok for DC from pulmonary stand point Electronically Signed by Pavel Soto MD on 08/06 09/26 at 1330 RPT #: [id number] END OF REPORT 2022-08-29 10:30:00-00:00 [facility] ([facility]) Hospitalist Progress Note REPORT#:[id number] REPORT STATUS: Signed DATE:08/29/22 TIME:1030 PATIENT: GAVIN TALAMANTES UNIT #: [id number] ROOM/BED: [place] [address] : 54 AGE: 66 SEX: M ATTEND: Fadi Connolly MD Cardiology ADM AUTHOR: Zachery Baez MD * ALL edits or amendments must be made on the [employer] document * Subjective Chief complaint: Feeling better Chest tube in place Repeat x-ray findings noted Status post pacemaker placement HPI: 66-year-old male with sick sinus syndrom e symptomatic bradycardia admitted for postoperative monitoring aft er he underwent pacemaker placement by Dr. Connolly. Patient also has history of hypertension , paroxysmal atrial fibrillation, CHF, severe COPD. Denies any chest pain at the time o f interview. Complains of shortness of breath. Objective General VS/I O: Vital Signs: Date Time Temp Pulse Resp B/P B/P Pulse O2 O2 F low FiO2 Mean Ox Delivery Rate 08/29 1203 98.2 69 14 107/73 84.6 97 Room air 08/29 0933 70 16 94/52 66.4 08/29 0901 97 Nasal 2 28 cannula 08/29 0600 69 20 97/54 70 98 08/29 0500 69 17 117/56 80 99 08/29 0400 98.1 08/29 0400 69 18 110/56 80 99 08/29 0300 69 23 100/55 73 100 08/29 0200 69 08/29 0200 21 109/50 72 98 08/29 0100 69 19 98/55 73 92 04/25 0000 97.9 08/29 0000 69 26 119/53 76 97 08/28 2200 69 26 101/53 73 100 08/28 2100 69 39 108/53 77 100 08/28 2017 69 21 111/51 73 100 08/28 2000 97.7 08/28 1802 69 19 97 08/28 1800 69 22 97/49 70 95 08/28 1739 69 21 85/42 60 96 08/28 1601 69 22 104/59 76 100 08/28 1600 98.4 08/28 1509 69 24 119/49 70 100 08/28 1501 69 26 86/51 61 91 08/28 1400 69 17 92/43 62 98 08/28 1350 69 25 96 08/28 1301 69 22 100/53 73 100 08/28 1228 69 26 101/49 71 99 24 hour I O ending at 0700: 08/29 0700 08/28 1900 Intake Total 700 Output Total 1120 625 Balance -420 -625 Intake, Oral 700 Number Voids 4 Output, Chest 120 425 Tube Drainage Output, Urine 1000 200 PATIENT WEIGHT: Weight (lb): 176 Weight (oz): 5.92 Weight (kg): 79.832 Medications: Active Meds + DC'd Last 24 Hrs Albumin Human (OPTISON) 3 ML ONCE PRN IV Lisinopril (ZESTRIL) 10 MG DAILY PO Oxycodone HCl (ROXICODONE) 10 MG Q6H PRN PRN PO Furosemide (LASIX) 40 MG Q8HR IV Ipratropium Clayton (ATROVENT) 0.25 MG RTQ6H PRN PRN INH Melatonin (Melatonin) 3 MG BEDTIME PRN PRN PO Acetaminophen (TYLENOL) 650 MG Q4H PRN PRN PO Hydrocodone Bitart/Acetaminophen (NORCO 5/325) 1 TAB Q4H PRN PRN PO Ondansetron HCl (ZOFRAN ODT) 4 MG Q8H PRN PRN P O Diazepam (VALIUM) 5 MG ONCALL PO (CKD) Dietitian nutrition assessment The data set between the solid lines has been im ported from the dietitian's assessment. BMI Calculated: 27.6 Nutrition related diagnosis: Nutrition diagnosis details: Nutrition problem: Nutrition etiology: Nutrition signs and symptoms: Nutrition prescription: Dietitian name: Assessment completed: Physical Exam General appearance: alert, awake Head/Eyes: atraumatic, normocephalic ENT: dry mucosal membrane Neck: supple/no meningismus Cardiovascular: normal heart sounds, regular rat e rhythm Respiratory: crackles, decreased breath sounds, wheezing Abdomen: soft Genitourinary: no bladder distention Extremities: moves all Musculoskeletal: normal inspection Neuro/CLAIMS CLERK: alert, oriented X 3 Skin: dry, no rash Lymphatics: no lymphadenopathy Psychiatry: anxious Results Findings/Data: Laboratory Tests 08/28 1630 Urines Urine Color (YEL/STRAW discript) STRAW Urine Appearance (CLEAR discript) CLEAR Urine pH (5.0 - 7.0 pH UNITS) 6.0 Ur Specific Lutz (1.005 - 1.030 SG) 1.010 Urine Protein (NEG mg/dL) NEGATIVE Urine Glucose (UA) (NEG mg/dL) NEGATIVE Urine Ketones (NEG mg/dL) NEGATIVE Urine Blood (NEG mg/DL) 2+ H Urine Nitrite (NEG SCREEN) NEGATIVE Urine Bilirubin (NEG mg/dL) NEGATIVE Urine Urobilinogen (<2.0 mg/dL) 0.2 Ur Leukocyte Esterase (NEGATIVE Leuk/mcL) NEGA TIVE Urine RBC (0 - 3 #RBC/HPF) 5-10 H Urine WBC (0 - 3 #WBC/HPF) 0-1 Ur Squamous Epith Cells (NONE /HPF) 2+ Urine Bacteria (NONE - TRACE /HPF) 1+ H Urine Culture Screen (Culture CHK Criteria) NO, WBC<10 Diagnosis, Assessment Plan Free Text DxA P Notes Free text DxA P notes: Sick sinus syndrome Symptomatic bradycardia History of V. tach Status post pacemaker placement. Monitor closely under telemetry Appreciate help from Dr. Connolly Pain control Continue antibiotics Acute hypoxic hypercapnic respiratory failure Monitor closely under telemetry Pulmonology consulted Oxygen supplementation Monitor mental status closely Place on BiPAP if needed PT eval May need home O2 Paroxysmal atrial fibrillation Monitor closely under telemetry Rate controlled We will start back on anticoagulation Hypertension Continue home medications and titrate as needed COPD Continue bronchodilators Pulmonology consult Oxygen supplementation CHF possibly combined systolic/diastolic We will add on diuretics Continue home medications Repeat x-ray findings noted No pneumothorax Consistent with pulmonary edema We will give a dose of Lasix 40 mg Pleural effusion Appreciate help from pulmonology Status post chest tube placement Repeat x-ray findings noted showing resolution o f pleural effusion Possible removal of chest tube Case management consult for home O2 GI/DVT prophylaxis Advanced directive full code Total critical care time used was 38 minutes Electronically Signed by Zachery Baez MD on at 1215 RPT #: [id number] END OF REPORT 2022-08-28 19:12:00-00:00 [facility] ([facility]) Pulmonology Progress Note REPORT#:[id number] REPORT STATUS: Signed DATE:08/28/22 TIME:1911 PATIENT: GAVIN TALAMANTES UNIT #: [id number] ROOM/BED: [place] [id number] : 54 AGE: 66 SEX: M ATTEND: Fadi Connolly MD Cardiology ADM AUTHOR: Pavel Soto MD * ALL edits or amendments must be made on the [employer]/computer document * Subjective Chief complaint: less SOB No chest pain No Cough HPI: 66-year-old male with congestive heart failure s ick sinus syndrome Status post pacemaker placement History of paroxysmal A-fib, history of COPD He is volume overloaded Dyspnea Orthopnea Intermittent wheezing Objective General VS/I O: Last Documented: Result Date Time Pulse Ox 97 08/28 1802 Pulse 69 08/28 1802 Resp 19 08/28 1802 B/P 97/49 08/28 1800 B/P Mean 70 08/28 1800 Temp 36.9 08/28 1600 FiO2 28 08/28 0921 O2 Delivery Nasal cannula 08/28 0921 O2 Flow Rate 2 08/28 0921 24 hour I O ending at 0700: 08/28 0700 08/27 1900 Intake Total 400 700 Output Total 1450 3820 Balance -1050 -3120 Intake, Oral 400 700 Output, Chest 650 2470 Tube Drainage Output, Urine 800 1350 Patient 79.832 kg Weight PATIENT WEIGHT: Weight (lb): 176 Weight (oz): 5.92 Weight (kg): 79.832 Medications: Active Meds + DC'd Last 24 Hrs Albumin Human (OPTISON) 3 ML ONCE PRN IV Lisinopril (ZESTRIL) 10 MG DAILY PO Midodrine (PROAMATINE) 10 MG ONCE ONE PO (DC) Oxycodone HCl (ROXICODONE) 10 MG Q6H PRN PRN PO Furosemide (LASIX) 40 MG Q8HR IV Ipratropium Clayton (ATROVENT) 0.25 MG RTQ6H PRN PRN INH Melatonin (Melatonin) 3 MG BEDTIME PRN PRN PO Morphine Sulfate (morphine Sulfate) 2 MG Q4H PRN PRN IV (DC) Acetaminophen (TYLENOL) 650 MG Q4H PRN PRN PO Hydrocodone Bitart/Acetaminophen (NORCO 5/325) 1 TAB Q4H PRN PRN PO Ondansetron HCl (ZOFRAN ODT) 4 MG Q8H PRN PRN PO Diazepam (VALIUM) 5 MG ONCALL PO (CKD) Results Findings/Data: Laboratory Tests 08/28 1630 Urines Urine Color (YEL/STRAW discript) STRAW Urine Appearance (CLEAR discript) CLEAR Urine pH (5.0 - 7.0 pH UNITS) 6.0 Ur Specific Lutz (1.005 - 1.030 SG) 1.010 Urine Protein (NEG mg/dL) NEGATIVE Urine Glucose (UA) (NEG mg/dL) NEGATIVE Urine Ketones (NEG mg/dL) NEGATIVE Urine Blood (NEG mg/DL) 2+ H Urine Nitrite (NEG SCREEN) NEGATIVE Urine Bilirubin (NEG mg/dL) NEGATIVE Urine Urobilinogen (<2.0 mg/dL) 0.2 Ur Leukocyte Esterase (NEGATIVE Leuk/mcL) NEGAT EDDIE Urine RBC (0 - 3 #RBC/HPF) 5-10 H Urine WBC (0 - 3 #WBC/HPF) 0-1 Ur Squamous Epith Cells (NONE /HPF) 2+ Urine Bacteria (NONE - TRACE /HPF) 1+ H Urine Culture Screen (Culture CHK Criteria) NO, WBC<10 Radiology data: Recent Impressions: RADIOLOGY - XR CHEST 1 V 08/28 0100 Report Impression - Status: SIGNED Entered: 08/28/2022 0900 IMPRESSION: Stable position of right-sided chest tube. No si gnificant pleural effusion. Impression By: [email or web address] Wayne Chandler M.D. Free Text Obj Notes Free Text Obj Notes: General appearance: alert, awake, oriented Head/Eyes: atraumatic, normocephalic, PERRLA Neck: full range of motion, non-tender, normal t hyroid Cardiovascular: normal heart sounds, normal S1/S 2, regular rate rhythm Respiratory/chest: aerating well, clear to auscu ltation, symmetric expansion Abdomen: soft, non-tender, normal bowel sounds Genitourinary: no bladder distention, no flank p ain Extremities: No edema, moves all, normal capilla ry refill, no calf tenderness Musculoskeletal: full range of motion, normal in spection, painless range of motion, straight leg raise neg Skin: dry, intact, normal color Diagnosis, Assessment Plan Free Text A P: 1. CHF exacerbation #2 right-sided pleural effusion #3 pulmonary edema #4 cardiac asthma #5 COPD not in exacerbation Patient is massively volume overloaded Lower extremity edema, pulmonary edema, pleural effusion s/p right-sided chest tube 1300 output in [address] today Transaudative effusion aggressive diuresis with Lasix 40 IV every 8 ho urs Metolazone 5 p.o. once No need for antibiotic or steroid DC chest tube tomorrow Electronically Signed by Pavel Soto MD on 08/06 08/27 at 1914 RPT #: [id number] END OF REPORT 2022-08-28 17:35:00-00:00 [id number] [facility] [id number] [place] [id number] PATIENT NAME: GAVIN TALAMANTES ADMIT DATE: 08/27/22 ACCOUNT NO: [id number] ROOM NO: L.311 AGE: 66 REPORT TYPE: eECHOCARDIOGRAM REPORT SEX: M ADMITTING PHYSICIAN: Zachery Baez MD ATTENDING PHYSICIAN: Dwight Connolly MD *[facility]* [address] [place] [id number] Transthoracic Echocardiogram Patient: Gavin Talamantes Study Date: 08/28/2022 BP: 113 / 72 Location: [facility] URN: [id number] : 1955 Age: 66 Height: 66.9 in / 170 cm Gender: M Weight: 173 .8 lb / 79 kg BMI/BSA: 27.3 kg/m 2 / 1.95 m 2 *Ordering Physician: * Pavel Soto *Interpreting Physician: * Dwight Connolly MD *Manager Environmental Health: Werner Burgess Indications: CMP. Study data: Transthoracic echocardiogram. Proced ure: Transthoracic echocardiography was performed. Image quality wa s adequate. Complete 2D, complete spectral Doppler, and color Doppler . Location: Bedside. Patient status: Inpatient. Patient room number: 311. Study status: Routine. Findings Left ventricle: The cavity size is normal. Wall thickness is normal. Systolic function is normal. The estimated eject ion fraction is 55-60%. Right ventricle: The cavity size is normal. Syst olic function is reduced. Systolic pressure is increased. Left atrium: The atrium is severely dilated. Right atrium: The atrium is dilated. PATIENT NAME: GAVIN TALAMANTES 3 Aorta: Aortic root: The aortic root is normal in size. Aortic valve: The valve is trileaflet. The leafl ets are moderately calcified. The findings are consistent with mode rate to severe stenosis. There is no regurgitation. Mitral valve: The valve is structurally normal. There is moderate to severe regurgitation. Tricuspid valve: The valve is structurally mal l. There is moderate regurgitation. Pulmonic valve: The valve is structurally normal . There is trivial regurgitation. Pericardium: There is no pericardial effusion. Pulmonary arteries: Not visualized. Systemic veins: Inferior vena cava: The vessel is normal in size . Measurements Left ventricle Value Ref LOUIS, LAX 5.6 cm 4.2 - 5.8 ESD, LAX 3.9 cm 2.5 - 4.0 ESD/bsa, LAX 2.0 cm/m 2 1.3 - 2.1 FS, LAX 30 % 25 - 43 PW, ED 0.8 cm 0.6 - 1.0 IVS/PW, ED 1.08 --------- EF 57 % 52 - 72 IVRT 60 ms --------- LVOT Value Ref Diam, S 1.77 cm --------- Area 2.4 cm 2 --------- Peak meri, S 0.98 m/sec --------- Mean meri, S 0.76 m/sec --------- VTI, S 20.9 cm --------- Peak grad, S 4 mm Hg --------- Mean grad, S 3 mm Hg --------- SV 51 ml --------- SV/bsa 26 ml/m 2 --------- Ventricular septum Value Ref IVS, ED 0.9 cm 0.6 - 1.0 Right ventricle Value Ref TAPSE, MM 1.6 cm 1.7 - 3.1 Pressure, S 76 mm Hg --------- Left atrium Value Ref Vol/bsa, ES, 1-p A4C 87 ml/m 2 12 - 37 Vol/bsa, ES, A/L 102 ml/m 2 16 - 34 AP dim, ES MM 5.4 cm 3.0 - 4.0 LA/Ao root ratio, MM 1.68 --------- Right atrium Value Ref PATIENT NAME: GVAIN TALAMANTES 3 Area, ES 30 cm 2 10 - 18 SI dim, ES, A4C 7.2 cm 3.4 - 5.3 SI dim/bsa, ES, A4C 3.7 cm/m 2 1.8 - 3.0 Vol, ES, A/L 108 ml --------- Vol, ES, 1-p A4C 103 ml --------- Vol/bsa, ES, 1-p A4C 53 ml/m 2 11 - 39 Aortic valve Value Ref Leaflet sep, MM 1.32 cm --------- Peak v, S 3.9 m/sec --------- Mean v, S 2.74 m/sec --------- VTI, S 74.3 cm --------- Mean grad, S 33.7 mm Hg --------- Peak grad, S 60.8 mm Hg --------- LVOT/AV, VTI ratio 0.28 --------- OSCAR, VTI 0.69 cm 2 --------- LVOT/AV, Vpeak ratio 0.25 --------- OSCAR, Vmax 0.61 cm 2 --------- Mitral valve Value Ref Peak E 1.56 m/sec --------- Peak A 0.33 m/sec --------- Decel time 204 ms --------- PHT 48 ms --------- Peak grad, D 9.8 mm Hg --------- Peak E/A ratio 4.72 --------- MVA, PHT 4.6 cm 2 --------- MR peak v 5.41 m/sec --------- Tricuspid valve Value Ref TR peak v 3.91 m/sec <=2.8 Peak RV-RA grad, S 61 mm Hg --------- Aortic root Value Ref Root diam, ED MM 3.19 cm --------- Pulmonary artery Value Ref Pressure, S 61.4 mm Hg --------- Systemic veins Value Ref Estimated CVP 15 mm Hg --------- Conclusions Summary: 1. Left ventricle: The cavity size is normal. Wa ll thickness is normal. Systolic function is normal. The estimated ejec tion fraction is 55-60%. 2. Right ventricle: Systolic function is reduced . Systolic pressure is increased. The RV pressure during systole by Do ppler is 76 mm Hg. 3. Left atrium: The atrium is severely dilated. 4. Right atrium: The atrium is dilated. PATIENT NAME: GAVIN TALAMANTES 3 5. Aortic valve: The findings are consistent wit h moderate to severe stenosis. The mean systolic gradient is 33.7 mm Hg. The peak systolic gradient is 60.8 mm Hg. 6. Mitral valve: There is moderate to severe reg urgitation. 7. Tricuspid valve: There is moderate regurgitat ion. Prepared and electronically signed by Dwight Connolly MD 08/28/2022 17:35 at 1735 PATIENT NAME: GAVIN TALAMANTES 72 2022-08-28 14:40:00-00:00 [id number] [facility] [id number] [place] [id number] PATIENT NAME: GAVIN TALAMANTES ADMIT DATE: 08/27/22 ACCOUNT NO: [id number] ROOM NO: [facility] AGE: 66 REPORT TYPE: eELECTROCARDIOGRAM SEX: M ADMITTING PHYSICIAN: Zachery Baez MD ATTENDING PHYSICIAN: Dwight Connolly MD Order: [id number] Test Reason : CP Test Date/Time Stamp: SunAug 28 2022 14:40:46 Blood Pressure : / mmHG Vent. Rate : 070 BPM Atrial Rate : 072 BPM P-R Int : 000 ms QRS Dur : 178 ms QT Int : 448 ms P-R-T Axes : 000 -85 086 degree s QTc Int : 483 ms Ventricular-paced rhythm Abnormal ECG When compared with ECG of 27-AUG-2022 14:21, No significant change was found Confirmed by DWIGHT CONNOLLY ([id number]) on 08/31/2022 6:12:12 AM Referred By: Dwight Connolly Confirmed by:DWIGHT YEE at 0612 PATIENT NAME: GAVIN TALAMANTES 3 2022-08-28 11:01:00-00:00 [facility] Hospitalist Progress Note REPORT#:[id number] REPORT STATUS: Signed DATE:08/28/22 TIME:1101 PATIENT: GAVIN TALAMANTES UNIT #: [id number] ROOM/BED: [place] [id number] : 54 AGE: 66 SEX: M ATTEND: Fadi Connolly MD Cardiology ADM AUTHOR: Zachery Baez MD * ALL edits or amendments must be made on the [employer]/computer document * Subjective Chief complaint: Feeling better Chest tube in place Repeat x-ray findings noted Status post pacemaker placement HPI: 66-year-old male with sick sinus syndrom e symptomatic bradycardia admitted for postoperative monitoring aft er he underwent pacemaker placement by Dr. Connolly. Patient also has history of hypertension , paroxysmal atrial fibrillation, CHF, severe COPD. Denies any chest pain at the time o f interview. Complains of shortness of breath. Objective General VS/I O: Vital Signs: Date Time Temp Pulse Resp B/P B/P Pulse O2 O2 F low FiO2 Mean Ox Delivery Rate 08/28 0921 100 Nasal 2 28 cannula 08/28 0615 69 24 101/60 75 98 08/28 0600 69 20 99/59 73 99 08/28 0545 69 19 112/70 86 96 08/28 0530 69 20 101/61 75 99 08/28 0515 69 31 100/67 79 98 08/28 0500 69 16 115/62 84 99 08/28 0445 69 21 122/76 95 100 08/28 0439 98.1 08/28 0438 69 32 120/67 88 96 08/28 0415 69 23 109/55 79 98 08/28 0400 69 20 109/55 77 100 08/28 0345 69 27 115/53 77 94 08/28 0330 69 23 116/58 83 96 08/28 0315 69 23 126/60 86 98 08/28 0300 69 20 140/65 93 93 08/28 0246 69 20 141/60 87 97 08/28 0230 69 24 99/66 76 95 08/28 0215 69 17 90/62 71 98 08/28 0200 69 23 91/56 69 97 08/28 0145 69 20 88/52 65 100 08/28 0130 69 23 108/53 76 98 08/28 0115 69 30 98/43 62 97 08/28 0103 69 26 109/60 78 91 08/28 0031 69 31 128/61 88 98 08/28 0015 69 23 93/49 68 85 08/28 0008 Nasal 2 cannula 08/27 2345 69 17 80/53 62 98 08/27 2341 98.2 08/27 2335 69 24 90/54 67 94 08/27 2315 69 19 77/52 60 97 08/27 2300 69 21 84/57 66 97 08/27 2246 69 37 83/51 61 91 08/27 2230 69 20 76/52 59 99 08/27 2215 69 22 76/52 59 100 08/27 2200 69 21 74/50 58 98 08/27 2145 69 20 75/51 58 99 08/27 2130 69 23 81/50 60 99 08/27 2121 69 25 77/50 59 96 08/27 2115 69 20 73/50 57 100 08/27 2100 69 22 77/52 60 98 08/28 2047 69 22 76/51 60 99 08/28 2031 99 Nasal 2 28 cannula 08/27 2029 69 30 84/53 64 99 08/27 2014 69 24 80/55 63 96 08/27 2006 69 25 77/51 60 90 08/27 2004 69 26 77/53 61 87 08/27 1953 98.6 08/27 1903 69 29 101/65 79 99 08/27 1803 69 24 83/53 63 100 08/27 1800 69 24 88/61 70 94 08/27 1726 69 27 95/53 68 85 08/27 1640 97.2 23 08/27 1615 69 26 90/57 69 97 08/27 1500 69 27 100/56 73 97 08/27 1400 69 29 106/55 74 98 08/27 1330 69 21 108/56 78 100 08/27 1316 69 37 121/59 85 92 08/27 1313 69 29 97/60 74 98 08/27 1250 69 26 90/56 68 97 08/27 1202 69 36 92/51 65 99 08/27 1133 97.5 24 24 hour I O ending at 0700: 08/28 0700 08/27 1900 Intake Total 400 700 Output Total 1450 3820 Balance -1050 -3120 Intake, Oral 400 700 Output, Chest 650 2470 Tube Drainage Output, Urine 800 1350 Patient 176 lb Weight PATIENT WEIGHT: Weight (lb): 176 Weight (oz): 5.92 Weight (kg): 79.832 Medications: Active Meds + DC'd Last 24 Hrs Lisinopril (ZESTRIL) 10 MG DAILY PO Midodrine (PROAMATINE) 10 MG ONCE ONE PO (DC) Oxycodone HCl (ROXICODONE) 10 MG Q6H PRN PRN PO Cefazolin Sodium (KEFZOL) 1 GM Q8HR IV (DC) Sterile Water (WATER FOR INJECTION) 10 ML Furosemide (LASIX) 40 MG Q8HR IV Ipratropium Clayton (ATROVENT) 0.25 MG RTQ6H PRN PRN INH Metolazone (ZAROXOLYN) 5 MG ONCE ONE PO (DC) Ipratropium Clayton (ATROVENT) 0.25 MG RTQ6H INH (DC) Albuterol Sulfate (PROVENTIL) 1.25 MG RTQ6H PRN NEB (DC) Melatonin (Melatonin) 3 MG BEDTIME PRN PRN PO Lisinopril (ZESTRIL) 20 MG DAILY PO (DC) Morphine Sulfate (morphine Sulfate) 2 MG Q4H PRN PRN IV (DC) Acetaminophen (TYLENOL) 650 MG Q4H PRN PRN PO Cefazolin Sodium (KEFZOL) 1 GM Q8H IV (DC) Sterile Water (WATER FOR INJECTION) 10 ML Hydrocodone Bitart/Acetaminophen (NORCO 5/325) 1 TAB Q4H PRN PRN PO Ondansetron HCl (ZOFRAN ODT) 4 MG Q8H PRN PRN PO Diazepam (VALIUM) 5 MG ONCALL PO (CKD) Dietitian nutrition assessment The data set between the solid lines has been im ported from the dietitian's assessment. BMI Calculated: 27.6 Nutrition related diagnosis: Nutrition diagnosis details: Nutrition problem: Nutrition etiology: Nutrition signs and symptoms: Nutrition prescription: Dietitian name: Assessment completed: Physical Exam General appearance: alert, awake Head/Eyes: atraumatic, normocephalic ENT: dry mucosal membrane Neck: supple/no meningismus Cardiovascular: normal heart sounds, regular rat e rhythm Respiratory: crackles, decreased breath sounds, wheezing Abdomen: soft Genitourinary: no bladder distention Extremities: moves all Musculoskeletal: normal inspection Neuro/CLAIMS CLERK: alert, oriented X 3 Skin: dry, no rash Lymphatics: no lymphadenopathy Psychiatry: anxious Results Findings/Data: Laboratory Tests 08/27 1300 Other Body Source Pleural Color (COLORLESS DESCRIP.) YELLOW Pleural Appearance (CLEAR DESCRIP.) HAZY Pleural RBC (0 /mm3) 1000 Pleural Tot WBC Counted (0 - 74130 #/mm3) 117 Pleural Total Protein (() GM/DL) 2.8 Pleural Glucose (() MG/DL) 112 Radiology data: Recent Impressions: RADIOLOGY - XR CHEST 1 V 08/27 1230 Report Impression - Status: SIGNED Entered: 08/27/2022 1251 IMPRESSION: Interval placement of a right pleural catheter w ith marked decrease in right pleural effusion and improved aeration rig ht lung. Moderate congestive heart failure with persisten t pulmonary edema. Superimposed infection cannot be excluded. Impression By: [email or web address] Wayne Swanson M.D. RADIOLOGY - XR CHEST 1 V 08/28 0100 Report Impression - Status: SIGNED Entered: 08/28/2022 0900 IMPRESSION: Stable position of right-sided chest tube. No si gnificant pleural effusion. Impression By: [email or web address] Wayne Chandler M.D. Diagnosis, Assessment Plan Free Text DxA P Notes Free text DxA P notes: Sick sinus syndrome Symptomatic bradycardia History of V. tach Status post pacemaker placement. Monitor closely under telemetry Appreciate help from Dr. Connolly Pain control Continue antibiotics Acute hypoxic hypercapnic respiratory failure Monitor closely under telemetry Pulmonology consulted Oxygen supplementation Monitor mental status closely Place on BiPAP if needed PT eval May need home O2 Paroxysmal atrial fibrillation Monitor closely under telemetry Rate controlled We will start back on anticoagulation Hypertension Continue home medications and titrate as needed COPD Continue bronchodilators Pulmonology consult Oxygen supplementation CHF possibly combined systolic/diastolic We will add on diuretics Continue home medications Repeat x-ray findings noted No pneumothorax Consistent with pulmonary edema We will give a dose of Lasix 40 mg Pleural effusion Appreciate help from pulmonology Status post chest tube placement Repeat x-ray findings noted showing resolution o f pleural effusion Possible removal of chest tube Case management consult for home O2 Possible DC in a.m. GI/DVT prophylaxis Advanced directive full code Total critical care time used was 38 minutes Electronically Signed by Zachery Baez MD on at 1134 RPT #: [id number] END OF REPORT 2022-08-27 14:21:00-00:00 [id number] [facility] [id number] [place] [address] PATIENT NAME: GAVIN TALAMANTES ADMIT DATE: 08/27/22 ACCOUNT NO: [id number] ROOM NO: [facility] AGE: 66 REPORT TYPE: eELECTROCARDIOGRAM SEX: M ADMITTING PHYSICIAN: Zachery Baez MD ATTENDING PHYSICIAN: Dwight Connolly MD Order: [id number] Test Reason : PRE-OP Test Date/Time Stamp: SunAug 27 2022 14:21:30 Blood Pressure : / mmHG Vent. Rate : 070 BPM Atrial Rate : 071 BPM P-R Int : 000 ms QRS Dur : 180 ms QT Int : 466 ms P-R-T Axes : 000 -81 095 degree s QTc Int : 503 ms Ventricular-paced rhythm Abnormal ECG When compared with ECG of 27-AUG-2022 04:53, No significant change was found Confirmed by DWIGHT CONNOLLY ([id number]) on 08/28/2022 5:29:32 PM Referred By: Dwight Connolly Confirmed by:DWIGHT YEE at 1729 PATIENT NAME: GAVIN TALAMANTES 3 2022-08-27 11:56:00-00:00 [facility] ([facility]) DT Operative Note REPORT#:[id number] REPORT STATUS: Signed DATE:08/27/22 TIME:1156 PATIENT: GAVIN TALAMANTES UNIT #: [id number] ROOM/BED: [place] [id number] : 54 AGE: 66 SEX: M ATTEND: Sa ricarda Connolly MD Cardiology ADM AUTHOR: Jennifer Copeland MD * ALL edits or amendments must be made on the [employer]/computer document * Operative Report Operative Note Note: PREOPERATIVE DIAGNOSIS: Pleural effusion POSTOPERATIVE DIAGNOSIS: Same PROCEDURES: Ultrasound of the chest and chest tu be placement. SURGEON: Jennifer Cpoeland MD SACK MAKER: ANESTHESIA: Local Informed consent was obtained from the patient, Risks and benefits of the procedure were discussed in details. DESCRIPTION OF PROCEDURE: The patient was placed in left decubitus position, I did ultrasound of the chest, visualized moder ate pleural effusion, without septation, collapsed l marlen, After that, I marked the skin and prepared in randy rile fashion with chlorhexidine. A small needle was inserted to numb the subcutaneous tissue and div jessica the entry point. A small incision was made. Using Seldinger technique I inserted a 14 Greek pigtail chest tube in the pleural cavity Connected to Pneumovax Was draining high flow straw-colored fluid Will be confirmed by chest x-ray Complication: None Blood loss: 0 Electronically Signed by Jennifer Copeland MD on 08/06 07/27 at 1157 RPT #: [id number] END OF REPORT 2022-08-27 11:54:00-00:00 [facility] ([facility]) Pulmonary Consultation Note REPORT#:[id number] REPORT STATUS: Signed DATE:08/27/22 TIME:1154 PATIENT: GAVIN TALAMANTES UNIT #: [id number] ROOM/BED: [place] [id number] : 54 AGE: 66 SEX: M ATTEND: Fadi Connolly MD Cardiology ADM AUTHOR: Jennifer Copeland MD * ALL edits or amendments must be made on the [employer]/computer document * History of Present Illness HPI HPI: 66-year-old male with congestive heart failure s ick sinus syndrome Status post pacemaker placement History of paroxysmal A-fib, history of COPD He is volume overloaded Dyspnea Orthopnea Intermittent wheezing History - Adult longitudinal Additional medical history: Hypertension, CHF, COPD, paroxysmal A-fib Additional surgical history: Status post pacemaker placement Family history: Reports: Hypertension. Smoking status for patients 13 years old or olde r: Never Smoker Years smoked: 25 Pack years: 0 Medications: Home Medications: Medication Dose/Rte/Freq Days Qty Entered Last Max Daily Dose Reviewed APIXABAN (ELIQUIS) 5 MG PO BID 08/23/22 Strength: 5 MG TAB 1509 LISINOPRIL (ZESTRIL) 20 MG PO DAILY 08/23/22 Strength: 20 MG TAB 1510 ALBUTEROL 0.63 MG INH 08/23/22 (ALBUTEROL NEB SOLN RTQ6H PRN PRN 1513 0.021%) WHEEZING Strength: 0.63 MG/3 ML VIAL.NEB IPRATROPIUM 250 MCG INH RTQ6H 08/23/22 (ATROVENT 0.02%) 1514 Strength: 0.2 MG/ML (0.02 %) NEB Current Hospital Medications: Ahfs Category Unknown Sig/Ivan Start time Last Medication Dose Route Stop Time Status Admin Melatonin 3 MG BEDTIME PRN PRN 08/26 2315 AC (Melatonin) PO 09/25 2314 2318 Anti-Infective Agents Sig/Ivan Start time Last Medication Dose Route Stop Time Status Admin Cefazolin Sodium 1 GM Q8H 08/26 1300 AC 08/27 (KEFZOL) IV 08/27 1259 0443 Sterile Water 10 ML (WATER FOR INJECTION) Gentamicin Sulfate 0 .STK-MED ONE 08/26 1157 DC (GARAMYCIN) .ROUTE Autonomic Drugs Sig/Ivan Start time Last Medication Dose Route Stop Time Status Admin Ipratropium Clayton 0.25 MG RTQ6H 08/27 0800 AC 08/27 (ATROVENT) INH 09/10 0759 0734 Albuterol Sulfate 1.25 MG RTQ6H PRN 08/27 0345 AC 08/27 (PROVENTIL) NEB 09/10 0344 0417 Cardiovascular Drugs Sig/Ivan Start time Last Medication Dose Route Stop Time Status Admin Lisinopril 20 MG DAILY 08/26 1400 AC 08/26 (ZESTRIL) PO 09/25 1359 1544 Lidocaine HCl 0 .STK-MED ONE 08/26 1157 DC (lidocaine HCL) .ROUTE Central Nervous System Agents Sig/Ivan Start time Last Medication Dose Route Stop Time Status Admin Morphine Sulfate 2 MG Q4H PRN PRN 08/26 1315 AC (morphine Sulfate) IV 08/29 1314 Acetaminophen 650 MG Q4H PRN PRN 08/26 1300 AC 08/26 (TYLENOL) PO 09/25 1259 2114 Hydrocodone Bitart/ 1 TAB Q4H PRN PRN 08/26 130 0 AC Acetaminophen PO 09/05 1259 (NORCO 5/325) Diazepam 5 MG ONCALL 08/26 0600 CKD (VALIUM) PO 09/25 0559 Electrolytic, Caloric, And Justin Sig/Ivan Start time Last Medication Dose Route Stop Time Status Admin Furosemide 40 MG ONCE 08/27 1100 DC (LASIX) IV 08/27 1130 Furosemide 40 MG ONCE ONE 08/27 0815 DC 08/27 (LASIX) IV 08/27 0816 1102 Furosemide 0 .STK-MED ONE 08/26 1232 DC (LASIX) .ROUTE Gastrointestinal Drugs Sig/Ivan Start time Last Medication Dose Route Stop Time Status Admin Ondansetron HCl 4 MG Q8H PRN PRN 08/26 1300 AC (ZOFRAN ODT) PO 09/25 1259 Allergies: Coded Allergies: No Known Allergies (08/23/22) Review of Systems All systems rev neg: except as marked Objective Physical Exam Vitals: Last Documented: Result Date Time Temp 36.4 08/27 1133 Resp 24 08/27 1133 Pulse Ox 93 08/27 1005 Pulse 69 08/27 1005 B/P 106/68 08/27 1000 B/P Mean 83 08/27 1000 O2 Delivery Nasal cannula 08/27 0730 O2 Flow Rate 3 08/27 0730 FiO2 28 08/26 2058 Results Results: x-ray personally reviewed Free Text Obj Notes Free Text Obj Notes: General appearance: alert, awake, oriented Head/Eyes: atraumatic, normocephalic, PERRLA Neck: full range of motion, non-tender, normal t hyroid Cardiovascular: normal heart sounds, normal S1/S 2, regular rate rhythm Respiratory/chest: aerating well, clear to auscu ltation, symmetric expansion Abdomen: soft, non-tender, normal bowel sounds Genitourinary: no bladder distention, no flank p ain Extremities: No edema, moves all, normal capilla ry refill, no calf tenderness Musculoskeletal: full range of motion, normal in spection, painless range of motion, straight leg raise neg Skin: dry, intact, normal color Diagnosis, Assessment Plan Free Text DxA P Notes Free Text DxA P Notes: 1. CHF exacerbation #2 right-sided pleural effusion #3 pulmonary edema #4 cardiac asthma #5 COPD not in exacerbation Patient is massively volume overloaded Lower extremity edema, pulmonary edema, pleural effusion I placed right-sided chest tube Start aggressive diuresis with Lasix 40 IV every 8 hours Metolazone 5 p.o. once Medrano catheter with close I's and O's monitoring No need for antibiotic or steroid Thank you for the consult Electronically Signed by Jennifer Copeland MD on 08/06 07/27 at 1156 RPT #: [id number] END OF REPORT 2022-08-27 09:56:00-00:00 [facility] ([facility]) Hospitalist Progress Note REPORT#:[id number] REPORT STATUS: Signed DATE:08/27/22 TIME:09 PATIENT: GAVIN TALAMANTES UNIT #: [id number] ROOM/BED: [place] [id number] : 54 AGE: 66 SEX: M ATTEND: Fadi Connolly MD Cardiology ADM AUTHOR: Zachery Baez MD * ALL edits or amendments must be made on the [employer] document * Subjective Chief complaint: Status post pacemaker placement HPI: 66-year-old male with sick s inus syndrome admitted for postoperative monitoring after he underwent pacemaker placement Objective General VS/I O: Vital Signs: Date Time Temp Pulse Resp B/P B/P Pulse O2 O2 Flow FiO2 Mean Ox Delivery Rate 08/27 0824 97.7 08/27 0601 69 19 97/50 72 96 08/27 0500 69 20 108/71 85 91 08/27 0400 98.8 08/27 0400 69 22 117/77 93 95 08/27 0304 69 34 126/76 94 100 08/27 0100 69 19 126/81 97 100 08/27 0000 98.2 08/27 0000 69 20 100 08/26 2300 69 30 131/78 97 100 08/26 2200 69 41 127/85 102 100 08/26 2100 69 25 131/83 100 100 08/26 2059 100 Nasal 2 28 cannula 08/26 2022 69 30 124/88 103 100 08/26 2000 99.0 08/27 1999 Nasal 2 cannula 08/26 1947 69 27 113/81 94 98 08/26 1925 69 31 125/86 101 08/26 1800 69 21 99 08/26 1715 69 31 141/76 100 08/26 1700 69 27 08/26 1700 98.2 08/26 1600 69 34 08/26 1514 Nasal 2 cannula 08/26 1500 69 25 79 08/26 1451 69 27 161/67 96 08/26 1447 69 28 193/132 148 83 08/26 1430 69 23 139/99 115 08/26 1421 69 24 131/95 109 08/26 1413 69 24 08/26 1345 97.0 61 15 140/82 90 Room air 08/26 1315 67 18 140/76 88 Room air 08/26 1300 62 14 146/87 91 Room air 08/26 1053 Nasal 3 32 cannula 24 hour I O ending at 0700: 08/27 0700 08/26 1900 Intake Total 400 400 Output Total 150 350 Balance 250 50 Intake, Oral 400 400 Number Voids 3 2 Output, Urine 150 350 Patient 176 lb Weight Weight Stated/Reported Measurement Method PATIENT WEIGHT: Weight (lb): 176 Weight (oz): 5.92 Weight (kg): 80.000 Medications: Active Meds + DC'd Last 24 Hrs Furosemide (LASIX) 40 MG ONCE ONE IV (DC) Ipratropium Clayton (ATROVENT) 0.25 MG RTQ6H INH Albuterol Sulfate (PROVENTIL) 1.25 MG RTQ6H PRN NEB Melatonin (Melatonin) 3 MG BEDTIME PRN PRN PO Lisinopril (ZESTRIL) 20 MG DAILY PO Morphine Sulfate (morphine Sulfate) 2 MG Q4H PRN PRN IV Acetaminophen (TYLENOL) 650 MG Q4H PRN PRN PO Cefazolin Sodium (KEFZOL) 1 GM Q8H IV Sterile Water (WATER FOR INJECTION) 10 ML Hydrocodone Bitart/Acetaminophen (NORCO 5/325) 1 TAB Q4H PRN PRN PO Ondansetron HCl (ZOFRAN ODT) 4 MG Q8H PRN PRN PO Furosemide (LASIX) 0 .STK-MED ONE .ROUTE (DC) Gentamicin Sulfate (GARAMYCIN) 0 .STK-MED ONE .R OUTE (DC) Lidocaine HCl (lidocaine HCL) 0 .STK-MED ONE .[place] (DC) Cefazolin Sodium (KEFZOL) 0 .STK-MED ONE .ROUTE (DC) Albuterol/Ipratropium (DUONEB) 3 ML RTONCE ONE N EB (DC) Diazepam (VALIUM) 5 MG ONCALL PO (CKD) Dietitian nutrition assessment The data set between the solid lines has been im ported from the dietitian's assessment. BMI Calculated: 27.6 Nutrition related diagnosis: Nutrition diagnosis details: Nutrition problem: Nutrition etiology: Nutrition signs and symptoms: Nutrition prescription: Dietitian name: Assessment completed: Physical Exam General appearance: alert, awake Head/Eyes: atraumatic, normocephalic ENT: dry mucosal membrane Neck: supple/no meningismus Cardiovascular: normal heart sounds, regular rat e rhythm Respiratory: crackles, decreased breath sounds, wheezing Abdomen: soft Genitourinary: no bladder distention Extremities: moves all Musculoskeletal: normal inspection Neuro/CLAIMS CLERK: alert, oriented X 3 Skin: dry, no rash Lymphatics: no lymphadenopathy Psychiatry: anxious Results Findings/Data: Laboratory Tests 08/27/22 0420: [Embedded Image Not Available] 08/26/22 0840: [Embedded Image Not Available] Laboratory Tests 08/26 132 Blood Gas Puncture Site (DESCRIPTION ARTKIT) Right Brachi al ABG pH (7.35 - 7.45 pH units) 7.29 L ABG pCO2 (35 - 45 mmHg) 52 H ABG pO2 (80 - 100 mmHg) 55 L ABG PO2/FiO2 Ratio (200 mm/Hg) 261.9 ABG HCO3 (22.0 - 26.0 mmol/L) 24.1 ABG O2 Saturation (90 - 100 %) 85 L ABG Base Excess (-3.0 - 3.0 mmol/L) -3.2 L Albaro Test (POSITIVE Circ.CHK) N/A O2 Delivery Device (Descript) RM AIR FiO2 (21 - 100 % (calc)) 21 Laboratory Tests 08/28 419 Chemistry Sodium (134 - 147 mmol/L) 130 L Potassium (3.4 - 5.0 mmol/L) 4.8 Chloride (100 - 108 mmol/L) 100 Carbon Dioxide (21 - 32 mmol/L) 28 Anion Gap (4.0 - 15.0 GAP calc) 2.0 L BUN (7 - 18 MG/DL) 30 H Creatinine (0.8 - 1.3 MG/DL) 1.3 Glomerular Filtr Rate (>60 estGFR) 60 Glucose (70 - 110 MG/DL) 121 H Calcium (8.5 - 10.1 MG/DL) 8.8 Laboratory Tests 08/27 0420 Hematology WBC (3.5 - 11.0 K/mm3) 5.0 RBC (4.70 - 6.10 M/mm3) 3.66 L Hgb (12.3 - 15.9 G/DL) 10.3 L Hct (35.8 - 46.7 %) 32.8 L MCV (86.3 - 98.9 Fl) 89.6 MCH (28.9 - 34.4 pg) 28.1 L MCHC (32.1 - 34.5 G/DL) 31.4 L RDW (11.5 - 14.5 SD) 16.2 H Plt Count (150 - 450 K/mm3) 115 L MPV (7.0 - 9.6 fL) 9.70 H Neut % (Auto) (40 - 76 %) 72.2 Lymph % (Auto) (20.5 - 51.1 %) 13.2 L [place] % (Auto) (1.7 - 9.3 %) 10.2 H Eos % (Auto) (0.0 - 6.0 %) 3.8 Baso % (Auto) (0.0 - 2.0 %) 0.4 Neut # (Auto) (1.8 - 7.6 K/mm3) 3.6 Lymph # (Auto) (0.6 - 3.0 K/mm3) 0.7 [place] # (Auto) (0.2 - 1.5 K/mm3) 0.5 Eos # (Auto) (0.0 - 0.4 K/mm3) 0.2 Baso # (Auto) (0.0 - 0.2 K/mm3) 0.0 Abs Immat Gran (auto) (0.00 - 0.03 x10 3/uL) 0. 01 Add Manual Diff (CRITERIA DIFF/SCN) NO Immature Gran % (0.0 - 5.0 %) 0.2 Nucleated RBC % (0.0 - 1.0 /100WBC%) 0.0 Radiology data: Recent Impressions: RADIOLOGY - XR CHEST 1 V 08/26 1310 Report Impression - Status: SIGNED Entered: 08/26/2022 1330 IMPRESSION: No pneumothorax is evident status post left subc lavian dual electrode pacemaker placement. Cardiomediastinal contours are within normal limits. There is mild pulmonary edema. There are moderate volume right and trace left pleural effusions. Adjacent dependent pulmonary opacities may reflect atelectasis or pneumonia. Impression By: Rj Nathan M.D. RADIOLOGY - XR CHEST 1 V 08/27 0200 Report Impression - Status: SIGNED Entered: 08/27/2022 0732 IMPRESSION: No pneumothorax is evident. Cardiomediastinal co ntours are stable. There is moderately advanced pulmonary edema. Th ere are layering right and trace left pleural effusions. Adjacent dependent pulmonary opacities may reflect atelectasis or pneumonia. A left subclavian pacemaker is present. Impression By: Rj Nathan M.D. Diagnosis, Assessment Plan Free Text DxA P Notes Free text DxA P notes: Sick sinus syndrome Symptomatic bradycardia History of V. tach Status post pacemaker placement. Monitor closely under telemetry Appreciate help from Dr. Connolly Pain control Continue antibiotics Acute hypoxic hypercapnic respiratory failure Monitor closely under telemetry Pulmonology consulted Oxygen supplementation Monitor mental status closely Place on BiPAP if needed PT eval May need home O2 Paroxysmal atrial fibrillation Monitor closely under telemetry Rate controlled We will start back on anticoagulation Hypertension Continue home medications and titrate as needed COPD Continue bronchodilators Pulmonology consult Oxygen supplementation CHF possibly combined systolic/diastolic We will add on diuretics Continue home medications Repeat x-ray findings noted No pneumothorax Consistent with pulmonary edema We will give a dose of Lasix 40 mg GI/DVT prophylaxis Advanced directive full code Total critical care time used was 48 minutes Electronically Signed by Zachery Baez MD on at 1028 RPT #: [id number] END OF REPORT 2022-08-27 04:53:00-00:00 [id number] [facility] [id number] [place] [address] PATIENT NAME: GAVIN TALAMANTES ADMIT DATE: 08/26/22 ACCOUNT NO: [id number] ROOM NO: [facility] AGE: 66 REPORT TYPE: eELECTROCARDIOGRAM SEX: M ADMITTING PHYSICIAN: Zachery Baez MD ATTENDING PHYSICIAN: Dwight Connolly MD Order: [id number] Test Reason : post ppm placement Test Date/Time Stamp: SunAug 27 2022 04:53:21 Blood Pressure : / mmHG Vent. Rate : 070 BPM Atrial Rate : 045 BPM P-R Int : 000 ms QRS Dur : 160 ms QT Int : 444 ms P-R-T Axes : 000 -80 098 degree s QTc Int : 479 ms Ventricular-paced rhythm Abnormal ECG ECG not diagnostic for Acute Coronary Syndrome; consider clinical findings When compared with ECG of 26-AUG-2022 13:11, No significant change was found Confirmed by DWIGHT CONNOLLY ([id number]) on 08/27/2022 7:56:07 AM Referred By: Dwight Connolly Confirmed by:DWIGHT YEE at 0756 PATIENT NAME: GAVIN TALAMANTES 3 2022-08-27 04:53:00-00:00 [id number] [address] PATIENT NAME: GAVIN TALAMANTES ADMIT DATE: 08/26/22 ACCOUNT NO: [id number] ROOM NO: .[facility] AGE: 66 REPORT TYPE: eELECTROCARDIOGRAM SEX: M ADMITTING PHYSICIAN: Zachery Baez MD ATTENDING PHYSICIAN: Dwight Connolly MD Order: [id number] Test Reason : post ppm placement Test Date/Time Stamp: SunAug 27 2022 04:53:21 Blood Pressure : / mmHG Vent. Rate : 070 BPM Atrial Rate : 045 BPM P-R Int : 000 ms QRS Dur : 160 ms QT Int : 444 ms P-R-T Axes : 000 -80 098 degree s QTc Int : 479 ms Ventricular-paced rhythm Abnormal ECG ECG not diagnostic for Acute Coronary Syndrome; consider clinical findings When compared with ECG of 26-AUG-2022 13:11, No significant change was found Confirmed by DWIGHT CONNOLLY ([id number]) on 08/27/2022 7:56:25 AM Referred By: Dwight Connolly Confirmed by:DWIGHT YEE at 0756 PATIENT NAME: GAVIN TALAMANTES 3 2022-08-26 13:12:00-00:00 [facility] ([facility]) Hospitalist History Physical REPORT#:[id number] REPORT STATUS: Signed DATE:08/26/22 TIME:1312 PATIENT: GAVIN TALAMANTES UNIT #: [id number] ROOM/BED: [place] [id number] : 54 AGE: 66 SEX: M ATTEND: Fadi Connolly MD Cardiology ADM AUTHOR: Zachery Baez MD * ALL edits or amendments must be made on the [employer]/computer document * History of Present Illness HPI Chief complaint: Status post pacemaker placement HPI: 66-year-old male with sick sinus syndrom e symptomatic bradycardia admitted for postoperative monitoring aft er he underwent pacemaker placement by Dr. Connolly. Patient also has history of hypertension , paroxysmal atrial fibrillation, CHF, severe COPD. Denies any chest pain at the time o f interview. Complains of shortness of breath. Patient is drowsy at the ti me of interview hence most of the history is obtained from the chart review an d also talking to the director of vocational guidance. History Past Medical Surgical Hx Additional medical history: Hypertension, CHF, COPD, paroxysmal A-fib Additional surgical history: Status post pacemaker placement Family History Family history: Reports: Hypertension. Social History Smoking status for patients 13 years old or olde r: Former Smoker Years smoked: 25 Pack years: 0 Medication/Allergy-Vaccine Hx Medications: Home Medications: APIXABAN (ELIQUIS) 5 MG PO BID LISINOPRIL (ZESTRIL) 20 MG PO DAILY ALBUTEROL (ALBUTEROL NEB SOLN 0.021%) 0.63 MG IN H RTQ6H PRN PRN WHEEZING IPRATROPIUM (ATROVENT 0.02%) 250 MCG INH RTQ6H Allergies: Coded Allergies: No Known Allergies (08/23/22) Review of Systems Unable to obtain due to: Clinical condition OBJECTIVE VS/I O: Vital Signs Date Temp Pulse Resp B/P B/P Mean Pulse Ox FiO2 08/26 96.7 38 15 152/82 99 32 Last Documented: Result Date Time FiO2 32 08/26 1053 O2 Delivery Nasal cannula 08/26 1053 O2 Flow Rate 3 08/26 1053 Pulse Ox 99 08/26 0904 B/P 152/82 08/26 0904 Temp 96.7 08/26 0904 Pulse 38 08/26 0904 Resp 15 08/26 09 Patient Weight and BMI Weight (kg): 80.000 BMI: 27.6 General appearance: alert, awake Head/Eyes: atraumatic, normocephalic ENT: dry mucosal membrane Neck: supple/no meningismus Cardiovascular: normal heart sounds, regular rat e rhythm Respiratory: crackles, decreased breath sounds, wheezing Abdomen: soft Genitourinary: no bladder distention Extremities: moves all Musculoskeletal: normal inspection Neuro/CLAIMS CLERK: alert, oriented X 3 Skin: dry, no rash Lymphatics: no lymphadenopathy Psychiatry: anxious Medications: Active Meds + DC'd Last 24 Hrs Lisinopril (ZESTRIL) 20 MG DAILY PO (UNV) Acetaminophen (TYLENOL) 650 MG Q4H PRN PRN PO Cefazolin Sodium (KEFZOL) 1 GM Q8H IV Sterile Water (WATER FOR INJECTION) 10 ML Hydrocodone Bitart/Acetaminophen (NORCO 5/325) 1 TAB Q4H PRN PRN PO Ondansetron HCl (ZOFRAN ODT) 4 MG Q8H PRN PRN PO Furosemide (LASIX) 0 .STK-MED ONE .ROUTE (DC) Gentamicin Sulfate (GARAMYCIN) 0 .STK-MED ONE .R OUTE (DC) Lidocaine HCl (lidocaine HCL) 0 .STK-MED ONE .[place] (DC) Cefazolin Sodium (KEFZOL) 0 .STK-MED ONE .ROUTE (DC) Albuterol/Ipratropium (DUONEB) 3 ML RTONCE ONE N EB (DC) Diazepam (VALIUM) 5 MG ONCALL PO (CKD) Diphenhydramine HCl (BENADRYL) 25 MG ONCE ONE PO (DC) Results Findings/Data: Laboratory Tests: 08/26 0840 Chemistry Sodium (134 - 147 mmol/L) 129 L Potassium (3.4 - 5.0 mmol/L) 5.2 H Chloride (100 - 108 mmol/L) 99 L Carbon Dioxide (21 - 32 mmol/L) 28 Anion Gap (4.0 - 15.0 GAP calc) 2.0 L BUN (7 - 18 MG/DL) 26 H Creatinine (0.8 - 1.3 MG/DL) 1.3 Glomerular Filtr Rate (>60 estGFR) 60 Glucose (70 - 110 MG/DL) 103 Calcium (8.5 - 10.1 MG/DL) 9.1 Magnesium (1.8 - 2.4 MG/DL) 1.8 Total Bilirubin (0.2 - 1.2 MG/DL) 1.10 AST (15 - 37 Unit/L) 16 ALT (12 - 78 Unit/L) 12 Total Alk Phosphatase (50 - 136 Unit/L) 66 Total Protein (6.4 - 8.2 G/DL) 8.4 H Albumin (3.4 - 5.0 G/DL) 3.2 L Globulin (GM/dL) 5.2 Albumin/Globulin Ratio (1.2 - 2.2 RATIO) 0.6 L Triglycerides (0 - 150 MG/DL) 49 Cholesterol (133 - 200 MG/DL) 70 L LDL Cholesterol [place] (0 - 129 MG/DL) 28 Non-HDL Cholesterol (<130 mg/dL) 0 HDL Cholesterol (40 - 59 MG/DL) 70 H LDL/HDL Ratio (1.48 - 3.22 Avg Ratio) 0.40 L Cholesterol/HDL Ratio (0 RATIO) 1.00 Coagulation INR (0.8 - 1.2 INR Unit) 1.44 H PTT ([place]) (26 - 35 SECONDS) 35.5 H PT Patient/Control Mix (9.3 - 12.9 SECONDS) 16. 1 H Hematology WBC (3.5 - 11.0 K/mm3) 4.5 RBC (4.70 - 6.10 M/mm3) 3.84 L Hgb (12.3 - 15.9 G/DL) 10.8 L Hct (35.8 - 46.7 %) 32.6 L MCV (86.3 - 98.9 Fl) 84.9 L MCH (28.9 - 34.4 pg) 28.1 L MCHC (32.1 - 34.5 G/DL) 33.1 RDW (11.5 - 14.5 SD) 16.2 H Plt Count (150 - 450 K/mm3) 131 L MPV (7.0 - 9.6 fL) 9.70 H Neut % (Auto) (40 - 76 %) 70.7 Lymph % (Auto) (20.5 - 51.1 %) 13.9 L [place] % (Auto) (1.7 - 9.3 %) 10.3 H Eos % (Auto) (0.0 - 6.0 %) 4.0 Baso % (Auto) (0.0 - 2.0 %) 0.7 Neut # (Auto) (1.8 - 7.6 K/mm3) 3.1 Lymph # (Auto) (0.6 - 3.0 K/mm3) 0.6 [place] # (Auto) (0.2 - 1.5 K/mm3) 0.5 Eos # (Auto) (0.0 - 0.4 K/mm3) 0.2 Baso # (Auto) (0.0 - 0.2 K/mm3) 0.0 Abs Immat Gran (auto) (0.00 - 0.03 x10 3/uL) 0. 02 Add Manual Diff (CRITERIA DIFF/SCN) NO Immature Gran % (0.0 - 5.0 %) 0.4 Nucleated RBC % (0.0 - 1.0 /100WBC%) 0.0 Serology SARS-CoV-2 Ag (Rapid) (Negative) NEGATIVE Laboratory Tests 08/26/22 0840: [Embedded Image Not Available] Diagnosis, Assessment Plan Free Text A P: Sick sinus syndrome Symptomatic bradycardia History of V. tach Status post pacemaker placement. Monitor closely under telemetry Appreciate help from Dr. Connolly Pain control Continue antibiotics Acute hypoxic hypercapnic respiratory failure Monitor closely under telemetry Oxygen supplementation Monitor mental status closely Place on BiPAP if needed Hyperkalemia Hyponatremia Electrolytes monitor and replace accordingly Renal parameters monitored Paroxysmal atrial fibrillation Monitor closely under telemetry Rate controlled We will start back on anticoagulation Hypertension Continue home medications and titrate as needed COPD Continue bronchodilators Pulmonology consult Oxygen supplementation Anemia of chronic disease We will monitor CBC Transfuse as needed CHF possibly combined systolic/diastolic Continue home medications We will get an x-ray in a.m. GI/DVT prophylaxis Advanced directive full code Total critical care time used was 48 minutes Electronically Signed by Zachery Baez MD on at 1035 RPT #: [id number] END OF REPORT 2022-08-26 13:11:00-00:00 [id number] [address] [address] PATIENT NAME: GAVIN TALAMANTES ADMIT DATE: 08/27/22 ACCOUNT NO: [id number] ROOM NO: [facility] AGE: 66 REPORT TYPE: eELECTROCARDIOGRAM SEX: M ADMITTING PHYSICIAN: Zachery Baez MD ATTENDING PHYSICIAN: Dwight Connolly MD Order: [id number] Test Reason : POST PPI Test Date/Time Stamp: Sat Aug 26 2022 13:11:34 Blood Pressure : / mmHG Vent. Rate : 070 BPM Atrial Rate : 070 BPM P-R Int : 000 ms QRS Dur : 156 ms QT Int : 440 ms P-R-T Axes : 000 -78 093 degree s QTc Int : 475 ms Poor data quality, interpretation may be adv ersely affected Ventricular-paced rhythm Abnormal ECG When compared with ECG of 26-AUG-2022 13:09, No significant change was found Confirmed by DWIGHT CONNOLLY ([id number]) on 08/28/2022 5:29:56 PM Referred By: Dwight Connolly Confirmed by:DWIGHT YEE at 1729 PATIENT NAME: GAVIN TALAMANTES 3 2022-08-26 13:09:00-00:00 [id number] [address] PATIENT NAME: GAVIN TALAMANTES ADMIT DATE: 08/26/22 ACCOUNT NO: [id number] ROOM NO: [facility] AGE: 66 REPORT TYPE: eELECTROCARDIOGRAM SEX: M ADMITTING PHYSICIAN: Zachery Baez MD ATTENDING PHYSICIAN: Dwight Connolly MD Order: [id number] Test Reason : POST PPI Test Date/Time Stamp: Sat Aug 26 2022 13:09:35 Blood Pressure : / mmHG Vent. Rate : 070 BPM Atrial Rate : 250 BPM P-R Int : 000 ms QRS Dur : 156 ms QT Int : 440 ms P-R-T Axes : 000 -79 091 degree s QTc Int : 475 ms Poor data quality, interpretation may be adv ersely affected Ventricular-paced rhythm Abnormal ECG When compared with ECG of 26-AUG-2022 08:47, Electronic ventricular pacemaker has replaced Ju nctional rhythm Vent. rate has increased BY 32 BPM Confirmed by DWIGHT CONNOLLY ([id number]) on 08/26/2022 1:37:37 PM Referred By: Dwight Connolly Confirmed by:DWIGHT YEE at 1337 PATIENT NAME: GAVIN TALAMANTES 3 2022-08-26 12:58:00-00:00 [id number] [facility] [address] [place] [address] PATIENT NAME: GAVIN TALAMANTES ADMIT DATE: 08/26/22 ACCOUNT NO: [id number] ROOM NO: [facility] AGE: 66 REPORT TYPE: OPERATIVE REPORT SEX: M ADMITTING PHYSICIAN: Zachery Baez MD ATTENDING PHYSICIAN: Dwight Connolly MD Cardiolo gy OPERATION DATE: 08/26/2022 ELECTRICAL ENGINEER MEP: Dwight Connolly MD PREOPERATIVE DIAGNOSIS: POSTOPERATIVE DIAGNOSIS: SACK MAKER: PROCEDURE: Dual chamber permanent pacemaker impl antation. INDICATION FOR THE PROCEDURE: Symptomatic bradyc ardia, junctional rhythm, paroxysmal atrial fibrillation. ESTIMATED BLOOD LOSS: Minimal. COMPLICATIONS: None. CONTRAST: None. ANESTHESIA: Conscious sedation not done due to t he patient's severe COPD. FINAL DIAGNOSIS: Successful dual chamber permanent pacemaker implantation that is MRI compatible. DISPOSITION: Observation overnight. PROCEDURE IN DETAIL: Please see enclosed report in the chart. Dictated By: Dwight Connolly MD Date Dictated: 08/26/2022 12:58:42 Date Transcribed: 08/26/2022 18:12:34 MAZIN/ROSALIA/SHAWN Receipt ID: [id number] Authenticated by Dwight Connolly MD On 08/06 07:49:18 AM PATIENT NAME: GAVIN TALAMANTES 3 at 0749 PATIENT NAME: GAVIN TALAMANTES 3 2022-08-26 08:47:00-00:00 [id number] [address] PATIENT NAME: GAVIN TALAMANTES ADMIT DATE: 08/26/22 ACCOUNT NO: [id number] ROOM NO: AGE: 66 REPORT TYPE: eELECTROCARDIOGRAM SEX: M ADMITTING PHYSICIAN: ATTENDING PHYSICIAN: Dwight Connolly MD Order: [id number] Test Reason : CAD Test Date/Time Stamp: SunAug 26 2022 08:47:28 Blood Pressure : / mmHG Vent. Rate : 038 BPM Atrial Rate : 000 BPM P-R Int : 000 ms QRS Dur : 108 ms QT Int : 534 ms P-R-T Axes : 000 125 019 degree s QTc Int : 424 ms Junctional bradycardia Right axis deviation Incomplete right bundle branch block Right ventricular hypertrophy Septal infarct , age undetermined Abnormal ECG No previous ECGs available Confirmed by DWIGHT CONNOLLY ([id number]) on 08/26/2022 10:37:48 AM Referred By: Dwight Connolly Confirmed by:DWIGHT YEE at 1037 PATIENT NAME: GAVIN TALAMANTES 3 2022-08-25 07:32:00-00:00 [id number] [address] PATIENT NAME: GAVIN TALAMANTES ADMIT DATE: ACCOUNT NO: [id number] ROOM NO: AGE: 66 REPORT TYPE: HISTORY AND PHYSICAL SEX: M ADMITTING PHYSICIAN: ATTENDING PHYSICIAN: Dwight Connolly MD Cardiolo gy PATIENT NAME: GAVIN TALAMANTES ADMIT DATE:08/26/2022 ADMISSION DATE: 08/26/2022 09:30:00 ELECTRICAL ENGINEER MEP: Dwight Connolly MD REASON FOR ADMISSION: Dual-chamber permanent pac emaker implantation for sick-sinus syndrome, history of ventricular tach ycardia, and symptomatic bradycardia. HISTORY OF PRESENT ILLNESS: Gavin is a 66-year-old patient, who is new to my practice as of 08/04/2022. The patient has exten sive cardiovascular history. He has been having significant symptomatic mukesh cardia. He goes between sinus bradycardia and junctional rhythm. He used to be in and out of AFib, also. He had an event recorder back in 10/2021 by another director of vocational guidance that showed the average heart rate to be 42, and several ventric ular tachycardia runs. A 24-hour Holter monitor was carried out on 08/04, in my office that showed the average heart rate to be 45, he goes down to 42. He had full beat ventricular tachycardia run. Echocardiogram showed moderate mitral regurgitation. He has [id number]-yukhnn aortic va lve stenosis with a valve area around 0.87 cm2 with a mean gradient of 36. Ejection fraction normal. He has no known coronary artery disease and I could not get all t he previous records about his coronary status. However, given the degree of bradycardia without any culprit medications, I decided to pr oceed first with a dual chamber permanent pacemaker implantation before further evaluation of possible coronary artery disease, and he will need at a later on further evaluation fo r his aortic stenosis and possible TAVR, if his coronaries are okay. He do es have also peripheral arterial disease with back in 2020, he h ad right ankle brachial index of 0.62, and the left ankle brachial index of 0.72. From what I could get from the old records, he has not had any previous interventio ns. He has less than 40% carotid disease. The patient does have nonspecif ic chest discomfort. He has dyspnea, palpitations, generalized weakness, and symptomatic bradycardia. He has had paroxysmal atrial fibrillation that has not been treated, but lately he has been in sinus bradycardia and junctional rhythm. He has been covered for the potential atrial fibrillation with Eliqu is. There is no history of congestive heart failure, TIAs, or stroke. He di d carry a diagnosis of diastolic congestive heart failure in the past, but that has been stable. PAST MEDICAL HISTORY: Remarkable for the above, in addition to hypertension, COPD, insomnia, fatty liver, splenomegaly, and l ymphadenopathy. PAST SURGICAL HISTORY: Appendectomy and left ank le reconstruction. PATIENT NAME: GAVIN TALAMANTES 3 ALLERGIES: NO KNOWN DRUG ALLERGIES. MEDICATIONS: He takes allergy medications, furos emide 40 mg daily, lisinopril 20 mg daily, Eliquis 5 mg b.i.d., and inhalers. SOCIAL HISTORY: The patient denies smoking. He d oes drink alcohol regularly. There is no history of street drug use. FAMILY HISTORY: Negative for premature atheroscl erosis. His father from heart attack at older age. REVIEW OF SYSTEMS: Remarkable for the above, in addition to dizziness, insomnia, blurred vision, and the above-mentione d cardiovascular symptoms. No acute GI or symptoms. No TIAs or strokes. PHYSICAL EXAMINATION: GENERAL: Reveals a pleasant elderly male, in no acute distress. VITAL SIGNS: Blood pressure 122/71, pulse 45 and regular, bradycardic; respiratory rate 16 and unlabored; temperature a febrile. HEENT: Head atraumatic, normocephalic. Eyes and ENT examination within normal for age. NECK: Supple. Jugular venous elevation noted as well as bilateral bruits. LUNGS: Decreased air entry, otherwise clear and resonant. HEART: Bradycardic. A 4/6 systolic murmur at the aortic area. No gallops. The heart is enlarged. ABDOMEN: Soft. No tenderness, no organomegaly, n o masses or bruits. EXTREMITIES: 1+ distal pulses. No cyanosis or cl ubbing. He does have 2+ edema, more so on the left that has been chronic for the patient. NEUROLOGIC: Alert and oriented x3. Examination a ppears to be nonfocal. LABORATORY DATA: Pending. Noninvasive cardiovasc ular workup enclosed. IMPRESSION: This is a 66-yea r-old patient with multiple cardiovascular problems detailed above. Right now, his main prob alissa is significant bradycardia that is symptomatic, history of paroxysmal atrial fibril lation, and nonsustained ventricular tachycardia. The patient is here for a dual chamber permanent pacemaker implantation. After stabilization of h is rhythm, the patient will need later on evaluation for coronary artery dis ease and evaluation for his aortic valve replacement. He will also later on need evaluation of peripheral arterial disease. PLAN: The recommendation is to proceed with the above-mentioned procedures. The risks and benefits of the planned procedure were discussed in detail with the patient and available fa oren members, and he is willing to proceed. Rest as per orders. Dictated By: Dwight Connolly MD Date Dictated: 08/25/2022 07:32:39 Date Transcribed: 08/25/2022 10:25:34 MAZIN/FRANCIS PATIENT NAME: GAVIN TALAMANTES 3 Receipt ID: [id number] Authenticated and Edited by Dwight Connolly MD On 08/25/22 5:29:24 PM at 0531 PATIENT NAME: GAVIN TALAMANTES 3
[2022-09-23 12:30] LABS: Absolute Lymphocytes (CBC) 0.6 K/uL (0.7-4.9); Hematocrit 27.4 % (39.6-49.0); Lymphocytes % 12.9 % (15.3-44.8); MCV 88.1 fL (80-100); MPV 8.3 fL (7.6-11.3); RBC Red Blood Cell Count 3.11 M/uL (4.33-5.43)
[2022-09-23 12:34] LABS: Protime INR 2.06
--- NOTE | 2022-09-23 12:34 | RAD REPORT ---
EXAM DESCRIPTION: MADELYNRe Single View09/23/2022 12:17 pm CLINICAL HISTORY: cough COMPARISON: September 11, 2022 FINDINGS: Moderate right pleural effusion with basilar atelectasis Small left pleural Pacemaker leads place Moderate cardiomegaly
[2022-09-23 12:50] LABS: Bilirubin Direct 0.3 mg/dL (0-0.2); Bilirubin Indirect, Calculated 0.3 mg/dL (0.2-0.8); Bilirubin Total 0.6 mg/dL (0.2-1.0); Magnesium 1.8 mg/dL (1.6-2.4); Potassium 4.6 mEq/L (3.5-5.1); Protein, Total 7.5 g/dL (6.4-8.2); Troponin High Sensitivity 28.2 pg/mL (<58.9)
[2022-09-23 12:51] LABS: Specific Gravity 1.013 (1.005-1.030); Urine Bilirubin NEGATIVE (Negative); Urine Blood Negative (Negative); Urine Clarity Clear (Clear); Urine Color Light-Yellow (Yellow); Urine Glucose NEGATIVE (Negative); Urine Protein NEGATIVE (Negative); Urine Urobilinogen Normal (Normal); Urine pH 5.5 (5.0-7.0)
[2022-09-23 12:51] LABS: Arterial Blood Carboxyhemoglob 0.9 % (0-1.5); Blood Gas Oxyhemoglobin 95.6 % (94-97); Blood O2 Saturation 97.6 % (92-98.5)
[2022-09-23 13:17] LABS: Blood Morphology Comment NOT SEEN (NOT SEEN); Platelet Estimate ADEQ; White Blood Cell Scan OK (OK)
[2022-09-23] MEDS ORDERED: LEVALBUTEROL 1.25 MG/3 ML NEB ONE (13:26)
[2022-09-23] MEDS ORDERED: FAMOTIDINE 20 MG/2 ML VIAL IV ONE (13:27)
[2022-09-23] MEDS ORDERED: NA CHLORIDE 0.9% 0 ML ONE (13:27)
[2022-09-23] MEDS ORDERED: IPRATROPIUM BROM 0.5MG/2.5ML ONE (13:27)
[2022-09-23] MEDS ORDERED: CEFEPIME 1 GM/VIAL ONE (14:08)
[2022-09-23] MEDS ORDERED: NA CHLORIDE 0.9% 100 ML ONE (14:08)
--- NOTE | 2022-09-23 15:05 | EDPHYS ---
Physician Documentation [facility] Name: Gavin Talamantes Age: 67 yrs Sex: Male : 1955 Arrival Date: 09/23/2022 Time: 12:00 Bed 3 Private MD: ED Physician Margarito Tom HPI: 09/23 14:34 This 67 yrs old Male presents to ER via EMS with complaints of Chest Pain, thad Breathing Difficulty. 14:34 The patient or guardian reports chest pain that is located primarily in the substernal thad area. Onset: 3 day(s) ago. The pain does not radiate. Associated signs and symptoms: Pertinent positives: lightheadedness, near-syncope, shortness of breath. The chest pain is described as a pressure. Duration: The patient or guardian reports a single episode, that is still ongoing, and unchanged. Modifying factors: The symptoms are alleviated by application of supplemental oxygen, remaining still, rest, the symptoms are aggravated by activity, breathing, cough, movement, walking. Severity of pain: At its worst the pain was mild moderate in the emergency department the pain is unchanged. The patient has experienced similar episodes in the past, multiple times. Historical: - Allergies: 12:10 NKDA; vg1 - Home Meds: 12:10 Eliquis 5 mg Oral tab 1 tab 2 times per day [Active]; Lasix 20 mg Oral tab 1 tab once vg1 daily [Active]; lisinopril Oral [Active]; Metformin Oral [Active]; - PMHx: 12:10 Diabetes - NIDDM; no longer takes meds; Hypertension; vg1 - PSHx: 12:10 hernia repair; Nasal sx; pacemaker; vg1 - Immunization history:: Client reports receiving the 2nd dose of the Covid vaccine. - Social history:: Smoking status: unknown. ROS: 14:40 Constitutional: Negative for fever, chills, and weight loss, Eyes: Negative for injury, thad pain, redness, and discharge, ENT: Negative for injury, pain, and discharge, Neck: Negative for injury, pain, and swelling, Abdomen/GI: Negative for abdominal pain, nausea, vomiting, diarrhea, and constipation, Back: Negative for injury and pain, : Negative for injury, bleeding, discharge, and swelling, Skin: Negative for injury, rash, and discoloration, Psych: Negative for depression, anxiety, suicide ideation, homicidal ideation, and hallucinations, Allergy/Immunology: Negative for hives, rash, and allergies, Endocrine: Negative for neck swelling, polydipsia, polyuria, polyphagia, and marked weight changes. 14:40 Cardiovascular: Positive for chest pain, orthopnea. 14:40 Respiratory: Positive for cough, dyspnea on exertion, shortness of breath, at rest. 14:40 Abdomen/GI: Positive for abdominal distension, of the right upper quadrant, left upper quadrant, right lower quadrant and left lower quadrant. 14:40 MS/extremity: Positive for swelling, tenderness. Exam: 14:40 Constitutional: This is a well developed, well nourished patient who is awake, alert, thad and in no acute distress. Head/Face: Normocephalic, atraumatic. Eyes: Pupils equal round and reactive to light, extra-ocular motions intact. Lids and lashes normal. Conjunctiva and sclera are non-icteric and not injected. Cornea within normal limits. Periorbital areas with no swelling, redness, or edema. ENT: Nares patent. No nasal discharge, no septal abnormalities noted. Tympanic membranes are normal and external auditory canals are clear. Oropharynx with no redness, swelling, or masses, exudates, or evidence of obstruction, uvula midline. Mucous membranes moist. Cardiovascular: Regular rate and rhythm with a normal S1 and S2. No gallops, murmurs, or rubs. Normal PMI, no JVD. No pulse deficits. Abdomen/GI: Soft, non-tender, with normal bowel sounds. No distension or tympany. No guarding or rebound. No evidence of tenderness throughout. Back: No spinal tenderness. No costovertebral tenderness. Full range of motion. Male : Normal genitalia with no discharge or lesions. MS/ Extremity: Pulses equal, no cyanosis. Neurovascular intact. Full, normal range of motion. Neuro: Awake and alert, GCS 15, oriented to person, place, time, and situation. Cranial nerves II-XII grossly intact. Motor strength 5/5 in all extremities. Sensory grossly intact. Cerebellar exam normal. Normal gait. Psych: Awake, alert, with orientation to person, place and time. Behavior, mood, and affect are within normal limits. 14:40 Neck: Thyroid: appears normal, Trachea: is midline with no obvious abnormalities, ROM/movement: is normal. 14:40 Chest/axilla: Palpation: is normal, Lymph nodes: lymphadenopathy is not appreciated. 14:40 Cardiovascular: Edema: 4+ edema to level of left midcalf and right midcalf, JVD: is noted bilaterally, to the angle of the jaw. 14:40 ECG was reviewed by the Attending Physician. 14:40 Respiratory: mild respiratory distress is noted, Respirations: labored breathing, that is mild, Breath sounds: bronchial sounds, that are moderate, are heard in the right posterior middle lobe and right posterior lower lobe. 14:40 Musculoskeletal/extremity: ROM: intact in all extremities, Circulation is intact in all extremities. Sensation intact. Compartment Syndrome exam of affected extremity: is normal. DVT Exam: no pain, no tenderness, negative Homans' sign noted on exam, no appreciated bluish discoloration, no erythema, no increased warmth, swelling. 14:40 Skin: abscess, not appreciated, cellulitis, is not appreciated, induration, is not appreciated, injury, is not appreciated. Vital Signs: 11:55 BP 102 / 80; Pulse 72; Resp 22; Temp 97.9(TE); Pulse Ox 93% on 10 lpm Non-rebreather vg1 mask; Weight 81.65 kg; Pain 8/10; 12:26 BP 93 / 72; Pulse 70; Resp 26; Pulse Ox 100% on Non-rebreather mask; iw 13:21 BP 92 / 69; Pulse 70; iw 14:31 BP 91 / 71; Pulse 70; Resp 22 S; Pulse Ox 96% on BiPAP; iw 15:24 BP 103 / 81; Pulse 70; Resp 16 S; Pulse Ox 98% on BiPAP; iw 11:55 Pain Scale: Adult vg1 NIH Stroke Scale Scores: 14:40 NIHSS Score: 0 thad MDM: 12:09 Patient medically screened. thad 14:57 Differential diagnosis: abrasion, tendonitis, abnormal EKG, acute myocardial thad infarction, acute pericarditis, chest wall pain, costochondritis, esophagitis, hiatal hernia, pancreatitis, peptic ulcer disease, pleurisy, pneumonia, pulmonary embolus, unstable angina. Differential Diagnosis altered mental status, sepsis, flu. HEART Score: History: Moderately Suspicious (1), ECG: Significant ST-deviation (2), Age: > or = 65 years (2), Risk Factors: > or = 3 Risk factors for atherosclerotic disease (2), [Hypercholesterolemia] [Hypertension] [DM] [+ Family HX] [Obesity] Troponin: < or = 1 x Normal Limit (0). The patient was not given aspirin in the Emergency Department. Administered by EMS. LEO Risk Score: 1 - patient's age is greater or equal to 65 years, 1 - Three or more CAD risk factors, 1- Known CAD, 1 - ST deviation >0.5mm, TOTAL SCORE = 4. Data reviewed: vital signs, nurses notes, EMS record, lab test result(s), EKG, radiologic studies, CT scan, plain films. Consideration of Admission/Observation Patient was admitted/placed on observation. Escalation of care including admission/observation considered. I considered the following discharge prescriptions or medication management in the emergency department Medications were administered in the Emergency Department. See MAR. Independent interpretation of the following test(s) in the Emergency Department EKG: See my EKG interpretation above. Test considered but Not performed: Ultrasound NO ECHO,M 2D. 09/23 12:13 Order name: Basic Metabolic Panel; Complete Time: : [facility] 09/23 12:13 Order name: CBC with Diff; Complete Time: : [facility] 09/23 12:13 Order name: LFT's; Complete Time: : [facility] 09/23 12:13 Order name: Magnesium; Complete Time: 14: [facility] 09/23 12:13 Order name: NT PRO-BNP; Complete Time: 14: [facility] 09/23 12:13 Order name: PT-INR; Complete Time: 14: [facility] 09/23 12:13 Order name: Troponin HS; Complete Time: 14: [facility] 09/23 12:13 Order name: Lipase; Complete Time: 14: [facility] 09/23 12:13 Order name: Urinalysis w/ reflexes; Complete Time: 14: [facility] 09/23 12:13 Order name: Blood Culture Adult (2) [facility] 09/23 12:13 Order name: Lactate w/ 2H reflex if indic.; Complete Time: : [facility] 09/23 12:13 Order name: ABG [facility] 09/23 12:25 Order name: Type And Screen; Complete Time: 15:00 [facility] 09/23 13:18 Order name: CBC Smear Scan EDWA 09/23 13:44 Order name: ABO/RH no charge; Complete Time: 14:07 EDMS 09/23 12:13 Order name: XRAY Chest (1 view); Complete Time: 14: [facility] 09/23 12:53 Order name: BIPAP [facility] 09/23 12:13 Order name: EKG; Complete Time: 12:14 [facility] 09/23 12:13 Order name: Cardiac monitoring; Complete Time: 12: [facility] 09/23 12:13 Order name: EKG - Nurse/Tech; Complete Time: 12: [facility] 09/23 12:13 Order name: IV Saline Lock; Complete Time: 12: [facility] 09/23 12:13 Order name: Labs collected and sent; Complete Time: 12: [facility] 09/23 12:13 Order name: O2 Per Protocol; Complete Time: 12: [facility] 09/23 12:13 Order name: O2 Sat Monitoring; Complete Time: 12: [facility] 09/23 12:13 Order name: Medrano; Complete Time: 12:37 [facility] 09/23 12:25 Order name: IV Saline Lock - Large Bore; Complete Time: 12:26 [facility] EC:40 Rate is 70 beats/min. Rhythm is regular. QRS Verbena is Normal. NV interval is normal. QRS thad interval is normal. QT interval is normal. No Q waves. T waves are Normal. No ST changes noted. Clinical impression: Abnormal EKG without significant change and No evidence of ischemia. Interpreted by me. Reviewed by me. Administered Medications: 13:37 Drug: Levalbuterol Inhalation 1.25 mg Route: Inhalation; iw 13:38 Drug: NS 0.9% IV 1000 ml Route: IV; Rate: 75 ml/hr; Site: left antecubital; iw 13:38 Drug: Levalbuterol Inhalation 1.25 mg Route: Inhalation; iw 13:38 Drug: Ipratropium Inhalation Aerosol 0.5 mg Route: Inhalation; iw 13:38 Drug: Famotidine IVP 20 mg Route: IVP; Site: left antecubital; iw 14:09 Drug: Cefepime IVPB 1 grams Route: IVPB; Rate: 200 ml/hr; Infused Over: 30 mins; Site: iw left wrist; 16:42 Follow up: IV Status: Completed infusion iw 16:42 Not Given (Patient Refused): Solu-CORTEF IVP 100 mg IVP once iw 16:42 Drug: Levalbuterol Inhalation 1.25 mg Route: Inhalation; iw Disposition Summary: 09/23/22 15:05 Transfer Ordered Transfer Location: Other Acute Care Facility thad Reason: Higher level of care thad Condition: Fair thad Problem: new thad Symptoms: have improved thad Accepting Physician: TO DR CECI LACKEY/ Dr. Pandey(09/23/22 16:53) iw Diagnosis - Hypotension, unspecified thad - Dyspnea, unspecified thad - Hypoxemia thad - Hypo-osmolality and hyponatremia thad - Unspecified combined systolic (congestive) and diastolic (congestive) heart failure thad - FCI (current) use of anticoagulants thad - Presence of cardiac pacemaker thad - Unspecified kidney failure thad - Pleural effusion in other conditions classified elsewhere - RIGHT, MODERATE thad - Cardiomegaly thad - Anemia, unspecified thad - Abnormal level of enzymes in specimens from digestive organs and abdominal cavity - thad ELEVATED LIPASE Forms: - Medication Reconciliation Form thad - SBAR form thad NIH Stroke Scale - NIH Stroke Score Date: 09/23/2022 Time: 14:40 Total Score = 0 10. Dysarthria (speech clarity - read or repeat words) - 0(Normal) 11. Extinction and Inattention (visual/tactile/auditory/spatial/personal) - 0(No abnormality) 1a. Level of Consciousness (LOC) - 0(Alert) 1b. Level of Consciousness (LOC) (Month \T\ Age) - 0(Both) 1c. LOC Commands (Open \T\ Closes Eyes/Stem Roller Or Crusher Operator) - 0(Both) 2. Best Gaze (Lateral Gaze Paresis) - 0(Normal) 3. Visual Field Loss - 0(No visual loss) 4. Facial Palsy - 0(Normal) 5a. Left Arm: Motor (10-second hold) - 0(No drift) 5b. Right Arm: Motor (10-second hold) - 0(No drift) 6a. Left Leg: Motor (5-second hold - always test supine) - 0(No drift) 6b. Right Leg: Motor (5-second hold - always test supine) - 0(No drift) 7. Limb Ataxia (finger/nose \T\ heel/morrell - test with eyes open) - 0(Absent) 8. Sensory Loss (pinprick arms/legs/face) - 0(Normal) 9. Best Language: Aphasia (description/naming/reading) - 0(No aphasia) Initials: thad Signatures: Dispatcher [employer] Margarito Vicente MD MD cha Williams, Irene, RN RN Malena Gresham Victoria RN RN vg1 Corrections: (The following items were deleted from the chart) 15:12 15:[address] CECI LACKEY cha, cha 15:14 15:[address] CECI walker 16:53 15:[address] CECI LACKEY/ Dr. Dannie sauceda
--- NOTE | 2022-09-23 15:05 | ER ---
Nurse's Notes [facility] Name: Gavin Talamantes Age: 67 yrs Sex: Male : 1955 Arrival Date: 09/23/2022 Time: 12:00 Bed 3 Private MD: Diagnosis: Hypotension, unspecified;Dyspnea, unspecified;Hypoxemia;Hypo-osmolality and hyponatremia;Unspecified combined systolic (congestive) and diastolic (congestive) heart failure;medical assistant per diem (current) use of anticoagulants;Presence of cardiac pacemaker;Unspecified kidney failure;Pleural effusion in other conditions classified elsewhere-RIGHT, MODERATE;Cardiomegaly;Anemia, unspecified;Abnormal level of enzymes in specimens from digestive organs and abdominal cavity-ELEVATED LIPASE Presentation: 09/23 11:55 Chief complaint: EMS states: toned out to pt home for CP and SOB, pt was 82% on 2 L NC, vg1 BGL 110, BP 70/40, 400 mL NS administered and 324 mg Aspirin PO. Pt GEORGE legs appear to be swollen. Pt placed on non rebreather 10 L. 11:55 Method Of Arrival: EMS: [facility] vg1 11:55 Coronavirus screen: Vaccine status: Patient reports receiving the 2nd dose of the covid vg1 vaccine. Client denies travel out of the [place] in the last 14 days. Ebola Screen: Patient negative for fever greater than or equal to 101.5 degrees Fahrenheit, and additional compatible Ebola Virus Disease symptoms Patient denies exposure to infectious person. Patient denies travel to an Ebola-affected area in the 21 days before illness onset. Initial Sepsis Screen: Does the patient meet any 2 criteria? RR > 20 per min. Does the patient have a suspected source of infection? No. Patient's initial sepsis screen is negative. Risk Assessment: Do you want to hurt yourself or someone else? Patient reports no desire to harm self or others. Onset of symptoms was September 23, 2022. Care prior to arrival: IV initiated. 18 GA, in the left antecubital area. 11:55 Acuity: IKE 2 vg1 Triage Assessment: 12:10 General: Appears uncomfortable, Behavior is cooperative. Pain: Complains of pain in vg1 chest, abdomen, right leg and left leg Pain currently is 8 out of 10 on a pain scale. EENT: No signs and/or symptoms were reported regarding the EENT system. Neuro: Level of Consciousness is awake, alert, obeys commands, Oriented to person, place, time, situation. Cardiovascular: Patient's skin is warm and dry. Respiratory: Airway is patent Respiratory effort is even, labored, Respiratory pattern is tachypnea. GI: Abdomen is distended. : No signs and/or symptoms were reported regarding the genitourinary system. Musculoskeletal: Swelling present in right leg and left leg. Historical: - Allergies: 12:10 NKDA; vg1 - Home Meds: 12:10 Eliquis 5 mg Oral tab 1 tab 2 times per day [Active]; Lasix 20 mg Oral tab 1 tab once vg1 daily [Active]; lisinopril Oral [Active]; Metformin Oral [Active]; - PMHx: 12:10 Diabetes - NIDDM; no longer takes meds; Hypertension; vg1 - PSHx: 12:10 hernia repair; Nasal sx; pacemaker; vg1 - Immunization history:: Client reports receiving the 2nd dose of the Covid vaccine. - Social history:: Smoking status: unknown. Screenin:13 [facility] ED Fall Risk Assessment (Adult) History of falling in the last 3 months, vg1 including since admission No falls in past 3 months (0 pts) Confusion or Disorientation No (0 pts) Intoxicated or Sedated No (0 pts) Impaired Gait No (0 pts) Mobility Assist Device Used No (0 pt) Altered Elimination No (0 pt) Score/Fall Risk Level 0 - 2 = Low Risk Oriented to surroundings, Maintained a safe environment, Educated pt \T\ family on fall prevention, incl call for assistance when getting out of bed, Assessed \T\ reinforced patient's understanding of fall precautions. Abuse screen: Denies threats or abuse. Denies injuries from another. Nutritional screening: No deficits noted. Tuberculosis screening: No symptoms or risk factors identified. Assessment: 12:15 Reassessment: SEE TRIAGE. vg1 14:30 Reassessment: Patient appears in no apparent distress at this time. pt remains on iw BiPAP, awakens easily to verb stimuli, pt reports improvement in symptoms. 15:25 Reassessment: Patient appears in no apparent distress at this time. Patient and/or iw family updated on plan of care and expected duration. Pain level reassessed. Patient is alert, oriented x 3, equal unlabored respirations, skin warm/dry/pink. Patient states feeling better. Patient states symptoms have improved. Vital Signs: 11:55 BP 102 / 80; Pulse 72; Resp 22; Temp 97.9(TE); Pulse Ox 93% on 10 lpm Non-rebreather vg1 mask; Weight 81.65 kg; Pain 8/10; 12:26 BP 93 / 72; Pulse 70; Resp 26; Pulse Ox 100% on Non-rebreather mask; iw 13:21 BP 92 / 69; Pulse 70; iw 14:31 BP 91 / 71; Pulse 70; Resp 22 S; Pulse Ox 96% on BiPAP; iw 15:24 BP 103 / 81; Pulse 70; Resp 16 S; Pulse Ox 98% on BiPAP; iw 11:55 Pain Scale: Adult vg1 NIH Stroke Scale Scores: 14:40 NIHSS Score: 0 thad ED Course: 12:03 Patient arrived in ED. hb 12:09 Margarito Tom MD is Attending Physician. thad 12:10 Triage completed. vg1 12:10 Arm band placed on. vg1 12:12 Denise Valle, JOHN is Primary Nurse. iw 12:13 Patient has correct armband on for positive identification. Placed in gown. Bed in low vg1 position. Call light in reach. Side rails up X2. Client placed on continuous cardiac and pulse oximetry monitoring. NIBP monitoring applied. 12:19 XRAY Chest (1 view) In Process Unspecified. EDMS 12:25 Initial lab(s) drawn, by me, sent to lab. Maintain EMS IV. Dressing intact. Good blood iw return noted. Site clean \T\ dry. Gauge \T\ site: 18 LAC. 14:00 Urine collected: Medrano catheter specimen. iw 14:41 initiated a transfer with Sid from the [facility] transfer Center at the request of the patient. 14:53 administrative approval given by Sid Cardona Rn/Tc / patient has been accepted to [facility] ER/ Dr. Bobby Pandey has accepted the patient in transfer/ report to be called to [phone]. 16:41 No provider procedures requiring assistance completed. iw 16:52 Patient transferred, IV remains in place. iw Administered Medications: 13:37 Drug: Levalbuterol Inhalation 1.25 mg Route: Inhalation; iw 13:38 Drug: NS 0.9% IV 1000 ml Route: IV; Rate: 75 ml/hr; Site: left antecubital; iw 13:38 Drug: Levalbuterol Inhalation 1.25 mg Route: Inhalation; iw 13:38 Drug: Ipratropium Inhalation Aerosol 0.5 mg Route: Inhalation; iw 13:38 Drug: Famotidine IVP 20 mg Route: IVP; Site: left antecubital; iw 14:09 Drug: Cefepime IVPB 1 grams Route: IVPB; Rate: 200 ml/hr; Infused Over: 30 mins; Site: iw left wrist; 16:42 Follow up: IV Status: Completed infusion iw 16:42 Not Given (Patient Refused): Solu-CORTEF IVP 100 mg IVP once iw 16:42 Drug: Levalbuterol Inhalation 1.25 mg Route: Inhalation; iw Medication: 12:37 VIS not applicable for this client. Outcome: 15:05 ER care complete, transfer ordered by . thad 16:40 Transferred by ground EMS [facility]. Transfer form completed. X-rays sent w/ patient. Note: [facility] 16:40 Condition: stable 16:40 Discharge instructions given to patient, Instructed on the need for transfer, Demonstrated understanding of instructions. 16:53 Patient left the ED. NIH Stroke Scale - NIH Stroke Score Date: 09/23/2022 Time: 14:40 Total Score = 0 10. Dysarthria (speech clarity - read or repeat words) - 0(Normal) 11. Extinction and Inattention (visual/tactile/auditory/spatial/personal) - 0(No abnormality) 1a. Level of Consciousness (LOC) - 0(Alert) 1b. Level of Consciousness (LOC) (Month \T\ Age) - 0(Both) 1c. LOC Commands (Open \T\ Closes Eyes/Higher Level Teaching Assistant) - 0(Both) 2. Best Gaze (Lateral Gaze Paresis) - 0(Normal) 3. Visual Field Loss - 0(No visual loss) 4. Facial Palsy - 0(Normal) 5a. Left Arm: Motor (10-second hold) - 0(No drift) 5b. Right Arm: Motor (10-second hold) - 0(No drift) 6a. Left Leg: Motor (5-second hold - always test supine) - 0(No drift) 6b. Right Leg: Motor (5-second hold - always test supine) - 0(No drift) 7. Limb Ataxia (finger/nose \T\ heel/morrell - test with eyes open) - 0(Absent) 8. Sensory Loss (pinprick arms/legs/face) - 0(Normal) 9. Best Language: Aphasia (description/naming/reading) - 0(No aphasia) Initials: thad Signatures: Dispatcher [employer] EDMargarito Menchaca MD MD cha Williams, Irene, RN RN iw Baxter, Heather, RN RN hb Botello, Elizabeth eb Garcia, Victoria, RN RN vg1 Corrections: (The following items were deleted from the chart) 12:15 12:10 Respiratory: Airway is patent Respiratory effort is shallow, Respiratory vg1 pattern is vg1
[2022-09-23 17:00] VITALS: BP 103/81; O2SAT 98
--- NOTE | 2022-09-25 15:26 | EKG ---
Test Date: 2022-09-23 Test Time: 12:02:42 Duralumin Mechanic: SABI MEASUREMENT RESULTS: Intervals: Rate: 70 WA: QRSD: 186 QT: 464 QTc: 501 [place]: P: WA: QRS: -86 T: 83 INTERPRETIVE STATEMENTS: Ventricular-paced rhythm Abnormal ECG Compared to ECG 09/11/2022 10:54:29 No significant changes Electronically Signed On 09-25-22 15:22:09 CDT by Kp Mitchell
== END 2022-09-23 16:53 ==
LOC: ER 12:00
DX: I95.9 Hypotension, unspecified (principal); R09.02 Hypoxemia; E87.1 Hypo-osmolality and hyponatremia; I50.40 Unspecified combined systolic (congestive) and diastolic (congestive) heart failure; J90 Pleural effusion, not elsewhere classified; N19 Unspecified kidney failure; D64.9 Anemia, unspecified; I51.7 Cardiomegaly; R74.8 Abnormal levels of other serum enzymes; Z95.0 Presence of cardiac pacemaker; Z79.01 Long term (current) use of anticoagulants; E11.9 Type 2 diabetes mellitus without complications; I10 Essential (primary) hypertension
CPT/HCPCS: 93005; 87040 ×2; 85025; 80048; 36415; 86900; 83735; 86850; 85610; 86901; 80076; 83605; 81003; 84484; 83690; 83880; 71045; 82805; 94660; J7614; J7644; J0692; J7030